=== PATIENT | female | born 1945 | race Caucasian/White ===

== ENCOUNTER 2018-04-03 14:34 | Emergency (ER) | payer OTHER ==
--- OUTSIDE RECORDS SUMMARY | 2018-04-03 14:37 | XMS REPORT | Clinical Summary ---
:1945 Author Organization [facility] Address [address] [place] [address] Phone Care Team Providers Name Role Phone Unavailable Primary Care Provider Unavailable Allergies Active Allergy Reactions Severity Noted Date Comments Albuterol 01/04/2015 Pt reports "she cant breathe" Ciprofloxacin 01/04/2015 Legs swell and turn bright red Current Medications Prescription Sig. Disp. Refills Start Date End Date Status rivaroxaban (XARELTO) 10 Take by mouth. Active mg Tab tablet levothyroxine (SYNTHROID, Take 150 mcg by Active LEVOTHROID) 150 MCG mouth daily. tablet omeprazole (PRILOSEC) 20 Take 20 mg by mouth Active MG capsule daily. fluticasone-salmeterol Inhale 1 puff by Active (ADVAIR) 250-50 mcg/dose mouth via inhaler diskus inhaler every 12 (twelve) hours. b complex vitamins tablet Take 1 tablet by Active mouth daily. oxybutynin (DITROPAN-XL) Take 10 mg by mouth Active 10 MG 24 hr tablet daily. montelukast (SINGULAIR) Take 10 mg by mouth Active 10 mg tablet nightly. beclomethasone (QVAR) 40 Inhale 2 puffs by Active mcg/actuation inhaler mouth via inhaler 2 (two) times daily. phenylephrine 1 drop by Nasal Active (OPAL-SYNEPHRINE) 1 % route every 4 nasal spray (four) hours as needed for Congestion. calcium carbonate-vitamin Take 1 tablet by Active D2 500 mg(1,250mg) -200 mouth 2 (two) times unit tablet daily. multivitamin per tablet Take 1 tablet by Active mouth daily. iron, carbonyl 45 mg Tab Take by mouth. Active tablet polycarbophil (FIBERCON) Take 625 mg by Active 625 mg tablet mouth daily. docusate sodium (COLACE) Take 200 mg by Active 100 MG capsule mouth nightly. lactobacillus rhamnosus, Take 1 capsule by Active GG, (CULTURELLE) 10 mouth daily. billion cell capsule levalbuterol (XOPENEX Inhale 1 puff by Active HFA) 45 mcg/actuation mouth via inhaler inhaler every 6 (six) hours as needed for Wheezing. cholecalciferol (VITAMIN Take 1,000 Units by Active D3) 1,000 unit tablet mouth 3 (three) times a week. green tea leaf extract Take 2 capsules by Active (GREEN TEA) 315 mg Cap mouth. Missing or Non-Formulary Take 1 capsule by Active Medication mouth Potassium otc . zinc gluconate 50 mg Take 50 mg by mouth Active tablet daily. omega-3 fatty Take by mouth. Active acids-vitamin E 1,000 mg Cap Active Problems Not on file Encounters Date Type Specialty Care Team Description 05/04/2017 Ancillary Orders Lab Tam Carmen MD 05/04/2017 Outside Orders Central Scheduling Tam Carmen Nasopharynx neoplasm MD Mata (Primary Dx) after 04/02/2017 Family History Relation Name Status Comments Father Mother Social History Tobacco Use Types Packs/Day Years Used Date Former Smoker 1 23 Quit: 08/17/1984 Alcohol Use Drinks/Week oz/Week Comments Yes 1 Glasses of wine 0.6 monthly Sex Assigned at Date Recorded Not on file Last Filed Vital Signs Not on file Plan of Treatment Not on file Results Tissue Exam (05/01/2017 3:09 PM) Component Value Ref Range Case Report Surgical Pathology Report Case: [id number] Authorizing Provider:Tam Carmen MD Collected: 05/01/2017 1509 Ordering Location: [facility] MAIN ADMITTING Received: 05/04/2017 1531 Pathologist: Marine Hawthorne MD Specimen:Nasopharynx/Oropharynx DIAGNOSIS NASOPHARYNX/OROPHARYNX, BIOPSY: - FOLLICULAR LYMPHOID HYPERPLASIA - NEGATIVE FOR MALIGNANCY CC/pl Signing Pathologist Direct Phone Line: [phone] CPT Code(s) 40677 CLINICAL HISTORY Nasopharynx neoplasm benign SPECIMEN SOURCE Nasopharynx tissue GROSS DESCRIPTION The specimen is received in a formalin-filled container labeled with the patient's information and labeled "nasopharynx tissue" and consists of a round excision of lara tissue measuring 0.5 x 0.4 x 0.2 cm, submitted entirely in A1. CG/ew MICROSCOPIC DESCRIPTION Section shows a polypoid nasopharynx/oropharyngeal biopsies with intact squamous epithelium. There is a follicular lymphoid hyperplasia containing reactive germinal centers in the stroma. No malignant lymphoma is seen. Specimen Performing Laboratory Tissue - Nasopharynx/Oropharynx [address] [address] after 04/02/2017
--- OUTSIDE RECORDS SUMMARY | 2018-04-03 14:37 | XMS REPORT ---
:1945 Author Organization eClinicalWorks Care Team Providers Name Role Phone Tam Carmen Provider Role Unavailable Allergies No Known Allergies Problems Problem Type Condition Code Onset Dates Condition Status Problem Chronic rhinitis J31.0 Active Problem Chronic tonsillitis J35.01 Active Problem Sinusitis - Chronic maxillary J32.0 Active Problem Sinusitis - Chronic J32.8 Active Medications Medication Code Code Instructions Start End Status Dosage System Date Date Mometasone [facility] [id number] 50 MCG/ACT December 16, Active 2 sprays Furoate Nasally Once a 2018 in each day nostril Results No Known Results Summary Purpose eClinicalWorks Submission
--- OUTSIDE RECORDS SUMMARY | 2018-04-03 14:37 | XMS REPORT ---
:1945 Author Organization [facility] Address [address] [place] [address] Care Team Providers Name Role Phone Unavailable Unavailable Unavailable Problems This patient has no known problems. Allergies, Adverse Reactions, Alerts This patient has no known allergies or adverse reactions. Medications This patient has no known medications. Results Test Description Test Time Test Comments Text Results Atomic Results Result Comments TISSUE EXAM 2017-05-07 11:51:00 Surgical Pathology Report Case: [id number] Authorizing Provider: Tam Carmen MD Collected: 05/01/2017 1509 Ordering Location: [facility] MAIN ADMITTING Received: 05/04/2017 1531 Pathologist: Marine Hawthorne MD Specimen: Nasopharynx/Oropharynx NASOPHARYNX/OROPHARYNX, BIOPSY: - FOLLICULAR LYMPHOID HYPERPLASIA - NEGATIVE FOR MALIGNANCY CC/pl Signing Pathologist Direct Phone Line: [phone] signed by Marine Hawthorne MD on 05/07/2017 at 11:51 [id number] neoplasm benignNasopharynx tissueThe specimen is received in a formalin-filled container labeled with the patient's information and labeled "nasopharynx tissue" and consists of a round excision of lara tissue measuring 0.5 x 0.4 x 0.2 cm, submitted entirely in A1. CG/ew Section shows a polypoid nasopharynx/oropharyngeal biopsies with intact squamous epithelium. There is a follicular lymphoid hyperplasia containing reactive germinal centers in the stroma. No malignant lymphoma is seen.
--- OUTSIDE RECORDS SUMMARY | 2018-04-03 14:37 | XMS REPORT | Clinical Summary ---
:1945 Author Organization [facility] Address [address] [place] [address] Care Team Providers Name Role Phone Joe Venegas MD Primary Care Provider Allergies Active Allergy Reactions Severity Noted Date Comments Albuterol 12/26/2016 Pt states she cannot breathe Azithromycin Itching 12/26/2016 Ciprofloxacin-Fluocinolone 12/26/2016 Leg swelling Current Medications Prescription Sig. Disp. Refills Start Date End Date Status montelukast Take 10 mg by 3 07/17/2017 Active (SINGULAIR) 10 mg mouth daily. tablet MYRBETRIQ 50 mg Take 50 mg by 11 09/07/2017 Active tablet extended mouth daily. release 24 hr levothyroxine Take 150 mcg 5 08/24/2017 Active (SYNTHROID, LEVOXYL) by mouth 150 mcg tablet daily. olopatadine 0.6 % USE 2 SPRAYS 11 08/28/2017 Active spray,non-aerosol INTO EACH NOSTRIL EVERY MORNING rivaroxaban Take by Active (XARELTO) 10 mg mouth. tablet QVAR 40 INHALE 2 3 09/07/2017 Active mcg/actuation (TWO) PUFF(S) inhaler TWO TIMES DAILY levalbuterol INHALE 2 11 08/19/2017 Active (XOPENEX HFA) 45 PUFFS EVERY mcg/actuation 4-6 HOURS inhaler NEEDED BEVESPI AEROSPHERE Inhale 2 11 09/12/2017 Active 9-4.8 mcg HFA puffs 2 (two) aerosol inhaler times a day. docusate sodium Take 200 mg Active (COLACE) 100 MG by mouth. capsule iron, carbonyl, 45 Take by Active mg tablet mouth. MELATONIN ORAL Take by Active mouth. traMADol (ULTRAM) 50 Take 50 mg by Active mg tablet mouth every 6 (six) hours as needed for moderate pain. BECLOMETHASONE into each Active DIPROPIONATE (QNASL nostril. NASL) diphenhydrAMINE Take 25 mg by Active (BENADRYL) 25 mg mouth nightly tablet as needed for sleep. gabapentin Take three 90 capsule 1 02/26/2018 Active (NEURONTIN) 300 mg capsules by capsule mouth 3 times per day. gabapentin TAKE BY MOUTH 3 09/14/2017 Discontinued (NEURONTIN) 100 mg 1 CAPSULE 3 8 capsule TIMES A DAY FOR 30 DAYS gabapentin Take 2 180 capsule 1 10/29/2017 Discontinued (NEURONTIN) 100 mg capsules by 8 capsule mouth 3 times per day. gabapentin TAKE 2 180 capsule 1 12/29/2017 Discontinued (NEURONTIN) 100 mg CAPSULES BY 8 capsule MOUTH 3 TIMES PER DAY. gabapentin Take three 270 capsule 1 02/24/2018 Discontinued (NEURONTIN) 100 mg capsules by 8 capsule mouth 3 times per day. Active Problems Patient Care Coordination Note Will follow up in my clinic in 3-4 weeks but will call her sooner with results of bronch Blue Auguste MD, [facility] No additional problems on file Encounters Date Type Specialty Care Team Description 03/18/2018 Telephone Otolaryngology Kathleen Mcdowell MA 02/19/2018 Refill Otolaryngology Naomy Fuller MD 02/16/2018 Hospital Encounter Gastroenterology Feng Cobian MD 02/16/2018 Procedure Pass Gastroenterology 02/15/2018 Procedure Pass Gastroenterology 01/18/2018 Orders Only Otolaryngology Jeremias, Laryngeal spasm; CHRISTIAN Wang Shortness of breath; Dysphagia, unspecified type; Choking, initial encounter 01/12/2018 Telephone Otolaryngology Kathleen Mcdowell MA 01/08/2018 Speech & Language Otolaryngology Sofia, Laryngeal spasm ( Primary Dx); Curtis Hopson MS Impaired vocal quality; [facility] Shortness of breath 01/08/2018 Office Visit Otolaryngology Naomy Fuller Cough (Primary Dx); MD Antonio Gastroesophageal reflux disease, esophagitis presence not specified 12/29/2017 Refill Otolaryngology Thekdi, Naomy Laryngeal spasm (Primary Dx ); MD Antonio Shortness of breath; Dysphagia, unspecified type; Choking, initial encounter 12/22/2017 Telephone Otolaryngology Mark Anthony Black MS [facility] 12/21/2017 Speech & Language Otolaryngology [facility], Laryngeal spasm ( Primary Dx); Curtis Hopson MS Impaired vocal quality; [facility] Shortness of breath 11/04/2017 Orders Only Otolaryngology Coretta, Laryngeal spasm (Primary Dx ); CHRISTIAN Gonzalez Shortness of breath 11/02/2017 Speech & Language Otolaryngology [facility], Laryngeal spasm ( Primary Dx); Curtis Hopson MS Impaired vocal quality [facility] 10/29/2017 Telephone Otolaryngology Lisa Hitchcock MA 10/02/2017 Office Visit Otolaryngology Stephaniaac, Naomy Laryngeal spasm ( Primary Dx); MD Antonio Shortness of breath 10/02/2017 Speech & Language Otolaryngology [facility], Impaired vocal quality (Primary Dx); Curtis Hopson MS Cough; [facility] Asthma, unspecified asthma severity, unspecified whether complicated, unspecified whether persistent after 04/02/2017 Family History Medical History Relation Name Comments Heart disease Father Hypertension Father Diabetes Sister Heart disease Sister Hypertension Sister Relation Name Status Comments Father Sister Social History Tobacco Use Types Packs/Day Years Used Date Former Smoker Cigarettes 1.5 30 Smokeless Tobacco: Never Used Sex Assigned at Date Recorded Not on file Last Filed Vital Signs Vital Sign Reading Time Taken Blood Pressure 146/90 10/02/2017 1:40 PM [employer] Pulse 73 10/02/2017 1:40 PM [employer] Temperature - - Respiratory Rate - - Oxygen Saturation - - Inhaled Oxygen Concentration - - Weight 104 kg (230 lb) 10/02/2017 1:40 PM [employer] Height 170.2 cm (5' 7") 10/02/2017 1:40 PM [employer] Body Mass Index 36.02 10/02/2017 1:40 PM [employer] Plan of Treatment Health Maintenance Due Date Last Done Comments BREAST CANCER SCREENING 10/26/1997 COLON CANCER SCREENING 10/26/1997 SHINGRIX VACCINE (#1) 10/26/1997 ZOSTER VACCINE 2007 PNEUMOCOCCAL-13 10/26/2012 INFLUENZA VACCINE 03/17/2018 04/21/2014, 04/21/2014, 06/25/2012, Additional history exists PNEUMOCOCCAL POLYSACCHARIDE VACCINE Completed 05/29/2017, 05/29/2017, AGE 65 AND OVER 06/11/2010 Results Not on fileafter 04/02/2017 Insurance Payer Benefit Plan / Group Subscriber ID Type Phone Address MEDICARE MEDICARE PART A AND B xxxxxxxxxx Medicare [place], [place] AETNA AETNA HMO,POS,EPO, MC/EC xxxxxxxxx HMO Home: [address] [phone] [place], [place] [id number]
--- OUTSIDE RECORDS SUMMARY | 2018-04-03 14:37 | XMS REPORT ---
:1945 Author Organization eClinicalWorks Care Team Providers Name Role Phone Tam Carmen Provider Role Unavailable Allergies No Known Allergies Problems Problem Type Condition Code Onset Dates Condition Status Problem Chronic rhinitis J31.0 Active Problem Chronic tonsillitis J35.01 Active Problem Sinusitis - Chronic maxillary J32.0 Active Problem Sinusitis - Chronic J32.8 Active Medications Medication Code System Code Instructions Start End Date Status Dosage Date Bactrim DS [facility] [id number] 800-160 MG Orally January 13, January 23, Active 1 tablet Twice a day 2017 2017 PredniSONE [facility] [id number] 10 MG Orally then January 13January 23, Active 1 tablet QD x 5 days 2017 2017 BID x 5 days Results No Known Results Summary Purpose eClinicalWorks Submission
[2018-04-03 15:34] LABS: Absolute Monocytes 0.5 K/uL (0.1-1.3); Absolute Neutrophil 4.8 K/uL (1.8-8.0); Basophils % 0.5 % (0-1.3); Eosinophils % 2.5 % (0-4.4); Hematocrit 39.8 % (36.0-45.0); MCH 30.9 pg (27.0-35.0); MCV 93.3 fL (80-100); MPV 8.3 fL (7.6-11.3); Monocytes % 6.8 % (3.3-12.3); RBC Red Blood Cell Count 4.26 M/uL (3.86-4.86)
[2018-04-03 15:43] LABS: Potassium 3.9 mmol/L (3.5-5.1)
--- NOTE | 2018-04-03 16:20 | RAD REPORT ---
EXAM DESCRIPTION: CT - Soft Tissue Neck W/Contr - 04/03/2018 4:04 pm CLINICAL HISTORY: Neck pain and neck swelling COMPARISON: None. TECHNIQUE: Computed axial tomography of the neck was obtained. 50 cc Isovue-300 administered intrave nously. Coronal and sagittal reconstruction was performed All CT scans are performed using dose optimization technique as appropriate and may include automated exposure control or mA/KV adjustment according to patient size. FINDINGS: The pharynx, larynx, tongue base and subglottic trachea appear unremarkable. The parotid, submandibular thyroid glands appear normal. No no lymphadenopathy is seen. Fluid is present within the left maxillary sinus. Spondylosis involves the cervical spine resulting in foraminal stenosis. IMPRESSION: Fluid within the left maxillary sinus likely indicating acute sinusitis
--- NOTE | 2018-04-03 16:48 | EDPHYS ---
Physician Documentation [facility] Name: Ashley Reyes Age: 72 yrs Sex: Female : 1945 Arrival Date: 04/03/2018 Time: 14:37 Bed 24 Private MD: Jonatan Venegas C ED Physician Nate Nickerson HPI: 04/03 16:37 This 72 yrs old Female presents to ER via Ambulatory with complaints of gs Facial Swelling, Neck Problem. 16:37 The patient or guardian complains of swelling. The symptoms are located on the right gs jaw. Onset: The symptoms/episode began/occurred yesterday, and became persistent. Associated signs and symptoms: Pertinent positives: sinus pressure. Severity of symptoms: At their worst the symptoms were moderate, in the emergency department the symptoms are unchanged. The patient has not experienced similar symptoms in the past. Historical: - Allergies: 14:45 Albuterol; aj 14:45 Azithromycin; aj 14:45 Cipro; aj - Home Meds: 14:45 Calcium 600 + D(3) 600 mg calcium- 200 unit Oral cap daily [Active]; green tea twice a aj day [Active]; levothyroxine 125 mcg tab 1 tab once daily [Active]; multivitamin Oral cap [Active]; Myrbetriq 50 mg Oral Tb24 1 tab once daily [Active]; olopatadine 0.6 % nasal spry 2 sprays 2 times per day [Active]; topher probiotic [Active]; Perdiem Oral nightly [Active]; Prevacid 15 mg Oral cpDR 1 cap once daily [Active]; QNasl 80 mcg 1 spray to each nostril twice a day [Active]; Slow Fe Oral daily [Active]; Xarelto 40 mg Oral tab 1 tab once daily [Active]; Xopenex Inhl [Active]; - PMHx: 14:45 Asthma; Atrial Fib; Hypothyroidism; aj - PSHx: 14:45 Tonsillectomy; Cholecystectomy; Carpal Tunnel Repair; LAMINECTOMY L1 L2; aj FUNDOPLICATION; TOTAL KNEE REPLACEMENTS; Adenoids; ETHMOIDECTOMY; - Immunization history:: Adult Immunizations up to date. - Social history:: Smoking status: Patient/guardian denies using tobacco. - Ebola Screening: : Patient negative for fever greater than or equal to 101.5 degrees Fahrenheit, and additional compatible Ebola Virus Disease symptoms Patient denies exposure to infectious person Patient denies travel to an Ebola-affected area in the 21 days before illness onset No symptoms or risks identified at this time. ROS: 16:37 All other systems are negative. gs Exam: 16:37 Head/Face: Normocephalic, atraumatic. Eyes: Pupils equal round and reactive to light, gs extra-ocular motions intact. Lids and lashes normal. Conjunctiva and sclera are non-icteric and not injected. Cornea within normal limits. Periorbital areas with no swelling, redness, or edema. Chest/axilla: Normal chest wall appearance and motion. Nontender with no deformity. No lesions are appreciated. Cardiovascular: Regular rate and rhythm with a normal S1 and S2. No gallops, murmurs, or rubs. Normal PMI, no JVD. No pulse deficits. Respiratory: Lungs have equal breath sounds bilaterally, clear to auscultation and percussion. No rales, rhonchi or wheezes noted. No increased work of breathing, no retractions or nasal flaring. Abdomen/GI: Soft, non-tender, with normal bowel sounds. No distension or tympany. No guarding or rebound. No evidence of tenderness throughout. Back: No spinal tenderness. No costovertebral tenderness. Full range of motion. Skin: Warm, dry with normal turgor. Normal color with no rashes, no lesions, and no evidence of cellulitis. MS/ Extremity: Pulses equal, no cyanosis. Neurovascular intact. Full, normal range of motion. Neuro: Awake and alert, GCS 15, oriented to person, place, time, and situation. Cranial nerves II-XII grossly intact. Motor strength 5/5 in all extremities. Sensory grossly intact. Cerebellar exam normal. Normal gait. 16:37 Constitutional: The patient appears alert, awake. 16:37 Head/face: Sinus tenderness, that is mild. 16:37 ENT: Ear canal(s): are normal, Posterior pharynx: is normal. 16:37 Neck: External neck: swelling, that is mild, of the right sternocleidomastoid, tenderness, that is mild, of the right sternocleidomastoid. Vital Signs: 14:45 BP 159 / 82; Pulse 82; Resp 16; Temp 97.9; Pulse Ox 97% on R/A; Weight 104.33 kg; aj Height 5 ft. 7 in. (170.18 cm); 15:40 BP 121 / 74; Pulse 88; Resp 18; Pulse Ox 98% on R/A; Pain 5/10; mg2 16:57 BP 122 / 78; Pulse 80; Resp 18; Pulse Ox 100% on R/A; Pain 0/10; mg2 14:45 Body Mass Index 36.02 (104.33 kg, 170.18 cm) aj MDM: 15:09 Patient medically screened. 16:37 Differential diagnosis: mass, uri, sinusitis, lymphadenopathy. Data reviewed: vital gs signs, nurses notes. Response to treatment: the patient's symptoms have mildly improved after treatment, and as a result, I will discharge patient. 04/03 15:10 Order name: CBC with Diff; Complete Time: 16:13 04/03 15:10 Order name: Basic Metabolic Panel; Complete Time: 16:13 04/03 15:10 Order name: CT Soft Tissue Neck W/contr; Complete Time: 16:30 Administered Medications: No medications were administered Disposition: 04/03/18 16:48 Discharged to Home. Impression: Acute maxillary sinusitis, Acute lymphadenitis. - Condition is Stable. - Discharge Instructions: Sinusitis, Adult, Lymphangitis, Adult. - Prescriptions for Flonase Allergy Relief 50 mcg/actuation Nasal spray,suspension - inhale 2 spray by INTRANASAL route once daily; 1 bottle. Ceftin 250 mg Oral Tablet - take 1 tablet by ORAL route every 12 hours for 10 days; 20 tablet. - Medication Reconciliation Form, Thank You Letter, Antibiotic Education, Prescription Opioid Use form. - Follow up: Sandi Caraballo MD; When: 2 - 3 days; Reason: Re-evaluation by your physician. Signatures: Dispatcher [employer] Sharee Perez RN RN aj Starr, Gregory, MD MD Steve Blanchard RN RN mg2 Corrections: (The following items were deleted from the chart) 16:58 16:48 04/03/2018 16:48 Discharged to Home. Impression: Acute maxillary sinusitis; Acute mg2 lymphadenitis. Condition is Stable. Forms are Medication Reconciliation Form, Thank You Letter, Antibiotic Education, Prescription Opioid Use. Follow up: Sandi Caraballo; When: 2 - 3 days; Reason: Re-evaluation by your physician. gs
--- NOTE | 2018-04-03 16:48 | ER ---
Nurse's Notes [facility] Name: Ashley Reyes Age: 72 yrs Sex: Female : 1945 Arrival Date: 04/03/2018 Time: 14:37 Bed 24 Private MD: Jonatan Venegas C Diagnosis: Acute maxillary sinusitis;Acute lymphadenitis Presentation: 04/03 14:43 Presenting complaint: Patient states: Right neck pain since , with swelling to aj right side of face that started today. Patient reports pain with turning head to right. Transition of care: patient was not received from another setting of care. Onset of symptoms was March 31, 2018. Risk Assessment: Do you want to hurt yourself or someone else? Patient reports no desire to harm self or others. Initial Sepsis Screen: Does the patient meet any 2 criteria? No. Patient's initial sepsis screen is negative. Does the patient have a suspected source of infection? No. Patient's initial sepsis screen is negative. Care prior to arrival: None. 14:43 Method Of Arrival: Ambulatory 14:43 Acuity: ARLINE 3 aj Triage Assessment: 14:45 General: Appears in no apparent distress. comfortable, Behavior is calm, cooperative, aj appropriate for age. Pain: Complains of pain in right sternocleidomastoid. EENT: swelling to right lower jaw. Neuro: Level of Consciousness is awake, alert, obeys commands, Oriented to person, place, time, situation, Appropriate for age. Respiratory: Airway is patent Respiratory effort is even, unlabored, Respiratory pattern is regular, symmetrical. Derm: Skin is intact, is healthy with good turgor, Skin is pink, warm \T\ dry. normal. Historical: - Allergies: 14:45 Albuterol; aj 14:45 Azithromycin; aj 14:45 Cipro; aj - Home Meds: 14:45 Calcium 600 + D(3) 600 mg calcium- 200 unit Oral cap daily [Active]; green tea twice a aj day [Active]; levothyroxine 125 mcg tab 1 tab once daily [Active]; multivitamin Oral cap [Active]; Myrbetriq 50 mg Oral Tb24 1 tab once daily [Active]; olopatadine 0.6 % nasal spry 2 sprays 2 times per day [Active]; topher probiotic [Active]; Perdiem Oral nightly [Active]; Prevacid 15 mg Oral cpDR 1 cap once daily [Active]; QNasl 80 mcg 1 spray to each nostril twice a day [Active]; Slow Fe Oral daily [Active]; Xarelto 40 mg Oral tab 1 tab once daily [Active]; Xopenex Inhl [Active]; - PMHx: 14:45 Asthma; Atrial Fib; Hypothyroidism; aj - PSHx: 14:45 Tonsillectomy; Cholecystectomy; Carpal Tunnel Repair; LAMINECTOMY L1 L2; aj FUNDOPLICATION; TOTAL KNEE REPLACEMENTS; Adenoids; ETHMOIDECTOMY; - Immunization history:: Adult Immunizations up to date. - Social history:: Smoking status: Patient/guardian denies using tobacco. - Ebola Screening: : Patient negative for fever greater than or equal to 101.5 degrees Fahrenheit, and additional compatible Ebola Virus Disease symptoms Patient denies exposure to infectious person Patient denies travel to an Ebola-affected area in the 21 days before illness onset No symptoms or risks identified at this time. Screenin:34 Abuse screen: Denies threats or abuse. Denies injuries from another. Nutritional mg2 screening: No deficits noted. Tuberculosis screening: No symptoms or risk factors identified. Fall Risk None identified. Assessment: 15:37 General: Appears comfortable, Behavior is calm, cooperative. Pain: Complains of pain in mg2 neck and right sternocleidomastoid Pain does not radiate. Pain currently is 5 out of 10 on a pain scale. Quality of pain is described as aching, Pain began 2-3 days ago. Is intermittent, Alleviated by rest. Neuro: Level of Consciousness is awake, alert, obeys commands, Oriented to person, place, time, situation. Cardiovascular: Capillary refill < 3 seconds Patient's skin is warm and dry. Respiratory: Airway is patent Respiratory effort is even, unlabored, Respiratory pattern is regular, symmetrical. GI: No signs and/or symptoms were reported involving the gastrointestinal system. : No signs and/or symptoms were reported regarding the genitourinary system. EENT: No signs and/or symptoms were reported regarding the EENT system. Derm: Skin is intact, Skin is pink, warm \T\ dry. normal. Musculoskeletal: Reports pain in neck since . Vital Signs: 14:45 BP 159 / 82; Pulse 82; Resp 16; Temp 97.9; Pulse Ox 97% on R/A; Weight 104.33 kg; aj Height 5 ft. 7 in. (170.18 cm); 15:40 BP 121 / 74; Pulse 88; Resp 18; Pulse Ox 98% on R/A; Pain 5/10; mg2 16:57 BP 122 / 78; Pulse 80; Resp 18; Pulse Ox 100% on R/A; Pain 0/10; mg2 14:45 Body Mass Index 36.02 (104.33 kg, 170.18 cm) ED Course: 14:37 Patient arrived in ED. mr 14:38 Jonatan Venegas MD is Private Physician. mr 14:44 Triage completed. aj 14:45 Arm band placed on right wrist. Patient placed in an exam room, on a stretcher. aj 14:53 Steve Blanchard RN is Primary Nurse. mg2 15:02 Nate Nickerson MD is Attending Physician. gs 15:22 Inserted saline lock: 20 gauge in right antecubital area, using aseptic technique. mg2 Blood collected. 15:39 Patient has correct armband on for positive identification. Call light in reach. Side mg2 rails up X 1. Door closed. Pillow given. 16:02 CT completed. Patient tolerated procedure well. Patient moved back from CT. bq 16:03 CT Soft Tissue Neck W/contr In Process Unspecified. EDPA 16:46 Sandi Caraballo MD is Referral Physician. 16:57 CT completed. Patient tolerated procedure well. Patient moved back from CT. bq 16:57 No provider procedures requiring assistance completed. IV discontinued, intact, mg2 bleeding controlled, No redness/swelling at site. Pressure dressing applied. Administered Medications: No medications were administered Outcome: 16:48 Discharge ordered by . 16:57 Discharged to home ambulatory. mg2 16:57 Condition: stable 16:57 Discharge instructions given to patient, Instructed on discharge instructions, follow up and referral plans. medication usage, Demonstrated understanding of instructions, follow-up care, medications, Prescriptions given X 2. 16:58 Patient left the ED. mg2 Signatures: Dispatcher [employer] EDMS Sharee York RN RN aj Rivera, Maria Maddie Londono Nate Nickerson MD MD Steve Blanchard RN RN mg2
[2018-04-03 17:06] VITALS: TEMP 97.9
[2018-04-03 17:09] VITALS: BP 122/78; O2SAT 100
== END 2018-04-03 16:58 | disposition home or self-care (01) ==
LOC: ER 14:34
DX: J01.00 Acute maxillary sinusitis, unspecified (principal); L04.9 Acute lymphadenitis, unspecified; Z88.1 Allergy status to other antibiotic agents; Z88.8 Allergy status to other drugs, medicaments and biological substances; E03.9 Hypothyroidism, unspecified; I48.91 Unspecified atrial fibrillation; Z79.01 Long term (current) use of anticoagulants
CPT/HCPCS: 36415; 70491; 80048; 85025; Q9967; 99284

== ENCOUNTER 2018-10-17 16:48 | Inpatient (IN) | payer OTHER ==
--- OUTSIDE RECORDS SUMMARY | 2018-10-17 16:50 | XMS REPORT | Clinical Summary ---
:1945 Author Organization [facility] Address [address] [place] [address] Care Team Providers Name Role Phone Joe Venegas MD Primary Care Provider Allergies Active Allergy Reactions Severity Noted Date Comments Albuterol 12/26/2016 Pt states she cannot breathe Azithromycin Itching 12/26/2016 Ciprofloxacin-Fluocinol 12/26/2016 Leg swelling one Codeine hallucination Ipratropium-Albuterol Other (See Comments) Milk Containing Other (See Medium 06/14/2018 cough Products Comments) Medications Medication Sig Dispensed Refills Start Date End Date Status montelukast [...] INTO EACH NOSTRIL EVERY MORNING rivaroxaban Take 20 mg by 0 Active (XARELTO) 10 mg mouth. tablet QVAR 40 INHALE 2 (TWO) 3 09/07/2017 Active mcg/actuation PUFF(S) TWO inhaler TIMES DAILY levalbuterol INHALE 2 PUFFS 11 08/19/2017 Active (XOPENEX HFA) 45 EVERY 4-6 mcg/actuation HOURS inhaler NEEDED BEVESPI AEROSPHERE Inhale 2 puffs 11 09/12/2017 Active 9-4.8 mcg HFA 2 (two) times aerosol inhaler a day. docusate sodium Take 200 mg by 0 Active (COLACE) 100 MG mouth. capsule iron, carbonyl, 45 Take by mouth. 0 Active mg tablet MELATONIN ORAL Take by mouth. 0 Active traMADol (ULTRAM) 50 Take 50 mg by 0 Active mg tablet mouth every 6 (six) hours as needed for moderate pain. BECLOMETHASONE into each 0 Active DIPROPIONATE (QNASL nostril. NASL) diphenhydrAMINE Take 25 mg by 0 Active (BENADRYL) 25 mg mouth nightly tablet as needed for sleep. gabapentin TAKE ONE 90 capsule 2 04/27/2018 Active (NEURONTIN) 300 mg CAPSULE BY capsule MOUTH 3 TIMES A DAY sennosides 15 mg Take 2 tablets 0 Active tablet by mouth nightly. multivitamin with Take by mouth. 0 Active iron (ONE DAILY MULTI-VIT W-MINERAL) tablet L. Take by mouth. 0 Active acidophilus/Bifido longum (PROBIOTIC PEARLS ORAL) inulin 1.5 gram Chew 2 0 Active tablet,chewable capsules. calcium Take by mouth. 0 Active carbonate-vitamin D3 600-125 mg-unit tablet clobetasol APPLY TWICE A 0 07/22/2018 Active (TEMOVATE) 0.05 % DAY TO cream AFFECTED AREAS LOWER BACK X2 WEEK NEEDED FLARE fluocinonide (LIDEX) APPLY TWICE A 0 05/27/2018 Active 0.05 % external DAY TO solution AFFECTED AREAS ON SCALP FOR 2 WEEKS MAX NEEDED FOR FLARE cranberry 400 mg Take by mouth. 0 Active capsule cyanocobalamin, Place under 0 Active vitamin B-12, 5,000 the tongue. mcg tablet, sublingual hyoscyamine (LEVSIN) PLACE 1 TABLET 3 07/16/2018 Active 0.125 mg SL tablet UNDER THE TONGUE ROUTE 4 TIMES EVERY DAY NEEDED FOR ABDOMINAL CRAMPS guaiFENesin Take 1,200 mg 0 Active (MUCINEX) 600 mg by mouth. tablet extended release 12hr loratadine 10 mg Take by mouth. 0 Active capsule mometasone (NASONEX) 2 sprays into 0 Active 50 mcg/actuation each nostril. nasal spray naftifine 2 % cream APPLY 2 TIMES 2 05/26/2018 Active A DAY TO FEET UNTIL CLEAR omeprazole Take 40 mg by 0 Active (PriLOSEC) 40 MG mouth. capsule ospemifene (OSPHENA) Take 1 tablet 0 Active 60 mg tablet by mouth. valerian root 450 mg Take 4 0 Active capsule capsules by mouth. beclomethasone Inhale 2 0 Active (QVAR) 40 puffs. mcg/actuation inhaler gabapentin TAKE BY MOUTH 3 09/14/2017 10/30/19 Discontinued (NEURONTIN) 100 mg 1 CAPSULE 3 18 capsule TIMES A DAY FOR 30 DAYS gabapentin Take 2 180 capsule 1 10/29/2017 12/30/19 Discontinued (NEURONTIN) 100 mg capsules by 18 capsule mouth 3 times per day. gabapentin TAKE 2 180 capsule 1 12/29/2017 02/20/20 Discontinued (NEURONTIN) 100 mg CAPSULES BY 18 capsule MOUTH 3 TIMES PER DAY. gabapentin Take three 270 capsule 1 02/24/2018 02/27/20 Discontinued (NEURONTIN) 100 mg capsules by 18 capsule mouth 3 times per day. gabapentin Take three 90 capsule 1 02/26/2018 04/22/20 Discontinued (NEURONTIN) 300 mg capsules by 18 capsule mouth 3 times per day. Active Problems Patient Care Coordination Note Will follow up in my clinic in 3-4 weeks but will call her sooner with results of bronch Blue Auguste MD, [facility], [facility] No additional problems on file Encounters Date Type Specialty Care Team Description 10/12/2018 Telephone Gastroenterology Laurie Forrest MA 10/05/2018 Telephone Gastroenterology Laurie Forrest MA 09/02/2018 Telephone GastroenterConrad Banda MA 09/02/2018 Telephone GastroenterLaurie Castaneda MA 08/30/2018 Office Visit Gastroenterology Feng Cobian Pain of upper abdomen (Primary Dx); MD Antonio Gastroesophageal reflux disease without esophagitis; Incisional hernia, without obstruction or gangrene; Constipation, unspecified constipation type 08/30/2018 Telephone GastroenterConrad Banda MA 08/27/2018 Telephone GastroenterConrad Banda MA 06/15/2018 [facility] Pulmonology Blue Auguste MD 04/22/2018 Refill Otolaryngology Naomy Fuller MD 03/18/2018 Telephone Otolaryngology Kathleen Mcdowell MA 02/19/2018 Refill Otolaryngology Naomy Fuller MD 02/16/2018 [facility] Gastroenterology Feng Cobian Encounter MD Antonio 01/18/2018 Orders Only Otolaryngology Kathleen Mcdowell, Laryngeal spasm; CHRISTIAN Shortness of breath; Dysphagia, unspecified type; Choking, initial encounter 01/12/2018 Telephone Otolaryngology Kathleen Mcdowell MA 01/08/2018 Speech & Language Otolaryngology Mark Anthony Black, Laryngeal spasm (Primary Dx); Curtis SEE [employer]-TUBE OPERATOR Impaired vocal quality; Shortness of breath 01/08/2018 Office Visit Otolaryngology Naomy Fuller Cough (Primary Dx); MD Antonio Gastroesophageal reflux disease, esophagitis presence not specified 12/29/2017 Refill Otolaryngology Naomy Fuller Laryngeal spasm (Primary Dx ); MD Antonio Shortness of breath; Dysphagia, unspecified type; Choking, initial encounter 12/22/2017 Telephone Otolaryngology Mark Anthony Black MS CCC-TUBE OPERATOR 12/21/2017 Speech & Language Otolaryngology Mark Anthony Black, Laryngeal spasm (Primary Dx); Curtis SEE CCC-TUBE OPERATOR Impaired vocal quality; Shortness of breath 11/04/2017 Orders Only Otolaryngology Lisa Hitchcock, Laryngeal spasm ( Primary Dx); CHRISTIAN Shortness of breath 11/02/2017 Speech & Language Otolaryngology Mark Anthony Black, Laryngeal spasm (Primary Dx); Curtis MS CCC-TUBE OPERATOR Impaired vocal quality 10/29/2017 Telephone Otolaryngology Lisa Hitchcock MA after 10/16/2017 Family History Medical History Relation Name Comments Heart disease Father Hypertension Father Diabetes Sister Heart disease Sister Hypertension Sister Relation Name Status Comments Father Sister Social History Tobacco Use Types Packs/Day Years Used Date Former Smoker Cigarettes 1.5 30 Smokeless Tobacco: Never Used Alcohol Use Drinks/Week oz/Week Comments Yes 1-2 Glasses of wine 0.6 - 1.2 occasionally Alcohol Habits Answer Date Recorded How often do you have a drink containing alcohol? Never 08/30/2018 How many drinks containing alcohol do you have on a typical Not asked day when you are drinking? How often do you have six or more drinks on one occasion? Not asked Sex Assigned at Date Recorded Not on file Job Start Date Occupation Industry Not on file Not on file Not on file Travel History Travel Start Travel End No recent travel history available. Last Filed Vital Signs Vital Sign Reading Time Taken Blood Pressure 148/83 08/30/2018 12:17 PM [employer] Pulse 80 08/30/2018 12:17 PM [employer] Temperature 36.4 C (97.5 F) 08/30/2018 12:17 PM [employer] Respiratory Rate - - Oxygen Saturation - - Inhaled Oxygen Concentration - - Weight 105 kg (232 lb 3.2 oz) 08/30/2018 12:17 PM [employer]ER Height 170.2 cm (5' 7") 08/30/2018 12:17 PM WARE DRESSER Body Mass Index 36.37 08/30/2018 12:17 PM [employer]ARE DR[employer]ER Plan of Treatment Date Type Specialty Care Team Description 10/22/2018 Hospital Encounter Gastroenterology Feng Cobian MD [address] [facility] [address] [place] [address] [phone] 10/22/2018 Surgery Gastroenterology Feng Cobian ESOPHAGEAL MANOMETRY MD Antonio WITH SCHAEFER [address] [facility] [address] [place] [address] [phone] 10/25/2018 Surgery Gastroenterology Feng Cobian ESOPHAGEAL MANOMETRY MD Antonio WITH SCHAEFER 48 HOUR [address] [facility] [address] [place] [address] [phone] Health Maintenance Due Date Last Done Comments BREAST CANCER SCREENING 10/26/1997 COLON CANCER SCREENING 10/26/1997 SHINGLES VACCINES (#1) 10/26/1997 INFLUENZA VACCINE 03/17/2018 04/21/2014, 04/21/2014, 06/25/2012, Additional history exists 65+ PNEUMOCOCCAL VACCINE Completed 05/29/2017, 06/11/2010 PNEUMOCOCCAL POLYSACCHARIDE VACCINE Completed 05/29/2017, 05/29/2017, AGE 65 AND OVER 06/11/2010 Procedures Procedure Name Priority Date/Time Associated Comments Diagnosis HELICOBACTER PYLORI Routine 09/01/2018 1:48 Pain of upper Results for this ANTIGEN, STOOL PM WARE DRESSER abdomen procedure are in the results section. LIPASE LEVEL Routine 09/01/2018 11:53 Pain of upper Results for this AM [employer] abdomen procedure are in the results section. AMYLASE LEVEL Routine 09/01/2018 11:53 Pain of upper Results for this AM [employer] abdomen procedure are in the results section. CBC HEMOGRAM Routine 09/01/2018 11:53 Pain of upper Results for this AM [employer] abdomen procedure are in the results section. after 10/16/2017 Results Helicobacter pylori antigen, stool (09/01/2018 1:48 PM WARE DRESSER) H pylori Ag, stool Negative Negative [facility] Specimen Stool Narrative Performed At Performed at: [facility] [address] [place], [place] [id number] Mixer Attendant: Buddy Villalobos MD, Phone:[phone] Performing Organization Address [facility] Phone Number [facility] CBC hemogram (09/01/2018 11:53 AM WARE DRESSER) WBC 8.7 3.4 - 10.8 x10E3/uL [facility] RBC 4.04 3.77 - 5.28 x10E6/uL [facility] HGB 12.3 11.1 - 15.9 g/dL [facility] HCT 38.2 34.0 - 46.6 % [facility] MCV 95 79 - 97 fL [facility] MCH 30.4 26.6 - 33.0 pg [facility] MCHC 32.2 31.5 - 35.7 g/dL [facility] RDW 13.6 12.3 - 15.4 % [facility] Platelet count 338 150 - 379 x10E3/uL [facility] Specimen Blood Narrative Performed At Performed at: [facility] [address] [place], [place] [id number] Mixer Attendant: Kranthi Campos MD, Phone:[phone] Performing Organization Address [facility] Phone Number [facility] Lipase level (09/01/2018 11:53 AM WARE DRESSER) Lipase 25 14 - 72 U/L [facility] Specimen Blood Narrative Performed At Performed at: [facility] [address] [place], [place] [id number] Mixer Attendant: Kranthi Campos MD, Phone:[phone] Performing Organization Address [facility] Phone Number [facility] Amylase level (09/01/2018 11:53 AM WARE DRESSER) Amylase 59 31 - 124 U/L [facility] Specimen Blood Narrative Performed At Performed at:01 - [facility] [address] [place], [id number] Mixer Attendant: Kranthi Campos MD, Phone:[phone] Performing Organization Address City/State/Zipcode Phone Number [facility] after 10/16/2017 Insurance Payer Benefit Plan / Group Subscriber ID Type Phone Address MEDICARE MEDICARE PART A AND B xxxxxxxxxxx Medicare [place], [place] AETNA AETNA HMO,POS,EPO, MC/EC xxxxxxxxx HMO Advance Directives Patient has advance care planning documents on file. For more information, please contact:Martin Tabares[address] [place] [address]
--- OUTSIDE RECORDS SUMMARY | 2018-10-17 16:51 | XMS REPORT | Clinical Summary ---
:1945 Author Organization [facility] Address [address] [place] [address] Care Team Providers Name Role Phone Joe Venegas MD Primary Care Provider Allergies Active Allergy Reactions Severity Noted Date Comments Albuterol High 01/04/2015 Pt reports "she cant breathe" Azithromycin Itching Low 12/26/2016 Ciprofloxacin Low 01/04/2015 Legs swell and turn bright red Milk Containing Products Other (See Comments) Medium 06/14/2018 cough Medications Medication Sig Dispensed Refills Start Date End Date Status levothyroxine Take 150 mcg 0 Active (SYNTHROID, by mouth LEVOTHROID) 150 MCG daily. tablet fluticasone-salmetero Inhale 1 puff 0 Active l (ADVAIR) 250-50 by mouth via mcg/dose diskus inhaler every inhaler 12 (twelve) hours. b complex vitamins Take 1 tablet 0 Active tablet by mouth daily. montelukast Take 10 mg by 0 Active (SINGULAIR) 10 mg mouth daily . tablet beclomethasone (QVAR) Inhale 2 puffs 0 Active 40 mcg/actuation by mouth via inhaler inhaler 2 (two) times daily. phenylephrine 1 drop by 0 Active (OPAL-SYNEPHRINE) 1 % Nasal route nasal spray every 4 (four) hours as needed for Congestion. multivitamin per Take 1 tablet 0 Active tablet by mouth daily. iron, carbonyl 45 mg Take 2 tablets 0 Active Tab tablet by mouth nightly . polycarbophil Take 625 mg by 0 Active (FIBERCON) 625 mg mouth daily. tablet docusate sodium Take 200 mg by 0 Active (COLACE) 100 MG mouth nightly. capsule lactobacillus Take 1 capsule 0 Active rhamnosus, GG, by mouth (CULTURELLE) 10 daily. billion cell capsule cholecalciferol Take 1,000 0 Active (VITAMIN D3) 1,000 Units by mouth unit tablet 3 (three) times a week. zinc gluconate 50 mg Take 50 mg by 0 Active tablet mouth daily. omega-3 fatty Take by mouth. 0 Active acids-vitamin E 1,000 mg Cap guaiFENesin (MUCINEX) Take 1,200 mg 0 Active 600 mg 12 hr tablet by mouth 2 (two) times daily. mirabegron Take by mouth 0 Active (MYRBETRIQ) 50 mg daily. Tb24 ER tablet gabapentin Take 300 mg by 0 Active (NEURONTIN) 300 MG mouth 3 capsule (three) times daily. ospemifene (OSPHENA) Take 1 tablet 0 Active 60 mg Tab by mouth daily. rivaroxaban (XARELTO) Take 20 mg by 0 Active 20 mg Tab tablet mouth daily. omeprazole (PRILOSEC) Take 40 mg by 0 Active 40 MG capsule mouth daily. cranberry 400 mg Cap Take by mouth 0 Active daily. calcium Take by mouth 0 Active carbonate-vitamin D3 2 (two) times (CALCIUM 600 + D,3,) daily. 600-125 mg-unit Tab L. acidophilus/Bifido Take by mouth 0 Active longum (PROBIOTIC daily. PEARLS ORAL) loratadine 10 mg Cap Take by mouth 0 Active daily. mometasone (NASONEX) 2 sprays by 0 Active 50 mcg/actuation Nasal route nasal spray daily. Missing or 9 mcg 2 (two) 0 Active Non-Formulary times daily Medication BeVespie inhaler . valerian root 450 mg Take 4 0 Active Cap capsules by mouth nightly. inulin (FIBER GUMMIES Take 2 0 Active ORAL) capsules by mouth nightly. cephalexin (KEFLEX) Take 500 mg by 0 Active 500 MG capsule mouth 2 (two) times daily. hyoscyamine Take 0.125 mg 0 Active (ANASPAZ,LEVSIN) by mouth every 0.125 mg tablet 4 (four) hours as needed for Cramping. Missing or . 0 Active Non-Formulary MedicationIndications : OlapaTADINE hcL 665 MCG, 2 SNIFFS EVERY AM rivaroxaban (XARELTO) Take by mouth. 0 Discontinued 10 mg Tab tablet 8 omeprazole (PRILOSEC) Take 20 mg by 0 Discontinued 20 MG capsule mouth daily. 8 oxybutynin Take 10 mg by 0 Discontinued (DITROPAN-XL) 10 MG mouth daily. 8 24 hr tablet calcium Take 1 tablet 0 Discontinued carbonate-vitamin D2 by mouth 2 8 500 mg(1,250mg) -200 (two) times unit tablet daily. levalbuterol (XOPENEX Inhale 1 puff 0 Discontinued HFA) 45 mcg/actuation by mouth via 8 inhaler inhaler every 6 (six) hours as needed for Wheezing. green tea leaf Take 2 0 Discontinued extract (GREEN TEA) capsules by 8 315 mg Cap mouth. Missing or Take 1 capsule 0 Discontinued Non-Formulary by mouth 8 Medication Potassium otc . Active Problems Not on file Encounters Date Type Specialty Care Team Description 06/30/2018 Hospital Encounter Radiology Tam Carmen, Localized enlarged lymph nodes; Malignant tumor of lingual tonsil (HCC) 06/28/2018 Outside Orders Central Scheduling Tam Carmen, Localized enlarged lymph nodes (Primary Dx); Malignant tumor of lingual tonsil (HCC) 06/18/2018 Anesthesia Event Bianca Pimentel MD 06/18/2018 Surgery Tam Carmen, LARYNGOSCOPY,BIOPSY 06/18/2018 Hospital Encounter Tam Carmen MD 06/14/2018 Hospital Encounter Pre-Admission Tam Carmen, Testing MD after 10/16/2017 Family History Relation Name Status Comments Father Mother Social History Tobacco Use Types Packs/Day Years Used Date Former Smoker 1.5 25 Quit: 1986 Smokeless Tobacco: Never Used Alcohol Use Drinks/Week oz/Week Comments Yes 1 Glasses of wine 0.6 monthly Sex Assigned at Date Recorded Not on file Job Start Date Occupation Industry Not on file Not on file Not on file Travel History Travel Start Travel End No recent travel history available. Last Filed Vital Signs Vital Sign Reading Time Taken Blood Pressure 148/77 06/30/2018 3:54 PM BULK FOLDER Pulse 81 06/30/2018 3:54 PM BULK FOLDER Temperature 36.6 C (97.8 F) 06/30/2018 2:00 PM BULK FOLDER Respiratory Rate 20 06/30/2018 3:54 PM BULK FOLDER Oxygen Saturation 97% 06/30/2018 3:54 PM BULK FOLDER Inhaled Oxygen Concentration - - Weight 106.1 kg (234 lb) 06/18/2018 6:33 AM CDT Height 170.2 cm (5' 7") 06/18/2018 6:33 AM CDT Body Mass Index 36.65 06/18/2018 6:33 AM CDT Plan of Treatment Not on file Procedures Procedure Name Priority Date/Time Associated Comments Diagnosis US ASPIRATION Routine 06/30/2018 4:09 Results for this PM BULK FOLDER procedure are in the results section. US ASPIRATION Routine 06/30/2018 4:09 Localized enlarged Results for this PM BULK FOLDER lymph nodes procedure are in Malignant tumor of the results lingual tonsil section. (HCC) CYTOLOGY AP Routine 06/30/2018 4:00 Results for this PM BULK FOLDER procedure are in the results section. CYTOLOGY AP Routine 06/30/2018 4:00 Results for this PM BULK FOLDER procedure are in the results section. TISSUE EXAM AP Routine 06/18/2018 8:24 Results for this AM CDT procedure are in the results section. LARYNGOSCOPY,BIOPSY 06/18/2018 7:30 Nasal obstruction AM CDT HEMOGLOBIN Routine 06/14/2018 5:31 Results for this PM CDT procedure are in the results section. ELECTROLYTE PANEL Routine 06/14/2018 5:31 Results for this PM CDT procedure are in the results section. BUN AND CREATININE Routine 06/14/2018 5:31 Results for this PM CDT procedure are in the results section. after 10/16/2017 Results US Aspiration (06/30/2018 4:09 PM BULK FOLDER)Only the most recent of2 resultswithin the time period is included. 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 Request for image guided percutaneous biopsy of left neck node. COMPARISON: None. TECHNIQUE: Ultrasound guided fine needle aspiration of left neck lymph node. FINDINGS: Procedure was explained to the patient and informed consent was signed. Time-out was performed. Preliminary ultrasound demonstrates a left level II lymph node measuring 1.3 x 0.8 x 0.9 cm. No other left cervical lymph nodes were identified. The neck was prepped and aped in the standard fashion. 1% lidocaine was used for local anesthesia. Under ultrasound guidance a fine needle aspirate was acquired of this node with a 25 gauge needle. Three additional aspirates were acquired of the same nodule. Each aspirate was rinsed in Cyto-rich and sent to pathology. Patient tolerated procedure well. IMPRESSION: Ultrasound guided fine needle aspiration of left level II lymph node. 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 Request for image guided percutaneous biopsy of left neck node. COMPARISON: None. TECHNIQUE: Ultrasound guided fine needle aspiration of left neck lymph node. FINDINGS: Procedure was explained to the patient and informed consent was signed. Time-out was performed. Preliminary ultrasound demonstrates a left level II lymph node measuring 1.3 x 0.8 x 0.9 cm. No other left cervical lymph nodes were identified. The neck was prepped and draped in the standard fashion. 1% lidocaine was used for local anesthesia. Under ultrasound guidance a fine needle aspirate was acquired of this node with a 25 gauge needle. Three additional aspirates were acquired of the same nodule. Each aspirate was rinsed in Cyto-rich and sent to pathology. Patient tolerated procedure well. IMPRESSION: Ultrasound guided fine needle aspiration of left level II lymph node. Signed: Betsy Cyr MD Report Verified Date/Time: 06/30/2018 16:08:29 Reading Location: [facility] [id number] Ultrasound Reading Room Performing Organization Address City/State/Zipcode Phone Number [facility] Cytology (06/30/2018 4:00 PM BULK FOLDER)Only the most recent of2 resultswithin the time period is included. Case Report Medical Cytology Report Case: [id number] [facility] Authorizing Provider:Tam Carmen MD Collected: 06/30/[address] [place] [address] Ordering Location: [facility] Radiology Main Received: 07/01/2018 1258 Pathologist: Catherine Joe MD Specimen:Lymph Node, Cervical DIAGNOSIS LEFT NECK LYMPH NODE, FNA BY RADIOLOGIST (GER) (DIRECT SMEARS, CYTOSPINS, CELL BLOCK OF ASPIRATE): [facility] - NO METASTATIC CARCINOMA, GRANULOMATA IDENTIFIED [facility] - LYMPHOID TISSUE PRESENT Signing Pathologist Direct Phone Line: [phone] COMMENT [facility] Please also see cytopathology report [id number]. [facility] CPT Code(s) 64329 [facility] CLINICAL DATA (1.3 x 0.8 x 0.9 cm) left [facility] neck lymph node; reported [facility] tongue cancer, enlarged neck lymph nodes SPECIMEN SOURCE LEFT NECK LYMPH NODE FNA [facility] GROSS DESCRIPTION Prepared 4 cytospins from 30 ml cytorich red fixaitve [facility] Collected: [id number] [facility] Received: [id number] MICROSCOPIC DESCRIPTION Performed. [facility] Gross assessment was [facility] performed at [place], Department of [facility] Pathology, [address] [place] [address], Technical component was [facility] performed at [place], Department of [facility] Pathology, [address] [place] [address], Professional component was [facility] performed at [place], Department of [facility] Pathology, [address] [place] [address], Specimen Fine Needle Aspirate - Lymph Node, Cervical Narrative Performed At Performing Organization Address City/State/Zipcode Phone Number [address] [address] [phone] [facility] Tissue Exam (06/18/2018 8:24 AM CDT) Case Report Surgical Pathology Report Case: [id number] [facility] Authorizing Provider:Tam Carmen MD Collected: 06/18/2018 0824 [facility] Ordering Location: [facility] PERIOPERATIVE Received: 06/18/2018 1149 SERVICES Pathologist: Sushila Mejia MD Specimen:Tongue, base tongue DIAGNOSIS BASE OF THE TONGUE, LARYNGOSCOPY WITH BIOPSY: [facility] - LINGUAL TONSILS WITH REACTIVE FOLLICULAR HYPERPLASIA [facility] - SQUAMOUS MUCOSA WITH ACUTE INFLAMMATION WITH ATYPIA - METAPLASTIC CARTILAGE AND DILATED LYMPHATICS - NEGATIVE FOR DYSPLASIA OR MALIGNANCY Signing Pathologist Direct Phone Line: [phone] COMMENT The squamous mucosa shows mild acute inflammation and focal reactive atypia. There are dilated lymphatics (hilighted by CD34 and D2-40) and metaplastic cartilage in the subepithelial tissues, Lingual to [facility] nsils show reactive follicular hyperplasia, confirmed by immunohistochemical studies performed on block A1, that demonstrate the lymphoid population to be comprised of CD20 positive B cells and CD3 pos [facility] itive T cells. Cyclin D1 is negative. Ki-67 demonstrates a proliferative index of 80% within reactive germinal centers and highlights features of polarization. There is no morphologic evidence of lympho ma. This case was reviewed by Dr. Jose J Doty for the purposes of hematopathology review. The case was also reviewed at the departmental consensus conference. The findings have been discussed with Dr. Carmen. CPT Code(s) 38945; 99387; 91422 X 6 [facility] CLINICAL HISTORY Nasal obstruction [facility] SPECIMEN SOURCE Base of tongue biopsy [facility] GROSS DESCRIPTION Received in formalin labeled [facility] "tongue", description "base of [facility] tongue" is a 3.0 x 2.0 x 0.3 cm aggregate of pink-lara to mejia-white rubbery soft tissue. Specimen is entirely submitted in A1. DB/bc MICROSCOPIC DESCRIPTION PERFORMED [facility] SPECIAL STUDIES The interpretation of this case included the use of immunohistochemistry or special stains. [facility] D2-40; CD34; CD3; CD20 CD45; Ki-67; Cyclin-D1 [facility] Immunohistochemistry technical testing was performed at [facility], Pathology Laboratory where it was developed and its performance characteristics were determined. It has not be en cleared or approved by the U.S. Food and Drug Administration. The FDA has determined that such clearance or approval is not necessary. The test is used for clinical purposes. It should not be regarde d as investigational or for research. This laboratory is certified under the Clinical Laboratory Improvement Amendments of 1988 (CLIA-88) as qualified to perform high complexity clinical laboratory testing. The immunohistochemistry test was developed and its performance characteristics determined by [facility], Pathology Laboratory. It has not been cleared or approved by the U.S. Food and Drug Administration. The FDA has determined that such clearance or approval is not necessary. The test is used for clinical purposes. It should not be regarded as investigational or for research. This laboratory is certified under the Clinical Laboratory Improvement Amendments of 1988 (CLIA-88) as qualified to perform high complexity clinical laboratory testing. Specimen Tissue - Tongue Performing Organization Address [facility] Phone Number [address] [address] [phone] [facility] BUN and Creatinine (06/14/2018 5:31 PM CDT) BUN 13 7 - 21 mg/dL [facility] Creatinine 0.74 0.57 - 1.25 mg/dL [facility] EGFR 78Comment: ESTIMATED GFR IS mL/min/1.73 sq m [facility] NOT ACCURATE CREATININE [facility] CLEARANCE IN PREDICTING GLOMERULAR FILTRATION RATE. ESTIMATED GFR IS NOT APPLICABLE FOR DIALYSIS PATIENTS. Specimen Blood Performing Organization Address [facility] Phone Number [address] [address] CENTER Hemoglobin (06/14/2018 5:31 PM CDT) Hemoglobin 12.9 11.2 - 15.7 GM/DL [facility] Specimen Blood Performing Organization Address [facility] Phone Number [address] [address] CENTER Electrolytes (06/14/2018 5:31 PM CDT) Sodium 142 136 - 145 meq/L [facility] Potassium 3.7 3.5 - 5.1 meq/L [facility] Chloride 107 98 - 107 meq/L [facility] CO2 29 22 - 29 meq/L [facility] Specimen Blood Performing Organization Address City/State/Zipcode Phone Number [facility] [address] [place] [address] [phone] CENTER after 10/16/2017 Insurance Payer Benefit Plan / Group Subscriber ID Type Phone Address MEDICARE MEDICARE A B xxxxxxxxxxx Medicare AETNA - MGD CARE AETNA INDEMNITY NON CONTR xxxxxxxxx Comm
--- OUTSIDE RECORDS SUMMARY | 2018-10-17 16:51 | XMS REPORT ---
:1945 Author Organization [employer] Care Team Providers Name Role Phone Jose Gautam Provider Role Unavailable Allergies No Known Allergies Problems Problem Type Condition Code Onset Dates Condition Status Problem Chronic laryngitis J37.0 Active Problem Sinusitis - Chronic maxillary J32.0 Active Problem Sinusitis - Chronic J32.8 Active Problem Sinusitis - Chronic J32.8 Active Problem Chronic rhinitis J31.0 Active Problem Chronic tonsillitis J35.01 Active Medications No Known Medications Results No Known Results Summary Purpose [employer]ClinicalWorks Submission
--- OUTSIDE RECORDS SUMMARY | 2018-10-17 16:51 | XMS REPORT ---
:1945 Author Organization [employer] Care Team Providers Name Role Tam Casanova Provider Role Unavailable Allergies No Known Allergies Problems Problem Type Condition Code Onset Dates Condition Status Problem Chronic rhinitis J31.0 Active Problem Chronic tonsillitis J35.01 Active Problem Sinusitis - Chronic maxillary J32.0 Active Problem Sinusitis - Chronic J32.8 Active Medications No Known Medications Results No Known Results Summary Purpose [employer]ClinicalWorks Submission
--- OUTSIDE RECORDS SUMMARY | 2018-10-17 16:51 | XMS REPORT ---
[...] Instructions Start End Date Status Dosage Date Medrol (Sonido) [facility] [id number] 4 MG Orally May 04, May 10, Active as directed 2017 2017 Results No Known Results Summary Purpose eClinicalWorks Submission
--- OUTSIDE RECORDS SUMMARY | 2018-10-17 16:51 | XMS REPORT ---
[...] Start End Status Dosage System Date Date Bactrim DS [facility] [id number] 800-160 MG Apr 16Apr Active 1 tablet Orally Twice a 2017 Medrol (Sonido) [facility] [id number] 4 MG Orally Apr 16Apr Active as directed 2017 Results No Known Results Summary Purpose [employer]ClinicalWorks Submission
--- OUTSIDE RECORDS SUMMARY | 2018-10-17 16:51 | XMS REPORT ---
:1945 [facility] Team Providers Name Role Phone Jose Gautam Provider Role Unavailable Allergies, Adverse Reactions, Alerts Substance Reaction Event Type Ciprofloxacin Info Not Available Drug Allergy Zpack Info Not Available Drug Allergy Albuterol Info Not Available Drug Allergy quinolone Info Not Available Drug Allergy Problems Problem Type Condition Code Onset Dates Condition Status Assessment Postnasal drip R09.82 Active Assessment Pain in throat R07.0 Active Assessment Sinusitis - Chronic J32.8 Active Assessment Chronic laryngitis J37.0 Active Problem Chronic laryngitis J37.0 Active Problem Sinusitis - Chronic maxillary J32.0 Active Problem Sinusitis - Chronic J32.8 Active Problem Sinusitis - Chronic J32.8 Active Assessment Acute recurrent sialoadenitis K11.22 Active Problem Chronic rhinitis J31.0 Active Problem Chronic tonsillitis J35.01 Active Medications Medication Code Code Instructions Start End Status Dosage System Date Date Calcium [facility] [address]-71 Active not defined Multivitamin [facility] [address]73-[address] Active not defined Xarelto [facility] [address]-62 Active not defined Levothyroxine [facility] [address]-86 Active not Sodium defined Montelukast [facility] [address]-56 Active not Sodium defined Bevespi ND 0 Active not defined Fiber ND 0 Active not defined Loratadine [facility] [address]-95 Active not defined Iron [facility] [address]-89 Active not defined Augmentin [facility] 42469506001 875-125 MG May 05Apr Active 1 tablet Orally every 2017 26, hrs 2018 Perdiem [facility] [address]-10 Active not Overnight Relief defined Osphena [facility] [address]-80 Active not defined Mometasone [facility] 15085480919 50 MCG/ACT December 16, Active 2 sprays Furoate Nasally Once a 2018 in each day nostril Medrol (Sonido) [facility] 79139271188 4 MG Orally May 04Apr Active as 2018 24, 2017 Stool Softener [facility] [address]-88 Active not defined Cranberry [facility] 65565-[address]158 Active not defined Qvar [facility] [address]-95 Active not defined Myrbetriq [facility] [address]-67 Active not defined Valerian Root [facility] [address]13-[address]13 Active not defined Gabapentin [facility] 33905181610 100 MG Orally Jun 24, Active 1 capsule Three times a 2016 day Mucinex [facility] [address]-41 Active not defined Pearls IC [facility] 71067-82449 Active not defined Olopatadine HCl [facility] [address]-97 Active not defined Lansoprazole [facility] 0 Active not defined Results No Known Results Summary Purpose eClinicalWorks Submission
--- OUTSIDE RECORDS SUMMARY | 2018-10-17 16:51 | XMS REPORT ---
:1945 [facility] Address [address] [place] [address] [address] Care Team Providers Name Role Phone RA VELAZCO Unavailable Unavailable Problems This patient has no known problems. Allergies, Adverse Reactions, Alerts This patient has no known allergies or adverse reactions. Medications This patient has no known medications. Results Test Description Test Time Test Comments Text Results Atomic Results Result Comments CYTOLOGY 2018-07-02 Medical Cytology Report 17:16:00 Case: [id number] Authorizing Provider: Ra Velazco MD Collected: 06/30/2018 1600 Ordering Location: [facility] Radiology Main Received: 07/01/2018 1258 Pathologist: Catherine Joe MD Specimen: Lymph Node, Cervical LEFT NECK LYMPH NODE, FNA BY RADIOLOGIST (GER) (DIRECT SMEARS, CYTOSPINS, CELL BLOCK OF ASPIRATE): - NO METASTATIC CARCINOMA, GRANULOMATA IDENTIFIED - LYMPHOID TISSUE PRESENT Signing Pathologist Direct Phone Line: [phone] signed by Catherine Joe MD on 07/02/2018 at 5:16 PMPlease also see cytopathology report [id number]. 11336(1.3 x 0.8 x 0.9 cm) left neck lymph node; reported tongue cancer, enlarged neck lymph nodesLEFT NECK LYMPH NODE FNAPrepared 4 cytospins from 30 ml cytorich red fixaitve Collected: [id number]: [id number].[facility], Department of Pathology, [address] [place] [address], [place], Department of Pathology, [address] [place] [address], [place], Department of Pathology, [address] [place] [address], CYTOLOGY 2018-07-02 Medical Cytology Report 13:16:00 Case: [id number] Authorizing Provider: Ra Velazco MD Collected: 06/30/2018 1600 Ordering Location: [facility] Radiology Main Received: 07/01/2018 7463 Pathologist: Vesna Novak MD Specimen: Lymph Node, Cervical, right neck node (1.5 x 0.5 x 1.4 cm) RIGHT NECK LYMPH NODE, FNA BY RADIOLOGIST (CYTOSPINS): - NEGATIVE FOR MALIGNANCY - LYMPHOID/LYMPH NODE TISSUE PRESENT Signing Pathologist Direct Phone Line: [phone] signed by Vesna Novak MD on 07/02/2018 at 1:16 PMPlease also see cytopathology report [id number]. 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 No metastatic tumor is noted[facility], [facility], [address] [place] [address], [place], Department of Pathology, [address] [place] [address], [place] [place], Department of Pathology, [address] [place] [address], U/S, 2018-06-30 Reason for FINAL REPORT PATIENT ID: ASPIRATION/INJECT 16:08:00 Exam:->R59.0, [id number] INDICATION: 72-year-old ION C02.4 RIGHT female with report of tongue base \\T\\ LEFT cancer. Request for image guided percutaneous biopsy [...] level II lymph node. Signed: Betsy Cyr Verified Date/Time: 06/30/2018 16:08:29 Reading Location: [address] Ultrasound Reading Room U/S, 2018-06-30 Reason for FINAL REPORT PATIENT ID: ASPIRATION/INJECT 16:08:00 Exam:->R59.0, [id number] INDICATION: 72-year-old ION C02.4 RIGHT female with report of tongue base \\T\\ LEFT cancer. Request for image guided percutaneous biopsy of right neck node. COMPARISON: None. TECHNIQUE: Ultrasound guided fine needle aspiration of right neck lymph node. FINDINGS: Procedure was explained to the patient and informed consent was signed. Time-out was performed. Preliminary ultrasound demonstrates a right level II lymph node measuring 1.5 x 0.5 x 1.4 cm. No other right cervical lymph nodes were identified. The neck was prepped and draped in the standard fashion. 1% lidocaine was used for local anesthesia. Under ultrasound guidance a fine needle aspirate was acquired of this nodule with a 25 gauge needle. Three additional aspirates were acquired of the same nodule. Each aspirate was rinsed in Cyto-rich and sent to pathology. Patient tolerated procedure well. IMPRESSION: Ultrasound guided fine needle aspiration of right level II lymph node. Signed: Betsy Cyr Verified Date/Time: 06/30/2018 16:08:56 Reading Location: [address] Ultrasound Reading Room UE EXAM 2018-06-25 Surgical Pathology Report 16:56:00 Case: [id number] Authorizing Provider: Ra Velazco MD Collected: 06/18/2018 0824 Ordering Location: [facility] Received: 06/18/2018 1149 SERVICES Pathologist: Sushila Mejia MD Specimen: Tongue, base tongue BASE OF THE TONGUE, LARYNGOSCOPY WITH BIOPSY: - LINGUAL TONSILS WITH REACTIVE FOLLICULAR HYPERPLASIA - SQUAMOUS MUCOSA WITH ACUTE INFLAMMATION WITH ATYPIA - METAPLASTIC CARTILAGE AND DILATED LYMPHATICS - NEGATIVE FOR DYSPLASIA OR MALIGNANCY Signing Pathologist Direct Phone Line: [phone] signed by Sushila Mejia MD on 06/25/2018 at 4:56 PMThe squamous mucosa shows mild acute inflammation and focal reactive atypia. There are dilated lymphatics (hilighted by CD34 and D2-40) and metaplastic cartilage in the subepithelial tissues, Lingual tonsils show reactive follicular hyperplasia, confirmed by immunohistochemical studies performed on block A1, that demonstrate the lymphoid population to be comprised of CD20 positive B cells and CD3 positive T cells. Cyclin D1 is negative. Ki-67 demonstrates a proliferative index of 80% within reactive germinal centers and highlights features of polarization. There is no morphologic evidence of lymphoma. This case was reviewed by Dr. Jose J Doty for the purposes of hematopathology review. The case was also reviewed at the departmental consensus conference.The findings have been discussed with Dr. Velazco. 28280; 20576; 40977 X 6Nasal obstructionBase of tongue biopsy Received in formalin labeled "tongue", description "base of tongue" is a 3.0 x 2.0 x 0.3 cm aggregate of pink-lara to mejia-white rubbery soft tissue. Specimen is entirely submitted in A1. DB/bc PERFORMEDThe interpretation of this case included the use of immunohistochemistry or special stains. D2-40; CD34; CD3; CD20 CD45; Ki-67; Cyclin-V7Bkdpmkjobrmiqxdrbgex technical testing was performed at [facility], Pathology Laboratory where it was developed and its performance characteristics were determined. It has not been cleared or approved [...] qualified to perform high complexity clinical laboratory testing.The immunohistochemistry test was developed and its performance characteristics determined by [facility], Pathology Laboratory. It has not been cleared [...] to perform high complexity clinical laboratory testing. ELECTROLYTES 2018-06-14 18:46:00 Test Item Value Reference Range Comments SODIUM (BEAKER) (test nstr=896) 142 meq/L 136-145 POTASSIUM (BEAKER) (test hryb=991) 3.7 meq/L 3.5-5.1 CHLORIDE (BEAKER) (test biot=944) 107 meq/L 98-107 CO2 (BEAKER) (test xnqw=877) 29 meq/L 22-29 BUN AND [id number] 18:46:00 Test Item Value Reference Range Comments BLOOD UREA NITROGEN 13 mg/dL 7-21 (BEAKER) (test smcj=835) CREATININE (BEAKER) (test 0.74 mg/dL 0.57-1.25 znif=128) EGFR (BEAKER) (test 78 mL/min/1.73 sq m ESTIMATED GFR IS NOT ypvb=4010) ACCURATE CREATININE CLEARANCE IN PREDICTING GLOMERULAR FILTRATION RATE. ESTIMATED GFR IS NOT APPLICABLE FOR DIALYSIS PATIENTS. [id number] 18:18:00 Test Item Value Reference Range Comments HEMOGLOBIN (BEAKER) (test nfbd=898) 12.9 GM/DL 11.2-15.7 TISSUE [id number] 11:51:00Surgical Pathology Report Case: [id number] Authorizing Provider: Ra Velazco MD Collected: 05/01/2017 1509 Ordering Location: [facility] MAIN ADMITTING Received: 05/04/2017 1531 Pathologist: Marine Hawthorne MD Specimen: Nasopharynx/Oropharynx NASOPHARYNX/OROPHARYNX, BIOPSY: - FOLLICULAR LYMPHOID HYPERPLASIA - NEGATIVE FOR MALIGNANCY CC/pl Signing Pathologist Direct Phone Line: [phone] signed by Marine Hawthorne MD on 05/07/2017 at 11:51 [id number] neoplasm benignNasopharynx tissueThe specimen is received in [...]
--- OUTSIDE RECORDS SUMMARY | 2018-10-17 16:51 | XMS REPORT ---
[...] End Status Dosage System Date Date Mometasone [facility] 99626782735 50 MCG/ACT December 16, Active 2 sprays Furoate Nasally Once a 2018 in each day nostril Results No Known Results Summary Purpose eClinicalWorks Submission
--- OUTSIDE RECORDS SUMMARY | 2018-10-17 16:51 | XMS REPORT ---
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) Assessment Postnasal drip R09.82 Active Assessment Sialoadenitis acute K11.21 Active Assessment Swelling, mass, lump in neck R22.1 Active Problem Chronic rhinitis J31.0 Active Problem Chronic tonsillitis J35.01 Active Problem Sinusitis - Chronic maxillary J32.0 Active Assessment Sinusitis - Chronic J32.8 Active Assessment Sinusitis - ACUTE >10 days J01.90 Active Problem Sinusitis - Chronic J32.8 Active Assessment Chronic maxillary sinusitis J32.0 Active Medications Medication Code Code Instructions Start End Status Dosage System Date Date Betamethasone NDC 0 Active not defined Myrbetriq [facility] [address]-35 Active not defined Cyclobenzaprine HCl NDC 0 Active not defined Mometasone Furoate [facility] 10799994884 50 MCG/ACT December 16, Active 2 sprays Nasally Once a 2018 in each day nostril Bevespi NDC 0 Active not defined Xarelto [facility] [address]-20 Active not defined Iron [facility] [address]-00 Active not defined Qvar [facility] [address]-35 Active not defined Sulfamethoxazole NDC 0 Active not defined Vitamin B-12 [facility] 62185-85633 Active not defined Nasacort NDC 0 Active not defined Levothyroxine [facility] [address]-85 Active not Sodium defined Pearls IC [facility] 330[address]-22014 Active not defined Xopenex HFA [facility] [address]-48 Active not defined Gabapentin [facility] 16016748951 100 MG Orally Jun 24, Active 1 capsule Three times a 2017 day Prevacid [facility] [address]-55 Active not defined Olanzapine [facility] [address]-44 Active not defined Perdiem Overnight [facility] [address]-91 Active not Relief defined Calcium [facility] [address]-67 Active not defined PredniSONE [facility] 36012418137 10 MG Orally Apr 08Mar Active 1 tablet Twice daily x 2018 27, 2 days then 2018 Once a day x 2 days Olopatadine HCl [facility] [address]-19 Active not defined Multivitamin [facility] 457[address]-39073 Active not defined Results No Known Results Summary Purpose eClinicalWorks Submission
--- OUTSIDE RECORDS SUMMARY | 2018-10-17 16:51 | XMS REPORT ---
[...] End Date Status Dosage Date Bactrim DS [facility] 90808751689 800-160 MG Orally January 13, January 23, Active 1 tablet Twice a day 2017 2017 PredniSONE [facility] 29244457502 10 MG Orally then January 13January 23, Active 1 tablet QD x 5 days 2017 2017 BID x 5 days Results No Known Results Summary Purpose eClinicalWorks Submission
--- OUTSIDE RECORDS SUMMARY | 2018-10-17 16:52 | XMS REPORT ---
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 Problem Chronic laryngitis J37.0 Active Problem Oropharynx neoplasm, 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 Problem Chronic rhinitis J31.0 Active Problem Chronic tonsillitis J35.01 Active Problem Sinusitis - Chronic J32.8 Active Problem Sinusitis - Chronic maxillary J32.0 Active Medications Medication Code Code Instructions Start End Status Dosage System Date Date Iron [facility] [address]-05 Active not defined Fiber NDC 0 Active not defined Cranberry [facility] 44[address]-75394 Active not defined Loratadine [facility] [address]-53 Active not defined Olopatadine HCl [facility] [address]-52 Active not defined Osphena [facility] [address]-26 Active not defined Bactrim DS (14 [facility] 24549261653 800-160 MG Aug 11, Aug 31, Active 1 tablet days) Orally Twice a 2017 2018 day Perdiem [facility] [address]-36 Active not Overnight Relief defined Stool Softener [facility] [address]-66 Active not defined Multivitamin [facility] 21421-67048 Active not defined Qvar NDC 0 Active not defined Myrbetriq [facility] [address]-42 Active not defined Mucinex [facility] [address]-26 Active not defined Montelukast [facility] [address]-92 Active not Sodium defined Gabapentin [facility] 31574424874 100 MG Orally Jun 24, Active 1 capsule Three times a 2016 day Mometasone [facility] 19605344610 50 MCG/ACT December 16, Active 2 sprays Furoate Nasally Once a 2018 in each day nostril Cephalexin [facility] [address]-27 Active not defined Lansoprazole NDC 0 Active not defined Valerian Root [facility] 68043-33940 Active not defined Xarelto [facility] [address]-13 Active not defined Calcium [facility] [address]-40 Active not defined Bevespi NDC 0 Active not defined Levothyroxine [facility] [address]-06 Active not Sodium defined Pearls IC [facility] [address]-29027 Active not defined Hyoscyamine ND 0 Active not defined Results No Known Results Summary Purpose eClinicalWorks Submission
--- OUTSIDE RECORDS SUMMARY | 2018-10-17 16:52 | XMS REPORT ---
[...] Condition Code Onset Dates Condition Status Assessment Sinusitis - Acute, recurrent J01.91 Active Assessment Chronic rhinitis J31.0 Active Assessment Sinusitis - Chronic J32.8 Active Problem Chronic laryngitis J37.0 Active Problem Sinusitis - Chronic maxillary J32.0 Active Problem Sinusitis - Chronic J32.8 Active Problem Sinusitis - Chronic J32.8 Active Assessment Nasal airway obstruction J34.89 Active Problem Chronic rhinitis J31.0 Active Problem Chronic tonsillitis J35.01 Active Assessment Swelling, mass, lump in neck R22.1 Active Assessment Chronic tonsillitis J35.01 Active Assessment Cough R05 Active Assessment Postnasal drip R09.82 Active Medications Medication Code Code Instructions Start End Status Dosage System Date Date Loratadine [facility] [address]-73 Active not defined Iron [facility] [address]-59 Active not defined Perdiem [facility] [address]-64 Active not Overnight Relief defined Calcium [facility] [address]-59 Active not defined Multivitamin [facility] 70662-78163 Active not defined Montelukast [facility] [address]-21 Active not Sodium defined Augmentin [facility] 75342278748 875-125 MG May 24, Jun 03, Active 1 tablet Orally every 12 2017 2018 hrs Valerian Root [facility] 53[address]-52301 Active not defined Gabapentin [facility] 91697035391 100 MG Orally Jun 24, Active 1 capsule Three times a 2017 day Cranberry [facility] 86524-51811 Active not defined Levothyroxine [facility] [address]-06 Active not Sodium defined Mucinex [facility] [address]-22 Active not defined Lansoprazole [facility] 0 Active not defined Qvar [facility] [address]-25 Active not defined Olopatadine HCl [facility] [address]-90 Active not defined Mometasone [facility] 74221217301 50 MCG/ACT December 16, Active 2 sprays Furoate Nasally Once a 2018 in each day nostril Fiber ND 0 Active not defined Bevespi [facility] 0 Active not defined Osphena [facility] [address]-45 Active not defined Xarelto [facility] [address]-59 Active not defined Stool Softener [facility] [address]-46 Active not defined Pearls IC [facility] 93[address]-06475 Active not defined Myrbetriq [facility] [address]-69 Active not defined Results No Known Results Summary Purpose eClinicalWorks Submission
--- OUTSIDE RECORDS SUMMARY | 2018-10-17 16:52 | XMS REPORT ---
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 Assessment Localized enlarged lymph nodes R59.0 Active Problem Oropharynx neoplasm, tongue base, 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 Problem Chronic laryngitis J37.0 Active Problem Oropharynx neoplasm, 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 Problem Chronic rhinitis J31.0 Active Problem Chronic tonsillitis J35.01 Active Problem Sinusitis - Chronic J32.8 Active Problem Sinusitis - Chronic maxillary J32.0 Active Medications Medication Code Code Instructions Start End Status Dosage System Date Date Mucinex [facility] [address]-58 Active not defined Osphena [facility] [address]-81 Active not defined Olopatadine HCl [facility] [address]-80 Active not defined Qvar NDC 0 Active not defined Fiber NDC 0 Active not defined Xarelto [facility] [address]-16 Active not defined Pearls IC [facility] [address]-51532 Active not defined Hyoscyamine NDC 0 Active not defined Bevespi NDC 0 Active not defined Cranberry [facility] [address]46-28241 Active not defined Mometasone [facility] 89221272877 50 MCG/ACT December 16, Active 2 sprays Furoate Nasally Once a 2017 in each day nostril Gabapentin [facility] 96379806936 100 MG Orally Jun 24, Active 1 capsule Three times a 2017 day Multivitamin [facility] 57617-38413 Active not defined Calcium [facility] [address]-04 Active not defined Cephalexin [facility] [address]-93 Active not defined Zipsor [facility] 28173791994 25 MG Orally Jun 14Jul 04, Active 1 capsule Four times a 2017 2017 with food day or milk as needed Iron [facility] [address]-22 Active not defined Myrbetriq [facility] [address]-60 Active not defined Levothyroxine [facility] [address]-80 Active not Sodium defined Lansoprazole [facility] 0 Active not defined Stool Softener [facility] [address]-08 Active not defined Valerian Root [facility] [address]-67473 Active not defined Montelukast [facility] [address]-89 Active not Sodium defined Loratadine [facility] [address]-10 Active not defined Perdiem [facility] [address]-68 Active not Overnight Relief defined Results No Known Results Summary Purpose eClinicalWorks Submission
--- OUTSIDE RECORDS SUMMARY | 2018-10-17 16:52 | XMS REPORT ---
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
--- OUTSIDE RECORDS SUMMARY | 2018-10-17 16:52 | XMS REPORT ---
[...] Medications Results No Known Results Summary Purpose [facility]
--- OUTSIDE RECORDS SUMMARY | 2018-10-17 16:52 | XMS REPORT ---
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 Assessment Glossitis K14.0 Active Problem Oropharynx neoplasm, tongue base, 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 Problem Chronic laryngitis J37.0 Active Problem Oropharynx neoplasm, 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 Problem Chronic rhinitis J31.0 Active Problem Chronic tonsillitis J35.01 Active Problem Sinusitis - Chronic J32.8 Active Problem Sinusitis - Chronic maxillary J32.0 Active Medications Medication Code Code Instructions Start End Status Dosage System Date Date Valerian Root [facility] [address] Active not defined Loratadine [facility] [address]-20 Active not defined Montelukast [facility] [address]-62 Active not Sodium defined Lansoprazole NDC 0 Active not defined Qvar NDC 0 Active not defined Olopatadine HCl [facility] [address]-90 Active not defined Oxycodone HCl [facility] 40274366539 5 MG/5ML Orally Jun 14, Jun 22, Active 10 ml as every 6 hrs 2017 2017 needed Fiber NDC 0 Active not defined Osphena [facility] [address]-75 Active not defined Perdiem [facility] [address]-49 Active not Overnight Relief defined Levothyroxine [facility] [address]-17 Active not Sodium defined Xarelto [facility] [address]-73 Active not defined Hyoscyamine NDC 0 Active not defined Cephalexin [facility] [address]-49 Active not defined Mometasone [facility] 23171513835 50 MCG/ACT December 16, Active 2 sprays Furoate Nasally Once a 2018 in each day nostril Gabapentin [facility] 15502799659 100 MG Orally Jun 24, Active 1 capsule Three times a 2016 day PredniSONE [facility] 97648442810 10 MG Orally 2 Jun 14Jun 21, Active 1 tablet times a day 2017 2017 Zipsor [facility] 74968430287 25 MG Orally Jun 14Jul 04, Active 1 capsule Four times a 2017 2018 with food day or milk as needed Stool Softener [facility] [address]-20 Active not defined Cranberry [facility] 17992-42695 Active not defined Pearls IC [facility] 77467-97375 Active not defined Multivitamin [facility] 41702-[address]148 Active not defined Mucinex [facility] [address]-46 Active not defined Myrbetriq [facility] [address]-12 Active not defined Calcium [facility] [address]-80 Active not defined Iron [facility] [address]-62 Active not defined Bevespi [facility] 0 Active not defined Results No Known Results Summary Purpose [employer]ClinicalWorks Submission
--- OUTSIDE RECORDS SUMMARY | 2018-10-17 16:52 | XMS REPORT ---
[...] Medications Results No Known Results Summary [facility]
--- OUTSIDE RECORDS SUMMARY | 2018-10-17 16:52 | XMS REPORT ---
[...] Chronic maxillary J32.0 Active Medications Medication Code System Code Instructions Start Date End Date Status Dosage PredniSONE [facility] 51582636844 10 MG Orally BID Jul 07Jul 17, Active 1 tablet for 5 days then 2017 2017 QD for 5 days Augmentin [facility] 51413899592 875-125 MG Orally Jul 07Jul 17, Active 1 tablet every 12 hrs 2017 2017 Results No Known Results Summary Purpose [employer]Works Submission
--- OUTSIDE RECORDS SUMMARY | 2018-10-17 16:52 | XMS REPORT ---
[...] Medications Results No Known Results [facility]
--- OUTSIDE RECORDS SUMMARY | 2018-10-17 16:52 | XMS REPORT ---
[...] Medications Results No Known Results Summary [facility]
--- OUTSIDE RECORDS SUMMARY | 2018-10-17 16:53 | XMS REPORT ---
:1945 Author Organization e[employer]Works Care Team Providers Name Role Phone Silvia Carmentt Provider Role Unavailable Allergies, Adverse Reactions, Alerts Substance Reaction Event Type Ciprofloxacin Info Not Available Drug Allergy Zpack Info Not Available Drug Allergy Albuterol Info Not Available Drug Allergy quinolone Info Not Available Drug Allergy Problems Problem Type Condition Code Onset Dates Condition Status Assessment Nasal airway obstruction J34.89 Active Problem Sinusitis - Chronic J32.8 Active Assessment Sinusitis - ACUTE >10 days, PCN, no J01.[address] Assessment Sinusitis - Chronic J32.8 Active Assessment Chronic rhinitis J31.0 Active Problem Oropharynx neoplasm, tongue base, 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 Problem Chronic laryngitis J37.0 Active Problem Oropharynx neoplasm, 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 Problem Chronic rhinitis J31.0 Active Problem Chronic tonsillitis J35.01 Active Problem Sinusitis - Chronic J32.8 Active Problem Sinusitis - Chronic maxillary J32.0 Active Medications Medication Code Code Instructions Start End Status Dosage System Date Date Stool Softener [facility] [address]-00 Active not defined Cranberry [facility] 32513-59203 Active not defined Mucinex [facility] [address]-13 Active not defined Bactrim DS (14 [facility] 69762611352 800-160 MG Aug 11, Aug 31, Active 1 tablet days) Orally Twice a 20172018 Multivitamin [facility] 28483-70099 Active not defined Bevespi NDC 0 Active not defined Myrbetriq [facility] [address]-85 Active not defined Lansoprazole NDC 0 Active not defined Hyoscyamine NDC 0 Active not defined Loratadine [facility] [address]-62 Active not defined Perdiem [facility] [address]-49 Active not Overnight Relief defined Iron [facility] [address]-38 Active not defined Xarelto [facility] [address]-56 Active not defined Levothyroxine [facility] [address]-06 Active not Sodium defined Montelukast [facility] [address]-39 Active not Sodium defined Osphena [facility] [address]-14 Active not defined Qvar NDC 0 Active not defined Olopatadine HCl [facility] [address]-27 Active not defined Cephalexin [facility] [address]-27 Active not defined Valerian Root [facility] 85058-[address]24 Active not defined Gabapentin [facility] 50614223473 100 MG Orally Jun 24, Active 1 capsule Three times a 2016 day Calcium [facility] [address]-08 Active not defined Fiber NDC 0 Active not defined Mometasone [facility] 77266598118 50 MCG/ACT December 16, Active 2 sprays Furoate Nasally Once a 2017 in each day nostril Pearls IC [facility] 86604-27426 Active not defined Results No Known Results Summary Purpose [employer]ClinicalWorks Submission
--- OUTSIDE RECORDS SUMMARY | 2018-10-17 16:53 | XMS REPORT ---
[...] End Date Status Dosage Date Bactrim DS [facility] 73199153783 800-160 MG Orally October 15, October 25, Active 1 tablet Twice a day 2018 2018 Results No Known Results Summary Purpose [employer]ClinicalWorks Submission
[2018-10-17] MEDS ORDERED: ACETAMINOPHEN 325 MG TABLET ONE (17:43)
--- NOTE | 2018-10-17 18:38 | RAD REPORT ---
EXAM DESCRIPTION: RAD - Chest Pa And Lat (2 Views) - 10/17/2018 6:04 pm CLINICAL HISTORY: Cough, shortness of breath COMPARISON: August 2016 TECHNIQUE: PA and lateral views of the chest were obtained. FINDINGS: The lungs are fibrotic as a baseline. No peripheral consolidation. Left midlung field inte rstitial markings are fractionally increased over comparison. Heart size is normal and central vasc ulature is within normal limits. No pleural effusion or pneumothorax seen. No acute bony finding no nilesh. No aortic abnormality. IMPRESSION: Baseline fibrosis with questionable early infiltrate left midlung field.
[2018-10-17] MEDS ORDERED: IPRATROPIUM BROM 0.5MG/2.5ML ONE (19:03)
[2018-10-17] MEDS ORDERED: LEVALBUTEROL 1.25 MG/3 ML NEB ONE ×2 (19:03→21:44)
[2018-10-17] MEDS ORDERED: NA CHLORIDE 0.9% 1,000 ML ONE (19:46)
[2018-10-17] MEDS ORDERED: HYDROCODONE/APAP 5/325 MG TAB ONE (19:46)
[2018-10-17 20:06] LABS: Absolute Lymphocytes (CBC) 1.5 K/uL (0.7-4.9); Absolute Monocytes 0.7 K/uL (0.1-1.3); Absolute Neutrophil 3.8 K/uL (1.8-8.0); Basophils % 0.4 % (0-1.3); Eosinophils % 0.9 % (0-4.4); Lymphocytes % 24.3 % (15.3-44.8); MPV 8.1 fL (7.6-11.3); Monocytes % 11.1 % (3.3-12.3); RBC Red Blood Cell Count 4.19 M/uL (3.86-4.86)
[2018-10-17 20:18] LABS: Potassium 3.9 mmol/L (3.5-5.1)
--- NOTE | 2018-10-17 20:57 | ER ---
Nurse's Notes [facility] Name: Ashley Reyes Age: 72 yrs Sex: Female : 1945 Arrival Date: 10/17/2018 Time: 16:50 Bed 14 Private MD: Jonatan Venegas C Diagnosis: Pneumonia due to other specified bacteria Presentation: 10/17 16:56 Presenting complaint: Patient states: I have been having a cough, SOB for a couple la1 weeks, seen by PCP (sanket) given amox, went to ENT on Thursday and got bactrim, and the cough is getting worse. Transition of care: patient was not received from another setting of care. Onset of symptoms was October 17, 2018. Risk Assessment: Do you want to hurt yourself or someone else? Patient reports no desire to harm self or others. Initial Sepsis Screen: Does the patient meet any 2 criteria? No. Patient's initial sepsis screen is negative. Does the patient have a suspected source of infection? No. Patient's initial sepsis screen is negative. Care prior to arrival: None. 16:56 Method Of Arrival: Ambulatory la1 16:56 Acuity: ARLINE 3 la1 Triage Assessment: 20:14 Headache History: Denies prior headaches. jd3 20:15 Pain: Pain at worst was 10 out of 10 on a pain scale. Pain began gradually, Also jd3 complains of sleeplessness. Historical: - Allergies: 16:56 Albuterol; la1 16:56 Azithromycin; la1 16:56 Cipro; la1 - Home Meds: 18:52 Calcium 600 + D(3) 600 mg calcium- 200 unit Oral cap daily [Active]; green tea twice a iw day [Active]; levothyroxine 125 mcg tab 1 tab once daily [Active]; multivitamin Oral cap [Active]; Myrbetriq 50 mg Oral Tb24 1 tab once daily [Active]; olopatadine 0.6 % nasal spry 2 sprays 2 times per day [Active]; topher probiotic [Active]; Prevacid 15 mg Oral cpDR 1 cap once daily [Active]; QNASL 80 mcg/actuation nasal HFAA 2 sprays once daily [Active]; Slow Fe Oral 160 mg daily [Active]; Xarelto oral 40 mg oral once daily [Active]; Xopenex Inhl daily [Active]; Perdiem Oral 30 mg daily [Active]; - PMHx: 16:56 Asthma; Atrial Fib; Hypothyroidism; la1 - Immunization history:: Adult Immunizations up to date. - Social history:: Smoking status: unknown. - Ebola Screening: : No symptoms or risks identified at this time. Screenin:00 Abuse screen: Denies threats or abuse. Denies injuries from another. Nutritional bp screening: No deficits noted. Tuberculosis screening: No symptoms or risk factors identified. Fall Risk None identified. Assessment: 17:00 General: Appears distressed, comfortable, obese, Behavior is calm, cooperative, bp appropriate for age. Pain: Complains of pain in head. Neuro: Level of Consciousness is awake, alert, obeys commands, Oriented to person, place, time, situation, Appropriate for age. Cardiovascular: No deficits noted. Respiratory: Reports shortness of breath cough that is Airway is patent Breath sounds are diminished. GI: No signs and/or symptoms were reported involving the gastrointestinal system. : No signs and/or symptoms were reported regarding the genitourinary system. EENT: No deficits noted. Derm: No deficits noted. Musculoskeletal: Circulation, motion, and sensation intact. Range of motion: intact in all extremities. 19:00 Reassessment: ADMIT AND LABS PENDING, VS STABLE ON MONITOR. bp 19:05 Reassessment: Patient appears in no apparent distress at this time. No changes from jd3 previously documented assessment. Patient and/or family updated on plan of care and expected duration. Pain level reassessed. Patient is alert, oriented x 3, equal unlabored respirations, skin warm/dry/pink. 20:14 Reassessment: Patient appears in no apparent distress at this time. Patient and/or jd3 family updated on plan of care and expected duration. Pain level reassessed. Patient is alert, oriented x 3, equal unlabored respirations, skin warm/dry/pink. 21:29 Reassessment: Patient appears in no apparent distress at this time. Patient and/or jd3 family updated on plan of care and expected duration. Pain level reassessed. Patient is alert, oriented x 3, equal unlabored respirations, skin warm/dry/pink. 22:24 Reassessment: Patient appears in no apparent distress at this time. Patient and/or jd3 family updated on plan of care and expected duration. Pain level reassessed. Patient is alert, oriented x 3, equal unlabored respirations, skin warm/dry/pink. Vital Signs: 17:01 BP 148 / 73; Pulse 105; Resp 18; Temp 99.6; Pulse Ox 94% on R/A; Weight 103.42 kg; la1 Height 5 ft. 7 in. (170.18 cm); 19:00 BP 133 / 69; Pulse 98; Resp 18; Pulse Ox 100% ; bp 20:14 BP 120 / 74; Pulse 90; Resp 18 S; Pulse Ox 95% on R/A; jd3 21:29 BP 124 / 78; Pulse 92; Resp 16 S; Pulse Ox 96% on R/A; jd3 17:01 Body Mass Index 35.71 (103.42 kg, 170.18 cm) la1 ED Course: 16:50 Patient arrived in ED. as 16:50 Jonatan Venegas MD is Private Physician. as 16:56 Arm band placed on left wrist. la1 16:58 Triage completed. la1 17:00 Patient has correct armband on for positive identification. Bed in low position. Call bp light in reach. Side rails up X2. Adult w/ patient. 17:06 Dusty Solis, RITA is Primary Nurse. bp 17:18 Nate Nickerson MD is Attending Physician. gs 17:29 Strep Sent. bp 17:29 Influenza Screen (a \T\ B) Sent. bp 18:02 XRAY Chest Pa And Lat (2 Views) In Process Unspecified. EDMS 19:00 Max Alicea PA is PHCP. cp 19:20 Inserted saline lock: 20 gauge in right forearm, using aseptic technique. Blood rr5 collected. 20:57 Jonatan Venegas MD is Hospitalizing Provider. cp 22:02 No provider procedures requiring assistance completed. Patient admitted, IV remains in jd3 place. Administered Medications: 17:30 Drug: Tylenol 650 mg Route: PO; bp 18:47 Follow up: Response: No adverse reaction bp 18:55 Drug: Xopenex 1.25 mg Route: Inhalation; bp 22:02 Follow up: Response: No adverse reaction jd3 18:56 Drug: AtroVENT Aerosol 0.5 mg Route: Inhalation; bp 22:01 Follow up: Response: No adverse reaction jd3 19:42 Drug: NS 0.9% 1000 ml Route: IV; Rate: 125 ml/hr; Site: right forearm; jd3 21:59 Follow up: Response: No adverse reaction; IV Status: Infusion continued upon admission jd3 19:43 Drug: [place] 5 mg-325 mg 1 tabs Route: PO; jd3 22:01 Follow up: Response: No adverse reaction jd3 21:44 Drug: Rocephin - (cefTRIAXone) 1 grams Route: IVPB; Infused Over: 30 mins; Site: right jd3 antecubital; 22:00 Follow up: Response: No adverse reaction; IV Status: Completed infusion jd3 21:44 Drug: Doxycycline 100 mg Route: PO; jd3 22:00 Follow up: Response: No adverse reaction jd3 21:44 Drug: Xopenex (3) 1.25 mg Route: Inhalation; jd3 21:59 Follow up: Response: No adverse reaction jd3 21:45 Drug: SOLU-Medrol 40 mg Route: IVP; Site: right antecubital; jd3 22:00 Follow up: Response: No adverse reaction jd3 Outcome: 20:57 Decision to Hospitalize by Provider. cp 22:03 Admitted to Med/surg accompanied by tech, via wheelchair, room 422, with chart, Report jd3 called to Stella SALINAS 22:03 Condition: stable 22:03 Instructed on the need for admit, Demonstrated understanding of instructions. 22:24 Patient left the ED. jd3 Signatures: Dispatcher [employer] EDMS Bethanie Becerra Irene, RN RN iw Amari Franklin RN RN la1 Max Alicea PA PA cp Starr, Gregory, MD MD gs Davies, Jonathon, RN RN jd3 Dusty Solis RN RN bp Roque, Raymond, RN RN rr5 Corrections: (The following items were deleted from the chart) 19:44 19:43 Reassessment: Patient appears in no apparent distress at this time. No changes jd3 from previously documented assessment. Patient and/or family updated on plan of care and expected duration. Pain level reassessed. Patient is alert, oriented x 3, equal unlabored respirations, skin warm/dry/pink. jd3 20:15 20:15 Pain: Also complains of sleeplessness, jd3 jd3
--- NOTE | 2018-10-17 20:57 | EDPHYS ---
Physician Documentation [facility] Name: Ashley Reyes Age: 72 yrs Sex: Female : 1945 Arrival Date: 10/17/2018 Time: 16:50 Bed 14 Private MD: Jonatan Venegas C ED Physician Nate Nickerson HPI: 10/18 10:39 This 72 yrs old Female presents to ER via Ambulatory with complaints of gs Cough, Headache, InQuicker. 10:39 Onset: The symptoms/episode began/occurred suddenly, this morning, 2 week(s) ago, and gs became worse and became persistent. Severity of symptoms: At their worst the symptoms were moderate, in the emergency department the symptoms are unchanged. Modifying factors: the symptoms are aggravated by cold weather. Associated signs and symptoms: Pertinent positives: fever, sore throat. The patient has experienced similar episodes in the past, a few times. The patient has been recently seen by a physician: the patient's primary care provider. Historical: - Allergies: 10/17 16:56 Albuterol; la1 16:56 Azithromycin; la1 16:56 Cipro; la1 - Home Meds: 18:52 Calcium 600 + D(3) 600 mg calcium- 200 unit Oral cap daily [Active]; green tea twice a iw day [Active]; levothyroxine 125 mcg tab 1 tab once daily [Active]; multivitamin Oral cap [Active]; Myrbetriq 50 mg Oral Tb24 1 tab once daily [Active]; olopatadine 0.6 % nasal spry 2 sprays 2 times per day [Active]; topher probiotic [Active]; Prevacid 15 mg Oral cpDR 1 cap once daily [Active]; QNASL 80 mcg/actuation nasal HFAA 2 sprays once daily [Active]; Slow Fe Oral 160 mg daily [Active]; Xarelto oral 40 mg oral once daily [Active]; Xopenex Inhl daily [Active]; Perdiem Oral 30 mg daily [Active]; - PMHx: 16:56 Asthma; Atrial Fib; Hypothyroidism; la1 - Immunization history:: Adult Immunizations up to date. - Social history:: Smoking status: unknown. - Ebola Screening: : No symptoms or risks identified at this time. ROS: 10/18 10:39 All other systems are negative. gs Exam: 10:39 Head/Face: Normocephalic, atraumatic. Eyes: Pupils equal round and reactive to light, gs extra-ocular motions intact. Lids and lashes normal. Conjunctiva and sclera are non-icteric and not injected. Cornea within normal limits. Periorbital areas with no swelling, redness, or edema. ENT: Nares patent. No nasal discharge, no septal abnormalities noted. Tympanic membranes are normal and external auditory canals are clear. Oropharynx with no redness, swelling, or masses, exudates, or evidence of obstruction, uvula midline. Mucous membranes moist. Neck: Trachea midline, no thyromegaly or masses palpated, and no cervical lymphadenopathy. Supple, full range of motion without nuchal rigidity, or vertebral point tenderness. No Meningismus. Chest/axilla: Normal chest wall appearance and motion. Nontender with no deformity. No lesions are appreciated. Cardiovascular: Regular rate and rhythm with a normal S1 and S2. No gallops, murmurs, or rubs. Normal PMI, no JVD. No pulse deficits. 10:39 Abdomen/GI: Soft, non-tender, with normal bowel sounds. No distension or tympany. No guarding or rebound. No evidence of tenderness throughout. Back: No spinal tenderness. No costovertebral tenderness. Full range of motion. Skin: Warm, dry with normal turgor. Normal color with no rashes, no lesions, and no evidence of cellulitis. MS/ Extremity: Pulses equal, no cyanosis. Neurovascular intact. Full, normal range of motion. Neuro: Awake and alert, GCS 15, oriented to person, place, time, and situation. Cranial nerves II-XII grossly intact. Motor strength 5/5 in all extremities. Sensory grossly intact. Cerebellar exam normal. Normal gait. 10:39 Constitutional: The patient appears alert, awake. 10:39 Respiratory: the patient does not display signs of respiratory distress, Respirations: normal, Breath sounds: rhonchi, that are mild, are scattered. Vital Signs: 10/17 17:01 BP 148 / 73; Pulse 105; Resp 18; Temp 99.6; Pulse Ox 94% on R/A; Weight 103.42 kg; la1 Height 5 ft. 7 in. (170.18 cm); 19:00 BP 133 / 69; Pulse 98; Resp 18; Pulse Ox 100% ; bp 20:14 BP 120 / 74; Pulse 90; Resp 18 S; Pulse Ox 95% on R/A; jd3 21:29 BP 124 / 78; Pulse 92; Resp 16 S; Pulse Ox 96% on R/A; jd3 17:01 Body Mass Index 35.71 (103.42 kg, 170.18 cm) la1 MDM: 18:17 Patient medically screened. 20:55 Physician consultation: A Theo SOLIZ was called at 20:56, was contacted at 20:56, cp regarding admission, to the telemetry unit. patient's condition. 10/18 10:39 Differential Diagnosis: Bronchitis Influenza Upper Respiratory Infection Pneumonia. Data reviewed: vital signs, nurses notes, lab test result(s), radiologic studies. Counseling: I had a detailed discussion with the patient and/or guardian regarding: the historical points, exam findings, and any diagnostic results supporting the discharge/admit diagnosis, lab results, radiology results, the need for further work-up and treatment in the hospital. Response to treatment: the patient's symptoms have markedly improved after treatment. 10/17 17:19 Order name: Influenza Screen (a \T\ B); Complete Time: 18:40 10/17 17:19 Order name: Strep; Complete Time: 18:40 10/17 17:56 Order name: Throat Culture [facility] 10/17 18:49 Order name: CBC with Diff; Complete Time: 20:28 10/17 18:49 Order name: Basic Metabolic Panel; Complete Time: 20:28 10/17 20:28 Interpretation: Normal except: GFR 67. 10/17 18:49 Order name: Blood Culture* 10/17 17:19 Order name: XRAY Chest Pa And Lat (2 Views); Complete Time: 18:40 10/17 20:29 Interpretation: Report reviewed. 10/17 18:49 Order name: Lactate; Complete Time: 20:28 10/17 20:29 Interpretation: LAC 1.1; Reviewed. 10/17 18:49 Order name: Procalcitonin; Complete Time: 20:43 10/17 21:23 Order name: Basic Metabolic Panel EDVT 10/17 21:23 Order name: Basic Metabolic Panel; Complete Time: 10:39 [facility] 10/17 21:23 Order name: CBC with Automated Diff EDVT 10/17 21:23 Order name: CBC with Automated Diff; Complete Time: 10:39 EDMS 10/17 21:23 Order name: Regular EDMS Administered Medications: 10/17 17:30 Drug: Tylenol 650 mg Route: PO; bp 18:47 Follow up: Response: No adverse reaction bp 18:55 Drug: Xopenex 1.25 mg Route: Inhalation; bp 22:02 Follow up: Response: No adverse reaction jd3 18:56 Drug: AtroVENT Aerosol 0.5 mg Route: Inhalation; bp 22:01 Follow up: Response: No adverse reaction jd3 19:42 Drug: NS 0.9% 1000 ml Route: IV; Rate: 125 ml/hr; Site: right forearm; jd3 21:59 Follow up: Response: No adverse reaction; IV Status: Infusion continued upon admission jd3 19:43 Drug: [place] 5 mg-325 mg 1 tabs Route: PO; jd3 22:01 Follow up: Response: No adverse reaction jd3 21:44 Drug: Rocephin - (cefTRIAXone) 1 grams Route: IVPB; Infused Over: 30 mins; Site: right jd3 antecubital; 22:00 Follow up: Response: No adverse reaction; IV Status: Completed infusion jd3 21:44 Drug: Doxycycline 100 mg Route: PO; jd3 22:00 Follow up: Response: No adverse reaction jd3 21:44 Drug: Xopenex (3) 1.25 mg Route: Inhalation; jd3 21:59 Follow up: Response: No adverse reaction jd3 21:45 Drug: SOLU-Medrol 40 mg Route: IVP; Site: right antecubital; jd3 22:00 Follow up: Response: No adverse reaction jd3 Disposition: 10/18 12:05 Co-signature as Attending Physician, Nate Nickerson MD. Disposition: 10/17/18 20:57 Hospitalization ordered by Jonatan Venegas for Inpatient Admission. Preliminary diagnosis is Pneumonia due to other specified bacteria. - Bed requested for Telemetry/MedSurg (Inpatient). - Status is Inpatient Admission. jd3 - Condition is Stable. - Problem is new. - Symptoms have improved. UTI on Admission? No Signatures: Dispatcher [employer] EDVT Cecilia Pate RN RN iw Attema, Lee, RN RN la1 Page, Max, PA PA Nate Hdz MD MD gs Davies, Jonathon RN RN jd3 Dusty Solis RN RN Jono Boone jp3 Corrections: (The following items were deleted from the chart) 10/17 21:33 20:57 Hospitalization Ordered by A Theo SOLIZ for Inpatient Admission. Preliminary jp3 diagnosis is Pneumonia due to other specified bacteria. Bed requested for Telemetry/MedSurg (Inpatient). Status is Inpatient Admission. Condition is Stable. Problem is new. Symptoms have improved. UTI on Admission? No. cp 22:24 21:33 10/17/2018 20:57 Hospitalization Ordered by A Theo SOLIZ for Inpatient Admission. jd3 Preliminary diagnosis is Pneumonia due to other specified bacteria. Bed requested for Telemetry/MedSurg (Inpatient). Status is Inpatient Admission. Condition is Stable. Problem is new. Symptoms have improved. UTI on Admission? No. jp3
[2018-10-17] MEDS ORDERED: ONDANSETRON 4 MG/2 ML VIAL IV PRN (21:17)
[2018-10-17] MEDS ORDERED: CEFTRIAXONE/SWI 1gm 1 GM/10 ML SYR ONE (21:45)
[2018-10-17 22:45] VITALS: BMI 35.6
[2018-10-18 00:03] LABS: Urine Appearance CLEAR; Urine Bilirubin NEGATIVE (NEG); Urine Blood NEGATIVE (NEG); Urine Color YELLOW; Urine Glucose NEGATIVE (NEG); Urine Protein NEGATIVE (NEG); Urine Specific Gravity <=1.005 (1.005-1.030); Urine Urobilinogen 0.2 mg/dL (0.2-1.0)
[2018-10-18] MEDS: METHYLPREDNISOLONE 40 MG INJ IV SCH ×4 (00:17→17:23)
[2018-10-18] MEDS: ACETAMINOPHEN 500 MG TAB PO PRN ×2 (00:28→16:27)
[2018-10-18 00:36] LABS: Urine Microscopic Reflex NO UMIC
[2018-10-18] MEDS ORDERED: LEVALBUTEROL 1.25 MG/3 ML NEB NEB SCH (02:00)
[2018-10-18] MEDS: LEVALBUTEROL 1.25 MG/3 ML NEB NEB SCH ×4 (02:00→20:15)
[2018-10-18] MEDS ORDERED: ALBUTEROL 2.5 MG/3 ML NEB SOL NEB SCH (02:00)
[2018-10-18] MEDS: HYDROCODONE/CHLORPHEN 5 ML/OSYR PO PRN ×2 (02:12→13:56)
[2018-10-18 05:54] LABS: Absolute Lymphocytes (CBC) 0.4 K/uL (0.7-4.9); Absolute Monocytes 0.1 K/uL (0.1-1.3); Absolute Neutrophil 3.7 K/uL (1.8-8.0); Basophils % 0.2 % (0-1.3); Hematocrit 37.9 % (36.0-45.0); Lymphocytes % 10.4 % (15.3-44.8); MPV 8.2 fL (7.6-11.3)
[2018-10-18 06:03] LABS: Potassium 4.1 mmol/L (3.5-5.1)
[2018-10-18 06:42] LABS: Blood Morphology Comment NOT SEEN (NOT SEEN); Platelet Estimate ADEQ
[2018-10-18] MEDS: GABAPENTIN 300 MG CAP PO SCH ×3 (08:33→20:50)
[2018-10-18] MEDS: LEVOTHYROXINE SOD 0.075 MG TAB PO SCH (08:33)
[2018-10-18] MEDS: CEFTRIAXONE/SWI 1gm 1 GM/10 ML SYR IV SCH ×2 (08:33→20:49)
[2018-10-18] MEDS: DOXYCYCLINE 100 MG CAP PO SCH ×2 (08:33→20:50)
[2018-10-18] MEDS: PANTOPRAZOLE 40MG TABLET PO SCH (08:34)
[2018-10-18] MEDS: MONTELUKAST 10 MG TAB PO SCH (08:34)
[2018-10-18] MEDS: OSPEMIFENE 60 MG PO SCH (09:00)
[2018-10-18] MEDS ORDERED: OLOPATADINE HCL NS SCH (09:00)
[2018-10-18] MEDS ORDERED: CEFTRIAXONE 1 GM/NS 50 ML 1 GM/50 ML BAG IV SCH (09:00)
[2018-10-18] MEDS: MIRABEGRON 50 MG PO SCH (09:00)
[2018-10-18] MEDS ORDERED: HOME MED 1 EA UNK (Glycopyrrolate/Formoterol Fum [Bevespi Aerosphere Inhaler] 2 PUFF) IH SCH (09:00)
[2018-10-18] MEDS ORDERED: RIVAROXABAN 10 MG TABLET PO SCH (17:00)
[2018-10-18] MEDS ORDERED: RIVAROXABAN 20 MG TABLET PO SCH (17:00)
[2018-10-18] MEDS: GLYCOPYRROLATE IH SCH (20:50)
[2018-10-18] MEDS: OLOPATADINE HCL NS SCH (20:50)
[2018-10-18] MEDS: FORMOTEROL IH SCH (20:50)
[2018-10-19] MEDS: METHYLPREDNISOLONE 40 MG INJ IV SCH ×2 (00:14→05:59)
[2018-10-19] MEDS: HYDROCODONE/CHLORPHEN 5 ML/OSYR PO PRN (02:39)
[2018-10-19] MEDS: LEVALBUTEROL 1.25 MG/3 ML NEB NEB SCH ×2 (02:40→07:47)
[2018-10-19] MEDS: LEVOTHYROXINE SOD 0.075 MG TAB PO SCH (05:59)
[2018-10-19] MEDS: PANTOPRAZOLE 40MG TABLET PO SCH (05:59)
--- NOTE | 2018-10-19 06:42 | HP ---
Date of Admission: 10/17/2018 Chief Complaint: Cough, congestion, shortness of breath. History Of Present Illness: This is a 72-year-old female patient who saw me at office on 10/14/2018 with 1-week history of cough, congestion, coughing up greenish-colored mucus. At that time, the erasto ent denied any shortness of breath. She was diagnosed as having acute bronchitis and was prescribed amoxicillin, which she started taking it, and then she was not feeling any better, so last week on or Thursday, she contacted her ENT physician who prescribed her Bactrim, and she stopped amoxici llin. Over the weekend, her condition got worse with cough, congestion, shortness of breath, wheezin g problem started, and she started having fever and still coughing up yellow to green colored mucus, so she came into the ER yesterday. After she was evaluated, she was admitted to the hospital with pn eumonia and acute exacerbation of asthma. Medications: List reviewed. Review of Systems: Respiratory: As mentioned above. Constitutional: As mentioned above. All other systems reviewed and negative. Allergies: TO ALBUTEROL, CIPRO, AND AZITHROMYCIN. Past Medical History: Significant for moderate persistent asthma, chronic gastritis, impaired fastin g glucose, chronic constipation, abdominal wall hernia, sleep apnea, overactive bladder, paroxysmal a trial fibrillation, gastroesophageal reflux disease, hypothyroidism, allergic rhinitis. Past Surgical History: Carpal tunnel release, knee replacement, fundoplication, cholecystectomy, eth moidectomy, laminectomy, tonsillectomy. Family History: Significant for heart disease, hypertension, diabetes. Social History: Negative for smoking or alcohol use. Physical Examination: Vital signs: When she first came into the emergency room, temperature 99.6, pulse 105, respiratory r ate 18, blood pressure 148/73, oxygen saturation 94%. Height 5 feet 7 inches, weight 227 pounds. General: Awake, alert, oriented, not in distress. HEENT: Head atraumatic, normocephalic. Conjunctivae nonerythematous. Sclerae white. Mouth, no thr ush or edema noted. Ears/Nose, no mass, lesion, discharge noted. Neck: Supple. No JVD, lymph nodes, bruit, thyromegaly noted. Lungs: Bilateral scattered wheezing noted in all the lung marion with minimum basal rales. Not in r espiratory distress. Heart: Normal heart sounds, no murmur or gallop. Abdomen: The patient has a large abdominal wall hernia. No signs of any obstruction. No guarding, rigidity, tenderness, distention. Bowel sounds normoactive. Extremities: No leg edema. No calf tenderness. Skin: No rash, ulcer, cellulitis. Lymphatics: No lymph node enlargement in neck, supraclavicular, infraclavicular region. Laboratory Data: White count yesterday 6.1, hemoglobin 12.8, platelets 271. This morning, white cou nt 4.3, hemoglobin 12.6, platelets 276. Yesterday, sodium 137, potassium 3.9, chloride 103, bicarb 2 9, BUN 11, creatinine 0.84, glucose 97, procalcitonin less than 0.05, lactic acid 1.1. This morning, sodium 141, potassium 4.1, chloride 107, bicarb 27, BUN 11, creatinine 0.82, glucose 180. Urinalysi s: Negative. Chest x-ray: Baseline fibrosis with infiltrate left mid lung. Impression: 1.Pneumonia. 2.Acute exacerbation of moderate persistent asthma. 3.Hypothyroidism. 4.Allergic rhinitis. 5.Gastroesophageal reflux disease. 6.Chronic gastritis. 7.Abdominal wall hernia. 8.Impaired fasting glucose. 9.Sleep apnea. 10.Overactive bladder. 11.Paroxysmal atrial fibrillation. Plan: We will admit the patient to the hospital for further evaluation and management of this proble m. The patient is appropriate for inpatient and is expected to spend 2 midnights in hospital. We wi ll continue home medications per order including her Xarelto. Ambulation was encouraged. We will gi ve oxygen nebulizer treatment, IV steroid, IV antibiotic ceftriaxone, and oral antibiotic doxycycline . Follow up on culture results. We will see her tomorrow for followup. Depending on her condition, we will decide if she is stable for discharge tomorrow or not. LIZETT/CHEPEL Voice ID: [id number]
[2018-10-19] MEDS: CEFTRIAXONE/SWI 1gm 1 GM/10 ML SYR IV SCH (08:18)
[2018-10-19] MEDS: DOXYCYCLINE 100 MG CAP PO SCH (08:18)
[2018-10-19] MEDS: MONTELUKAST 10 MG TAB PO SCH (08:18)
[2018-10-19] MEDS: GABAPENTIN 300 MG CAP PO SCH (08:19)
[2018-10-19 08:33] VITALS: BP 129/76; TEMP 98
[2018-10-19] MEDS ORDERED: predniSONE 10 MG TAB PO ONE (09:00)
[2018-10-19] MEDS: FORMOTEROL IH SCH (09:00)
[2018-10-19] MEDS: MIRABEGRON 50 MG PO SCH (09:00)
[2018-10-19] MEDS: OLOPATADINE HCL NS SCH (09:00)
[2018-10-19] MEDS: GLYCOPYRROLATE IH SCH (09:00)
[2018-10-19] MEDS: OSPEMIFENE 60 MG PO SCH (09:00)
[2018-10-19 10:02] VITALS: O2SAT 95
--- NOTE | 2018-10-20 04:29 | DS ---
Date of Discharge: 10/19/2018 Disposition: Discharged to go home. Physical Examination: HEENT: Unremarkable. Lungs: Clear to auscultation. No rhonchi. No rales. No wheezing. Heart: Sounds normal. Abdomen: Soft. Bowel sounds normal. No guarding, rigidity, tenderness, or distention. Extremities: No leg edema. Laboratory Data: Upon admission, white count 6.1, hemoglobin 12.8, platelets 271. Yesterday, white count 4.3, hemoglobin 12.6, platelets 276. Upon admission, sodium 137, potassium 3.9, chloride 103, bicarb 29, BUN 11, creatinine 0.84, glucose 97. Yesterday, sodium , bicarb 27, creatinine 0.82, glucose 180. Hospital Course: A 72-year-old female patient who was admitted to the hospital with cough, congestio n, shortness of breath, and fever. Please see dictated H and P for more information. The patient fa iled outpatient treatment and came into emergency room over the weekend with complaints after she was evaluated she was diagnosed as having pneumonia and acute exacerbation of asthma. She was admitted to the hospital. After her admission to the hospital, she was given nebulizer treatment, IV steroid, IV ceftriaxone, and oral doxycycline. Her other home medications were continued. Overall, her cond ition improved. She started ambulating well. This morning, she feels a lot better. She feels comfo rtable going home. Medically, she is stable for discharge and was discharged to go home in stable co ndition with following medications and instructions. Discharge Medications: 1.Continue all prior home medications. 2.Follow up at my office in 2 weeks. 3.Cefuroxime 250 mg p.o. 2 times a day for 1 week. 4.Doxycycline 100 mg p.o. 2 times a day for 1 week. 5.Prednisone 10 mg. The patient to take 3 tablets p.o. daily for 3 days, then 2 tablets p.o. daily for 3 days, then 1 tablet p.o. daily for 3 days, then stop. LIZETT/MODL Voice ID: [id number] Report ID: [id number]
== END 2018-10-19 10:35 | disposition home or self-care (01) | DRG 194 ==
LOC: ER 16:48 → ERHOLD 21:42 → 4TH 21:59
PROVIDERS: ADMIT Internal Medicine; ATTEND Internal Medicine
DX: J18.9 Pneumonia, unspecified organism (principal); J45.41 Moderate persistent asthma with (acute) exacerbation; I48.0 Paroxysmal atrial fibrillation; K21.9 Gastro-esophageal reflux disease without esophagitis; E03.9 Hypothyroidism, unspecified; J30.9 Allergic rhinitis, unspecified; K29.50 Unspecified chronic gastritis without bleeding; K43.9 Ventral hernia without obstruction or gangrene; R73.01 Impaired fasting glucose; G47.30 Sleep apnea, unspecified; N32.81 Overactive bladder
CPT/HCPCS: 36415; 71046; 80048; 81003; 83605; 84145; 85025; 87040; 87070; 87081; 87804; 94640; 94760; 96361; 96365; 96375; 99285; J0696; J2920; J7030; J7512

== ENCOUNTER 2018-11-12 07:42 | Emergency (ER) | payer OTHER ==
--- OUTSIDE RECORDS SUMMARY | 2018-11-12 07:45 | XMS REPORT | Clinical Summary ---
:1945 Author Organization [facility] Address [address] [place] [address] Care Team Providers Name Role Phone Joe [...] Active (QVAR) 40 puffs. mcg/actuation inhaler gabapentin Take 2 180 capsule 1 10/29/2017 [...] with results of bronch Blue Auguste MD, [facility] No additional problems on file Encounters Date Type Specialty Care Team Description 10/12/2018 Telephone Gastroenterology Laurie Forrest MA 10/05/2018 Telephone Gastroenterology Laurie Forrest MA 09/02/2018 Telephone GastroenterConrad Banda MA 09/02/2018 Telephone Gastroenterology Laurie Forrest MA 08/30/2018 Office Visit Gastroenterology Feng Cobian Pain of upper abdomen (Primary Dx); MD Antonio Gastroesophageal reflux disease without esophagitis; Incisional hernia, without obstruction or gangrene; Constipation, unspecified constipation type 08/30/2018 Telephone GastroenterConrad Banda MA 08/27/2018 Telephone Gastroenterology Conrad Trinh MA 06/15/2018 [facility] Pulmonology Blue Auguste MD 04/22/2018 Refill Otolaryngology Naomy Fuller MD 03/18/2018 Telephone Otolaryngology Kathleen Mcdowell MA 02/19/2018 Refill Otolaryngology Naomy Fuller MD 02/16/2018 Hospital Gastroenterology Feng Cobian Encounter MD Antonio 01/18/2018 Orders Only Otolaryngology Mbong, Kathleen, Laryngeal spasm; CHRISTIAN Shortness of breath; Dysphagia, unspecified type; Choking, initial encounter 01/12/2018 Telephone Otolaryngology Kathleen Mcdowell, CHRISTIAN 01/08/2018 Speech & Language Otolaryngology SofiaMark Anthony, Laryngeal spasm (Primary Dx); Curtis SEE CCC-RATE AND COST ANALYST Impaired vocal quality; Shortness of breath 01/08/2018 Office Visit Otolaryngology Jonny Naomy Cough (Primary Dx); MD Antonio Gastroesophageal reflux disease, esophagitis presence not specified 12/29/2017 Refill Otolaryngology Andreaankush Naomy Laryngeal spasm (Primary Dx ); MD Antonio Shortness of breath; Dysphagia, unspecified type; Choking, initial encounter 12/22/2017 Telephone Otolaryngology Mark Anthony Black MS CCC-RATE AND COST ANALYST 12/21/2017 [facility], Laryngeal spasm (Primary Dx); Curtis SEE CCC-RATE AND COST ANALYST Impaired vocal quality; Shortness of breath after 11/11/2017 Family History Medical History Relation Name Comments [...] Taken Blood Pressure 148/83 08/30/2018 12:17 PM LOSS PREVENTION RESEARCH ENGINEER Pulse 80 08/30/2018 12:17 PM LOSS PREVENTION RESEARCH ENGINEER Temperature 36.4 C (97.5 F) 08/30/2018 12:17 PM LOSS PREVENTION RESEARCH ENGINEER Respiratory Rate - - Oxygen Saturation - - Inhaled Oxygen Concentration - - Weight 105 kg (232 lb 3.2 oz) 08/30/2018 12:17 PM LOSS PREVENTION RESEARCH ENGINEER Height 170.2 cm (5' 7") 08/30/2018 12:17 PM LOSS PREVENTION RESEARCH ENGINEER Body Mass Index 36.37 08/30/2018 12:17 PM LOSS PREVENTION RESEARCH ENGINEER Plan of Treatment Health Maintenance Due Date [...] upper Results for this ANTIGEN, STOOL PM LOSS PREVENTION RESEARCH ENGINEER abdomen procedure are in the results section. LIPASE LEVEL Routine 09/01/2018 11:53 Pain of upper Results for this AM LOSS PREVENTION RESEARCH ENGINEER abdomen procedure are in the results section. AMYLASE LEVEL Routine 09/01/2018 11:53 Pain of upper Results for this AM LOSS PREVENTION RESEARCH ENGINEER abdomen procedure are in the results section. CBC HEMOGRAM Routine 09/01/2018 11:53 Pain of upper Results for this AM LOSS PREVENTION RESEARCH ENGINEER abdomen procedure are in the results section. after 11/11/2017 Results Helicobacter pylori antigen, stool (09/01/2018 1:48 PM LOSS PREVENTION RESEARCH ENGINEER) H pylori Ag, stool Negative Negative [facility] Specimen Stool Narrative Performed At Performed at:[facility] - [facility] [address] [place], [place] [id number] Slot Operations Manager: Buddy Villalobos MD, Phone:[phone] Performing Organization Address City/State/[facility] Phone Number [facility] CBC hemogram (09/01/2018 11:53 AM LOSS PREVENTION RESEARCH ENGINEER) WBC 8.7 3.4 - 10.8 x10E3/uL [facility] [...] Specimen Blood Narrative Performed At Performed at: - [facility] [address] [place], [id number] Slot Operations Manager: Kranthi Campos MD, Phone:[phone] Performing Organization Address City/[facility] Phone Number [facility] Lipase level (09/01/2018 11:53 AM LOSS PREVENTION RESEARCH ENGINEER) Lipase 25 14 - 72 U/L [facility] Specimen Blood Narrative Performed At Performed at: [facility] [place], [id number] Slot Operations Manager: Kranthi Campos MD, Phone:[phone] Performing Organization Address [facility] Phone Number [facility] Amylase level (09/01/2018 11:53 AM LOSS PREVENTION RESEARCH ENGINEER) Amylase 59 31 - 124 U/L [facility] Specimen Blood Narrative Performed At Performed at: [facility] [address] [place], [id number] Slot Operations Manager: Kranthi Campos MD, Phone:[phone] Performing Organization Address [facility] Phone Number [facility] after 11/11/2017 Insurance Payer Benefit Plan / Group Subscriber ID Type Phone Address MEDICARE MEDICARE PART A AND B xxxxxxxxxxx Medicare [place], [place] AETNA AETNA HMO,POS,EPO, MC/EC xxxxxxxxx HMO Advance Directives Patient has advance care planning documents on file. For more information, please contact:[place] [address]
--- OUTSIDE RECORDS SUMMARY | 2018-11-12 07:46 | XMS REPORT ---
:1945 [facility] Address [address] [place] [address] [address] Care Team Providers Name Role Phone RA VELAZCO Unavailable Unavailable Problems This patient has no known problems. Allergies, Adverse Reactions, Alerts This patient has no known allergies or adverse reactions. Medications This patient has no known medications. Results Test Description Test Time Test Comments Text Results Atomic Results Result Comments CYTOLOGY 2018-07-02 Medical Cytology Report 17:16:00 Case: [id number] Authorizing Provider: Ra Velazco MD Collected: 06/30/2018 1600 Ordering Location: [facility] Radiology Main Received: 07/01/2018 1258 Pathologist: Catherine Joe MD Specimen: Lymph Node, Cervical LEFT NECK LYMPH NODE, FNA BY RADIOLOGIST (GER) (DIRECT SMEARS, CYTOSPINS, CELL BLOCK OF ASPIRATE): - NO METASTATIC CARCINOMA, GRANULOMATA IDENTIFIED - LYMPHOID TISSUE PRESENT Signing Pathologist Direct Phone Line: [phone] signed by Catherine Joe MD on 07/02/2018 at 5:16 PMPlease also see cytopathology report [id number]. 80012(1.3 x 0.8 x 0.9 cm) left neck lymph node; reported tongue cancer, enlarged neck lymph nodesLEFT NECK LYMPH NODE FNAPrepared 4 cytospins from 30 ml cytorich red fixaitve Collected: [id number]: [id number].[facility], Department of Pathology, [address] [place] [address], [facility], [address] [place] [address], [facility], [facility] of [facility]ology, [address] [place] [address], CYTOLOGY 2018-07-02 Medical Cytology Report 13:16:00 Case: [id number] Authorizing Provider: Ra Velazco MD Collected: 06/30/2018 1600 Ordering Location: [facility] Radiology Main Received: 07/01/2018 1259 Pathologist: Vesna Novak MD Specimen: Lymph Node, Cervical, right neck node (1.5 x 0.5 x 1.4 cm) RIGHT NECK LYMPH NODE, FNA BY RADIOLOGIST (CYTOSPINS): - NEGATIVE FOR MALIGNANCY - LYMPHOID/LYMPH NODE TISSUE PRESENT Signing Pathologist Direct Phone Line: [phone] signed by Vesna Novak MD on 07/02/2018 at 1:16 PMPlease also see cytopathology report [id number]. 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 No metastatic tumor is notedR[facility], [facility] of [facility]ology, [address] [place] [address], [facility], [facility] of [facility], [address] [place] [address], [facility], [facility] of [facility]ology, [address] [place] [address], U/S, 2018-06-30 Reason for FINAL REPORT PATIENT ID: ASPIRATION/INJECT 16:08:00 Exam:->R59.0, [id number] INDICATION: 72-year-old ION C02.4 RIGHT female with [...] Cyr Verified Date/Time: 06/30/2018 16:08:29 Reading Location: [address] Ultrasound Reading Room U/S, 2018-06-30 Reason for FINAL REPORT PATIENT ID: ASPIRATION/INJECT 16:08:00 Exam:->R59.0, [id number] INDICATION: 72-year-old ION C02.4 RIGHT female with [...] Cyr Verified Date/Time: 06/30/2018 16:08:56 Reading Location: [address] Ultrasound Reading Room UE EXAM 2018-06-25 Surgical Pathology Report 16:56:00 Case: [id number] Authorizing Provider: Ra Velazco MD Collected: 06/18/2018 0824 Ordering Location: [facility] PERIOPERATIVE Received: 06/18/2018 1149 SERVICES Pathologist: Sushila Mejia MD Specimen: Tongue, base tongue BASE OF THE TONGUE, LARYNGOSCOPY WITH BIOPSY: - LINGUAL TONSILS WITH REACTIVE FOLLICULAR HYPERPLASIA - SQUAMOUS MUCOSA WITH ACUTE INFLAMMATION WITH ATYPIA - METAPLASTIC CARTILAGE AND DILATED LYMPHATICS - NEGATIVE FOR DYSPLASIA OR MALIGNANCY Signing Pathologist Direct Phone Line: [phone] signed by Sushila Mejia MD on 06/25/2018 [...] findings have been discussed with Dr. Velazco. 55567; 28460; 15770 X 6Nasal obstructionBase of tongue biopsy Received in formalin labeled "tongue", description "base of tongue" is a 3.0 x 2.0 x 0.3 cm aggregate of pink-lara to mejia-white rubbery soft tissue. Specimen is entirely submitted in A1. DB/bc PERFORMEDThe interpretation of this case included the use of immunohistochemistry or special stains. D2-40; CD34; CD3; CD20 CD45; Ki-67; Cyclin-K3Zodxrfacmrxgfxzutmkl technical testing was performed at [facility], Pathology Laboratory where it was developed [...] developed and its performance characteristics determined by [facility], Pathology Laboratory. It has not been cleared [...] Value Reference Range Comments SODIUM (BEAKER) (test jarq=086) 142 meq/L 136-145 POTASSIUM (BEAKER) (test ecjn=820) 3.7 meq/L 3.5-5.1 CHLORIDE (BEAKER) (test oobc=968) 107 meq/L 98-107 CO2 (BEAKER) (test tpaw=679) 29 meq/L 22-29 BUN AND [id number] 18:46:00 Test Item Value Reference Range Comments BLOOD UREA NITROGEN 13 mg/dL 7-21 (BEAKER) (test wprb=572) CREATININE (BEAKER) (test 0.74 mg/dL 0.57-1.25 glgf=958) EGFR (BEAKER) (test 78 mL/min/1.73 sq m ESTIMATED GFR IS NOT rrje=7676) ACCURATE CREATININE CLEARANCE IN PREDICTING GLOMERULAR FILTRATION RATE. ESTIMATED GFR IS NOT APPLICABLE FOR DIALYSIS PATIENTS. [id number] 18:18:00 Test Item Value Reference Range Comments HEMOGLOBIN (BEAKER) (test cyyz=185) 12.9 GM/DL 11.2-15.7 TISSUE [id number] 11:51:00Surgical Pathology Report Case: [id number] Authorizing Provider: Ra Velazco MD Collected: 05/01/2017 1505 Ordering Location: [facility] MAIN ADMITTING Received: 05/04/2017 1531 Pathologist: Marine Hawthorne MD Specimen: Nasopharynx/Oropharynx NASOPHARYNX/OROPHARYNX, BIOPSY: - FOLLICULAR LYMPHOID HYPERPLASIA - NEGATIVE FOR MALIGNANCY CC/pl Signing Pathologist Direct Phone Line: [phone] signed by Marine Hawthorne MD on 05/07/2017 at 11:51 [id number] neoplasm benignNasopharynx tissueThe specimen is received in [...]
--- OUTSIDE RECORDS SUMMARY | 2018-11-12 07:46 | XMS REPORT ---
[...] End Date Status Dosage Date Bactrim DS [facility] 28236195859 800-160 MG Orally January 13, January 23, Active 1 tablet Twice a day 2017 2017 PredniSONE [facility] 34550178939 10 MG Orally then January 13January 23, Active 1 tablet QD x 5 days 2017 2017 BID x 5 days Results No Known Results Summary Purpose eClinicalWorks Submission
--- OUTSIDE RECORDS SUMMARY | 2018-11-12 07:46 | XMS REPORT ---
:1945 Author Organization [employer] Care Team Providers Name Role Phone Tma Carmen Provider Role Unavailable Allergies No Known Allergies Problems Problem Type Condition Code Onset Dates Condition Status Problem Chronic rhinitis J31.0 Active Problem Chronic tonsillitis J35.01 Active Problem Sinusitis - Chronic maxillary J32.0 Active Problem Sinusitis - Chronic J32.8 Active Medications Medication Code Code Instructions Start End Status Dosage System Date Date Mometasone [facility] 06781515771 50 MCG/ACT December 16, Active 2 sprays Furoate Nasally Once a 2018 in each day nostril Results No Known Results Summary Purpose eClinicalWorks Submission
--- OUTSIDE RECORDS SUMMARY | 2018-11-12 07:46 | XMS REPORT ---
:1945 [facility] Team Providers Name Role Phone Jose [...] End Status Dosage System Date Date Calcium [facility] [address]-94 Active not defined Multivitamin [facility] [address]8431-[address] Active not defined Xarelto [facility] [address]-04 Active not defined Levothyroxine [facility] [address]-60 Active not Sodium defined Montelukast [facility] [address]-40 Active not Sodium defined Bevespi ND 0 Active not defined Fiber ND 0 Active not defined Loratadine [facility] [address]-92 Active not defined Iron [facility] [address]-26 Active not defined Augmentin [facility] 72019080541 875-125 MG May 05Apr Active 1 tablet Orally every 2017 26, hrs 2018 Perdiem [facility] [address]-37 Active not Overnight Relief defined Osphena [facility] [address]-98 Active not defined Mometasone [facility] 49265558901 50 MCG/ACT December 16, Active 2 sprays Furoate Nasally Once a 2018 in each day nostril Medrol (Sonido) [facility] 13149832964 4 MG Orally May 04Apr Active as 2018 24, 2017 Stool Softener [facility] [address]-89 Active not defined Cranberry [facility] 59[address] Active not defined Qvar [facility] [address]-91 Active not defined Myrbetriq [facility] [address]-33 Active not defined Valerian Root [facility] 60900-[address]22 Active not defined Gabapentin [facility] 87013742342 100 MG Orally Jun 24, Active 1 capsule Three times a 2016 day Mucinex [facility] [address]-20 Active not defined Pearls IC [facility] 82404-34950 Active not defined Olopatadine HCl [facility] [address]-88 Active not defined Lansoprazole [facility] 0 Active not defined Results No Known Results Summary Purpose eClinicalWorks Submission
--- OUTSIDE RECORDS SUMMARY | 2018-11-12 07:46 | XMS REPORT ---
[...] Status Dosage System Date Date Bactrim DS [facility] 17379091138 800-160 MG Apr 16Apr Active 1 tablet Orally Twice a 2017 Medrol (Sonido) [facility] 11337412696 4 MG Orally Apr 16Apr Active as directed 2017 Results No Known Results Summary Purpose eClinicalWorks Submission
--- OUTSIDE RECORDS SUMMARY | 2018-11-12 07:46 | XMS REPORT ---
[...] Betamethasone NDC 0 Active not defined Myrbetriq [facility] [address]-00 Active not defined Cyclobenzaprine HCl NDC 0 Active not defined Mometasone Furoate [facility] 83908782701 50 MCG/ACT December 16, Active 2 sprays Nasally Once a 2018 in each day nostril Bevespi NDC 0 Active not defined Xarelto [facility] [address]-37 Active not defined Iron [facility] [address]-98 Active not defined Qvar [facility] [address]-15 Active not defined Sulfamethoxazole NDC 0 Active not defined Vitamin B-12 [facility] 69079-42778 Active not defined Nasacort NDC 0 Active not defined Levothyroxine [facility] [address]-21 Active not Sodium defined Pearls IC [facility] 68842-08989 Active not defined Xopenex HFA [facility] [address]-84 Active not defined Gabapentin [facility] 58986789197 100 MG Orally Jun 24, Active 1 capsule Three times a 2017 day Prevacid [facility] [address]-39 Active not defined Olanzapine [facility] [address]-59 Active not defined Perdiem Overnight [facility] [address]-79 Active not Relief defined Calcium [facility] [address]-09 Active not defined PredniSONE [facility] 05340674591 10 MG Orally Apr 08Mar Active 1 tablet Twice daily x 2018 27, 2 days then 2018 Once a day x 2 days Olopatadine HCl [facility] [address]-23 Active not defined Multivitamin [facility] 17980-[address] Active not defined Results No Known Results Summary Purpose eClinicalWorks Submission
--- OUTSIDE RECORDS SUMMARY | 2018-11-12 07:46 | XMS REPORT | Clinical Summary ---
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 US ASPIRATION Routine 06/30/2018 4:09 Localized enlarged Results for this PM CAR SE[facility] lymph nodes procedure are in Malignant tumor of the results lingual tonsil section. (HCC) CYTOLOGY AP Routine 06/30/2018 4:00 Results for this PM [facility] SE[facility] procedure are in the results section. CYTOLOGY AP Routine 06/30/2018 4:00 Results for this PM CAR SE[facility] procedure are in the results section. TISSUE [...] in the results section. after 11/11/2017 Results US Aspiration (06/30/2018 4:09 PM CAR SEALER)Only the most recent of2 resultswithin the time period is included. Narrative Performed At FINAL REPORT [facility] INDICATION: 72-year-old female with report of tongue [...] MD Report Verified Date/Time:06/30/2018 16:08:29 Reading Location: [address] Ultrasound Reading Room Procedure Note Interface, External Ris In - 06/30/2018 4:11 PM CAR SEALER FINAL REPORT INDICATION: 72-year-old female with report [...] Verified Date/Time: 06/30/2018 16:08:29 Reading Location: [facility] [id number] Ultrasound Reading Room Performing Organization Address City/State/Zipcode Phone Number [facility] Cytology (06/30/2018 4:00 PM CAR SEALER)Only the most recent of2 resultswithin the time period is included. Case Report Medical Cytology Report Case: [id number] [facility] Authorizing Provider:Tam Carmen MD Collected: 06/30/[address] [place] [address] Ordering Location: [facility] Radiology Main Received: 07/01/2018 1258 Pathologist: Catherine Joe MD Specimen:Lymph Node, Cervical DIAGNOSIS LEFT NECK LYMPH NODE, FNA BY RADIOLOGIST (GER) (DIRECT SMEARS, CYTOSPINS, CELL BLOCK OF ASPIRATE): [facility] - NO METASTATIC CARCINOMA, GRANULOMATA IDENTIFIED [facility] - LYMPHOID TISSUE PRESENT Signing Pathologist Direct Phone Line: [phone] COMMENT [facility] Please also see cytopathology report [id number]. 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 [facility] Gross assessment was [facility] performed at [place], Department of [facility] Pathology, [address] [place] [address], Technical component was [facility] performed at [place], Department of [facility] Pathology, [address] [place] [address], Professional component was [facility] performed at [place], Department of [facility] Pathology, [address] [place] [address], Specimen Fine Needle Aspirate - Lymph Node, Cervical Narrative Performed At Performing Organization Address City/State/Zipcode Phone Number [address] [address] BOW Tissue Exam (06/18/2018 8:24 AM CDT) Case Report Surgical Pathology Report Case: [id number] [facility] Authorizing Provider:Tam Carmen MD Collected: 06/18/2018 0824 [facility] Ordering Location: [facility] PERIOPERATIVE Received: 06/18/2018 1149 SERVICES Pathologist: Sushila Mejia MD Specimen:Tongue, base tongue DIAGNOSIS BASE OF THE TONGUE, LARYNGOSCOPY WITH BIOPSY: [facility] - LINGUAL TONSILS WITH REACTIVE FOLLICULAR HYPERPLASIA [facility] - SQUAMOUS MUCOSA WITH ACUTE INFLAMMATION WITH ATYPIA - METAPLASTIC CARTILAGE AND DILATED LYMPHATICS - NEGATIVE FOR DYSPLASIA OR MALIGNANCY Signing Pathologist Direct Phone Line: [phone] COMMENT The squamous mucosa shows mild acute inflammation and focal reactive atypia. There are dilated lymphatics (hilighted by CD34 and D2-40) and metaplastic cartilage in the subepithelial tissues, Lingual to [facility] nsils show reactive follicular hyperplasia, confirmed by immunohistochemical studies performed on block A1, that demonstrate the lymphoid population to be comprised of CD20 positive B cells and CD3 pos [facility] itive T cells. Cyclin D1 [...] been discussed with Dr. Carmen. CPT Code(s) 32480; 72245; 60227 X 6 [facility] CLINICAL HISTORY Nasal obstruction [facility] SPECIMEN SOURCE Base of tongue biopsy [facility] GROSS DESCRIPTION Received in formalin labeled [facility] "tongue", description "base of [facility] tongue" is a 3.0 x 2.0 x 0.3 cm aggregate of pink-lara to mejia-white rubbery soft tissue. Specimen is entirely submitted in A1. DB/bc MICROSCOPIC DESCRIPTION PERFORMED [facility] SPECIAL STUDIES The interpretation of this case included the use of immunohistochemistry or special stains. [facility] D2-40; CD34; CD3; CD20 CD45; Ki-67; Cyclin-D1 [facility] Immunohistochemistry technical testing was performed at [facility], Pathology Laboratory where it was developed [...] developed and its performance characteristics determined by [facility], Pathology Laboratory. It has not been [...] Specimen Tissue - Tongue Performing Organization Address [facility] Phone Number [address] [address] BOW BUN and Creatinine (06/14/2018 5:31 PM CDT) BUN 13 7 - 21 mg/dL [facility] Creatinine 0.74 0.57 - 1.25 mg/dL [facility] EGFR 78Comment: ESTIMATED GFR IS mL/min/1.73 sq m [facility] NOT ACCURATE CREATININE [facility] CLEARANCE IN PREDICTING GLOMERULAR FILTRATION RATE. ESTIMATED GFR IS NOT APPLICABLE FOR DIALYSIS PATIENTS. Specimen Blood Performing Organization Address [facility] Phone Number [address] [address] CENTER Hemoglobin (06/14/2018 5:31 PM CDT) Hemoglobin 12.9 11.2 - 15.7 GM/DL [facility] Specimen Blood Performing Organization Address [facility] Phone Number [address] [address] CENTER Electrolytes (06/14/2018 5:31 PM CDT) Sodium 142 136 - 145 meq/L [facility] Potassium 3.7 3.5 - 5.1 meq/L [facility] Chloride 107 98 - 107 meq/L [facility] CO2 29 22 - 29 meq/L [facility] Specimen Blood Performing Organization Address City/State/Zipcode Phone Number [facility] [address] [place] [address] [phone] CENTER after 11/11/2017 Insurance Payer Benefit Plan / Group Subscriber ID Type Phone Address MEDICARE MEDICARE A B xxxxxxxxxxx Medicare AETNA - MGD CARE AETNA INDEMNITY NON CONTR xxxxxxxxx Comm
--- OUTSIDE RECORDS SUMMARY | 2018-11-12 07:46 | XMS REPORT ---
[...] End Date Status Dosage Date Medrol (Sonido) [facility] [id number] 4 MG Orally May 04, May 10, Active as directed 2017 2017 Results No Known Results Summary Purpose eClinicalWorks Submission
--- OUTSIDE RECORDS SUMMARY | 2018-11-12 07:47 | XMS REPORT ---
[...] End Status Dosage System Date Date Iron [facility] [address]-98 Active not defined Fiber NDC 0 Active not defined Cranberry [facility] [address] Active not defined Loratadine [facility] [address]-93 Active not defined Olopatadine HCl [facility] [address]-82 Active not defined Osphena [facility] [address]-53 Active not defined Bactrim DS (14 [facility] 91789050422 800-160 MG Aug 11, Aug 31, Active 1 tablet days) Orally Twice a 2017 2018 day Perdiem [facility] [address]-63 Active not Overnight Relief defined Stool Softener [facility] [address]-29 Active not defined Multivitamin [facility] 36029-02204 Active not defined Qvar NDC 0 Active not defined Myrbetriq [facility] [address]-96 Active not defined Mucinex [facility] [address]-42 Active not defined Montelukast [facility] [address]-01 Active not Sodium defined Gabapentin [facility] 91662171819 100 MG Orally Jun 24, Active 1 capsule Three times a 2016 day Mometasone [facility] 85666073234 50 MCG/ACT December 16, Active 2 sprays Furoate Nasally Once a 2018 in each day nostril Cephalexin [facility] [address]-29 Active not defined Lansoprazole NDC 0 Active not defined Valerian Root [facility] 69[address]19 Active not defined Xarelto [facility] [address]-30 Active not defined Calcium [facility] [address]-34 Active not defined Bevespi NDC 0 Active not defined Levothyroxine [facility] [address]-56 Active not Sodium defined Pearls IC [facility] [address]603 Active not defined Hyoscyamine ND 0 Active not defined Results No Known Results Summary Purpose eClinicalWorks Submission
--- OUTSIDE RECORDS SUMMARY | 2018-11-12 07:47 | XMS REPORT ---
[...] End Status Dosage System Date Date Mucinex [facility] [address]-04 Active not defined Osphena [facility] [address]-62 Active not defined Olopatadine HCl [facility] [address]-02 Active not defined Qvar NDC 0 Active not defined Fiber NDC 0 Active not defined Xarelto [facility] [address]-98 Active not defined Pearls IC [facility] [address] Active not defined Hyoscyamine NDC 0 Active not defined Bevespi NDC 0 Active not defined Cranberry [facility] [address]40 Active not defined Mometasone [facility] 59288382413 50 MCG/ACT December 16, Active 2 sprays Furoate Nasally Once a 2017 in each day nostril Gabapentin [facility] 19103940757 100 MG Orally Jun 24, Active 1 capsule Three times a 2017 day Multivitamin [facility] 37581-54222 Active not defined Calcium [facility] [address]-32 Active not defined Cephalexin [facility] [address]-74 Active not defined Zipsor [facility] 32531050332 25 MG Orally Jun 14Jul 04, Active 1 capsule Four times a 2017 2017 with food day or milk as needed Iron [facility] [address]-97 Active not defined Myrbetriq [facility] [address]-71 Active not defined Levothyroxine [facility] [address]-26 Active not Sodium defined Lansoprazole [facility] 0 Active not defined Stool Softener [facility] [address]-74 Active not defined Valerian Root [facility] [address] Active not defined Montelukast [facility] [address]-08 Active not Sodium defined Loratadine [facility] [address]-81 Active not defined Perdiem [facility] [address]-43 Active not Overnight Relief defined Results No Known Results Summary Purpose eClinicalWorks Submission
--- OUTSIDE RECORDS SUMMARY | 2018-11-12 07:47 | XMS REPORT ---
[...] End Status Dosage System Date Date Loratadine [facility] [address]-19 Active not defined Iron [facility] [address]-22 Active not defined Perdiem [facility] [address]-64 Active not Overnight Relief defined Calcium [facility] [address]-66 Active not defined Multivitamin [facility] [address]4498-56395 Active not defined Montelukast [facility] [address]-92 Active not Sodium defined Augmentin [facility] 47076901220 875-125 MG May 24, Jun 03, Active 1 tablet Orally every 12 2017 2018 hrs Valerian Root [facility] [address]85-[address] Active not defined Gabapentin [facility] 99824422232 100 MG Orally Jun 24, Active 1 capsule Three times a 2017 day Cranberry [facility] 87312-72821 Active not defined Levothyroxine [facility] [address]-48 Active not Sodium defined Mucinex [facility] [address]-65 Active not defined Lansoprazole [facility] 0 Active not defined Qvar [facility] [address]-79 Active not defined Olopatadine HCl [facility] [address]-75 Active not defined Mometasone [facility] 60520322615 50 MCG/ACT December 16, Active 2 sprays Furoate Nasally Once a 2018 in each day nostril Fiber ND 0 Active not defined Bevespi [facility] 0 Active not defined Osphena [facility] [address]-51 Active not defined Xarelto [facility] [address]-57 Active not defined Stool Softener [facility] [address]-15 Active not defined Pearls IC [facility] 09227-40520 Active not defined Myrbetriq [facility] [address]-80 Active not defined Results No Known Results Summary Purpose eClinicalWorks Submission
--- OUTSIDE RECORDS SUMMARY | 2018-11-12 07:47 | XMS REPORT ---
[...] Start Date End Date Status Dosage PredniSONE [facility] 57126755692 10 MG Orally BID Jul 07Jul 17, Active 1 tablet for 5 days then 2017 2017 QD for 5 days Augmentin [facility] 52154894950 875-125 MG Orally Jul 07Jul 17, Active 1 tablet every 12 hrs 2017 2017 Results No Known Results Summary Purpose eClinicalWorks Submission
--- OUTSIDE RECORDS SUMMARY | 2018-11-12 07:47 | XMS REPORT ---
[...] Medications Results No Known Results Summary Purpose [facility]
--- OUTSIDE RECORDS SUMMARY | 2018-11-12 07:47 | XMS REPORT ---
[...] Medications Results No Known Results Summary Purpose [facility]
--- OUTSIDE RECORDS SUMMARY | 2018-11-12 07:47 | XMS REPORT ---
[...] Status Dosage System Date Date Valerian Root [facility] [address]34 Active not defined Loratadine [facility] [address]-02 Active not defined Montelukast [facility] [address]-02 Active not Sodium defined Lansoprazole NDC 0 Active not defined Qvar NDC 0 Active not defined Olopatadine HCl [facility] [address]-95 Active not defined Oxycodone HCl [facility] 50638250539 5 MG/5ML Orally Jun 14, Jun 22, Active 10 ml as every 6 hrs 2017 2017 needed Fiber NDC 0 Active not defined Osphena [facility] [address]-62 Active not defined Perdiem [facility] [address]-51 Active not Overnight Relief defined Levothyroxine [facility] [address]-15 Active not Sodium defined Xarelto [facility] [address]-10 Active not defined Hyoscyamine NDC 0 Active not defined Cephalexin [facility] [address]-30 Active not defined Mometasone [facility] 49275619373 50 MCG/ACT December 16, Active 2 sprays Furoate Nasally Once a 2018 in each day nostril Gabapentin [facility] 00956970615 100 MG Orally Jun 24, Active 1 capsule Three times a [address] [facility] 07491496244 10 MG Orally 2 Jun 14Jun 21, Active 1 tablet times a day [address] [facility] 87985013151 25 MG Orally Jun 14Jul 04, Active 1 capsule Four times a 2017 2018 with food day or milk as needed Stool Softener [facility] [address]-94 Active not defined Cranberry [facility] 98[address]-92616 Active not defined Pearls IC [facility] 12848-25918 Active not defined Multivitamin [facility] 02970-[address]26 Active not defined Mucinex [facility] [address]-11 Active not [address] [facility] [address]-42 [address] not [address] [facility] [address]-29 Active not defined Iron [facility] [address]-23 Active not defined Bevespi [facility] 0 Active not defined Results No Known Results Summary Purpose eClinicalWorks Submission
--- OUTSIDE RECORDS SUMMARY | 2018-11-12 07:47 | XMS REPORT ---
[...] Medications Results No Known Results Summary Purpose [facility]mission
--- OUTSIDE RECORDS SUMMARY | 2018-11-12 07:48 | XMS REPORT ---
[...] Medications Results No Known Results Summary Purpose [facility]
--- OUTSIDE RECORDS SUMMARY | 2018-11-12 07:48 | XMS REPORT ---
[...] Status Dosage System Date Date Stool Softener [facility] [address]-88 Active not defined Cranberry [facility] [address]79[address] Active not defined Mucinex [facility] [address]-32 Active not defined Bactrim DS (14 [facility] 79667358892 800-160 MG Aug 11, Aug 31, Active 1 tablet days) Orally Twice a 20172018 Multivitamin [facility] 34944-[address]97 Active not defined Bevespi NDC 0 Active not defined Myrbetriq [facility] [address]-52 Active not defined Lansoprazole NDC 0 Active not defined Hyoscyamine NDC 0 Active not defined Loratadine [facility] [address]-40 Active not defined Perdiem [facility] [address]-94 Active not Overnight Relief defined Iron [facility] [address]-30 Active not defined Xarelto [facility] [address]-22 Active not defined Levothyroxine [facility] [address]-75 Active not Sodium defined Montelukast [facility] [address]-59 Active not Sodium defined Osphena [facility] [address]-81 Active not defined Qvar NDC 0 Active not defined Olopatadine HCl [facility] [address]-07 Active not defined Cephalexin [facility] [address]-96 Active not defined Valerian Root [facility] [address] Active not defined Gabapentin [facility] 64552161843 100 MG Orally Jun 24, Active 1 capsule Three times a 2016 day Calcium [facility] [address]-53 Active not defined Fiber NDC 0 Active not defined Mometasone [facility] 32823624386 50 MCG/ACT December 16, Active 2 sprays Furoate Nasally Once a 2017 in each day nostril Pearls IC [facility] [address] Active not defined Results No Known Results Summary Purpose eClinicalWorks Submission
--- OUTSIDE RECORDS SUMMARY | 2018-11-12 07:48 | XMS REPORT ---
[...] End Date Status Dosage Date Bactrim DS [facility] 15292799048 800-160 MG Orally October 15, October 25, Active 1 tablet Twice a day 2018 2018 Results No Known Results Summary Purpose eClinicalWorks Submission
[2018-11-12] MEDS ORDERED: MORPHINE 4 MG/ML SYR ONE ×2 (08:18→10:44)
[2018-11-12] MEDS ORDERED: NA CHLORIDE 0.9% 1,000 ML ONE (08:18)
[2018-11-12] MEDS ORDERED: ONDANSETRON 4 MG/2 ML VIAL ONE (08:18)
[2018-11-12 08:32] LABS: Absolute Lymphocytes (CBC) 0.8 K/uL (0.7-4.9); Absolute Monocytes 0.7 K/uL (0.1-1.3); Absolute Neutrophil 5.3 K/uL (1.8-8.0); Basophils % 0.2 % (0-1.3); Eosinophils % 0.9 % (0-4.4); Lymphocytes % 12.1 % (15.3-44.8); MPV 7.9 fL (7.6-11.3); Monocytes % 10.1 % (3.3-12.3); RBC Red Blood Cell Count 4.32 M/uL (3.86-4.86)
[2018-11-12 09:00] LABS: Albumin 3.7 g/dL (3.4-5.0); Bilirubin Direct 0.2 mg/dL (0-0.2); Bilirubin Total 0.5 mg/dL (0.2-1.0); Potassium 4.3 mmol/L (3.5-5.1); Protein, Total 6.9 g/dL (6.4-8.2)
[2018-11-12 09:39] LABS: Urine Blood NEGATIVE (NEG); Urine Glucose NEGATIVE (NEG); Urine Protein NEGATIVE (NEG)
--- NOTE | 2018-11-12 10:29 | RAD REPORT ---
EXAM DESCRIPTION: CT - Abdomen Pelvis W Contrast - 11/12/2018 10:12 am CLINICAL HISTORY: Abdominal pain, left upper quadrant radiating to the epigastrium COMPARISON: CT May 2016 TECHNIQUE: Biphasic, helical CT imaging of the abdomen and pelvis was performed following 100 ml non -ionic IV contrast. Oral contrast was given. All CT scans are performed using dose optimization technique as appropriate and may include automated exposure control or mA/KV adjustment according to patient size. FINDINGS: No suspicious findings in the lung bases. No pericardial thickening or effusion. The liver, spleen, and pancreas show no suspicious focal findings. Fatty infiltration pattern is seen throughout the liver. Cholecystectomy clips are present. No biliary tree dilatation. Symmetric renal function is seen with no hydronephrosis or suspicious renal mass. No pyelonephritis o r acute parenchymal process. No bladder abnormalities. No adrenal abnormalities. Uterus and ovaries s how no suspicious findings. No gastric dilatation or wall thickening. Postsurgical changes are present near the GE junction, stab le. No acute component at this site. No dilated large or small bowel. Patient has a large periumbilic al ventral hernia. This is at least 15 cm in diameter. Neck of the hernia is 5.5 cm. This contains mo st of the transverse colon and along a loop of ileum. No acute bowel findings seen. There is some mil d stranding in the fat similar to 2016. No ischemia suspected. No free air, free fluid or acute inflammatory stranding. No mass or bulky lymphadenopathy. Disc and bony degenerative changes are present. No pathologic bone process seen. No acute vascular fi nding. IMPRESSION: No acute findings identified to explain left upper quadrant or epigastric pain. Diffuse fatty infiltration of the liver. Gallbladder is absent with no biliary tree dilatation or garcia creatic abnormality. Very large 15 centimeter periumbilical ventral hernia containing most of the transverse colon and a l oop of ileum. This has enlarged from 2016 but no acute finding suspected.
--- NOTE | 2018-11-12 11:49 | ER ---
Nurse's Notes [facility] Name: Ashley Reyes Age: 73 yrs Sex: Female : 1945 Arrival Date: 11/12/2018 Time: 07:44 Bed 6 Private MD: Jonatan Venegas C Diagnosis: Unspecified abdominal pain Presentation: 11/12 08:07 Presenting complaint: Patient states: c/o LUQ pain radiating to epigastric area, tender iw to palpation, pain started last night, c/o nausea, denies vomiting or diarrhea, last BM was Thursday and was normal. Transition of care: patient was not received from another setting of care. Onset of symptoms was November 11, 2018. Risk Assessment: Do you want to hurt yourself or someone else? Patient reports no desire to harm self or others. Initial Sepsis Screen: Does the patient meet any 2 criteria? No. Patient's initial sepsis screen is negative. Does the patient have a suspected source of infection? No. Patient's initial sepsis screen is negative. Care prior to arrival: None. 08:07 Method Of Arrival: Ambulatory iw 08:07 Acuity: ARLINE 3 iw Historical: - Allergies: 08:11 Albuterol; iw 08:11 Azithromycin; iw 08:11 Cipro; iw - Home Meds: 08:19 Calcium 600 + D(3) 600 mg calcium- 200 unit Oral cap daily [Active]; green tea twice a iw day [Active]; levothyroxine 150 mcg oral tab once daily [Active]; multivitamin Oral cap daily [Active]; olopatadine 0.6 % nasal spry 2 sprays 2 times per day [Active]; Probiotic Pearls 15 mg (1 billion cell) oral cpDR daily [Active]; Perdiem Oral 15 mg daily [Active]; Xarelto 20 mg oral tab once daily [Active]; omeprazole 40 mg Oral cpDR 1 cap once daily [Active]; montelukast 10 mg oral tab 1 tab once daily [Active]; gabapentin 300 mg oral cap 1 cap 3 times per day [Active]; loratadine 10 mg oral tab 1 tab once daily [Active]; Iron CR Oral daily [Active]; Osphena 60 mg oral tab 1 tab once daily [Active]; hyoscyamine sulfate 0.125 mg SL subl daily [Active]; Qvar 40 mcg/actuation inhalation aero 1 puff 2 times per day [Active]; mometasone 50 mcg/actuation nasal spry 2 sprays once daily [Active]; glycopyrrolate inhalation inhalation 2 times per day [Active]; - PMHx: 08:11 Asthma; Atrial Fib; Hypothyroidism; iw - PSHx: 08:11 Hernia repair; Cholecystectomy; Fundoplication; iw - Immunization history:: Adult Immunizations up to date. - Social history:: Smoking status: Patient/guardian denies using tobacco, the patient reports quitting approximately 30 years ago. - Ebola Screening: : Patient negative for fever greater than or equal to 101.5 degrees Fahrenheit, and additional compatible Ebola Virus Disease symptoms Patient denies exposure to infectious person Patient denies travel to an Ebola-affected area in the 21 days before illness onset No symptoms or risks identified at this time. Screenin:20 Abuse screen: Denies threats or abuse. Denies injuries from another. Nutritional sg screening: No deficits noted. Tuberculosis screening: No symptoms or risk factors identified. Never had TB. Fall Risk None identified. Assessment: 08:20 General: Appears in no apparent distress. well groomed, well developed, well nourished, sg Behavior is calm, cooperative, appropriate for age. Pain: Complains of pain in right lower quadrant and left lower quadrant Quality of pain is described as aching, tender. Neuro: Level of Consciousness is awake, alert, obeys commands, Oriented to person, place, time, Surface Supply Breathing Apparatus are equal bilaterally Moves all extremities. Full function Speech is normal, Facial symmetry appears normal. Cardiovascular: Capillary refill is brisk in bilateral fingers Patient's skin is warm and dry. Chest pain is denied. Respiratory: Airway is patent Respiratory effort is even, unlabored, Respiratory pattern is regular, symmetrical. GI: Abdomen is round non-distended, Bowel sounds present X 4 quads. Abd is soft X 4 quads Abdomen is tender to palpation in right lower quadrant and left lower quadrant. GI: Reports lower abdominal pain, cramping, nausea. : No signs and/or symptoms were reported regarding the genitourinary system. EENT: No signs and/or symptoms were reported regarding the EENT system. Derm: Skin is pink, warm \T\ dry. Musculoskeletal: No signs and/or symptoms reported regarding the musculoskeletal system. 08:30 Reassessment: CT notified pt finished PO contrast, spoke with Lia. sg 10:35 Reassessment: Patient assisted to the restroom, tolerated well. Patient reports that aj1 her pain is starting to come back, reports RLQ and LLQ abdominal pain at this time.. Notified Gladis Alvarado NP. Order received. Vital Signs: 08:11 BP 141 / 78; Pulse 81; Resp 19 S; Temp 98.6(O); Pulse Ox 98% on R/A; Weight 101.6 kg; iw Height 5 ft. 7 in. (170.18 cm); Pain 710; 08:11 Body Mass Index 35.08 (101.60 kg, 170.18 cm) iw ED Course: 07:44 Patient arrived in ED. mr 07:44 Jonatan Venegas MD is Private Physician. mr 07:51 Sukumar Alvarado NP is PHCP. pm1 07:51 Eliceo Jaimes MD is Attending Physician. pm1 08:09 Triage completed. iw 08:11 Arm band placed on. iw 08:20 Patient has correct armband on for positive identification. iw 08:20 Initial lab(s) drawn, by me, sent to lab. Inserted saline lock: 20 gauge in right sg antecubital area, using aseptic technique. Blood collected. 08:31 Michael Matthews, RN is Primary Nurse. sg 10:11 CT Abd/Pelvis - W/Contrast: PO and IV contrast In Process Unspecified. EDMS 12:24 No provider procedures requiring assistance completed. IV discontinued, intact, iw bleeding controlled, No redness/swelling at site. Pressure dressing applied. Administered Medications: 08:30 Drug: NS 0.9% 1000 ml Route: IV; Rate: 1000 ml; Site: right antecubital; sg 09:45 Follow up: IV Status: Completed infusion iw 08:30 Drug: morphine 4 mg Route: IVP; Site: right antecubital; sg 09:00 Follow up: Response: No adverse reaction iw 08:30 Drug: Zofran 4 mg Route: IVP; Site: right antecubital; sg 10:40 Drug: morphine 4 mg Route: IVP; Site: right antecubital; aj1 12:25 Follow up: Response: No adverse reaction; Pain is decreased iw Outcome: 11:49 Discharge ordered by . pm1 12:23 Discharged to home ambulatory, with family. iw 12:23 Condition: good 12:23 Discharge instructions given to patient, family, Instructed on discharge instructions, follow up and referral plans. medication usage, Demonstrated understanding of instructions, follow-up care, medications, Prescriptions given X 2. 12:25 Patient left the ED. iw Signatures: Dispatcher [employer] EDMS Abby Huddleston RN RN aj Michael Matthews RN RN Vesna Lai Irene, RN RN iw Marinas, Patrick, RODNEY DUST MIXER pm1
--- NOTE | 2018-11-12 11:49 | EDPHYS ---
Physician Documentation [facility] Name: Ashley Reyes Age: 73 yrs Sex: Female : 1945 Arrival Date: 11/12/2018 Time: 07:44 Bed 6 Private MD: Jonatan Venegas C ED Physician Eliceo Jaimes HPI: 11/12 08:10 This 73 yrs old Female presents to ER via Ambulatory with complaints of pm1 Abdominal Pain. 08:10 The patient presents with abdominal pain in the left upper quadrant. Onset: The pm1 symptoms/episode began/occurred last night. The symptoms do not radiate. Associated signs and symptoms: Pertinent positives: nausea, Pertinent negatives: chest pain, diarrhea, shortness of breath, vomiting. The symptoms are described as achy. Modifying factors: The symptoms are alleviated by nothing, the symptoms are aggravated by nothing. Severity of pain: in the emergency department the pain is actually worse. The patient has not experienced similar symptoms in the past. The patient has not recently seen a physician, the patient's primary care provider is Dr. Venegas. Historical: - Allergies: 08:11 Albuterol; iw 08:11 Azithromycin; iw 08:11 Cipro; iw - Home Meds: 08:19 Calcium 600 + D(3) 600 mg calcium- 200 unit Oral cap daily [Active]; green tea twice a iw day [Active]; levothyroxine 150 mcg oral tab once daily [Active]; multivitamin Oral cap daily [Active]; olopatadine 0.6 % nasal spry 2 sprays 2 times per day [Active]; Probiotic Pearls 15 mg (1 billion cell) oral cpDR daily [Active]; Perdiem Oral 15 mg daily [Active]; Xarelto 20 mg oral tab once daily [Active]; omeprazole 40 mg Oral cpDR 1 cap once daily [Active]; montelukast 10 mg oral tab 1 tab once daily [Active]; gabapentin 300 mg oral cap 1 cap 3 times per day [Active]; loratadine 10 mg oral tab 1 tab once daily [Active]; Iron CR Oral daily [Active]; Osphena 60 mg oral tab 1 tab once daily [Active]; hyoscyamine sulfate 0.125 mg SL subl daily [Active]; Qvar 40 mcg/actuation inhalation aero 1 puff 2 times per day [Active]; mometasone 50 mcg/actuation nasal spry 2 sprays once daily [Active]; glycopyrrolate inhalation inhalation 2 times per day [Active]; - PMHx: 08:11 Asthma; Atrial Fib; Hypothyroidism; iw - PSHx: 08:11 Hernia repair; Cholecystectomy; Fundoplication; iw - Immunization history:: Adult Immunizations up to date. - Social history:: Smoking status: Patient/guardian denies using tobacco, the patient reports quitting approximately 30 years ago. - Ebola Screening: : Patient negative for fever greater than or equal to 101.5 degrees Fahrenheit, and additional compatible Ebola Virus Disease symptoms Patient denies exposure to infectious person Patient denies travel to an Ebola-affected area in the 21 days before illness onset No symptoms or risks identified at this time. ROS: 08:20 Constitutional: Negative for fever, chills, and weight loss, Eyes: Negative for injury, pm1 pain, redness, and discharge, ENT: Negative for injury, pain, and discharge, Neck: Negative for injury, pain, and swelling, Cardiovascular: Negative for chest pain, palpitations, and edema, Respiratory: Negative for shortness of breath, cough, wheezing, and pleuritic chest pain. 08:20 Back: Negative for injury and pain, : Negative for injury, bleeding, discharge, and swelling, MS/Extremity: Negative for injury and deformity, Skin: Negative for injury, rash, and discoloration, Neuro: Negative for headache, weakness, numbness, tingling, and seizure. 08:20 Abdomen/GI: Positive for abdominal pain, nausea, Negative for vomiting, diarrhea, constipation. Exam: 08:20 Constitutional: This is a well developed, well nourished patient who is awake, alert, pm1 and in no acute distress. Head/Face: Normocephalic, atraumatic. Eyes: Pupils equal round and reactive to light, extra-ocular motions intact. Lids and lashes normal. Conjunctiva and sclera are non-icteric and not injected. Cornea within normal limits. Periorbital areas with no swelling, redness, or edema. ENT: Nares patent. No nasal discharge, no septal abnormalities noted. Tympanic membranes are normal and external auditory canals are clear. Oropharynx with no redness, swelling, or masses, exudates, or evidence of obstruction, uvula midline. Mucous membranes moist. Neck: Trachea midline, no thyromegaly or masses palpated, and no cervical lymphadenopathy. Supple, full range of motion without nuchal rigidity, or vertebral point tenderness. No Meningismus. Chest/axilla: Normal chest wall appearance and motion. Nontender with no deformity. No lesions are appreciated. Cardiovascular: Regular rate and rhythm with a normal S1 and S2. No gallops, murmurs, or rubs. Normal PMI, no JVD. No pulse deficits. Respiratory: Lungs have equal breath sounds bilaterally, clear to auscultation and percussion. No rales, rhonchi or wheezes noted. No increased work of breathing, no retractions or nasal flaring. 08:20 Back: No spinal tenderness. No costovertebral tenderness. Full range of motion. Skin: Warm, dry with normal turgor. Normal color with no rashes, no lesions, and no evidence of cellulitis. MS/ Extremity: Pulses equal, no cyanosis. Neurovascular intact. Full, normal range of motion. 08:20 Abdomen/GI: Inspection: obese large right sided ventral hernia, Bowel sounds: normal, Palpation: soft, mild abdominal tenderness, in the left upper quadrant, rebound tenderness, is not appreciated. 08:20 Neuro: Orientation: is normal, Motor: is normal, moves all fours, Sensation: is normal, no obvious gross deficits. Vital Signs: 08:11 BP 141 / 78; Pulse 81; Resp 19 S; Temp 98.6(O); Pulse Ox 98% on R/A; Weight 101.6 kg; iw Height 5 ft. 7 in. (170.18 cm); Pain 7/10; 08:11 Body Mass Index 35.08 (101.60 kg, 170.18 cm) iw MDM: 07:51 Patient medically screened. pm1 10:52 Data reviewed: vital signs. Data interpreted: Pulse oximetry: on room air is 98 %. pm1 Interpretation: normal. 11:00 Physician consultation: A Theo SOLIZ was called at 11:00, was contacted at 11:00, pm1 regarding patient's condition, Discussed CT findings with Dr. Venegas after discussing lab findings earlier. Patient without acute findings on abdomen, pancreas wnls. Lipase is not 3-4 times above normal limits. Patient tolerating PO fluids and pain improvement with medications in the ER. Recommended pain medications, antiemetics, clear liquid diet, and return precautions if worsening of symptoms or no improvement. 11:48 Counseling: I had a detailed discussion with the patient and/or guardian regarding: the pm1 historical points, exam findings, and any diagnostic results supporting the discharge/admit diagnosis, lab results, radiology results, the need for outpatient follow up, to return to the emergency department if symptoms worsen or persist or if there are any questions or concerns that arise at home. 11:48 Special discussion: Based on the patient's Hx, exam, and Dx evaluation, there is no pm1 indication for emergent surgery or inpatient Tx. It is understood by the patient/guardian that if the Sx's persist or worsen they need to return immediately for re-evaluation. 11/12 08:02 Order name: Basic Metabolic Panel; Complete Time: 09:02 pm1 11/12 08:02 Order name: CBC with Diff; Complete Time: 08:53 pm1 11/12 08:02 Order name: Creatinine for Radiology; Complete Time: 09:02 pm1 11/12 08:02 Order name: Hepatic Function; Complete Time: 09:02 pm1 11/12 08:02 Order name: Lipase; Complete Time: 09:02 pm1 11/12 09:02 Order name: Urine Dipstick--Ancillary (enter results); Complete Time: 09:44 eb 11/12 08:02 Order name: IV Saline Lock; Complete Time: 08:05 pm1 11/12 08:02 Order name: Labs collected and sent; Complete Time: 08:05 pm1 11/12 08:02 Order name: Urine Dipstick-Ancillary (obtain specimen); Complete Time: 09:58 pm1 11/12 08:02 Order name: CT Abd/Pelvis - W/Contrast: PO and IV contrast; Complete Time: 10:35 pm1 Administered Medications: 08:30 Drug: NS 0.9% 1000 ml Route: IV; Rate: 1000 ml; Site: right antecubital; sg 09:45 Follow up: IV Status: Completed infusion iw 08:30 Drug: morphine 4 mg Route: IVP; Site: right antecubital; sg 09:00 Follow up: Response: No adverse reaction iw 08:30 Drug: Zofran 4 mg Route: IVP; Site: right antecubital; sg 10:40 Drug: morphine 4 mg Route: IVP; Site: right antecubital; aj1 12:25 Follow up: Response: No adverse reaction; Pain is decreased iw Disposition: 15:14 Co-signature as Attending Physician, Eliceo Jaimes MD. rn Disposition: 11/12/18 11:49 Discharged to Home. Impression: Unspecified abdominal pain. - Condition is Stable. - Discharge Instructions: Abdominal Pain, Adult, Clear Liquid Diet, Adult. - Prescriptions for Tylenol- Codeine #3 300-30 mg Oral Tablet - take 2 tablets by ORAL route every 6 hours As needed; 20 tablet. Zofran 4 mg Oral Tablet - take 1 tablet by ORAL route every 12 hours As needed; 20 tablet. - Medication Reconciliation Form, Thank You Letter, Antibiotic Education, Prescription Opioid Use form. - Follow up: Emergency Department; When: As needed; Reason: Worsening of condition. Follow up: Private Physician; When: 2 - 3 days; Reason: Recheck today's complaints, Continuance of care, Re-evaluation by your physician. - Problem is new. - Symptoms have improved. Signatures: Dispatcher [employer] EDAbby Flores RN RN aj1 Michael Matthews RN RN sg Williams, Irene, RN RN Eliceo Jaimes MD MD rn Marinas, Patrick, R[employer]NEY ENTERTAINMENT [employer] MEDIA CORRESPONDENT pm1 Corrections: (The following items were deleted from the chart) 12:25 11:49 11/12/2018 11:49 Discharged to Home. Impression: Unspecified abdominal pain. iw Condition is Stable. Forms are Medication Reconciliation Form, Thank You Letter, Antibiotic Education, Prescription Opioid Use. Follow up: Emergency Department; When: As needed; Reason: Worsening of condition. Follow up: Private Physician; When: 2 - 3 days; Reason: Recheck today's complaints, Continuance of care, Re-evaluation by your physician. Problem is new. Symptoms have improved. pm1
[2018-11-12 13:29] VITALS: BP 141/78; TEMP 98.6; O2SAT 98
== END 2018-11-12 12:25 | disposition home or self-care (01) ==
LOC: ER 07:42
DX: R10.12 Left upper quadrant pain (principal); E03.9 Hypothyroidism, unspecified; I48.91 Unspecified atrial fibrillation; J45.909 Unspecified asthma, uncomplicated; Z79.01 Long term (current) use of anticoagulants; Z88.3 Allergy status to other anti-infective agents; Z88.8 Allergy status to other drugs, medicaments and biological substances
CPT/HCPCS: 36415; 74177; 80048; 80076; 81003; 83690; 85025; 96361; 96374; 96375; 99284; J2405; J7030; Q9967

== ENCOUNTER 2018-11-13 15:09 | Inpatient (IN) | payer OTHER ==
--- OUTSIDE RECORDS SUMMARY | 2018-11-13 15:11 | XMS REPORT | Clinical Summary ---
:1945 Author Organization [facility] Address [address] [place] [address] Care Team Providers Name Role Phone Joe [...] Blue Auguste [facility] No additional problems on file Encounters [...] 08/27/2018 Telephone Gastroenterology Conrad Trinh MA 06/15/2018 [facility] Pulmonology Blue Auguste MD 04/22/2018 Refill [...] Anthony, Laryngeal spasm (Primary Dx); Curtis SEE [employer]-LOFTSMAN Impaired vocal quality; Shortness of breath 01/08/2018 Office Visit Otolaryngology JonnyLarryNaomy Cough (Primary Dx); MD Antonio Gastroesophageal reflux disease, esophagitis presence not specified 12/29/2017 Refill Otolaryngology Andreaankush Naomy Laryngeal spasm (Primary Dx ); MD Antonio Shortness of breath; Dysphagia, unspecified type; Choking, initial encounter 12/22/2017 Telephone Otolaryngology Mark Anthony Black MS CCC-LOFTSMAN 12/21/2017 [facility], Laryngeal spasm (Primary Dx); Curtis SEE [employer]LOFTSMAN Impaired vocal quality; Shortness of breath after 11/12/2017 Family History Medical History Relation Name Comments [...] Taken Blood Pressure 148/83 08/30/2018 12:17 PM [employer]SEM[employer] HELPER Pulse 80 08/30/2018 12:17 PM [employer] HELPER Temperature 36.4 C (97.5 F) 08/30/2018 12:17 PM [employer] HELPER Respiratory Rate - - Oxygen Saturation - - Inhaled Oxygen Concentration - - Weight 105 kg (232 lb 3.2 oz) 08/30/2018 12:17 PM [employer] HELPER Height 170.2 cm (5' 7") 08/30/2018 12:17 PM [employer] HELPER Body Mass Index 36.37 08/30/2018 12:17 PM [employer] HELPER Plan of Treatment Health Maintenance Due Date [...] upper Results for this ANTIGEN, STOOL PM [employer] HEL[employer] abdomen procedure are in the results section. LIPASE LEVEL Routine 09/01/2018 11:53 Pain of upper Results for this AM [employer] HELPER abdomen procedure are in the results section. AMYLASE LEVEL Routine 09/01/2018 11:53 Pain of upper Results for this AM [employer] HEL[employer] abdomen procedure are in the results section. CBC HEMOGRAM Routine 09/01/2018 11:53 Pain of upper Results for this AM [employer] HELPER abdomen procedure are in the results section. after 11/12/2017 Results Helicobacter pylori antigen, stool (09/01/2018 1:48 PM BARREL [employer]SEMBLER HELPER) H pylori Ag, stool Negative Negative [facility] Specimen Stool Narrative Performed At Performed at:01 - [facility] [address] [place], [place] [id number] Punch Finisher: Buddy Villalobos MD, Phone:[phone] Performing Organization Address City/State/[facility] Phone Number [facility] CBC hemogram (09/01/2018 11:53 AM BARREL ASSEMBLER HELPER) WBC 8.7 3.4 - 10.8 x10E3/uL [facility] [...] Narrative Performed At Performed at: - [facility] [address] [place], [id number] Punch Finisher: Kranthi Campos MD, Phone:[phone] Performing Organization Address City/[facility] Phone Number [facility] Lipase level (09/01/2018 11:53 AM BARREL ASSEMBLER HELPER) Lipase 25 14 - 72 U/L [facility] Specimen Blood Narrative Performed At Performed at: [facility] [place], [id number] Punch Finisher: Kranthi Campos MD, Phone:[phone] Performing Organization Address [facility] Phone Number [facility] Amylase level (09/01/2018 11:53 AM BARREL ASSEMBLER HELPER) Amylase 59 31 - 124 U/L [facility] Specimen Blood Narrative Performed At Performed at: [facility] [address] [place], [id number] Punch Finisher: Kranthi Campos MD, Phone:[phone] Performing Organization Address [facility] Phone Number [facility] after 11/12/2017 Insurance Payer Benefit Plan / Group Subscriber ID Type Phone Address MEDICARE MEDICARE PART A AND B xxxxxxxxxxx Medicare [place], [place] AETNA AETNA HMO,POS,EPO, MC/EC xxxxxxxxx HMO Advance Directives Patient has advance care planning documents on file. For more information, please contact:[place] [address]
--- OUTSIDE RECORDS SUMMARY | 2018-11-13 15:12 | XMS REPORT | Clinical Summary ---
:1945 Author Organization [facility] Address [address] [place] [address] Care Team Providers Name Role Phone Joe [...] Encounter Pre-Admission Tam Carmen, Testing MD after 11/12/2017 Family History Relation Name Status Comments Father [...] Taken Blood Pressure 148/77 06/30/2018 3:54 PM [facility] SANDER Pulse 81 06/30/2018 3:54 PM [facility] Temperature 36.6 C (97.8 F) 06/30/2018 2:00 PM [facility] Respiratory Rate 20 06/30/2018 3:54 PM [facility]ER Oxygen Saturation 97% 06/30/2018 3:54 PM [facility]ER Inhaled Oxygen Concentration - - Weight 106.1 kg (234 lb) 06/18/2018 6:33 AM CDT Height 170.2 cm (5' 7") 06/18/2018 6:33 AM CDT Body Mass Index 36.65 06/18/2018 6:33 AM CDT Plan of Treatment Not on file Procedures Procedure Name Priority Date/Time Associated Comments Diagnosis US ASPIRATION Routine 06/30/2018 4:09 Results for this PM [facility] procedure are in the results section. US ASPIRATION Routine 06/30/2018 4:09 Localized enlarged Results for this PM [facility] lymph nodes procedure are in Malignant tumor of the results lingual tonsil section. (HCC) CYTOLOGY AP Routine 06/30/2018 4:00 Results for this PM [facility] procedure are in the results section. CYTOLOGY AP Routine 06/30/2018 4:00 Results for this PM [facility] procedure are in the results section. TISSUE [...] in the results section. after 11/12/2017 Results US Aspiration (06/30/2018 4:09 PM SPE[facility] SANDER)Only the most recent of2 resultswithin the time period is included. Narrative Performed At FINAL REPORT [facility] INDICATION: 72-year-old female with report of tongue [...] Report Verified Date/Time:06/30/2018 16:08:29 Reading Location: [address] Ultrasound Reading Room Procedure Note Interface, External Ris In - 06/30/2018 4:11 PM [facility]ER FINAL REPORT INDICATION: 72-year-old female with report [...] Report Verified Date/Time: 06/30/2018 16:08:29 Reading Location: [facility] [id number] Ultrasound Reading Room Performing Organization Address City/State/Zipcode Phone Number [facility] Cytology (06/30/2018 4:00 PM SPE[facility] SANDER)Only the most recent of2 resultswithin the time period is included. Case Report Medical Cytology Report Case: [id number] [facility] Authorizing Provider:Tam Carmen MD Collected: 06/30/[address] [place] [address] Ordering Location: [facility] Radiology Main Received: 07/01/2018 1258 Pathologist: Catherine Joe MD Specimen:Lymph Node, Cervical DIAGNOSIS LEFT NECK LYMPH NODE, FNA BY RADIOLOGIST (GER) (DIRECT SMEARS, CYTOSPINS, CELL BLOCK OF ASPIRATE): [facility] - NO METASTATIC CARCINOMA, GRANULOMATA IDENTIFIED [facility] - LYMPHOID TISSUE PRESENT Signing Pathologist Direct Phone Line: [phone] COMMENT [facility] Please also see cytopathology report [id number]. [facility] CPT Code(s) 35322 [facility] CLINICAL DATA (1.3 x 0.8 x 0.9 cm) left [facility] neck lymph node; reported [facility] tongue cancer, enlarged neck lymph nodes SPECIMEN SOURCE LEFT NECK LYMPH NODE FNA [facility] GROSS DESCRIPTION Prepared 4 cytospins from 30 ml cytorich red fixaitve [facility] Collected: [id number] [facility] Received: [id number] MICROSCOPIC DESCRIPTION Performed. [facility] Gross assessment was [facility] performed at [place], Department of [facility] Pathology, [address] [place] [address], Technical component was [facility] performed at [place], Department of [facility] Pathology, [address] [place] [address], Professional component was [facility] performed at [place], Department of [facility] Pathology, [address] [place] [address], Specimen Fine Needle Aspirate - Lymph Node, Cervical Narrative Performed At Performing Organization Address City/State/Zipcode Phone Number [address] [address] [place] Tissue Exam (06/18/2018 8:24 AM CDT) Case Report Surgical Pathology Report Case: [id number] [facility] Authorizing Provider:Tam Carmen MD Collected: 06/18/2018 0824 [facility] Ordering Location: [facility] Received: 06/18/2018 1149 SERVICES Pathologist: Sushila Mejia MD Specimen:Tongue, base tongue DIAGNOSIS BASE OF THE TONGUE, LARYNGOSCOPY WITH BIOPSY: [facility] - LINGUAL TONSILS WITH REACTIVE FOLLICULAR HYPERPLASIA [facility] - SQUAMOUS MUCOSA WITH ACUTE INFLAMMATION WITH ATYPIA - METAPLASTIC CARTILAGE AND DILATED LYMPHATICS - NEGATIVE FOR DYSPLASIA OR MALIGNANCY Signing Pathologist Direct Phone Line: [phone] COMMENT The squamous mucosa shows mild acute inflammation and focal reactive atypia. There are dilated lymphatics (hilighted by CD34 and D2-40) and metaplastic cartilage in the subepithelial tissues, Lingual to [facility] nsils show reactive follicular hyperplasia, confirmed by immunohistochemical studies performed on block A1, that demonstrate the lymphoid population to be comprised of CD20 positive B cells and CD3 pos [facility] itive T cells. Cyclin D1 is negative. [...] been discussed with Dr. Carmen. CPT Code(s) 43266; 06697; 25713 X 6 [facility] CLINICAL HISTORY Nasal obstruction [facility] SPECIMEN SOURCE Base of tongue biopsy [facility] GROSS DESCRIPTION Received in formalin labeled [facility] "tongue", description "base of [facility] tongue" is a 3.0 x 2.0 x 0.3 cm aggregate of pink-lara to mejia-white rubbery soft tissue. Specimen is entirely submitted in A1. DB/bc MICROSCOPIC DESCRIPTION PERFORMED [facility] SPECIAL STUDIES The interpretation of this case included the use of immunohistochemistry or special stains. [facility] D2-40; CD34; CD3; CD20 CD45; Ki-67; Cyclin-D1 [facility] Immunohistochemistry technical testing was performed at [facility] [...] developed and its performance characteristics determined by [facility], Pathology Laboratory. It has not been [...] Specimen Tissue - Tongue Performing Organization Address [facility] Phone Number [address] [address] [phone] [place] BUN and Creatinine (06/14/2018 5:31 PM CDT) BUN 13 7 - 21 mg/dL [facility] Creatinine 0.74 0.57 - 1.25 mg/dL [facility] EGFR 78Comment: ESTIMATED GFR IS mL/min/1.73 sq m [facility] NOT ACCURATE CREATININE [facility] CLEARANCE IN PREDICTING GLOMERULAR FILTRATION RATE. ESTIMATED GFR IS NOT APPLICABLE FOR DIALYSIS PATIENTS. Specimen Blood Performing Organization Address [facility] Phone Number [address] [address] CENTER Hemoglobin (06/14/2018 5:31 PM CDT) Hemoglobin 12.9 11.2 - 15.7 GM/DL [facility] Specimen Blood Performing Organization Address [facility] Phone Number [address] [address] CENTER Electrolytes (06/14/2018 5:31 PM CDT) Sodium 142 136 - 145 meq/L [facility] Potassium 3.7 3.5 - 5.1 meq/L [facility] Chloride 107 98 - 107 meq/L [facility] CO2 29 22 - 29 meq/L [facility] Specimen Blood Performing Organization Address City/State/Zipcode Phone Number [facility] [address] [place] [address] CENTER after 11/12/2017 Insurance Payer Benefit Plan / Group Subscriber ID Type Phone Address MEDICARE MEDICARE A B xxxxxxxxxxx Medicare AETNA - MGD CARE AETNA INDEMNITY NON CONTR xxxxxxxxx Comm
--- OUTSIDE RECORDS SUMMARY | 2018-11-13 15:12 | XMS REPORT ---
:1945 [facility] Address [address] [place] [address] [address] Care Team Providers Name Role Phone RA VELAZCO Unavailable Unavailable Problems This patient has no known problems. Allergies, Adverse Reactions, Alerts This patient has no known allergies or adverse reactions. Medications This patient has no known medications. Results Test Description Test Time Test Comments Text Results Atomic Results Result Comments CYTOLOGY 2018-07-02 Medical Cytology Report 17:16:00 Case: [id number] Authorizing Provider: Ra Velazco MD Collected: 06/30/2018 1600 Ordering Location: [facility] Radiology Main Received: 07/01/2018 1258 Pathologist: Catherine Joe MD Specimen: Lymph Node, Cervical LEFT NECK LYMPH NODE, FNA BY RADIOLOGIST (GER) (DIRECT SMEARS, CYTOSPINS, CELL BLOCK OF ASPIRATE): - NO METASTATIC CARCINOMA, GRANULOMATA IDENTIFIED - LYMPHOID TISSUE PRESENT Signing Pathologist Direct Phone Line: [phone] signed by Catherine Joe MD on 07/02/2018 at 5:16 PMPlease also see cytopathology report [id number]. 61710(1.3 x 0.8 x 0.9 cm) left neck lymph node; reported tongue cancer, enlarged neck lymph nodesLEFT NECK LYMPH NODE FNAPrepared 4 cytospins from 30 ml cytorich red fixaitve Collected: [id number]: [id number].[facility], Department of Pathology, [address] [place] [address], [facility], [facility] of [facility], [address] [place] [address], [facility], Department of Pathology, [address] [place] [address], CYTOLOGY 2018-07-02 Medical Cytology Report 13:16:00 Case: [id number] Authorizing Provider: Ra Velazco MD Collected: 06/30/2018 1600 Ordering Location: [facility] Radiology Main Received: 07/01/2018 1259 Pathologist: Vesna Novak MD Specimen: Lymph Node, Cervical, right neck node (1.5 x 0.5 x 1.4 cm) RIGHT NECK LYMPH NODE, FNA BY RADIOLOGIST (CYTOSPINS): - NEGATIVE FOR MALIGNANCY - LYMPHOID/LYMPH NODE TISSUE PRESENT Signing Pathologist Direct Phone Line: [phone] signed by Vesna Novak MD on 07/02/2018 at 1:16 PMPlease also see cytopathology report [id number]. 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 No metastatic tumor is [facility], [facility] of [facility]ology, [address] [place] [address], [facility], Department of Pathology, [address] [place] [address], [facility], Department of Pathology, [address] [place] [address], U/S, 2018-06-30 Reason for FINAL REPORT PATIENT ID: ASPIRATION/INJECT 16:08:00 Exam:->R59.0, [id number] INDICATION: 72-year-old ION C02.4 RIGHT female with [...] Cyr Verified Date/Time: 06/30/2018 16:08:29 Reading Location: [address] Ultrasound Reading Room U/S, 2018-06-30 Reason for FINAL REPORT PATIENT ID: ASPIRATION/INJECT 16:08:00 Exam:->R59.0, [id number] INDICATION: 72-year-old ION C02.4 RIGHT female with [...] Cyr Verified Date/Time: 06/30/2018 16:08:56 Reading Location: [address] Ultrasound Reading Room UE EXAM 2018-06-25 Surgical Pathology Report 16:56:00 Case: [id number] Authorizing Provider: Ra Velazco MD Collected: 06/18/2018 0824 Ordering Location: [facility] PERI[facility] Received: 06/18/2018 1149 SERVICES Pathologist: Sushila Mejia MD Specimen: Tongue, base tongue BASE OF THE TONGUE, LARYNGOSCOPY WITH BIOPSY: - LINGUAL TONSILS WITH REACTIVE FOLLICULAR HYPERPLASIA - SQUAMOUS MUCOSA WITH ACUTE INFLAMMATION WITH ATYPIA - METAPLASTIC CARTILAGE AND DILATED LYMPHATICS - NEGATIVE FOR DYSPLASIA OR MALIGNANCY Signing Pathologist Direct Phone Line: [phone] signed by Sushila Mejia MD on 06/25/2018 [...] findings have been discussed with Dr. Velazco. 32314; 69101; 53522 X 6Nasal obstructionBase of tongue biopsy Received in formalin labeled "tongue", description "base of tongue" is a 3.0 x 2.0 x 0.3 cm aggregate of pink-lara to mejia-white rubbery soft tissue. Specimen is entirely submitted in A1. DB/bc PERFORMEDThe interpretation of this case included the use of immunohistochemistry or special stains. D2-40; CD34; CD3; CD20 CD45; Ki-67; Cyclin-P9Pvjqmrjunkkjmrnizsrg technical testing was performed at [facility], Pathology Laboratory where it was developed and [...] developed and its performance characteristics determined by [facility], Pathology Laboratory. It has not been cleared [...] Value Reference Range Comments SODIUM (BEAKER) (test tjsr=973) 142 meq/L 136-145 POTASSIUM (BEAKER) (test rmay=752) 3.7 meq/L 3.5-5.1 CHLORIDE (BEAKER) (test dnvs=928) 107 meq/L 98-107 CO2 (BEAKER) (test qrwx=620) 29 meq/L 22-29 BUN AND [id number] 18:46:00 Test Item Value Reference Range Comments BLOOD UREA NITROGEN 13 mg/dL 7-21 (BEAKER) (test irzi=300) CREATININE (BEAKER) (test 0.74 mg/dL 0.57-1.25 ccwk=814) EGFR (BEAKER) (test 78 mL/min/1.73 sq m ESTIMATED GFR IS NOT qyha=4300) ACCURATE CREATININE CLEARANCE IN PREDICTING GLOMERULAR FILTRATION RATE. ESTIMATED GFR IS NOT APPLICABLE FOR DIALYSIS PATIENTS. [id number] 18:18:00 Test Item Value Reference Range Comments HEMOGLOBIN (BEAKER) (test ccdp=169) 12.9 GM/DL 11.2-15.7 TISSUE [id number] 11:51:00Surgical Pathology Report Case: [id number] Authorizing Provider: Ra Velazco MD Collected: 05/01/2017 1505 Ordering Location: [facility] MAIN ADMITTING Received: 05/04/2017 1531 Pathologist: Marine Hawthorne MD Specimen: Nasopharynx/Oropharynx NASOPHARYNX/OROPHARYNX, BIOPSY: - FOLLICULAR LYMPHOID HYPERPLASIA - NEGATIVE FOR MALIGNANCY CC/pl Signing Pathologist Direct Phone Line: [phone] signed by Marine Hawthorne MD on 05/07/2017 at 11:51 [id number] neoplasm benignNasopharynx tissueThe specimen is received in [...]
--- OUTSIDE RECORDS SUMMARY | 2018-11-13 15:12 | XMS REPORT ---
[...] Betamethasone NDC 0 Active not defined Myrbetriq [facility] [address]-21 Active not defined Cyclobenzaprine HCl NDC 0 Active not defined Mometasone Furoate [facility] 23076131751 50 MCG/ACT December 16, Active 2 sprays Nasally Once a 2018 in each day nostril Bevespi NDC 0 Active not defined Xarelto [facility] [address]-00 Active not defined Iron [facility] [address]-96 Active not defined Qvar [facility] [address]-84 Active not defined Sulfamethoxazole NDC 0 Active not defined Vitamin B-12 [facility] [address]-02859 Active not defined Nasacort NDC 0 Active not defined Levothyroxine [facility] [address]-63 Active not Sodium defined Pearls IC [facility] [address]51 Active not defined Xopenex HFA [facility] [address]-72 Active not defined Gabapentin [facility] 03067335513 100 MG Orally Jun 24, Active 1 capsule Three times a 2017 day Prevacid [facility] [address]-96 Active not defined Olanzapine [facility] [address]-73 Active not defined Perdiem Overnight [facility] [address]-76 Active not Relief defined Calcium [facility] [address]-45 Active not defined PredniSONE [facility] 79108966565 10 MG Orally Apr 08Mar Active 1 tablet Twice daily x 2018 27, 2 days then 2018 Once a day x 2 days Olopatadine HCl [facility] [address]-44 Active not defined Multivitamin [facility] [address] Active not defined Results No Known Results Summary Purpose eClinicalWorks Submission
--- OUTSIDE RECORDS SUMMARY | 2018-11-13 15:12 | XMS REPORT ---
[...] Date Status Dosage Date Bactrim DS [facility] 73721519643 800-160 MG Orally January 13, January 23, Active 1 tablet Twice a day 2017 2017 PredniSONE [facility] 09943488838 10 MG Orally then January 13January 23, Active 1 tablet QD x 5 days 2017 2017 BID x 5 days Results No Known Results Summary Purpose eClinicalWorks Submission
--- OUTSIDE RECORDS SUMMARY | 2018-11-13 15:12 | XMS REPORT ---
[...] End Date Status Dosage Date Medrol (Sonido) [facility] 80038088664 4 MG Orally May 04, May 10, Active as directed 2017 2017 Results No Known Results Summary Purpose eClinicalWorks Submission
--- OUTSIDE RECORDS SUMMARY | 2018-11-13 15:12 | XMS REPORT ---
[...] End Status Dosage System Date Date Mometasone [facility] 26588216864 50 MCG/ACT December 16, Active 2 sprays Furoate Nasally Once a 2018 in each day nostril Results No Known Results Summary Purpose eClinicalWorks Submission
--- OUTSIDE RECORDS SUMMARY | 2018-11-13 15:12 | XMS REPORT ---
[...] Status Dosage System Date Date Bactrim DS [facility] 58165975764 800-160 MG Apr 16Apr Active 1 tablet Orally Twice a 2017 Medrol (Sonido) [facility] 63759766072 4 MG Orally Apr 16Apr Active as directed 2017 Results No Known Results Summary Purpose eClinicalWorks Submission
--- OUTSIDE RECORDS SUMMARY | 2018-11-13 15:13 | XMS REPORT ---
[...] Start Date End Date Status Dosage PredniSONE [facility] 77690798813 10 MG Orally BID Jul 07Jul 17, Active 1 tablet for 5 days then 2017 2017 QD for 5 days Augmentin [facility] 71466308736 875-125 MG Orally Jul 07Jul 17, Active 1 tablet every 12 hrs 2017 2017 Results No Known Results Summary Purpose eClinicalWorks Submission
--- OUTSIDE RECORDS SUMMARY | 2018-11-13 15:13 | XMS REPORT ---
[...] Status Dosage System Date Date Valerian Root [facility] [address]-83397 Active not defined Loratadine [facility] [address]-13 Active not defined Montelukast [facility] [address]-88 Active not Sodium defined Lansoprazole NDC 0 Active not defined Qvar NDC 0 Active not defined Olopatadine HCl [facility] [address]-03 Active not defined Oxycodone HCl [facility] 19084492889 5 MG/5ML Orally Jun 14, Jun 22, Active 10 ml as every 6 hrs 2017 2017 needed Fiber NDC 0 Active not defined Osphena [facility] [address]-93 Active not defined Perdiem [facility] [address]-55 Active not Overnight Relief defined Levothyroxine [facility] [address]-72 Active not Sodium defined Xarelto [facility] [address]-29 Active not defined Hyoscyamine NDC 0 Active not defined Cephalexin [facility] [address]-42 Active not defined Mometasone [facility] 06386300692 50 MCG/ACT December 16, Active 2 sprays Furoate Nasally Once a 2018 in each day nostril Gabapentin [facility] 57510747942 100 MG Orally Jun 24, Active 1 capsule Three times a 2016 day PredniSONE [facility] 33035577853 10 MG Orally 2 Jun 14Jun 21, Active 1 tablet times a day 2017 2017 Zipsor [facility] 63113184320 25 MG Orally Jun 14Jul 04, Active 1 capsule Four times a 2017 2018 with food day or milk as needed Stool Softener [facility] [address]-84 Active not defined Cranberry [facility] 2001 [address]187-20843 Active not defined Pearls IC [facility] 2001 [address]63-18318 Active not defined Multivitamin [facility] 2001 [address]2008-43067 Active not defined Mucinex [facility] [address]-04 Active not defined Myrbetriq [facility] [address]-79 Active not defined Calcium [facility] [address]-82 Active not defined Iron [facility] [address]-08 Active not defined Bevespi [facility] 0 Active not defined Results No Known Results Summary Purpose eClinicalWorks Submission
--- OUTSIDE RECORDS SUMMARY | 2018-11-13 15:13 | XMS REPORT ---
[...] Medications Results No Known Results Summary Purpose [facility]
--- OUTSIDE RECORDS SUMMARY | 2018-11-13 15:13 | XMS REPORT ---
[...] End Status Dosage System Date Date Mucinex [facility] [address]-92 Active not defined Osphena [facility] [address]-40 Active not defined Olopatadine HCl [facility] [address]-11 Active not defined Qvar NDC 0 Active not defined Fiber NDC 0 Active not defined Xarelto [facility] [address]-77 Active not defined Pearls IC [facility] [address]-69255 Active not defined Hyoscyamine NDC 0 Active not defined Bevespi NDC 0 Active not defined Cranberry [facility] [address]32 Active not defined Mometasone [facility] 65358233853 50 MCG/ACT December 16, Active 2 sprays Furoate Nasally Once a 2017 in each day nostril Gabapentin [facility] 89354145255 100 MG Orally Jun 24, Active 1 capsule Three times a 2017 day Multivitamin [facility] [address]8416-90874 Active not defined Calcium [facility] [address]-38 Active not defined Cephalexin [facility] [address]-11 Active not defined Zipsor [facility] 54563617086 25 MG Orally Jun 14Jul 04, Active 1 capsule Four times a 2017 2017 with food day or milk as needed Iron [facility] [address]-62 Active not defined Myrbetriq [facility] [address]-36 Active not defined Levothyroxine [facility] [address]-18 Active not Sodium defined Lansoprazole [facility] 0 Active not defined Stool Softener [facility] [address]-35 Active not defined Valerian Root [facility] [address]-83918 Active not defined Montelukast [facility] [address]-97 Active not Sodium defined Loratadine [facility] [address]-01 Active not defined Perdiem [facility] [address]-20 Active not Overnight Relief defined Results No Known Results Summary Purpose eClinicalWorks Submission
--- OUTSIDE RECORDS SUMMARY | 2018-11-13 15:13 | XMS REPORT ---
[...] Medications Results No Known Results Summary Purpose [facility] Submission
--- OUTSIDE RECORDS SUMMARY | 2018-11-13 15:13 | XMS REPORT ---
[...] Results No Known Results Summary Purpose [facility]
--- OUTSIDE RECORDS SUMMARY | 2018-11-13 15:13 | XMS REPORT ---
:1945 [facility] Team Providers Name Role Phone [...] End Status Dosage System Date Date Calcium [facility] [address]-46 Active not defined Multivitamin [facility] 37573-41338 Active not defined Xarelto [facility] [address]-53 Active not defined Levothyroxine [facility] [address]-60 Active not Sodium defined Montelukast [facility] [address]-18 Active not Sodium defined Bevespi ND 0 Active not defined Fiber ND 0 Active not defined Loratadine [facility] [address]-32 Active not defined Iron [facility] [address]-79 Active not defined Augmentin [facility] 42312137119 875-125 MG May 05Apr Active 1 tablet Orally every 2017 26, hrs 2018 Perdiem [facility] [address]-55 Active not Overnight Relief defined Osphena [facility] [address]-45 Active not defined Mometasone [facility] 63878734634 50 MCG/ACT December 16, Active 2 sprays Furoate Nasally Once a 2018 in each day nostril Medrol (Sonido) [facility] 15461914845 4 MG Orally May 04Apr Active as 2018 24, 2017 Stool Softener [facility] [address]-88 Active not defined Cranberry [facility] 52325-61125 Active not defined Qvar [facility] [address]-87 Active not defined Myrbetriq [facility] [address]-45 Active not defined Valerian Root [facility] 02660-84746 Active not defined Gabapentin [facility] 27798154214 100 MG Orally Jun 24, Active 1 capsule Three times a 2016 day Mucinex [facility] [address]-27 Active not defined Pearls IC [facility] 78777-00976 Active not defined Olopatadine HCl [facility] [address]-26 Active not defined Lansoprazole [facility] 0 Active not defined Results No Known Results Summary Purpose eClinicalWorks Submission
--- OUTSIDE RECORDS SUMMARY | 2018-11-13 15:13 | XMS REPORT ---
[...] End Status Dosage System Date Date Loratadine [facility] [address]-83 Active not defined Iron [facility] [address]-07 Active not defined Perdiem [facility] [address]-37 Active not Overnight Relief defined Calcium [facility] [address]-81 Active not defined Multivitamin [facility] 93446-58570 Active not defined Montelukast [facility] [address]-03 Active not Sodium defined Augmentin [facility] 55068127100 875-125 MG May 24, Jun 03, Active 1 tablet Orally every 12 2017 2018 hrs Valerian Root [facility] 03369-58125 Active not defined Gabapentin [facility] 21411937267 100 MG Orally Jun 24, Active 1 capsule Three times a 2017 day Cranberry [facility] 52469-55906 Active not defined Levothyroxine [facility] [address]-68 Active not Sodium defined Mucinex [facility] [address]-38 Active not defined Lansoprazole [facility] 0 Active not defined Qvar [facility] [address]-02 Active not defined Olopatadine HCl [facility] [address]-56 Active not defined Mometasone [facility] 65024453665 50 MCG/ACT December 16, Active 2 sprays Furoate Nasally Once a 2018 in each day nostril Fiber ND 0 Active not defined Bevespi [facility] 0 Active not defined Osphena [facility] [address]-42 Active not defined Xarelto [facility] [address]-75 Active not defined Stool Softener [facility] [address]-55 Active not defined Pearls IC [facility] 44852-80377 Active not defined Myrbetriq [facility] [address]-58 Active not defined Results No Known Results Summary Purpose eClinicalWorks Submission
--- OUTSIDE RECORDS SUMMARY | 2018-11-13 15:13 | XMS REPORT ---
[...] Results No Known Results Summary [facility]
--- OUTSIDE RECORDS SUMMARY | 2018-11-13 15:14 | XMS REPORT ---
[...] No Known Results Summary [facility]
--- OUTSIDE RECORDS SUMMARY | 2018-11-13 15:14 | XMS REPORT ---
[...] End Status Dosage System Date Date Iron [facility] [address]-23 Active not defined Fiber NDC 0 Active not defined Cranberry [facility] 48925-89092 Active not defined Loratadine [facility] [address]-81 Active not defined Olopatadine HCl [facility] [address]-88 Active not defined Osphena [facility] [address]-91 Active not defined Bactrim DS (14 [facility] 12345146194 800-160 MG Aug 11, Aug 31, Active 1 tablet days) Orally Twice a 2017 2018 day Perdiem [facility] [address]-08 Active not Overnight Relief defined Stool Softener [facility] [address]-73 Active not defined Multivitamin [facility] 06220-42763 Active not defined Qvar NDC 0 Active not defined Myrbetriq [facility] [address]-93 Active not defined Mucinex [facility] [address]-76 Active not defined Montelukast [facility] [address]-90 Active not Sodium defined Gabapentin [facility] 24853467704 100 MG Orally Jun 24, Active 1 capsule Three times a 2016 day Mometasone [facility] 70123645624 50 MCG/ACT December 16, Active 2 sprays Furoate Nasally Once a 2018 in each day nostril Cephalexin [facility] [address]-44 Active not defined Lansoprazole NDC 0 Active not defined Valerian Root [facility] 03875-21459 Active not defined Xarelto [facility] [address]-38 Active not defined Calcium [facility] [address]-52 Active not defined Bevespi NDC 0 Active not defined Levothyroxine [facility] [address]-82 Active not Sodium defined Pearls IC [facility] 45211-68354 Active not defined Hyoscyamine ND 0 Active not defined Results No Known Results Summary Purpose eClinicalWorks Submission
--- OUTSIDE RECORDS SUMMARY | 2018-11-13 15:14 | XMS REPORT ---
[...] Dosage System Date Date Stool Softener [facility] [address]-11 Active not defined Cranberry [facility] [address]9634-93802 Active not defined Mucinex [facility] [address]-67 Active not defined Bactrim DS (14 [facility] 31641204677 800-160 MG Aug 11, Aug 31, Active 1 tablet days) Orally Twice a 20172018 Multivitamin [facility] 24087-07036 Active not defined Bevespi NDC 0 Active not defined Myrbetriq [facility] [address]-06 Active not defined Lansoprazole NDC 0 Active not defined Hyoscyamine NDC 0 Active not defined Loratadine [facility] [address]-92 Active not defined Perdiem [facility] [address]-04 Active not Overnight Relief defined Iron [facility] [address]-20 Active not defined Xarelto [facility] [address]-00 Active not defined Levothyroxine [facility] [address]-44 Active not Sodium defined Montelukast [facility] [address]-65 Active not Sodium defined Osphena [facility] [address]-15 Active not defined Qvar NDC 0 Active not defined Olopatadine HCl [facility] [address]-56 Active not defined Cephalexin [facility] [address]-03 Active not defined Valerian Root [facility] 57[address]-82851 Active not defined Gabapentin [facility] 02490741830 100 MG Orally Jun 24, Active 1 capsule Three times a 2016 day Calcium [facility] [address]-29 Active not defined Fiber NDC 0 Active not defined Mometasone [facility] 03239872813 50 MCG/ACT December 16, Active 2 sprays Furoate Nasally Once a 2017 in each day nostril Pearls IC [facility] 310[address]-66956 Active not defined Results No Known Results Summary Purpose eClinicalWorks Submission
--- OUTSIDE RECORDS SUMMARY | 2018-11-13 15:14 | XMS REPORT ---
[...] Date Status Dosage Date Bactrim DS [facility] 17807613971 800-160 MG Orally October 15, October 25, Active 1 tablet Twice a day 2018 2018 Results No Known Results Summary Purpose eClinicalWorks Submission
[2018-11-13] MEDS ORDERED: METHYLPREDNISOLONE 125 MG INJ ONE (15:56)
[2018-11-13] MEDS ORDERED: LEVALBUTEROL 1.25 MG/3 ML NEB ONE (15:56)
[2018-11-13 16:20] LABS: Absolute Lymphocytes (CBC) 0.7 K/uL (0.7-4.9); Absolute Monocytes 0.6 K/uL (0.1-1.3); Absolute Neutrophil 3.3 K/uL (1.8-8.0); Basophils % 0.2 % (0-1.3); Eosinophils % 0.6 % (0-4.4); Hematocrit 39.6 % (36.0-45.0); Lymphocytes % 14.6 % (15.3-44.8); RBC Red Blood Cell Count 4.22 M/uL (3.86-4.86)
[2018-11-13 16:23] LABS: Protime INR 2.14
--- NOTE | 2018-11-13 16:23 | RAD REPORT ---
EXAM DESCRIPTION: RAD - Chest Single View - 11/13/2018 4:08 pm CLINICAL HISTORY: DYSPNEA Chest pain. COMPARISON: Chest Pa And Lat (2 Views) dated 10/17/2018; Chest Single View dated 08/24/2016; Chest Singl e View dated 06/09/2016; Chest Pa And Lat (2 Views) dated 01/29/2016 FINDINGS: Portable technique limits examination quality. The lungs are underinflated but grossly clear. The heart is normal in size. No displaced fractures. IMPRESSION: No acute intrathoracic process suspected.
[2018-11-13] MEDS ORDERED: ACETAMINOPHEN 500 MG TAB ONE (16:27)
[2018-11-13 16:31] LABS: BUN Blood Urea Nitrogen 9 mg/dL (7-18); Bicarbonate 29 mmol/L (21-32); Glucose Level 100 mg/dL (74-106); Lipase 96 U/L (73-393); Magnesium 2.1 mg/dL (1.8-2.4); NT PRO-BNP 200 pg/mL (<125); Potassium 4.1 mmol/L (3.5-5.1); Sodium Level 136 mmol/L (136-145); Troponin (Emerg Dept Use Only) < 0.02 ng/mL (0.0-0.045)
--- NOTE | 2018-11-13 17:16 | ER ---
Nurse's Notes [facility] Name: Ashley Reyes Age: 73 yrs Sex: Female : 1945 Arrival Date: 11/13/2018 Time: 15:17 Bed 19 Private MD: Jonatan Venegas C Diagnosis: Acute bronchitis;Mild intermittent asthma with (acute) exacerbation;Respiratory failure, unspecified with hypoxia Presentation: 11/13 15:20 Presenting complaint: Patient states: I was here yesterday and dx with pancreatitis but la1 my levels were not high enough to be admitted. Pt reports when she got home late last night she began having a bad headache and cough and this morning started with fever (TMAX 101.9) no meds taken at home. Transition of care: patient was not received from another setting of care. Onset of symptoms was November 13, 2018. Risk Assessment: Do you want to hurt yourself or someone else? Patient reports no desire to harm self or others. Initial Sepsis Screen: Does the patient meet any 2 criteria? No. Patient's initial sepsis screen is negative. Does the patient have a suspected source of infection? No. Patient's initial sepsis screen is negative. Care prior to arrival: None. 15:20 Method Of Arrival: Wheelchair la1 15:20 Acuity: ARLINE 3 la1 Historical: - Allergies: 15:22 Albuterol; la1 15:22 Azithromycin; la1 15:22 Cipro; la1 15:22 NSAIDS; la1 - PMHx: 15:22 Asthma; Atrial Fib; Hypothyroidism; la1 - Immunization history:: Adult Immunizations up to date. - Social history:: Smoking status: Patient/guardian denies using tobacco. - Ebola Screening: : No symptoms or risks identified at this time. Screenin:40 Abuse screen: Denies threats or abuse. Nutritional screening: No deficits noted. em Tuberculosis screening: No symptoms or risk factors identified. Fall Risk None identified. Assessment: 15:40 General: Appears in no apparent distress. uncomfortable, Behavior is calm, cooperative, em Reports chills for fever for. Pain: Complains of pain in head Pain currently is 7 out of 10 on a pain scale. Quality of pain is described as pressure. Neuro: Level of Consciousness is awake, alert, obeys commands, Oriented to person, place, time, situation, Architectural Project Captain are equal bilaterally Moves all extremities. Gait is steady, Speech is normal, Facial symmetry appears normal, Intact. Cardiovascular: Denies chest pain, Heart tones S1 S2 present Capillary refill < 3 seconds Patient's skin is warm and dry. Respiratory: Reports shortness of breath on exertion cough that is productive, pain with cough Airway is patent Respiratory effort is even, unlabored, Respiratory pattern is regular, symmetrical, Breath sounds are diminished bilaterally. GI: Abdomen is round non-distended, Bowel sounds present X 4 quads. Abd is soft and non tender X 4 quads. Patient currently denies nausea, vomiting. : No signs and/or symptoms were reported regarding the genitourinary system. EENT: Denies difficulty swallowing. Derm: Skin is intact, is healthy with good turgor, Skin is pink, warm \T\ dry. Musculoskeletal: Range of motion: intact in all extremities. 16:00 Reassessment: Patient appears in no apparent distress at this time. I agree with above iw assessment by Diogenes Swain LVN. 16:47 Reassessment: Patient appears in no apparent distress at this time. Patient and/or em family updated on plan of care and expected duration. Pain level reassessed. Patient is alert, oriented x 3, equal unlabored respirations, skin warm/dry/pink. rates pain 5/10 Patient states symptoms have improved. 17:55 Reassessment: Patient appears in no apparent distress at this time. Patient and/or em family updated on plan of care and expected duration. Pain level reassessed. Patient is alert, oriented x 3, equal unlabored respirations, skin warm/dry/pink. meal tray given. Vital Signs: 15:22 BP 126 / 66; Pulse 95; Resp 16; Temp 99.9; Pulse Ox 93% on R/A; Weight 101.6 kg; Height la1 5 ft. 7 in. (170.18 cm); 16:13 BP 128 / 70; Pulse 93; Resp 22; Pulse Ox 90% on R/A; Pain 8/10; em 16:16 Pulse Ox 96% on 2 lpm NC; em 17:15 BP 124 / 86; Pulse 98; Resp 23; Pulse Ox 95% on 2 lpm NC; Pain 5/10; em 18:15 BP 112 / 72; Pulse 95; Resp 22; Pulse Ox 94% on 2 lpm NC; em 15:22 Body Mass Index 35.08 (101.60 kg, 170.18 cm) la1 ED Course: 15:17 Patient arrived in ED. mr 15:17 Jonatan Venegas MD is Private Physician. mr 15:22 Triage completed. la1 15:23 Arm band placed on right wrist. la1 15:24 Milton Raya PA is PHCP. jr8 15:24 Eliceo Jaimes MD is Attending Physician. jr8 15:37 Diogenes Swain LVN is Primary Nurse. em 15:40 Patient has correct armband on for positive identification. Placed in gown. Bed in low em position. Call light in reach. Adult w/ patient. quality assurance monitor chassis on. Pulse ox on. NIBP on. 16:00 Inserted saline lock: 20 gauge in right antecubital area, using aseptic technique. em Blood collected. 16:00 Initial lab(s) drawn, by me, sent to lab. First set of blood cultures drawn by me. em 16:08 X-ray completed. Portable x-ray completed in exam room. Patient tolerated procedure la2 well. 16:09 XRAY Chest (1 view) In Process Unspecified. EDMS 16:24 Warm blanket given. mh5 16:24 EKG done, by ED staff, reviewed by Milton WOOD. 5 17:14 Jonatan Venegas MD is Hospitalizing Provider. jr8 18:05 No provider procedures requiring assistance completed. Patient admitted, IV remains in em place. Administered Medications: 15:50 Drug: Xopenex 1.25 mg Route: Inhalation; em 16:09 Drug: SOLU-Medrol 125 mg Route: IVP; Site: right antecubital; iw 16:24 Follow up: Response: No adverse reaction em 16:23 Drug: Tylenol 1000 mg Route: PO; em 17:18 Follow up: Response: No adverse reaction; Pain is decreased em 17:45 Drug: Unasyn 1.5 grams Route: IVPB; Infused Over: 30 mins; Site: right antecubital; em 18:32 Follow up: IV Status: Infusion continued upon admission; IV Intake: 75ml em Intake: 18:32 IV: 75ml; Total: 75ml. em Outcome: 17:15 Decision to Hospitalize by Provider. jr8 18:23 Admitted to [facility]/surg accompanied by tech, family with patient, via wheelchair, room em 207, with oxygen, with chart, Report called to RITA Luevano 18:23 Condition: good 18:23 Instructed on the need for admit, Demonstrated understanding of instructions. 18:33 Patient left the ED. em Signatures: Dispatcher [employer] Vesna Alexis mr Wiliam, Diogenes, INSPECTOR [employer] INSPECTOR [employer] em Cecilia Pate RN RN iw Roszak, Josh, PA PA jr8 Attema, Lee, RN RN la1 Martinez, Maria [facility] Reshma Bustos
--- NOTE | 2018-11-13 17:16 | EDPHYS ---
Physician Documentation [facility] Name: Ashley Reyes Age: 73 yrs Sex: Female : 1945 Arrival Date: 11/13/2018 Time: 15:17 Bed 19 Private MD: Jonatan Venegas C ED Physician Eliceo Jaimes HPI: 11/13 15:35 This 73 yrs old Female presents to ER via Wheelchair with complaints of jr8 Cough, fever. 15:35 The patient or guardian reports cough, that is intermittent, described as mild, with jr8 productive sputum, that is white, difficulty breathing. Onset: The symptoms/episode began/occurred gradually, 2 week(s) ago. Severity of symptoms: At their worst the symptoms were mild, in the emergency department the symptoms are unchanged. Modifying factors: The symptoms are alleviated by nothing, the symptoms are aggravated by nothing. Associated signs and symptoms: Pertinent positives: fever. It is unknown whether or not the patient has had similar symptoms in the past. The patient has been recently seen by a physician:. Historical: - Allergies: 15:22 Albuterol; la1 15:22 Azithromycin; la1 15:22 Cipro; la1 15:22 NSAIDS; la1 - PMHx: 15:22 Asthma; Atrial Fib; Hypothyroidism; la1 - Immunization history:: Adult Immunizations up to date. - Social history:: Smoking status: Patient/guardian denies using tobacco. - Ebola Screening: : No symptoms or risks identified at this time. ROS: 15:35 Eyes: Negative for injury, pain, redness, and discharge, ENT: Negative for injury, jr8 pain, and discharge, Neck: Negative for injury, pain, and swelling, Cardiovascular: Negative for chest pain, palpitations, and edema, Abdomen/GI: Negative for abdominal pain, nausea, vomiting, diarrhea, and constipation, Back: Negative for injury and pain, MS/Extremity: Negative for injury and deformity, Skin: Negative for injury, rash, and discoloration, Neuro: Negative for headache, weakness, numbness, tingling, and seizure. 15:35 Respiratory: Positive for cough, shortness of breath, wheezing. Exam: 15:35 Eyes: Pupils equal round and reactive to light, extra-ocular motions intact. Lids and jr8 lashes normal. Conjunctiva and sclera are non-icteric and not injected. Cornea within normal limits. Periorbital areas with no swelling, redness, or edema. ENT: Nares patent. No nasal discharge, no septal abnormalities noted. Tympanic membranes are normal and external auditory canals are clear. Oropharynx with no redness, swelling, or masses, exudates, or evidence of obstruction, uvula midline. Mucous membranes moist. Neck: Trachea midline, no thyromegaly or masses palpated, and no cervical lymphadenopathy. Supple, full range of motion without nuchal rigidity, or vertebral point tenderness. No Meningismus. Cardiovascular: Regular rate and rhythm with a normal S1 and S2. No gallops, murmurs, or rubs. Normal PMI, no JVD. No pulse deficits. Abdomen/GI: Soft, non-tender, with normal bowel sounds. No distension or tympany. No guarding or rebound. No evidence of tenderness throughout. Back: No spinal tenderness. No costovertebral tenderness. Full range of motion. Skin: Warm, dry with normal turgor. Normal color with no rashes, no lesions, and no evidence of cellulitis. MS/ Extremity: Pulses equal, no cyanosis. Neurovascular intact. Full, normal range of motion. Neuro: Awake and alert, GCS 15, oriented to person, place, time, and situation. Cranial nerves II-XII grossly intact. Motor strength 5/5 in all extremities. Sensory grossly intact. Cerebellar exam normal. Normal gait. 15:35 Respiratory: the patient does not display signs of respiratory distress, Respirations: normal, symetrical, no use of accessory muscles, no grunting, no evidence of nasal flaring, no prolonged exhalations, no pursed lip breathing, no retractions, no shallow respirations, no splinting, no tachypnea, Breath sounds: decreased breath sounds, that are mild, are scattered. Vital Signs: 15:22 BP 126 / 66; Pulse 95; Resp 16; Temp 99.9; Pulse Ox 93% on R/A; Weight 101.6 kg; Height la1 5 ft. 7 in. (170.18 cm); 16:13 BP 128 / 70; Pulse 93; Resp 22; Pulse Ox 90% on R/A; Pain 8/10; em 16:16 Pulse Ox 96% on 2 lpm NC; em 17:15 BP 124 / 86; Pulse 98; Resp 23; Pulse Ox 95% on 2 lpm NC; Pain 5/10; em 18:15 BP 112 / 72; Pulse 95; Resp 22; Pulse Ox 94% on 2 lpm NC; em 15:22 Body Mass Index 35.08 (101.60 kg, 170.18 cm) la1 MDM: 15:24 Patient medically screened. [facility] 17:13 Data reviewed: vital signs, nurses notes, lab test result(s), EKG, radiologic studies, [facility] plain films. Data interpreted: Pulse oximetry: on room air is 90 %. Interpretation: hypoxia. Counseling: I had a detailed discussion with the patient and/or guardian regarding: the historical points, exam findings, and any diagnostic results supporting the discharge/admit diagnosis, lab results, radiology results, the need for further work-up and treatment in the hospital. Physician consultation: A Theo SOLIZ was called at 17:13, was contacted at 17:13, regarding admission, to the telemetry unit. consult, patient's condition, and will see patient. 11/13 15:33 Order name: Basic Metabolic Panel; Complete Time: 16:36 [facility] 11/13 15:33 Order name: CBC with Diff; Complete Time: 16:36 [facility] 11/13 15:33 Order name: Magnesium; Complete Time: 16:36 [facility] 11/13 15:33 Order name: NT PRO-BNP; Complete Time: 16:36 [facility] 11/13 15:33 Order name: PT-INR; Complete Time: 16:36 [facility] 11/13 15:33 Order name: Troponin (emerg Dept Use Only); Complete Time: 16:36 [facility] 11/13 15:33 Order name: XRAY Chest (1 view); Complete Time: 16:36 [facility] 11/13 15:35 Order name: Blood Culture Adult (2) [facility] 11/13 15:44 Order name: Lipase; Complete Time: 16:36 EDMS 11/13 16:36 Order name: Influenza Screen (a \T\ B) [facility] 11/13 16:37 Order name: Influenza Screen (A ; Complete Time: 17:05 EDMS 11/13 15:33 Order name: EKG; Complete Time: 15:34 [facility] 11/13 15:33 Order name: Cardiac monitoring; Complete Time: 16:08 [facility] 03/30 15:33 Order name: EKG - Nurse/Tech; Complete Time: 16:05 11/13 15:33 Order name: IV Saline Lock; Complete Time: 16:05 11/13 15:33 Order name: Labs collected and sent; Complete Time: 16:06 11/13 15:33 Order name: O2 Per Protocol; Complete Time: 16:07 11/13 15:33 Order name: O2 Sat Monitoring; Complete Time: 16:11/13 17:35 Order name: Diet Heart Healthy; Complete Time: 17:35 mh5 Administered Medications: 15:50 Drug: Xopenex 1.25 mg Route: Inhalation; em 16:09 Drug: SOLU-Medrol 125 mg Route: IVP; Site: right antecubital; iw 16:24 Follow up: Response: No adverse reaction em 16:23 Drug: Tylenol 1000 mg Route: PO; em 17:18 Follow up: Response: No adverse reaction; Pain is decreased em 17:45 Drug: Unasyn 1.5 grams Route: IVPB; Infused Over: 30 mins; Site: right antecubital; em 18:32 Follow up: IV Status: Infusion continued upon admission; IV Intake: 75ml em Disposition: 18:37 Co-signature as Attending Physician, Eliceo Jaimes MD. rn Disposition: 11/13/18 17:15 Hospitalization ordered by Jonatan Venegas for Observation. Preliminary diagnosis are Acute bronchitis, Mild intermittent asthma with (acute) exacerbation, Respiratory failure, unspecified with hypoxia. - Bed requested for Telemetry/MedSurg (observation). - Status is Observation. em - Condition is Stable. - Problem is new. - Symptoms have improved. UTI on Admission? No Signatures: Dispatcher [employer] EDAR Lilibeth Crowder RN Diogenes Marley, [employer] MANAGER [employer] MANAGER em Cecilia Pate RN RN iw Nieto, Roman, MD MD rn Roszak, Josh, PA PA jr8 Amari Franklin RN RN la1 Corrections: (The following items were deleted from the chart) 15:43 15:36 LIPASE+C.LAB.BRZ ordered. EDAR EDMS 18:02 17:15 Hospitalization Ordered by Jonatan Venegas MD for Observation. Preliminary diagnosis is Acute bronchitis; Mild intermittent asthma with (acute) exacerbation; Respiratory failure, unspecified with hypoxia. Bed requested for Telemetry/MedSurg (observation). Status is Observation. Condition is Stable. Problem is new. Symptoms have improved. UTI on Admission? No. jr8 18:33 18:02 11/13/2018 17:15 Hospitalization Ordered by A Theo SOLIZ for Observation. em Preliminary diagnosis is Acute bronchitis; Mild intermittent asthma with (acute) exacerbation; Respiratory failure, unspecified with hypoxia. Bed requested for Telemetry/MedSurg (observation). Status is Observation. Condition is Stable. Problem is new. Symptoms have improved. UTI on Admission? No. mw
[2018-11-13] MEDS ORDERED: AMPICILLIN/SULBACT 1.5 GM in NA CHLORIDE 0.9% 100 ML IVPB SCH (18:00)
[2018-11-13] MEDS ORDERED: IPRATROPIUM BROM 0.5MG/2.5ML NEB PRN (18:26)
[2018-11-13] MEDS ORDERED: ONDANSETRON 4 MG/2 ML VIAL IV PRN (18:26)
[2018-11-13] MEDS: LEVALBUTEROL 1.25 MG/3 ML NEB NEB SCH (20:00)
[2018-11-13] MEDS: NA CHLORIDE 0.9% 1,000 ML IV SCH (20:34)
[2018-11-13 22:25] LABS: Urine Appearance CLEAR; Urine Bilirubin NEGATIVE (NEG); Urine Blood TRACE (NEG); Urine Color YELLOW; Urine Glucose NEGATIVE (NEG); Urine Protein NEGATIVE (NEG); Urine Specific Gravity <=1.005 (1.005-1.030); Urine Urobilinogen 0.2 mg/dL (0.2-1.0)
[2018-11-13 22:42] LABS: Urine Microscopic Reflex ORDER UMIC
[2018-11-13 23:00] LABS: Urine RBC NONE SEEN /HPF (NONE SEEN)
[2018-11-13 23:01] LABS: Urine Bacteria <20 /HPF (<20); Urine Culture Reflex Order NOT NEEDED
[2018-11-13] MEDS: ACETAMINOPHEN 500 MG TAB PO PRN (23:58)
[2018-11-14] MEDS ORDERED: AMPICILLIN/SULBACT 1.5GM VIAL IVPB SCH (01:00)
[2018-11-14] MEDS: LEVALBUTEROL 1.25 MG/3 ML NEB NEB SCH ×4 (02:00→20:00)
[2018-11-14 05:30] LABS: Absolute Lymphocytes (CBC) 0.8 K/uL (0.7-4.9); Absolute Monocytes 0.4 K/uL (0.1-1.3); Basophils % 0.2 % (0-1.3); Eosinophils % 0.4 % (0-4.4); Hematocrit 36.7 % (36.0-45.0); Lymphocytes % 25.1 % (15.3-44.8); Monocytes % 13.8 % (3.3-12.3); RBC Red Blood Cell Count 3.94 M/uL (3.86-4.86)
[2018-11-14 05:42] LABS: Potassium 3.7 mmol/L (3.5-5.1)
[2018-11-14] MEDS: AMPICILLIN/SULBACT 1.5 GM in NA CHLORIDE 0.9% 100 ML IVPB SCH ×3 (07:52)
[2018-11-14] MEDS: NA CHLORIDE 0.9% 1,000 ML IV SCH (07:54)
[2018-11-14] MEDS: ACETAMINOPHEN 500 MG TAB PO PRN ×3 (09:59→21:51)
[2018-11-14] MEDS ORDERED: [UNRECOGNIZED DRUG - OTHER] PO SCH (11:30)
[2018-11-14] MEDS: METHYLPREDNISOLONE 125 MG INJ IV SCH ×2 (12:12→17:10)
[2018-11-14] MEDS ORDERED: HYOSCYAMINE 0.125MG TABLET PO PRN (16:45)
[2018-11-14] MEDS: XARELTO 20 MG TABLET PO SCH (17:00)
[2018-11-14] MEDS: AMPICILLIN/SULBACT 3 GM in NA CHLORIDE 0.9% 100 ML IVPB SCH (17:03)
[2018-11-14] MEDS ORDERED: SENNOSIDES PO SCH (21:00)
[2018-11-14] MEDS ORDERED: DOCUSATE SODIUM PO SCH (21:00)
[2018-11-14] MEDS ORDERED: INULIN PO SCH (21:00)
[2018-11-14] MEDS ORDERED: HOME MED 1 EA UNK (L.Acidoph,Paracasei, B.Lactis [Probiotic] 1 EACH) PO SCH (21:00)
[2018-11-14] MEDS: Qvar Redihaler IH SCH (21:51)
[2018-11-14] MEDS: Bevespi Aerosphere Inhaler IH SCH (21:51)
[2018-11-14] MEDS: GUAIFENESIN 1200 MG PO SCH (21:52)
[2018-11-14] MEDS: GABAPENTIN 300 MG CAPSULE PO SCH (21:53)
[2018-11-14] MEDS: SLOW FE PO SCH (21:53)
--- NOTE | 2018-11-14 23:33 | HP ---
Date of Admission: 11/14/2018 Chief Complaint: Cough, congestion, shortness of breath, wheezing and fever. History Of Present Illness: A 73-year-old female patient, who has moderate persistent asthma and multiple other comorbidities, came into emergency room day before yesterday with abdominal pain and nausea. She was diagnosed as having mild case of pancreatitis with lipase elevated at 775, but CAT scan of the abdomen did not show any changes of pancreatitis. The patient's abdominal pain was well controlled with pain medication, so she was discharged to go home. She tolerated diet well. Her pain continued to get better after she went home from emergency room, but yesterday she contacted me and informed me that she was having fever of 101.9 degree Fahrenheit, cough, wheezing, shortness of breath and was coughing up yellowish colored mucus, and she was instructed to come to emergency room after she was evaluated, she was admitted to the hospital. I saw her this morning and she does not feel any better or worse today compared to yesterday. Review of Systems: Respiratory: As mentioned above. Constitutional: As mentioned above. GI: As mentioned above. All other systems reviewed and negative. Allergies: AZITHROMYCIN, CIPRO, AND ALBUTEROL. Medications: List reviewed. Past Surgical History: Carpal tunnel release, knee replacement, fundoplication , cholecystectomy, ethmoidectomy, laminectomy, tonsillectomy. Family History: Significant for heart disease, hypertension, diabetes. Social History: Negative for smoking and alcohol use. Past Medical History: Significant for moderate persistent asthma, chronic gastritis, impaired fasting glucose, chronic constipation, abdominal wall hernia , sleep apnea, overactive bladder, paroxysmal atrial fibrillation, gastroesophageal reflux disease, hypothyroidism, allergic rhinitis. Physical Examination: Vital Signs: When she first came into emergency room, temperature 99.9, pulse 95, respiratory rate 16, blood pressure 126/66, oxygen saturation on room air was 90% and once oxygen was started, her oxygen saturation has been around 93%- 94%. General: Awake, alert, oriented, not in distress. HEENT: Head atraumatic, normocephalic. Conjunctivae nonerythematous. Sclerae white. Mouth, no thrush or edema noted. Ears/Nose, no mass, lesion, discharge noted. Neck: Supple. No JVD, lymph nodes, bruit, thyromegaly noted. Lungs: Bilateral scattered wheezing noted and also has some rales in lower lung field. Not using any accessory muscles of respiration. Heart: Normal heart sounds, no murmur or gallop. Abdomen: Large abdominal wall hernia without any evidence of any obstruction or tenderness. Bowel sounds normoactive. No hepatosplenomegaly. No tenderness. No bruit. Extremities: No leg edema. No calf tenderness. Skin: No rash, ulcer, cellulitis. Lymphatics: No lymph node enlargement in neck, supraclavicular, infraclavicular region. Neuro: No focal neurological deficit. Chest: Unremarkable. External Genitalia: Deferred. Rectal: Deferred. Laboratory Data: Yesterday, white count 4.5, hemoglobin 13, platelets 258. Today, white count 3.2, hemoglobin 11.9, platelets 247. Yesterday, sodium 136, potassium 4.1, chloride 101, bicarb 29, BUN 9, creatinine 0.79, glucose 100. Troponin less than 0.02. ProBNP 200. Today, sodium 141, potassium 3.7, chloride 106, bicarb 30, BUN 11, creatinine 0.72, glucose 118. Urinalysis negative. Chest x-ray, no acute cardiopulmonary changes noted. Impression: 1. Moderate persistent asthma, with acute exacerbation. 2. Acute bronchitis. 3. Paroxysmal atrial fibrillation. 4. Chronic anticoagulation therapy. 5. Abdominal wall hernia. 6. Chronic gastritis. 7. Overactive bladder. 8. Impaired fasting glucose. 9. Chronic constipation. 10. Sleep apnea. 11. Gastroesophageal reflux disease. 12. Hypothyroidism. 13. Allergic rhinitis. Plan: Admit the patient to hospital for further evaluation and management of this problem. The patient is appropriate for inpatient and is expected to spend 2 midnights in the hospital. Yesterday, when provider from emergency room contacted me, was requested for him to start the patient on IV steroid and I do not see that particular order. The patient is getting IV antibiotics, Unasyn 1.5 g every 8 hours. We will increase the dose to 3 g every 8 hours. Discontinue IV fluid. Start IV steroid, Solu-Medrol 60 mg every 6 hours. Ambulation was encouraged. Home medications will be continued per order including her Xarelto and I will see her tomorrow for followup. Continue her inhaler that she takes at home and nebulizer treatment here. If her condition does not improve, then we will consider doing CAT scan of the chest. LIZETT/FRIEDA Voice ID: [id number] MTDD
[2018-11-15] MEDS: METHYLPREDNISOLONE 125 MG INJ IV SCH ×4 (00:49→17:24)
[2018-11-15] MEDS: AMPICILLIN/SULBACT 3 GM in NA CHLORIDE 0.9% 100 ML IVPB SCH ×3 (00:49→17:24)
[2018-11-15] MEDS: LEVALBUTEROL 1.25 MG/3 ML NEB NEB SCH ×4 (02:00→20:00)
[2018-11-15] MEDS: LEVOTHYROXINE 150 MCG TABLET PO SCH (05:29)
[2018-11-15] MEDS: GABAPENTIN 300 MG CAPSULE PO SCH ×3 (08:22→20:19)
[2018-11-15] MEDS: Bevespi Aerosphere Inhaler IH SCH ×2 (08:22→20:15)
[2018-11-15] MEDS: Qvar Redihaler IH SCH ×2 (08:22→20:15)
[2018-11-15] MEDS: OSPHENA 60 MG PO SCH (08:23)
[2018-11-15] MEDS: GUAIFENESIN 1200 MG PO SCH ×2 (08:26→20:16)
[2018-11-15] MEDS: LORATADINE 10 MG TABLET PO SCH (08:27)
[2018-11-15] MEDS: MYRBETRIQ ER 50 MG TABLET PO SCH (08:28)
[2018-11-15] MEDS: MONTELUKAST 10 MG TABLET PO SCH (08:28)
[2018-11-15] MEDS: APAP PO PRN (11:39)
[2018-11-15] MEDS: CODEINE PO PRN (11:39)
[2018-11-15] MEDS: XARELTO 20 MG TABLET PO SCH (17:00)
[2018-11-15 18:04] VITALS: BMI 34.9
[2018-11-15] MEDS: SLOW FE PO SCH (20:17)
[2018-11-16] MEDS: CODEINE PO PRN (00:26)
[2018-11-16] MEDS: APAP PO PRN (00:26)
[2018-11-16] MEDS: METHYLPREDNISOLONE 125 MG INJ IV SCH ×2 (00:27→05:11)
[2018-11-16] MEDS: AMPICILLIN/SULBACT 3 GM in NA CHLORIDE 0.9% 100 ML IVPB SCH ×2 (00:28→09:26)
--- NOTE | 2018-11-16 01:48 | PN ---
Date of Progress Note: 11/15/2018 Subjective: The patient was seen this morning for followup. No new complaints or problems reported by the patient lying in bed, still has some cough, congestion, wheezing, and shortness of breath, but feels better today than yesterday. Objective: Vital Signs: Reviewed. HEENT: Unremarkable. Lungs: Bilateral good equal air entry. Presence of scattered wheezing noted in both lung marion, bu t overall better today than yesterday. Not using accessory muscles of respiration. Heart: Sounds normal. Abdomen: Soft. Bowel sounds normal. No guarding, rigidity, tenderness, or distention. Extremities: No leg edema. Impression: 1.Acute exacerbation of moderate persistent asthma. 2.Acute bronchitis. 3.Abdominal wall hernia. Plan: We will continue current medications. Continue steroid, antibiotic, nebulizer treatment. Amb ulation was encouraged. I will see her tomorrow for followup. Possible discharge to go home tomorro w depending on her condition. LIZETT/MODL Voice ID: [id number] Report ID: [id number]
[2018-11-16] MEDS: LEVALBUTEROL 1.25 MG/3 ML NEB NEB SCH ×2 (02:00→08:07)
[2018-11-16] MEDS: LEVOTHYROXINE 150 MCG TABLET PO SCH (05:11)
[2018-11-16 09:08] VITALS: O2SAT 94
[2018-11-16] MEDS ORDERED: levoFLOXacin 500 MG TAB PO ONE (09:26)
[2018-11-16] MEDS: GABAPENTIN 300 MG CAPSULE PO SCH (09:27)
[2018-11-16] MEDS: LORATADINE 10 MG TABLET PO SCH (09:28)
[2018-11-16] MEDS: GUAIFENESIN 1200 MG PO SCH (09:29)
[2018-11-16] MEDS: MONTELUKAST 10 MG TABLET PO SCH (09:30)
[2018-11-16] MEDS: MYRBETRIQ ER 50 MG TABLET PO SCH (09:32)
[2018-11-16] MEDS: OSPHENA 60 MG PO SCH (09:32)
[2018-11-16] MEDS: Bevespi Aerosphere Inhaler IH SCH (09:33)
[2018-11-16] MEDS: Qvar Redihaler IH SCH (09:34)
[2018-11-16 12:47] VITALS: BP 138/63; TEMP 98.6
--- NOTE | 2018-11-17 01:55 | DS ---
Date of Discharge: 11/16/2018 Disposition: Discharged to go home. Physical Examination: HEENT: Unremarkable. Lungs: Clear to auscultation. Heart: Sounds normal. Abdomen: Soft. Bowel sounds normal. No guarding, rigidity, tenderness, distention. Extremities: No leg edema. Hospital Course: A 73-year-old female patient admitted to the hospital with cough, congestion, shortness of breath, and fever. I was concerned about possibility of pneumonia. She was evaluated in the ER, admitted to the hospital. Chest x-ray did not show any definite evidence of pneumonia. The patient was admitted to the hospital with acute exacerbation of her asthma and acute bronchitis. IV antibiotics were started. Oxygen nebulizer treatment, etc. was given to her. IV steroid was started. Her home medications were continued. Sputum culture was done. Final report on the sputum culture came back today growing Pseudomonas. The patient is listed as allergic to Cipro and upon further questioning, she informed me that this allergic reaction was in form of rash, hives, itching with oral Cipro and that was many years ago when it was prescribed by Dr. Cohen. Since that time, she has taken Levaquin on more than 1 occasion and she has not had any reaction to Levaquin. So, I have advised her to take Levaquin for the Pseudomonas infection and first dose was ordered to be given in the hospital this morning. Overall, her condition has improved. Her shortness of breath, fever, wheezing has improved. She is ambulating well and today she was discharged to go home in stable condition with following discharge medication and instruction. Final Diagnoses: 1. Moderate persistent asthma, with acute exacerbation. 2. Acute bronchitis. 3. Paroxysmal atrial fibrillation. 4. Chronic anticoagulation therapy. 5. Abdominal wall hernia. 6. Chronic gastritis. 7. Impaired fasting glucose. 8. Overactive bladder. 9. Sleep apnea. 10. Gastroesophageal reflux disease. 11. Hypothyroidism. 12. Allergic rhinitis. Laboratory Data: Labs done during this hospitalization; initial white count 4.5 , hemoglobin 13, platelets 258. Initial sodium 136, potassium 4.1, chloride 101 , bicarb 29, BUN 9, creatinine 0.79, glucose 100, lipase . Discharge Medications And Instructions: 1. Continue all prior home medication. 2. Levaquin mg p.o. daily for 10 days. 3. Prednisone 10 mg, the patient takes 3 tablets daily for 3 days, then 2 tablets daily for 3 days, and 1 tablet daily for 3 days, then stop. 4. Follow up at my office per scheduled appointment. BRIAN Voice ID: [id number] Report ID: [id number] MTDQuirino
== END 2018-11-16 12:39 | disposition home or self-care (01) | DRG 202 ==
LOC: ER 15:09 → ERHOLD 17:36 → 2ND 18:24 → OBSVTOIN 11-14 14:32
PROVIDERS: ADMIT Internal Medicine; ATTEND Internal Medicine
DX: J20.9 Acute bronchitis, unspecified (principal); J45.41 Moderate persistent asthma with (acute) exacerbation; I48.0 Paroxysmal atrial fibrillation; K43.9 Ventral hernia without obstruction or gangrene; K29.50 Unspecified chronic gastritis without bleeding; N32.81 Overactive bladder; R73.01 Impaired fasting glucose; K59.09 Other constipation; K21.9 Gastro-esophageal reflux disease without esophagitis; G47.30 Sleep apnea, unspecified; E03.9 Hypothyroidism, unspecified; J30.9 Allergic rhinitis, unspecified; Z79.01 Long term (current) use of anticoagulants
CPT/HCPCS: 36415; 71045; 74177; 80048; 80076; 81003; 81015; 83690; 83735; 83880; 84484; 85025; 85610; 87040; 87070; 87077; 87186; 87205; 87804; 94760; 96361; 96365; 96374; 96375; 99284; 99285; G0378; J0295; J2405; J2930; J7030; Q9967

== ENCOUNTER 2019-05-27 11:48 | Emergency (ER) | payer OTHER ==
--- NOTE | 2019-05-27 13:57 | RAD REPORT ---
EXAM DESCRIPTION: Sebastian Shah (2 Views)05/27/2019 1:52 pm CLINICAL HISTORY: Fever COMPARISON: March 2019 FINDINGS: The lungs appear clear of acute infiltrate. The heart is normal size IMPRESSION: No acute abnormalities displayed
--- NOTE | 2019-05-27 14:23 | ER ---
Nurse's Notes [facility] Name: Ashley Reyes Age: 73 yrs Sex: Female : 1945 Arrival Date: 05/27/2019 Time: 11:51 Bed 5 Private MD: Jonatan Venegas C Diagnosis: Acute pharyngitis;Acute upper respiratory infection, unspecified Presentation: 05/27 12:00 Presenting complaint: Subjective fever, chills, nausea, headache, and malaise that hb started after getting flu shot 2 days ago. Transition of care: patient was not received from another setting of care. Onset of symptoms was May 25, 2019. Risk Assessment: Do you want to hurt yourself or someone else? Patient reports no desire to harm self or others. Care prior to arrival: None. 12:00 Method Of Arrival: Ambulatory hb 12:00 Acuity: ARLINE 3 hb 14:45 Initial Sepsis Screen: Does the patient meet any 2 criteria? No. Patient's initial mg2 sepsis screen is negative. Does the patient have a suspected source of infection? No. Patient's initial sepsis screen is negative. Historical: - Allergies: 12:03 Albuterol; hb 12:03 Azithromycin; hb 12:03 Cipro; hb 12:03 NSAIDS; hb - PMHx: 12:03 Asthma; Atrial Fib; Hypothyroidism; hb - Immunization history:: Adult Immunizations up to date. - Social history:: Smoking status: Patient/guardian denies using tobacco. - Ebola Screening: : No symptoms or risks identified at this time. Screenin:43 Abuse screen: Denies threats or abuse. Denies injuries from another. Nutritional mg2 screening: No deficits noted. Tuberculosis screening: No symptoms or risk factors identified. Fall Risk None identified. Assessment: 13:43 General: Appears in no apparent distress. comfortable, Behavior is calm, cooperative. mg2 Pain: Complains of pain in throat Pain does not radiate. Pain currently is 5 out of 10 on a pain scale. Quality of pain is described as aching, Pain began gradually, Is intermittent. Neuro: Level of Consciousness is awake, alert, obeys commands, Oriented to person, place, time, situation. Cardiovascular: Capillary refill < 3 seconds Patient's skin is warm and dry. Respiratory: Airway is patent Respiratory effort is even, unlabored, Respiratory pattern is regular, symmetrical. Respiratory: Reports cough that is congestion. GI: No signs and/or symptoms were reported involving the gastrointestinal system. : No signs and/or symptoms were reported regarding the genitourinary system. EENT: Reports sore throat. Derm: Skin is intact, is healthy with good turgor, Skin is pink, warm \T\ dry. normal. Musculoskeletal: Circulation, motion, and sensation intact. Capillary refill < 3 seconds. 13:44 Reassessment: patient sent to xray. mg2 Vital Signs: 12:02 BP 125 / 69; Pulse 95; Resp 16; Temp 99(TE); Pulse Ox 96% on R/A; Weight 102.06 kg; hb Height 5 ft. 8 in. (172.72 cm); Pain 8/10; 14:49 BP 122 / 78; Pulse 90; Resp 18; Temp 99.1; Pulse Ox 100% on R/A; mg2 12:02 Body Mass Index 34.21 (102.06 kg, 172.72 cm) hb ED Course: 11:51 Patient arrived in ED. mr 11:51 Jonatan Venegas MD is Private Physician. mr 12:01 Triage completed. hb 12:03 Arm band placed on. hb 13:02 Steve Blanchard, RITA is Primary Nurse. mg2 13:17 Sukumar Alvarado NP is PHCP. pm1 13:17 Nate Nickerson MD is Attending Physician. pm1 13:43 No provider procedures requiring assistance completed. Flu and/or RSV swab sent to lab. mg2 Strep swab sent to lab. Patient did not have IV access during this emergency room visit. 13:44 Allergy band placed. Pulse ox on. NIBP on. Door closed. mg2 13:50 Chest Pa And Lat (2 Views) XRAY In Process Unspecified. EDMS Administered Medications: 14:48 Drug: traMADol 50 mg Route: PO; mg2 14:48 Follow up: Response: No adverse reaction; Medication administered at discharge. mg2 Outcome: 14:22 Discharge ordered by . pm1 14:49 Discharged to home via wheelchair, with family. mg2 14:49 Condition: stable 14:49 Discharge instructions given to patient, family, Instructed on discharge instructions, follow up and referral plans. medication usage, Demonstrated understanding of instructions, follow-up care, medications, Prescriptions given X 1. 14:50 Patient left the ED. mg2 Signatures: Dispatcher [employer] EDVesna Michele mr JennySukumar, EMERGENCY MANAGEMENT SYSTEM DIRECTOR EMERGENCY MANAGEMENT SYSTEM DIRECTOR pm1 Shelley Dias RN RN Steve Blanchard RN RN mg2 Corrections: (The following items were deleted from the chart) 12:02 12:00 Presenting complaint: Subjective fever, chills, headache, and malaise that hb started after getting flu shot 2 days ago. hb
--- NOTE | 2019-05-27 14:23 | EDPHYS ---
Physician Documentation [facility] Name: Ashley Reyes Age: 73 yrs Sex: Female : 1945 Arrival Date: 05/27/2019 Time: 11:51 Bed 5 Private MD: Jonatan Venegas C ED Physician Nate Nickerson HPI: 05/27 14:15 This 73 yrs old Female presents to ER via Ambulatory with complaints of pm1 Fever, Chills. 14:15 The patient reports fever, not measured (subjective). Onset: The symptoms/episode pm1 began/occurred 2 day(s) ago. Modifying factors: recent flu shot. Associated signs and symptoms: Pertinent positives: chills, cough, headache, sore throat, Pertinent negatives: abdominal pain, chest pain, diarrhea, nausea, skin rash, shortness of breath, vomiting. Severity of symptoms: in the emergency department the symptoms are unchanged. The patient has not experienced similar symptoms in the past. The patient has been recently seen by a physician: primary clinician for asthma and given tetanus shot. Then started having fever shortly afterwards. Historical: - Allergies: 12:03 Albuterol; hb 12:03 Azithromycin; hb 12:03 Cipro; hb 12:03 NSAIDS; hb - PMHx: 12:03 Asthma; Atrial Fib; Hypothyroidism; hb - Immunization history:: Adult Immunizations up to date. - Social history:: Smoking status: Patient/guardian denies using tobacco. - Ebola Screening: : No symptoms or risks identified at this time. ROS: 14:15 Eyes: Negative for injury, pain, redness, and discharge. pm1 14:15 Neck: Negative for injury, pain, and swelling, Cardiovascular: Negative for chest pain, palpitations, and edema. 14:15 Abdomen/GI: Negative for abdominal pain, nausea, vomiting, diarrhea, and constipation, Back: Negative for injury and pain, : Negative for injury, bleeding, discharge, and swelling, MS/Extremity: Negative for injury and deformity, Skin: Negative for injury, rash, and discoloration, Neuro: Negative for headache, weakness, numbness, tingling, and seizure. 14:15 Constitutional: Positive for body aches, chills, fever, Negative for poor PO intake. 14:15 ENT: Positive for sore throat, Negative for ear pain. 14:15 Respiratory: Positive for cough, Negative for shortness of breath, sputum production, wheezing. Exam: 14:15 Constitutional: This is a well developed, well nourished patient who is awake, alert, pm1 and in no acute distress. Head/Face: Normocephalic, atraumatic. Eyes: Pupils equal round and reactive to light, extra-ocular motions intact. Lids and lashes normal. Conjunctiva and sclera are non-icteric and not injected. Cornea within normal limits. Periorbital areas with no swelling, redness, or edema. 14:15 Chest/axilla: Normal chest wall appearance and motion. Nontender with no deformity. No lesions are appreciated. Cardiovascular: Regular rate and rhythm with a normal S1 and S2. No gallops, murmurs, or rubs. Normal PMI, no JVD. No pulse deficits. Respiratory: Lungs have equal breath sounds bilaterally, clear to auscultation and percussion. No rales, rhonchi or wheezes noted. No increased work of breathing, no retractions or nasal flaring. Abdomen/GI: Soft, non-tender, with normal bowel sounds. No distension or tympany. No guarding or rebound. No evidence of tenderness throughout. Back: No spinal tenderness. No costovertebral tenderness. Full range of motion. Skin: Warm, dry with normal turgor. Normal color with no rashes, no lesions, and no evidence of cellulitis. MS/ Extremity: Pulses equal, no cyanosis. Neurovascular intact. Full, normal range of motion. 14:15 ENT: External ear(s): are unremarkable, Ear canal(s): are normal, TM's: are normal, Nose: is normal, Mouth: is normal, (-) tongue elevation (-) trismus Posterior pharynx: Tonsils: bilaterally enlarged, with erythema, no exudate, no ulcerations, Uvula: normal, midline, erythema, that is mild, exudate, is not appreciated, peritonsillar mass, is not appreciated, pooling of secretions, is not appreciated. 14:15 Neck: Lymph nodes: lymphadenopathy is appreciated, left anterior cervical chain. 14:15 Neuro: Orientation: is normal, Motor: is normal, moves all fours. Vital Signs: 12:02 BP 125 / 69; Pulse 95; Resp 16; Temp 99(TE); Pulse Ox 96% on R/A; Weight 102.06 kg; hb Height 5 ft. 8 in. (172.72 cm); Pain 8/10; 14:49 BP 122 / 78; Pulse 90; Resp 18; Temp 99.1; Pulse Ox 100% on R/A; mg2 12:02 Body Mass Index 34.21 (102.06 kg, 172.72 cm) hb MDM: 13:28 Patient medically screened. pm1 14:14 Data reviewed: vital signs. Data interpreted: Pulse oximetry: on room air is 96 %. pm1 Interpretation: normal. 14:22 Counseling: I had a detailed discussion with the patient and/or guardian regarding: the pm1 historical points, exam findings, and any diagnostic results supporting the discharge/admit diagnosis, lab results, radiology results, the need for outpatient follow up, to return to the emergency department if symptoms worsen or persist or if there are any questions or concerns that arise at home. 14:28 ED course: Patient requested pain medications for her sore throat and headache. Feels pm1 that she would need something stronger than ibuprofen or tylenol. Patient would like tramadol here and a prescription. 05/27 13:34 Order name: Flu; Complete Time: 14:13 pm1 05/27 13:34 Order name: Strep; Complete Time: 14:13 pm1 05/27 13:34 Order name: Chest Pa And Lat (2 Views) XRAY; Complete Time: 14:13 pm1 05/27 14:03 Order name: Throat Culture EDMS Administered Medications: 14:48 Drug: traMADol 50 mg Route: PO; mg2 14:48 Follow up: Response: No adverse reaction; Medication administered at discharge. mg2 Disposition: 05/27/19 14:22 Discharged to Home. Impression: Acute pharyngitis, Acute upper respiratory infection, unspecified. - Condition is Stable. - Discharge Instructions: Pharyngitis, Upper Respiratory Infection, Adult. - Prescriptions for Tramadol 50 mg Oral Tablet - take 1 tablet by ORAL route every 8 hours as needed; 12 tablet. - Medication Reconciliation Form, Thank You Letter, Antibiotic Education, Prescription Opioid Use form. - Follow up: Emergency Department; When: As needed; Reason: Worsening of condition. Follow up: Private Physician; When: 2 - 3 days; Reason: Recheck today's complaints, Continuance of care, Re-evaluation by your physician. - Problem is new. - Symptoms have improved. Addendum: 05/29/2019 06:56 Co-signature as Attending Physician, Nate Nickerson MD. g s Signatures: Dispatcher [employer] EDMS Sukumar Alvarado, RESEARCH PROGRAM COORDINATOR RESEARCH PROGRAM COORDINATOR pm1 Shelley Dias, RN RN Nate Nickerson MD MD Steve Blanchard RN RN mg2 Corrections: (The following items were deleted from the chart) 05/27 14:23 14:22 05/27/2019 14:22 Discharged to Home. Impression: Acute pharyngitis. Condition is pm1 Stable. Forms are Medication Reconciliation Form, Thank You Letter, Antibiotic Education, Prescription Opioid Use. Follow up: Emergency Department; When: As needed; Reason: Worsening of condition. Follow up: Private Physician; When: 2 - 3 days; Reason: Recheck today's complaints, Continuance of care, Re-evaluation by your physician. Problem is new. Symptoms have improved. pm1 14:50 14:23 05/27/2019 14:22 Discharged to Home. Impression: Acute pharyngitis; Acute upper mg2 respiratory infection, unspecified. Condition is Stable. Discharge Instructions: Pharyngitis, Upper Respiratory Infection, Adult. Forms are Medication Reconciliation Form, Thank You Letter, Antibiotic Education, Prescription Opioid Use. Follow up: Emergency Department; When: As needed; Reason: Worsening of condition. Follow up: Private Physician; When: 2 - 3 days; Reason: Recheck today's complaints, Continuance of care, Re-evaluation by your physician. Problem is new. Symptoms have improved. pm1
[2019-05-27] MEDS ORDERED: TRAMADOL HCL 50 MG TAB ONE (14:39)
[2019-05-27 14:56] VITALS: BP 122/78; TEMP 99.1; O2SAT 100
== END 2019-05-27 14:50 | disposition home or self-care (01) ==
LOC: ER 11:48
DX: J02.9 Acute pharyngitis, unspecified (principal); I48.91 Unspecified atrial fibrillation; Z88.1 Allergy status to other antibiotic agents; Z88.3 Allergy status to other anti-infective agents; Z88.6 Allergy status to analgesic agent
CPT/HCPCS: 71046; 87070; 87081; 87804; 99284

== ENCOUNTER 2019-10-11 16:17 | Observation (INO) | payer OTHER ==
--- OUTSIDE RECORDS SUMMARY | 2019-10-11 16:20 | XMS REPORT ---
[...] Date Status Dosage Date Medrol (Sonido) [facility] 27561318804 4 MG Orally May 04, May 10, Active as directed 2017 2017 Results No Known Results Summary Purpose eClinicalWorks Submission
--- OUTSIDE RECORDS SUMMARY | 2019-10-11 16:20 | XMS REPORT ---
:1945 [facility] Address [address] [place] [address] [address] Care Team Providers Name Role Phone RA VELAZCO Unavailable Unavailable Problems This patient has no known problems. Allergies, Adverse Reactions, Alerts This patient has no known allergies or adverse reactions. Medications This patient has no known medications. Results Test Description Test Time Test Comments Text Results Atomic Results Result Comments CYTOLOGY 2018-07-02 Medical Cytology Report 17:16:00 Case: [id number] Authorizing Provider: Ra Velazco MD Collected: 06/30/2018 1600 Ordering Location: [facility] Radiology Main Received: 07/01/2018 1258 Pathologist: Catherine Joe MD Specimen: Lymph Node, Cervical LEFT NECK LYMPH NODE, FNA BY RADIOLOGIST (GER) (DIRECT SMEARS, CYTOSPINS, CELL BLOCK OF ASPIRATE): - NO METASTATIC CARCINOMA, GRANULOMATA IDENTIFIED - LYMPHOID TISSUE PRESENT Signing Pathologist Direct Phone Line: [phone] signed by Catherine Joe MD on 07/02/2018 at 5:16 PMPlease also see cytopathology report [id number]. [id number](1.3 x 0.8 x 0.9 cm) left neck lymph node; reported tongue cancer, enlarged neck lymph nodesLEFT NECK LYMPH NODE FNAPrepared 4 cytospins from 30 ml cytorich red fixaitve Collected: [id number]: [id number].[facility], Department of Pathology, [address] [place] [address], [facility] of [facility], [address] [place] [address], [facility], [facility] of [facility]ology, [address] [place] [address], CYTOLOGY 2018-07-02 Medical Cytology Report 13:16:00 Case: [id number] Authorizing Provider: Ra Velazco MD Collected: 06/30/2018 1600 Ordering Location: [facility] Radiology Main Received: 07/01/2018 1259 Pathologist: Vesna Novak MD Specimen: Lymph Node, Cervical, right neck node (1.5 x 0.5 x 1.4 cm) RIGHT NECK LYMPH NODE, FNA BY RADIOLOGIST (CYTOSPINS): - NEGATIVE FOR MALIGNANCY - LYMPHOID/LYMPH NODE TISSUE PRESENT Signing Pathologist Direct Phone Line: [phone] signed by Vesna Novak MD on 07/02/2018 at 1:16 PMPlease also see cytopathology report [id number]. 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 No metastatic tumor is [facility], [facility] of [facility], [address] [place] [address], [facility], [facility], [address] [place] [address], [facility], [facility] of Pathology, [address] [place] [address], U/S, 2018-06-30 Reason for FINAL REPORT PATIENT ID: ASPIRATION/INJECT 16:08:00 Exam:->R59.0, [id number] INDICATION: 72-year-old ION C02.4 RIGHT female with [...] Cyr Verified Date/Time: 06/30/2018 16:08:29 Reading Location: [address] Ultrasound Reading Room U/S, 2018-06-30 Reason for FINAL REPORT PATIENT ID: ASPIRATION/INJECT 16:08:00 Exam:->R59.0, [id number] INDICATION: 72-year-old ION C02.4 RIGHT female with [...] Cyr Verified Date/Time: 06/30/2018 16:08:56 Reading Location: [address] Ultrasound Reading Room UE EXAM 2018-06-25 Surgical Pathology Report 16:56:00 Case: [id number] Authorizing Provider: Ra Velazco MD Collected: 06/18/2018 0824 Ordering Location: [facility] PERIOPERATIVE Received: 06/18/2018 1149 SERVICES Pathologist: Sushila Mejia MD Specimen: Tongue, base tongue BASE OF THE TONGUE, LARYNGOSCOPY WITH BIOPSY: - LINGUAL TONSILS WITH REACTIVE FOLLICULAR HYPERPLASIA - SQUAMOUS MUCOSA WITH ACUTE INFLAMMATION WITH ATYPIA - METAPLASTIC CARTILAGE AND DILATED LYMPHATICS - NEGATIVE FOR DYSPLASIA OR MALIGNANCY Signing Pathologist Direct Phone Line: [phone] signed by Sushila Mejia MD on 06/25/2018 [...] findings have been discussed with Dr. Velazco. 74018; 28372; 48140 X 6Nasal obstructionBase of tongue biopsy Received in formalin labeled "tongue", description "base of tongue" is a 3.0 x 2.0 x 0.3 cm aggregate of pink-lara to mejia-white rubbery soft tissue. Specimen is entirely submitted in A1. DB/bc PERFORMEDThe interpretation of this case included the use of immunohistochemistry or special stains. D2-40; CD34; CD3; CD20 CD45; Ki-67; Cyclin-Z5Fsgwajvkxcjcvjxamnea technical testing was performed at [facility], Pathology Laboratory where it was [...] developed and its performance characteristics determined by [facility], Pathology Laboratory. It has not been cleared [...] Value Reference Range Comments SODIUM (BEAKER) (test qvll=308) 142 meq/L 136-145 POTASSIUM (BEAKER) (test laay=724) 3.7 meq/L 3.5-5.1 CHLORIDE (BEAKER) (test vaar=858) 107 meq/L 98-107 CO2 (BEAKER) (test fhtw=946) 29 meq/L 22-29 BUN AND [id number] 18:46:00 Test Item Value Reference Range Comments BLOOD UREA NITROGEN 13 mg/dL 7-21 (BEAKER) (test kmzd=077) CREATININE (BEAKER) (test 0.74 mg/dL 0.57-1.25 mgyp=156) EGFR (BEAKER) (test 78 mL/min/1.73 sq m ESTIMATED GFR IS NOT pnsv=1251) ACCURATE CREATININE CLEARANCE IN PREDICTING GLOMERULAR FILTRATION RATE. ESTIMATED GFR IS NOT APPLICABLE FOR DIALYSIS PATIENTS. [id number] 18:18:00 Test Item Value Reference Range Comments HEMOGLOBIN (BEAKER) (test ktxs=425) 12.9 GM/DL 11.2-15.7 TISSUE [id number] 11:51:00Surgical Pathology Report Case: [id number] Authorizing Provider: Ra Velazco MD Collected: 05/01/2017 1503 Ordering Location: [facility] MAIN ADMITTING Received: 05/04/2017 1531 Pathologist: Marine Hawthorne MD Specimen: Nasopharynx/Oropharynx NASOPHARYNX/OROPHARYNX, BIOPSY: - FOLLICULAR LYMPHOID HYPERPLASIA - NEGATIVE FOR MALIGNANCY CC/pl Signing Pathologist Direct Phone Line: [phone] signed by Marine Hawthorne MD on 05/07/2017 at 11:51 [id number] neoplasm benignNasopharynx tissueThe specimen is received in [...]
--- OUTSIDE RECORDS SUMMARY | 2019-10-11 16:20 | XMS REPORT ---
[...] End Date Status Dosage Date Bactrim DS [facility] 59872609691 800-160 MG Orally January 13, January 23, Active 1 tablet Twice a day 2017 2017 PredniSONE [facility] 35924846162 10 MG Orally then January 13January 23, Active 1 tablet QD x 5 days 2017 2017 BID x 5 days Results No Known Results Summary Purpose eClinicalWorks Submission
--- OUTSIDE RECORDS SUMMARY | 2019-10-11 16:20 | XMS REPORT ---
[...] Status Dosage System Date Date Bactrim DS [facility] 66249331053 800-160 MG Apr 16Apr Active 1 tablet Orally Twice a 2017 Medrol (Sonido) [facility] 09701718332 4 MG Orally Apr 16Apr Active as directed 2017 Results No Known Results Summary Purpose eClinicalWorks Submission
--- OUTSIDE RECORDS SUMMARY | 2019-10-11 16:20 | XMS REPORT ---
[...] End Status Dosage System Date Date Mometasone [facility] 38976566024 50 MCG/ACT December 16, Active 2 sprays Furoate Nasally Once a 2018 in each day nostril Results No Known Results Summary Purpose eClinicalWorks Submission
--- OUTSIDE RECORDS SUMMARY | 2019-10-11 16:20 | XMS REPORT ---
[...] Betamethasone NDC 0 Active not defined Myrbetriq [facility] [address]-62 Active not defined Cyclobenzaprine HCl NDC 0 Active not defined Mometasone Furoate [facility] 22472853635 50 MCG/ACT December 16, Active 2 sprays Nasally Once a 2018 in each day nostril Bevespi NDC 0 Active not defined Xarelto [facility] [address]-14 Active not defined Iron [facility] [address]-86 Active not defined Qvar [facility] [address]-68 Active not defined Sulfamethoxazole NDC 0 Active not defined Vitamin B-[address] [facility] 6[address]71-41250 Active not defined Nasacort NDC 0 Active not defined Levothyroxine [facility] [address]-01 Active not Sodium defined Pearls IC [facility] [address]259-05771 Active not defined Xopenex HFA [facility] [address]-60 Active not defined Gabapentin [facility] 88567699054 100 MG Orally Jun 24, Active 1 capsule Three times a 2017 [address]vac[address] [facility] [address]-39 Active not defined Olanzapine [facility] [address]-64 Active not defined Perdiem Overnight [facility] [address]-06 Active not Relief defined Calcium [facility] [address]-98 Active not defined PredniSONE [facility] 23050319334 10 MG Orally Apr 08Mar Active 1 tablet Twice daily x 2018 27, 2 days then 2018 Once a day x 2 days Olopatadine HCl [facility] [address]-96 Active not defined Multivitamin [facility] 55207-72943 Active not defined Results No Known Results Summary Purpose eClinicalWorks Submission
--- OUTSIDE RECORDS SUMMARY | 2019-10-11 16:21 | XMS REPORT ---
[...] Loratadine [facility] [address]-64 Active not defined Iron [facility] [address]-96 Active not defined Perdiem [facility] [address]-66 Active not Overnight Relief defined Calcium [facility] [address]-96 Active not defined Multivitamin [facility] 47565-57986 Active not defined Montelukast [facility] [address]-67 Active not Sodium defined Augmentin [facility] 24529907705 875-125 MG May 24, Jun 03, Active 1 tablet Orally every 12 2017 2018 hrs Valerian Root [facility] 87012-01578 Active not defined Gabapentin [facility] 65466686132 100 MG Orally Jun 24, Active 1 capsule Three times a 2017 day Cranberry [facility] 69662-52718 Active not defined Levothyroxine [facility] [address]-21 Active not Sodium defined Mucinex [facility] [address]-18 Active not defined Lansoprazole [facility] 0 Active not defined Qvar [facility] [address]-80 Active not defined Olopatadine HCl [facility] [address]-84 Active not defined Mometasone [facility] 65022701437 50 MCG/ACT December 16, Active 2 sprays Furoate Nasally Once a 2018 in each day nostril Fiber ND 0 Active not defined Bevespi [facility] 0 Active not defined Osphena [facility] [address]-31 Active not defined Xarelto [facility] [address]-38 Active not defined Stool Softener [facility] [address]-71 Active not defined Pearls IC [facility] 50[address]-12806 Active not defined Myrbetriq [facility] [address]-94 Active not defined Results No Known Results Summary Purpose eClinicalWorks Submission
--- OUTSIDE RECORDS SUMMARY | 2019-10-11 16:21 | XMS REPORT ---
[...] Medications Results No Known Results Summary Purpose [facility]
--- OUTSIDE RECORDS SUMMARY | 2019-10-11 16:21 | XMS REPORT ---
:1945 Author Organization eClinicalWorks Care Team Providers Name Role Phone oJse Gautam Provider Role Unavailable Allergies No Known [...]
--- OUTSIDE RECORDS SUMMARY | 2019-10-11 16:21 | XMS REPORT ---
:1945 [facility] Team Providers Name Role Phone [...] End Status Dosage System Date Date Calcium [facility] [address]-65 Active not defined Multivitamin [facility] 17284-49065 Active not defined Xarelto [facility] [address]-43 Active not defined Levothyroxine [facility] [address]-38 Active not Sodium defined Montelukast [facility] [address]-78 Active not Sodium defined Bevespi ND 0 Active not defined Fiber ND 0 Active not defined Loratadine [facility] [address]-55 Active not defined Iron [facility] [address]-84 Active not defined Augmentin [facility] 98034071044 875-125 MG May 05Apr Active 1 tablet Orally every 2017 26, hrs 2018 Perdiem [facility] [address]-91 Active not Overnight Relief defined Osphena [facility] [address]-14 Active not defined Mometasone [facility] 22725254234 50 MCG/ACT December 16, Active 2 sprays Furoate Nasally Once a 2018 in each day nostril Medrol (Sonido) [facility] 11879872387 4 MG Orally May 04Apr Active as 2018 24, 2017 Stool Softener [facility] [address]-63 Active not defined Cranberry [facility] 81474-30932 Active not defined Qvar [facility] [address]-64 Active not defined Myrbetriq [facility] [address]-52 Active not defined Valerian Root [facility] 23448-77737 Active not defined Gabapentin [facility] 64119105981 100 MG Orally Jun 24, Active 1 capsule Three times a 2016 day Mucinex [facility] [address]-26 Active not defined Pearls IC [facility] 11359-59916 Active not defined Olopatadine HCl [facility] [address]-91 Active not defined Lansoprazole [facility] 0 Active not defined Results No Known Results Summary Purpose eClinicalWorks Submission
--- OUTSIDE RECORDS SUMMARY | 2019-10-11 16:22 | XMS REPORT ---
[...] End Status Dosage System Date Date Mucinex [facility] [address]-80 Active not defined Osphena [facility] [address]-51 Active not defined Olopatadine HCl [facility] [address]-98 Active not defined Qvar NDC 0 Active not defined Fiber NDC 0 Active not defined Xarelto [facility] [address]-89 Active not defined Pearls IC [facility] 36[address]-48005 Active not defined Hyoscyamine NDC 0 Active not defined Bevespi NDC 0 Active not defined Cranberry [facility] 51470-11358 Active not defined Mometasone [facility] 60559059022 50 MCG/ACT December 16, Active 2 sprays Furoate Nasally Once a 2017 in each day nostril Gabapentin [facility] 93181238179 100 MG Orally Jun 24, Active 1 capsule Three times a 2017 day Multivitamin [facility] 17513-97487 Active not defined Calcium [facility] [address]-35 Active not defined Cephalexin [facility] [address]-29 Active not defined Zipsor [facility] 17902350323 25 MG Orally Jun 14Jul 04, Active 1 capsule Four times a 2017 2017 with food day or milk as needed Iron [facility] [address]-00 Active not defined Myrbetriq [facility] [address]-37 Active not defined Levothyroxine [facility] [address]-40 Active not Sodium defined Lansoprazole [facility] 0 Active not defined Stool Softener [facility] [address]-04 Active not defined Valerian Root [facility] [address]67-74893 Active not defined Montelukast [facility] [address]-45 Active not Sodium defined Loratadine [facility] [address]-49 Active not defined Perdiem [facility] [address]-34 Active not Overnight Relief defined Results No Known Results Summary Purpose eClinicalWorks Submission
--- OUTSIDE RECORDS SUMMARY | 2019-10-11 16:22 | XMS REPORT ---
[...] Medications Results No Known Results Summary [facility]
--- OUTSIDE RECORDS SUMMARY | 2019-10-11 16:22 | XMS REPORT ---
[...] Status Dosage System Date Date Valerian Root [facility] [address]61 Active not defined Loratadine [facility] [address]-65 Active not defined Montelukast [facility] [address]-57 Active not Sodium defined Lansoprazole NDC 0 Active not defined Qvar NDC 0 Active not defined Olopatadine HCl [facility] [address]-88 Active not defined Oxycodone HCl [facility] [id number] 5 MG/5ML Orally Jun 14, Jun 22, Active 10 ml as every 6 hrs 2017 2017 needed Fiber NDC 0 Active not defined Osphena [facility] [address]-84 Active not defined Perdiem [facility] [address]-56 Active not Overnight Relief defined Levothyroxine [facility] [address]-80 Active not Sodium defined Xarelto [facility] [address]-78 Active not defined Hyoscyamine NDC 0 Active not defined Cephalexin [facility] [address]-76 Active not defined Mometasone [facility] 63466055070 50 MCG/ACT December 16, Active 2 sprays Furoate Nasally Once a 2018 in each day nostril Gabapentin [facility] 36303023458 100 MG Orally Jun 24, Active 1 capsule Three times a 2016 day PredniSONE [facility] 96831314898 10 MG Orally 2 Jun 14Jun 21, Active 1 tablet times a day 2017 2017 Zipsor [facility] 27276806492 25 MG Orally Jun 14Jul 04, Active 1 capsule Four times a 2017 2018 with food day or milk as needed Stool Softener [facility] [address]-00 Active not defined Cranberry [facility] [address]65-[address]11 Active not defined Pearls IC [facility] 28775-97562 Active not defined Multivitamin [facility] 67820-[address]84 Active not defined Mucinex [facility] [address]-36 Active not defined Myrbetriq [facility] [address]-00 Active not defined Calcium [facility] [address]-57 Active not defined Iron [facility] [address]-82 Active not defined Bevespi [facility] 0 Active not defined Results No Known Results Summary Purpose [employer] Submission
--- OUTSIDE RECORDS SUMMARY | 2019-10-11 16:22 | XMS REPORT ---
[...] No Known Results Summary [facility]
--- OUTSIDE RECORDS SUMMARY | 2019-10-11 16:22 | XMS REPORT ---
[...] Start Date End Date Status Dosage PredniSONE [facility] 12155446820 10 MG Orally BID Jul 07Jul 17, Active 1 tablet for 5 days then 2017 2017 QD for 5 days Augmentin [facility] 40229679743 875-125 MG Orally Jul 07Jul 17, Active 1 tablet every 12 hrs 2017 2017 Results No Known Results Summary Purpose [employer] Submission
--- OUTSIDE RECORDS SUMMARY | 2019-10-11 16:23 | XMS REPORT ---
[...] Status Dosage System Date Date Stool Softener [facility] [address]-03 Active not defined Cranberry [facility] 92297-[address]36 Active not defined Mucinex [facility] [address]-24 Active not defined Bactrim DS (14 [facility] 83655462869 800-160 MG Aug 11, Aug 31, Active 1 tablet days) Orally Twice a 20172018 Multivitamin [facility] 89036-04010 Active not defined Bevespi NDC 0 Active not defined Myrbetriq [facility] [address]-24 Active not defined Lansoprazole NDC 0 Active not defined Hyoscyamine NDC 0 Active not defined Loratadine [facility] [address]-71 Active not defined Perdiem [facility] [address]-21 Active not Overnight Relief defined Iron [facility] [address]-17 Active not defined Xarelto [facility] [address]-11 Active not defined Levothyroxine [facility] [address]-36 Active not Sodium defined Montelukast [facility] [address]-78 Active not Sodium defined Osphena [facility] [address]-85 Active not defined Qvar NDC 0 Active not defined Olopatadine HCl [facility] [address]-57 Active not defined Cephalexin [facility] [address]-59 Active not defined Valerian Root [facility] 73195-12822 Active not defined Gabapentin [facility] 63686107596 100 MG Orally Jun 24, Active 1 capsule Three times a 2016 day Calcium [facility] [address]-91 Active not defined Fiber NDC 0 Active not defined Mometasone [facility] 85873018323 50 MCG/ACT December 16, Active 2 sprays Furoate Nasally Once a 2017 in each day nostril Pearls IC [facility] 62399-07925 Active not defined Results No Known Results Summary Purpose [employer] Submission
--- OUTSIDE RECORDS SUMMARY | 2019-10-11 16:23 | XMS REPORT ---
[...] No Known Results Summary [facility]
--- OUTSIDE RECORDS SUMMARY | 2019-10-11 16:23 | XMS REPORT ---
[...] Date Status Dosage Date Bactrim DS [facility] [id number] 800-160 MG Orally October 15, October 25, Active 1 tablet Twice a day 2018 2018 Results No Known Results Summary Purpose eClinicalWorks Submission
--- OUTSIDE RECORDS SUMMARY | 2019-10-11 16:23 | XMS REPORT ---
[...] End Status Dosage System Date Date Iron [facility] [address]-88 Active not defined Fiber NDC 0 Active not defined Cranberry [facility] 72027-09589 Active not defined Loratadine [facility] [address]-18 Active not defined Olopatadine HCl [facility] [address]-29 Active not defined Osphena [facility] [address]-19 Active not defined Bactrim DS (14 [facility] 49547514276 800-160 MG Aug 11, Aug 31, Active 1 tablet days) Orally Twice a 2017 2018 day Perdiem [facility] [address]-77 Active not Overnight Relief defined Stool Softener [facility] [address]-59 Active not defined Multivitamin [facility] 31363-[address]330 Active not defined Qvar NDC 0 Active not defined Myrbetriq [facility] [address]-00 Active not defined Mucinex [facility] [address]-20 Active not defined Montelukast [facility] [address]-11 Active not Sodium defined Gabapentin [facility] 25960714318 100 MG Orally Jun 24, Active 1 capsule Three times a 2016 day Mometasone [facility] 27878202018 50 MCG/ACT December 16, Active 2 sprays Furoate Nasally Once a 2018 in each day nostril Cephalexin [facility] [address]-26 Active not defined Lansoprazole NDC 0 Active not defined Valerian Root [facility] 30217-90919 Active not defined Xarelto [facility] [address]-54 Active not defined Calcium [facility] [address]-60 Active not defined Bevespi NDC 0 Active not defined Levothyroxine [facility] [address]-85 Active not Sodium defined Pearls IC [facility] 476[address]39 Active not defined Hyoscyamine ND 0 Active not defined Results No Known Results Summary Purpose eClinicalWorks Submission
--- OUTSIDE RECORDS SUMMARY | 2019-10-11 16:24 | XMS REPORT | Summary of Care ---
:1945 Author Organization [facility] - Health Address [address] [place] [id number] Care Team Providers Name Role Phone Venegas Joe Grossman Primary Care Provider Reason for Visit Auth/Cert Status Reason Specialty Diagnoses / Procedures Referred By Contact Referred To Contact Surgery Diagnoses Combined forms of age-related cataract, left eye Cataract of the L eye H25.812 (ICD-10-CM) - Combined forms of age-related cataract, left eye Adc Pre/Pacu/Post Procedures [facility] XCAPSL CTRC RMVL INSJ IO LENS PROSTH W/O ECP PHACOEMULSIFICATION OF CATARACT WITH INTRAOCULAR LENS IMPLANT 00607 - [place] XCAPSL CTRC RMVL INSJ IO LENS PROSTH W/O ECP [address] [place] [address] [place] [address] Encounter Details Date Type Department Care Team Description 10/05/2019 Hospital Encounter [facility] Octavio Diaz [place] [address] [place] [address] [place] [address] [place] [address] [place], [place] [phone] Allergies Active Allergy Reactions Severity Noted Date Comments Albuterol Shortness of Breath 08/30/2019 Cant breathe Azithromycin Itching 08/30/2019 Ciprofloxacin Other - See comments 08/30/2019 Leg swelling Codeine Hallucinations 08/30/2019 Milk Cough 08/30/2019 documented as of this encounter (statuses as of 10/05/2019) Medications Medication Sig Dispensed Refills Start Date End Date Status rivaroxaban tablet Take 20 mg by 0 Active mouth. levothyroxine 150 mcg Take 150 mcg by 0 08/24/2017 Active tablet mouth. montelukast 10 mg tablet Take 10 mg by 0 07/17/2017 Active mouth. beclomethasone Inhale 2 Puffs. 0 09/07/2017 Active dipropionate 40 mcg/actuation inhaler Iron, Carbonyl 45 mg Tab Take by mouth. 0 Active Calcium-Cholecalciferol, Take by mouth. 0 Active D3, 600-125 mg-unit Tab sennosides (PERDIEM Take by mouth. 0 Active ORAL)Indications: 2 per Indications: 2 night per night docusate sodium (STOOL Take by mouth. 0 Active SOFTENER Indications: 2 ORAL)Indications: 2 per per night night FIBER CHOICE Take by mouth. 0 Active ORALIndications: equate Indications: fiber pill daily equate fiber pill daily levalbuterol 45 Inhale 1-2 Puffs 0 Active mcg/actuation inhaler every 4 (four) hours as needed for Wheezing. cyanocobalamin, vitamin Take by mouth. 0 Active B-12, (B-12 DOTS Indications: b12 ORAL)Indications: b12 daily daily HYOSCYAMINE ORAL Take by mouth. 0 Active ospemifene (OSPHENA) 60 Take by mouth. 0 Active mg tablet Cranberry 400 mg Cap Take by mouth. 0 Active mometasone 100 Inhale 50 mcg. 0 Active mcg/actuation Indications: 2 HFAAIndications: 2 sniffs each sniffs each nostril nostril IPRATROPIUM BROMIDE Use in each 0 Active NASALIndications: one nostril. ampule as needed ( for Indications: one nebulizer) ampule as needed ( for nebulizer) cetirizine HCl Take 10 mg by 0 Active (CETIRIZINE ORAL) mouth. amLODIPine (NORVASC) 5 Take 5 mg by 0 Active mg tablet mouth daily. documented as of this encounter (statuses as of 10/05/2019) Active Problems No known active problemsdocumented as of this encounter (statuses as of 2019) Social History Tobacco Use Types Packs/Day Years Used Date Former Smoker Smokeless Tobacco: Never Used Comments: 30 years ago Alcohol Use Drinks/Week oz/Week Comments Yes 4 Glasses of wine 4.0 Alcohol Habits Answer Date Recorded How often do you have a drink containing alcohol? Not asked How many drinks containing alcohol do you have on a typical 1 or 2 09/20/2019 day when you are drinking? How often do you have six or more drinks on one occasion? Not asked Sex Assigned at Date Recorded Not on file Job Start Date Occupation Industry Not on file Not on file Not on file Travel History Travel Start Travel End No recent travel history available. documented as of this encounter Last Filed Vital Signs Vital Sign Reading Time Taken Comments Blood Pressure 124/61 10/05/2019 1:56 PM [facility] Pulse 80 10/05/2019 1:56 PM [facility] Temperature 36.3 C (97.4 F) 10/05/2019 1:42 PM [facility] Respiratory Rate 18 10/05/2019 1:56 PM [facility] Oxygen Saturation 97% 10/05/2019 1:56 PM [facility] [employer] Inhaled Oxygen Concentration - - Weight 99.3 kg (219 lb) 10/04/2019 7:00 AM [facility] Height 172.7 cm (5' 8") 10/04/2019 7:00 AM [facility] Body Mass Index 33.3 10/04/2019 7:00 AM [facility] documented in this encounter Discharge Instructions Lily Medina RN - 10/05/2019CATARACT DISCHARGE INSTRUCTIONS 1. DO NOT Remove the eye patch. Leave on until you post-operative visit tomorrow. Keep it dry. 2. Activities as tolerated 3. Please no heavy lifting, and do not drive or operate machinery until you are seen by a doctor on your first post op day. 4. Your depth perception may be off, so walk a little slower. Be careful on steps or stairs and uneven ground and go slower around corners. 5. Most likely your eye will stay numb until tomorrow and you should not experience any extreme pain. However, if you should have bad pain or nausea, please call the doctor's office or hospital shaving machine operator to get in touch with doctor. 6. For mild discomfort or a headache, you may take Tylenol, Aspirin, or Ibuprofen (in not allergic). 7. You may resume your pre-operative diet. 8. If you have any further questions or concerns, please call the office or hospital shaving machine operator to getin touch with the doctor. documented in this encounter Plan of Treatment Health Maintenance Due Date Last Done Comments HEPATITIS C (HCV) SCREEN 1945 DTaP,Tdap,and Td Vaccines (1 - Tdap) 10/26/1958 Breast Cancer Screening (MAMMOGRAM) 1987 COLONOSCOPY 10/26/1997 Zoster Recombinant Vaccine (SHINGRIX) (1 of 2) 10/26/1997 LUNG CANCER SCREEN: Recommended for age 55-80 with 30 + 10/26/2002 pack year history Medicare Wellness Visit 10/26/2012 Osteoporosis Screening 10/26/2012 PNEUMOCOCCAL VACCINES 65+ (1 of 2 - PCV13) 10/26/2012 INFLUENZA VACCINE (#1) 2019 documented as of this encounter Implants Implanted Type Area Etcher Photoengraving Device Shelf Model / Serial Identifier Expiration / Lot Date Lens, Newton #[id number] - [id number] LENS Right: [employer] 04/16/2024 [id number] / Implanted: Qty: 1 on 09/21/2019 by Octavio Huddleston MD at [facility] Eye [id number] / 0 Lens, [employer] #[id number] - [id number] LENS Left: Eye [employer] 02/14/2024 [id number] / Implanted: Qty: 1 on 10/05/2019 by Octavio Huddleston MD at [facility] [id number] / N/A documented as of this encounter Procedures Procedure Name Priority Date/Time Associated Diagnosis Comments CONSENT/REFUSAL FOR Routine 10/04/2019 9:56 AM DIAGNOSIS AND TREATMENT [facility] [employer] ASSIGNMENT OF BENEFITS Routine 10/04/2019 9:56 AM [facility] [employer] [employer] documented in this encounter Results Not on filedocumented in this encounter Visit Diagnoses Diagnosis Cataract, nuclear sclerotic senile, left - Primary documented in this encounter Administered Medications Medication Order MAR Action Action Date Dose Rate Site balanced salt irrig soln comb1 Given 10/05/2019 1:23 PM [facility] 500 mL (BSS PLUS) ophthalmic solution 500 mL bag PRN, Starting 10/05/19 at 1220, Until Discontinued, Routine, Intra-op bupivacaine (preserv free) (SENSORCAINE MPF) Given 10/05/2019 1:12 PM [facility] 5 mL 0.75 % (7.5 mg/mL) injection PRN, Starting 10/05/19 at 1220, Until Discontinued, Routine, Intra-op carbachoL (MIOSTAT) 0.01 % intraocular Given 10/05/2019 1:30 PM [facility] [employer] [employer] 1.5 mL injection PRN, Starting 10/05/19 at 1221, Until Discontinued, Routine, Intra-op ceFAZolin (ANCEF) injection Given 10/05/2019 1:33 PM [facility] [employer] [employer] 0.02 mg Left Eye PRN, Starting Thu10/05/19 at 1221, Until Discontinued, RADHA, Intra-op dexamethasone (DECADRON PHOSPHATE) Given 10/05/2019 1:34 PM [employer] 0.3 mL Left Eye injection PRN, Starting Thu10/05/19 at 1221, Until Discontinued, Routine, Intra-op DUOVISC (DUOVISC VISCO ELASTIC) 3 %-4 %(0.5 Given 10/05/2019 1:30 PM [facility] 1 Kit mL) 1 % (0.55 mL) intraocular injection PRN, Starting Thu10/05/19 at 1221, Until Discontinued, Routine, Intra-op EPINEPHrine 1:1,000 (1 mg/mL) Given 10/05/2019 1:23 PM [facility] [employer] [employer] 0.5 mg Left Eye (ADRENALIN) injection PRN, Starting Thu10/05/19 at 1221, Until Discontinued, Routine, Intra-op gentamicin injection Given 10/05/2019 1:33 PM [employer] 0.2 mL Left Eye PRN, Starting Thu10/05/19 at 1222, Until Discontinued, RADHA, Intra-op Hyaluronidase, Human Recomb. Given 10/05/2019 1:12 PM [facility] [employer] [employer] 150 Units Left Eye (HYLENEX) injection PRN, Starting Thu10/05/19 at 1222, Until Discontinued, Routine, Intra-op lidocaine-epinephrine (XYLOCAINE Given 10/05/2019 1:12 PM [employer] [employer] 5 mL Left Eye W/EPINEPHRINE) 2 %-1:200,000 injection PRN, Starting Thu10/05/19 at 1223, Until Discontinued, Routine, Intra-op qwnknywd-uxvmprntd-fqaqexrnmazpb (MAXITROL) Given 10/05/2019 1:33 PM 0.5 Inches 3.5 mg/g-10,000 unit/g-0.1 % ophthalmic [facility] [employer] [employer] ointment PRN, Starting Thu10/05/19 at 1223, Until Discontinued, Routine, Intra-op sodium chloride (NS) injection Given 10/05/2019 1:34 PM [employer] 10 mL Left Eye PRN, Starting Thu10/05/19 at 1334, Until Discontinued, Routine, Intra-op water for irrigation irrigation Given 10/05/2019 1:17 PM [employer] [employer] 30 mL Left Eye solution PRN, Starting Thu10/05/19 at 1317, Until Discontinued, Routine, Intra-op Medication Order MAR Action Action Date Dose Rate Site lactated ringers IV infusion New Bag 10/05/2019 12:23 PM [facility] 500 mL 20 mL/ hr 500 mL at 20 mL/hr, 500 mL, IV Infusion, ONCE, 1 dose, Thu10/05/19 at 1215, Routine, DSU Pre-op mydriatic #5 ophthalmic solution 0.5 mL Given 10/05/2019 12:28 PM [facility] 0.5 mL syringe 0.5 mL, Left Eye, ONCE, 1 dose, Thu10/05/19 at 1215, Routine, DSU Pre-op documented in this encounter Insurance Payer Benefit Plan Subscriber ID Effective Phone Address Type / Group Dates [employer] - [employer] [id number] 2019-[address] Medicare Adv MANAGED MEDICARE ADV nt [id number] [place] [address] documented as of this encounter
--- OUTSIDE RECORDS SUMMARY | 2019-10-11 16:24 | XMS REPORT | Summary of Care ---
:1945 Author Organization [facility] - Health Address [address] [place] [id number] Care Team Providers Name Role Phone VenegasLeidyJoe C Primary Care Provider Reason for Visit Auth/Cert Status Reason Specialty Diagnoses / Procedures Referred By Contact Referred To Contact Surgery Diagnoses Combined forms of age-related cataract, right eye H25.811 (ICD-10-CM) - Combined forms of age-related cataract, right eye Adc Pre/Pacu/Post Procedures TN XCAPSL CTRC RMVL INSJ IO LENS PROSTH W/O ECP 24908 - TN XCAPSL CTRC RMVL INSJ IO LENS PROSTH W/O ECP [address] [place] [address] Encounter Details Date Type Department Care Team Description 09/21/2019 Hospital Encounter [facility] [address] [place] [address] [place] [address] [place], [place] [phone] Allergies Active Allergy Reactions Severity Noted Date Comments Albuterol Shortness of Breath 08/30/2019 Cant breathe Azithromycin Itching 08/30/2019 Ciprofloxacin Other - See comments 08/30/2019 Leg swelling Codeine Hallucinations 08/30/2019 Milk Cough 08/30/2019 documented as of this encounter (statuses as of 09/21/2019) Medications Medication Sig Dispensed Refills Start Date [...] mg by 0 Active (CETIRIZINE ORAL) mouth. documented as of this encounter (statuses as of 09/21/2019) Active Problems Not on filedocumented as of this encounter (statuses as of 09/21/2019) Social History Tobacco Use Types Packs/Day Years [...] Sign Reading Time Taken Comments Blood Pressure 134/78 09/21/2019 2:30 PM PERSONNEL PSYCHOLOGIST Pulse 83 09/21/2019 2:30 PM PERSONNEL PSYCHOLOGIST Temperature 36.6 C (97.8 F) 09/21/2019 12:14 PM PERSONNEL PSYCHOLOGIST Respiratory Rate 18 09/21/2019 2:30 PM PERSONNEL PSYCHOLOGIST Oxygen Saturation 96% 09/21/2019 2:30 PM PERSONNEL PSYCHOLOGIST Inhaled Oxygen Concentration - - Weight 98.9 kg (218 lb) 09/20/2019 9:00 AM PERSONNEL PSYCHOLOGIST Height 170.2 cm (5' 7") 09/20/2019 9:00 AM PERSONNEL PSYCHOLOGIST Body Mass Index 34.14 09/20/2019 9:00 AM PERSONNEL PSYCHOLOGIST documented in this encounter Discharge Instructions Dalia Gaitan RN - 09/21/2019CATARACT DISCHARGE INSTRUCTIONS 1. DO NOT Remove the [...] please call the doctor's office or hospital capsule machine operator to get in touch with doctor. 6. For mild discomfort or a headache, you may take Tylenol, Aspirin, or Ibuprofen (in not allergic). 7. You may resume your pre-operative diet. 8. If you have any further questions or concerns, please call the office or hospital capsule machine operator to getin touch with the [...] of this encounter Implants Implanted Type Area Adult Parole Officer Device Shelf Model / Serial Identifier Expiration / Lot Date Lens, Newton #[id number] - S0 LENS Right: Newton 04/16/2024 SN60WF / Implanted: Qty: 1 on 09/21/2019 by Octavio Huddleston MD at [facility] 0 / [id number] documented as of this encounter Procedures Procedure Name Priority Date/Time Associated Diagnosis Comments NOTICE OF PRIVACY Routine 08/29/2019 12:04 PM PRACTICES PERSONNEL PSYCHOLOGIST CONSENT/REFUSAL FOR Routine 08/29/2019 12:04 PM DIAGNOSIS AND TREATMENT PERSONNEL PSYCHOLOGIST ASSIGNMENT OF BENEFITS Routine 08/29/2019 12:03 PM PERSONNEL PSYCHOLOGIST PHYSICIAN ORDERS Routine 08/29/2019 12:01 AM PERSONNEL PSYCHOLOGIST documented in this encounter Results Not on filedocumented in this encounter Visit Diagnoses Diagnosis Cataract, nuclear sclerotic senile, right - Primary documented in this encounter Administered Medications Medication Order MAR Action Action Date Dose Rate Site balanced salt irrig soln Given 09/21/2019 2:03 PM PERSONNEL PSYCHOLOGIST 500 mL Right Eye comb1 (BSS PLUS) ophthalmic solution 500 mL bag PRN, Starting 09/21/19 at 1403, Until Discontinued, Routine, Intra-op bupivacaine (preserv free) Given 09/21/2019 2:04 PM PERSONNEL PSYCHOLOGIST 4.5 mL Right Eye (SENSORCAINE MPF) 0.75 % (7.5 mg/mL) injection PRN, Starting 09/21/19 at 1404, Until Discontinued, Routine, Intra-op carbachoL (MIOSTAT) 0.01 % Given 09/21/2019 2:04 PM PERSONNEL PSYCHOLOGIST 0.5 mL Right Eye intraocular injection PRN, Starting 09/21/19 at 1404, Until Discontinued, Routine, Intra-op ceFAZolin (ANCEF) injection Given 09/21/2019 2:04 PM PERSONNEL PSYCHOLOGIST 0.2 mL Right Eye PRN, Starting 09/21/19 at 1404, Until Discontinued, RADHA, Intra-op dexamethasone (DECADRON PHOSPHATE) Given 09/21/2019 2:05 PM PERSONNEL PSYCHOLOGIST 0.3 mL Right Eye injection PRN, Starting 09/21/19 at 1405, Until Discontinued, Routine, Intra-op DUOVISC (DUOVISC VISCO ELASTIC) 3 %-4 Given 09/21/2019 2:05 PM PERSONNEL PSYCHOLOGIST 1 Kit Right Eye %(0.5 mL) 1 % (0.55 mL) intraocular injection PRN, Starting 09/21/19 at 1405, Until Discontinued, Routine, Intra-op EPINEPHrine 1:1,000 (1 mg/mL) Given 09/21/2019 2:05 PM PERSONNEL PSYCHOLOGIST 1 mg Right Eye (ADRENALIN) injection PRN, Starting 09/21/19 at 1405, Until Discontinued, Routine, Intra-op gentamicin injection Given 09/21/2019 2:05 PM PERSONNEL PSYCHOLOGIST 0.2 mL Right Eye PRN, Starting Thu09/21/19 at 1405, Until Discontinued, RADHA, Intra-op Hyaluronidase, Human Recomb. Given 09/21/2019 2:05 PM PERSONNEL PSYCHOLOGIST 150 Units Right Eye (HYLENEX) injection PRN, Starting 09/21/19 at 1405, Until Discontinued, Routine, Intra-op lidocaine-epinephrine (XYLOCAINE Given 09/21/2019 2:06 PM PERSONNEL PSYCHOLOGIST 4.5 mL Right Eye W/EPINEPHRINE) 2 %-1:200,000 injection PRN, Starting 09/21/19 at 1406, Until Discontinued, Routine, Intra-op jxjkzzfq-anftjjmgi-ydxkukuovhpjq Given 09/21/2019 2:06 0.5 Inches Right Eye (MAXITROL) 3.5 mg/g-10,000 unit/g-0.1 % PM PERSONNEL PSYCHOLOGIST ophthalmic ointment PRN, Starting Thu09/21/19 at 1406, Until Discontinued, Routine, Intra-op sodium chloride (NS) injection Given 09/21/2019 2:06 PM PERSONNEL PSYCHOLOGIST 10 mL Right Eye PRN, Starting 09/21/19 at 1406, Until Discontinued, Routine, Intra-op water for irrigation irrigation Given 09/21/2019 2:07 PM PERSONNEL PSYCHOLOGIST 10 mL Right Eye solution PRN, Starting Thu09/21/19 at 1407, Until Discontinued, Routine, Intra-op Medication Order MAR Action Action Date Dose Rate Site lactated ringers IV infusion New Bag 09/21/2019 12:15 PM PERSONNEL PSYCHOLOGIST 500 mL 20 mL/ hr 500 mL at 20 mL/hr, 500 mL, IV Infusion, ONCE, 1 dose, 09/21/19 at 1230, Routine, DSU Pre-op mydriatic #5 ophthalmic solution 0.5 mL Given 09/21/2019 1:07 PM PERSONNEL PSYCHOLOGIST 0.5 mL syringe 0.5 mL, Right Eye, ONCE, 1 dose, 09/21/19 at 1230, Routine, DSU Pre-op documented in this encounter Insurance Payer Benefit Plan / Subscriber ID Effective Dates Phone Address Type Group MEDICARE MEDICARE PART xxxxxxxxxxx 2012-Erm[place] [phone] [address] [address] Medicare A & B t 2 [id number] [place] [address] documented as of this encounter
--- OUTSIDE RECORDS SUMMARY | 2019-10-11 16:24 | XMS REPORT | Summary of Care ---
:1945 Author Organization [facility] - Health Address [address] [place] [address] Care Team Providers Name Role Phone Joe Venegas Primary Care Provider Encounter Details Date Type Department Care Team Description 09/21/2019 Orders Only [facility] Doctor Unassigned, No [address] [facility] [place] [address] [address] [place] [address] Allergies Active Allergy Reactions Severity Noted Date [...] of this encounter Last Filed Vital Signs Not on filedocumented in this encounter Plan of Treatment Health [...] of this encounter Implants Implanted Type Area Budget Coordinator Device Shelf Model / Serial Identifier Expiration / Lot Date Lens, Newton #[id number] - S0 LENS Right: Newton 04/16/2024 SN60WF / Implanted: Qty: 1 on 09/21/2019 by Octavio Huddleston MD at [facility] 0 / [id number] documented as of this encounter Procedures Procedure Name Priority Date/Time Associated Diagnosis Comments DAY SURGERY - ADC Routine 09/21/2019 12:01 AM SALESPERSON [employer]ILDREN[employer] documented in this encounter Results Not on filedocumented in this encounter Insurance Payer Benefit Plan / Subscriber ID Effective Dates Phone Address Type Group MEDICARE MEDICARE PART xxxxxxxxxxx 2012-[place] [phone] [address] Medicare A & B t 2 [id number] [place] [address] documented as of this encounter
--- OUTSIDE RECORDS SUMMARY | 2019-10-11 16:25 | XMS REPORT | Summary of Care ---
:1945 Author Organization [facility] - Health Address [address] [place] [address] Care Team Providers Name Role Phone Joe Venegas Primary Care Provider Encounter Details Date Type Department Care Team Description 10/05/2019 Orders Only [facility] Doctor Unassigned, No [address] [facility] [place] [address] [address] [place] [address] Allergies Active Allergy Reactions Severity Noted Date Comments Albuterol Shortness of Breath 08/30/2019 Cant breathe Azithromycin Itching 08/30/2019 Ciprofloxacin Other - See comments 08/30/2019 Leg swelling Codeine Hallucinations 08/30/2019 Milk Cough 08/30/2019 documented as of this encounter (statuses as of 10/06/2019) Medications Medication Sig Dispensed Refills Start Date [...] as of this encounter (statuses as of 10/06/2019) Active Problems No known active problemsdocumented as [...] of this encounter Implants Implanted Type Area Peoplesoft Developer Device Shelf Model / Serial Identifier Expiration / Lot Date Lens, Newton #[id number] - [id number] LENS Right: Newton 04/16/2024 SN60WF / Implanted: Qty: 1 on 09/21/2019 by Octavio Huddleston MD at [facility] [id number] / 0 Lens, Newton #Sn60wf - [id number] LENS Left: Eye [place] 02/14/2024 SN60WF / Implanted: Qty: 1 on 10/05/2019 by Octavio Huddleston MD at [facility] [id number] / N/A documented as of this encounter Procedures Procedure Name Priority Date/Time Associated Diagnosis Comments DAY SURGERY - ADC Routine 10/05/2019 12:01 AM QUILT STUFFER documented in this encounter Results Not on filedocumented in this encounter Insurance Payer Benefit Plan Subscriber ID Effective Phone Address Type / Group Dates AETNA - AETNA [id number] 2019-[address]se [address] Medicare Adv [place]NA[place]ED [place] [id number] [place] [address] documented as of this encounter
[2019-10-11 17:05] LABS: Absolute Lymphocytes (CBC) 2.5 K/uL (0.7-4.9); Basophils % 0.4 % (0-1.3); Hematocrit 38.6 % (36.0-45.0); Lymphocytes % 37.5 % (15.3-44.8); MPV 7.9 fL (7.6-11.3); RBC Red Blood Cell Count 4.18 M/uL (3.86-4.86)
[2019-10-11 17:06] LABS: Protime INR 1.4
--- NOTE | 2019-10-11 17:09 | RAD REPORT ---
EXAM DESCRIPTION: RAD - Chest Single View - 10/11/2019 4:48 pm CLINICAL HISTORY: CHEST PAIN COMPARISON: Chest Pa And Lat (2 Views) dated 05/27/2019 TECHNIQUE: AP portable chest image was obtained 10/11/2019 4:48 pm . FINDINGS: Lungs are clear of a focal mass or consolidation. Interstitial pattern is not substantiall y different when adjusting for more shallow inspiration on today's study. Early edema or infiltrate c an be masked. Heart and vasculature are normal. No measurable pleural effusion and no pneumothorax. No significant failure or volume overload findings. Degenerative changes are present with no acute bone finding. No acute aortic finding. Trachea is midl ine. No free air under the diaphragm. IMPRESSION: No focal mass or consolidation. No failure or volume overload. Interstitial pattern is accentuated by shallow inspiration. This could mask early interstitial edema or viral infiltrate.
[2019-10-11 17:27] LABS: ALT/SGPT 21 U/L (12-78); AST/SGOT 13 U/L (15-37); Albumin 3.3 g/dL (3.4-5.0); Alkaline Phosphatase 84 U/L (45-117); BUN Blood Urea Nitrogen 10 mg/dL (7-18); Bicarbonate 27 mmol/L (21-32); Bilirubin Direct < 0.1 mg/dL (0-0.2); Bilirubin Total 0.3 mg/dL (0.2-1.0); Glucose Level 160 mg/dL (74-106); Magnesium 2.2 mg/dL (1.8-2.4); NT PRO-BNP 69 pg/mL (<125); Potassium 3.5 mmol/L (3.5-5.1); Protein, Total 6.9 g/dL (6.4-8.2); Sodium Level 142 mmol/L (136-145); Troponin (Emerg Dept Use Only) < 0.02 ng/mL (0.0-0.045)
[2019-10-11] MEDS ORDERED: LEVALBUTEROL 1.25 MG/3 ML NEB ONE (19:45)
[2019-10-11 23:21] VITALS: BMI 32.5
--- NOTE | 2019-10-11 23:28 | ER ---
Nurse's Notes [facility] Name: Ashley Reyes Age: 73 yrs Sex: Female : 1945 Arrival Date: 10/11/2019 Time: 16:19 Bed 13 Private MD: Diagnosis: Chest pain, unspecified Presentation: 10/11 16:20 Presenting complaint: Patient states: productive cough x 1 week but has been ongoing sv since Aug 2019 and has been on abx as well since then. Reports yesterday she started having chest tightness. Transition of care: patient was not received from another setting of care. Onset of symptoms was September 2019. Care prior to arrival: None. 16:20 Method Of Arrival: Ambulatory sv 16:20 Acuity: ARLINE 3 sv 16:55 Risk Assessment: Do you want to hurt yourself or someone else? Patient reports no em desire to harm self or others. Initial Sepsis Screen: Does the patient meet any 2 criteria? HR > 90 bpm. No. Patient's initial sepsis screen is negative. Does the patient have a suspected source of infection? Yes: Productive cough/pneumonia. Triage Assessment: 16:22 General: Appears in no apparent distress. comfortable, Behavior is calm, cooperative, sv appropriate for age. Pain: Complains of pain in chest. Neuro: Level of Consciousness is awake, alert, obeys commands, Gait is steady, Speech is normal. Respiratory: Respiratory effort is even, unlabored, Respiratory pattern is regular, symmetrical. Historical: - Allergies: 16:20 Albuterol; sv 16:20 Azithromycin; sv 16:20 Cipro; sv 16:20 NSAIDS; sv - PMHx: 16:20 Asthma; Atrial Fib; Hypothyroidism; sv - Immunization history:: Adult Immunizations up to date. - Coronavirus screen:: The patient has NOT traveled to [place] in the past 14 days. The patient has NOT had contact with known/suspected case of Coronavirus?. - Social history:: Smoking status: Patient denies any tobacco usage or history of. - Ebola Screening: : Patient negative for fever greater than or equal to 101.5 degrees Fahrenheit, and additional compatible Ebola Virus Disease symptoms Patient denies exposure to infectious person Patient denies travel to an Ebola-affected area in the 21 days before illness onset No symptoms or risks identified at this time. Screenin:35 Abuse screen: Denies threats or abuse. Nutritional screening: No deficits noted. em Tuberculosis screening: No symptoms or risk factors identified. Fall Risk None identified. Assessment: 16:55 General: Appears in no apparent distress. comfortable, Behavior is calm, cooperative, em appropriate for age, Denies fever. Pain: Denies pain. Complains of pain in chest Pain currently is 0 out of 10 on a pain scale. Pain began 2-3 days ago. Neuro: Level of Consciousness is awake, alert, obeys commands, Oriented to person, place, time, situation, Appropriate for age. Cardiovascular: Reports palpitations, since "tightness" Denies diaphoresis, nausea, shortness of breath, Capillary refill < 3 seconds Patient's skin is warm and dry. Rhythm is sinus rhythm. Respiratory: Reports cough that is dry, Airway is patent Respiratory effort is even, unlabored, Respiratory pattern is regular, symmetrical, Breath sounds are clear bilaterally. GI: Patient currently denies nausea, vomiting. Derm: Skin is intact, is healthy with good turgor, Skin is pink, warm \\T\\ dry. Musculoskeletal: Capillary refill < 3 seconds, Range of motion: intact in all extremities. 17:35 Reassessment: Patient appears in no apparent distress at this time. Patient and/or em family updated on plan of care and expected duration. Pain level reassessed. Patient is alert, oriented x 3, equal unlabored respirations, skin warm/dry/pink. 18:32 Reassessment: Patient appears in no apparent distress at this time. Patient and/or em family updated on plan of care and expected duration. Pain level reassessed. Patient is alert, oriented x 3, equal unlabored respirations, skin warm/dry/pink. Patient denies pain at this time. 19:20 General: Appears in no apparent distress. comfortable, Behavior is calm, cooperative, rr5 appropriate for age. Pain: Denies pain. Neuro: Level of Consciousness is awake, alert, obeys commands, Oriented to person, place, time, situation. Cardiovascular: Reports chest pain, palpitations, Capillary refill < 3 seconds Patient's skin is warm and dry. 19:20 Respiratory: Reports cough that is dry, Airway is patent Respiratory effort is even, rr5 unlabored, Respiratory pattern is regular, symmetrical. GI: No signs and/or symptoms were reported involving the gastrointestinal system. : No signs and/or symptoms were reported regarding the genitourinary system. EENT: No signs and/or symptoms were reported regarding the EENT system. Derm: Skin is intact, is healthy with good turgor, Skin is pink, warm \\T\\ dry. Musculoskeletal: Circulation, motion, and sensation intact. Capillary refill < 3 seconds. 19:20 Reassessment: for admission awaiting for room assignment. rr5 20:30 Reassessment: Patient appears in no apparent distress at this time. Patient is alert, rr5 oriented x 3, equal unlabored respirations, skin warm/dry/pink. for transfer to room 405 Patient denies pain at this time. Patient states symptoms have improved. Vital Signs: 16:21 BP 134 / 70; Pulse 100; Resp 18; Temp 98.2; Pulse Ox 96% ; Weight 98.88 kg; Height 5 sv ft. 8 in. (172.72 cm); Pain 2/10; 17:34 BP 117 / 77; Pulse 80; Resp 20; Pulse Ox 95% on R/A; Pain 0/10; em 18:30 BP 119 / 73; Pulse 78; Resp 18; Pulse Ox 99% on R/A; Pain 0/10; em 19:30 BP 136 / 77; Pulse 75; Resp 19; Temp 98; Pulse Ox 99% ; Pain 0/10; rr5 20:33 BP 139 / 80; Pulse 93; Resp 18; Temp 98; Pulse Ox 98% ; Pain 0/10; rr5 16:21 Body Mass Index 33.15 (98.88 kg, 172.72 cm) sv ED Course: 16:19 Patient arrived in ED. as 16:19 Arm band placed on. sv 16:21 Triage completed. sv 16:26 Mykel Holder MD is Attending Physician. tw4 16:47 Diogenes Swain, RITA is Primary Nurse. em 16:48 XRAY Chest (1 view) In Process Unspecified. EDMS 16:54 Patient has correct armband on for positive identification. Placed in gown. Bed in low mh5 position. Call light in reach. Side rails up X 1. Adult w/ patient. Warm blanket given. gyroscopic engineering technician on. Pulse ox on. NIBP on. 16:54 Initial lab(s) drawn, by me, sent to lab. EKG done, by ED staff, reviewed by Mykel Holder MD. Inserted saline lock: 20 gauge in right antecubital area, using aseptic technique. Blood collected. 16:55 Troponin (emerg Dept Use Only) Sent. [facility] 16:57 Basic Metabolic Panel Sent. [facility] 16:57 CBC with Diff Sent. [facility] 16:[address] [facility] 16:[address] [facility] 16:57 NT PRO-BNP Sent. [facility] 19:24 Joe Venegas MD is Hospitalizing Provider. 4 20:34 No provider procedures requiring assistance completed. Patient admitted, IV remains in rr5 place. intact, No redness/swelling at site. Administered Medications: 20:05 Drug: Xopenex 1.25 mg Route: Inhalation; rr5 20:59 Follow up: Response: No adverse reaction; Marked relief of symptoms rr5 Outcome: 19:25 Decision to Hospitalize by Provider. tw4 20:34 Admitted to Tele accompanied by tech, via wheelchair, room 405, with chart, Report rr5 called to [facility] 20:34 Condition: stable 20:34 Instructed on the need for admit. 20:58 Patient left the ED. rr5 Signatures: Dispatcher [employer] Sandi Sanderson RN RN sv Munoz, Edgar, RN RN em Martinez, Amelia as Martinez, Maria mh5 Wadley, Terrence, MD MD [facility] Curly Valenzuela, RN RN rr5 Corrections: (The following items were deleted from the chart) 16:23 16:21 Pulse 100bpm; Resp 18bpm; Pulse Ox 96%; Temp 98.2F; 98.88 kg; Height 5 ft. 8 in.; sv BMI: 33.1; Pain 2/10; sv
--- NOTE | 2019-10-11 23:28 | EDPHYS ---
Physician Documentation [facility] Name: Ashley Reyes Age: 73 yrs Sex: Female : 1945 Arrival Date: 10/11/2019 Time: 16:19 Bed 13 Private MD: ED Physician Mykel Holder HPI: 10/11 17:30 This 73 yrs old Female presents to ER via Ambulatory with complaints of Chest tw4 Tightness. 17:30 The patient or guardian reports chest pain that is located primarily in the anterior tw4 chest wall, left. Onset: today. The pain does not radiate. Associated signs and symptoms: Pertinent positives: shortness of breath, Pertinent negatives: abdominal pain, cough, diaphoresis, dizziness, headache, lower extremity pain, lower extremity swelling, lightheadedness, nausea, near syncope, palpitations, recent travel. The chest pain is described as dull. Severity of pain: At its worst the pain was severe in the emergency department the pain is unchanged. The patient has not experienced similar symptoms in the past. Historical: - Allergies: 16:20 Albuterol; sv 16:20 Azithromycin; sv 16:20 Cipro; sv 16:20 NSAIDS; sv - PMHx: 16:20 Asthma; Atrial Fib; Hypothyroidism; sv - Immunization history:: Adult Immunizations up to date. - Coronavirus screen:: The patient has NOT traveled to [place] in the past 14 days. The patient has NOT had contact with known/suspected case of Coronavirus?. - Social history:: Smoking status: Patient denies any tobacco usage or history of. - Ebola Screening: : Patient negative for fever greater than or equal to 101.5 degrees Fahrenheit, and additional compatible Ebola Virus Disease symptoms Patient denies exposure to infectious person Patient denies travel to an Ebola-affected area in the 21 days before illness onset No symptoms or risks identified at this time. ROS: 17:30 Constitutional: Negative for fever, chills, and weight loss, Eyes: Negative for injury, tw4 pain, redness, and discharge, Respiratory: Negative for shortness of breath, cough, wheezing, and pleuritic chest pain, Abdomen/GI: Negative for abdominal pain, nausea, vomiting, diarrhea, and constipation, Back: Negative for injury and pain, MS/Extremity: Negative for injury and deformity, Skin: Negative for injury, rash, and discoloration, Neuro: Negative for headache, weakness, numbness, tingling, and seizure. 17:30 Cardiovascular: Positive for chest pain, Negative for edema, orthopnea, palpitations, paroxysmal nocturnal dyspnea. Exam: 17:30 Constitutional: This is a well developed, well nourished patient who is awake, alert, tw4 and in no acute distress. Head/Face: Normocephalic, atraumatic. Chest/axilla: Normal chest wall appearance and motion. Nontender with no deformity. No lesions are appreciated. Cardiovascular: Regular rate and rhythm with a normal S1 and S2. No gallops, murmurs, or rubs. Normal PMI, no JVD. No pulse deficits. Respiratory: Lungs have equal breath sounds bilaterally, clear to auscultation and percussion. No rales, rhonchi or wheezes noted. No increased work of breathing, no retractions or nasal flaring. Abdomen/GI: Soft, non-tender, with normal bowel sounds. No distension or tympany. No guarding or rebound. No evidence of tenderness throughout. Back: No spinal tenderness. No costovertebral tenderness. Full range of motion. MS/ Extremity: Pulses equal, no cyanosis. Neurovascular intact. Full, normal range of motion. Neuro: Awake and alert, GCS 15, oriented to person, place, time, and situation. Cranial nerves II-XII grossly intact. Motor strength 5/5 in all extremities. Sensory grossly intact. Cerebellar exam normal. Normal gait. Vital Signs: 16:21 BP 134 / 70; Pulse 100; Resp 18; Temp 98.2; Pulse Ox 96% ; Weight 98.88 kg; Height 5 sv ft. 8 in. (172.72 cm); Pain 2/10; 17:34 BP 117 / 77; Pulse 80; Resp 20; Pulse Ox 95% on R/A; Pain 0/10; em 18:30 BP 119 / 73; Pulse 78; Resp 18; Pulse Ox 99% on R/A; Pain 0/10; em 19:30 BP 136 / 77; Pulse 75; Resp 19; Temp 98; Pulse Ox 99% ; Pain 0/10; rr5 20:33 BP 139 / 80; Pulse 93; Resp 18; Temp 98; Pulse Ox 98% ; Pain 0/10; rr5 16:21 Body Mass Index 33.15 (98.88 kg, 172.72 cm) sv MDM: 16:26 Patient medically screened. tw4 21:09 Differential diagnosis: acute myocardial infarction, acute pericarditis, stable angina. tw4 HEART Score: History: Moderately Suspicious (1), ECG: Non specific repolarization disturbance / LBTB / PM (1), Age: > or = 65 years (2), Risk Factors: 1 or 2 risk factors (1), Troponin: < or = 1 x Normal Limit (0), Total Score = 5. The patient was given aspirin in the Emergency Department. Data reviewed: vital signs, nurses notes. Data interpreted: Pulse oximetry: Interpretation: normal. Test interpretation: by ED physician or midlevel provider: ECG, plain radiologic studies. Counseling: I had a detailed discussion with the patient and/or guardian regarding: the historical points, exam findings, and any diagnostic results supporting the discharge/admit diagnosis, lab results, radiology results. Physician consultation: Joe Venegas MD was contacted at 18:45, regarding admission, to the telemetry unit. need to come to ED to see patient, and will see patient in ED. Admission orders: after a detailed discussion of the patient's condition and case, the admit orders are written by me. 10/11 16:27 Order name: Basic Metabolic Panel 10/11 16:27 Order name: CBC with Diff 10/11 16:27 Order name: LFT's 10/11 16:27 Order name: Magnesium 10/11 16:27 Order name: NT PRO-BNP 10/11 16:27 Order name: PT-INR 10/11 16:26 Order name: EKG; Complete Time: 16:26 sv 10/11 16:26 Order name: EKG - Nurse/Tech; Complete Time: 16:57 sv 10/11 16:27 Order name: Troponin (emerg Dept Use Only) 10/11 16:27 Order name: XRAY Chest (1 view) 10/11 16:27 Order name: Cardiac monitoring; Complete Time: 16:55 10/11 16:27 Order name: IV Saline Lock; Complete Time: 16:57 10/11 16:27 Order name: Labs collected and sent; Complete Time: 16:57 10/11 16:27 Order name: O2 Per Protocol; Complete Time: 17:00 tw4 10/11 16:27 Order name: O2 Sat Monitoring; Complete Time: 17: tw4 EC:30 Rate is 84 beats/min. Rhythm is regular with Right bundle branch block. QRS [place] is tw4 Normal. MA interval is normal. QRS interval is normal. QT interval is normal. No Q waves. T waves are Inverted in leads V1, V2, V3. No ST changes noted. Clinical impression: NSR w/ Non-specific ST/T Changes. Interpreted by me. Reviewed by me. Administered Medications: 20:05 Drug: Xopenex 1.25 mg Route: Inhalation; rr5 20:59 Follow up: Response: No adverse reaction; Marked relief of symptoms rr5 Disposition: 10/11/19 19:25 Hospitalization ordered by Joe Venegas for Observation. Preliminary diagnosis is Chest pain, unspecified. - Bed requested for Telemetry/MedSurg (observation). - Status is Observation. rr5 - Condition is Stable. - Problem is new. - Symptoms have improved. Signatures: Dispatcher [employer] Sandi Sanderson RN Katrin Muir RN RN dw Munoz, Edgar, RN RN em Wadley, Terrence, MD MD tw4 Curly Valenzuela RN RN rr5 Corrections: (The following items were deleted from the chart) 20: 19:25 Hospitalization Ordered by Joe Venegas MD for Observation. Preliminary diagnosis dw is Chest pain, unspecified. Bed requested for Telemetry/MedSurg (observation). Status is Observation. Condition is Stable. Problem is new. Symptoms have improved. tw4 20:58 20:02 10/11/2019 19:25 Hospitalization Ordered by Joe Venegas MD for Observation. rr5 Preliminary diagnosis is Chest pain, unspecified. Bed requested for Telemetry/MedSurg (observation). Status is Observation. Condition is Stable. Problem is new. Symptoms have improved. dw
[2019-10-12 05:56] LABS: Absolute Lymphocytes (CBC) 2.3 K/uL (0.7-4.9); Basophils % 0.4 % (0-1.3); Hematocrit 37.4 % (36.0-45.0); Lymphocytes % 35.3 % (15.3-44.8); MPV 7.8 fL (7.6-11.3); RBC Red Blood Cell Count 4.06 M/uL (3.86-4.86)
[2019-10-12] MEDS ORDERED: REGADENOSON 0.4 MG/5 ML SYR IV ONE (07:48)
[2019-10-12 08:12] VITALS: O2SAT 95
--- NOTE | 2019-10-12 08:19 | EKG ---
Test Date: 2019-10-11 Test Time: 16:33:31 Dairy Processing Supervisor: KAY MEASUREMENT RESULTS: Intervals: Rate: 84 MA: 148 QRSD: 124 QT: 398 QTc: 470 [place]: P: 76 MA: 148 QRS: -1 T: 69 INTERPRETIVE STATEMENTS: Normal sinus rhythm Right bundle branch block Inferior infarct, age undetermined Abnormal ECG Compared to ECG 11/13/2018 16:15:16 No significant changes Electronically Signed On 10-12-19 08:17:57 [address] COMMISSIONER by Lakhwinder Rai
[2019-10-12 08:42] VITALS: TEMP 97.9
[2019-10-12] MEDS ORDERED: ASPIRIN EC 81 MG TAB PO SCH (09:00)
[2019-10-12 12:15] VITALS: BP 114/70
--- NOTE | 2019-10-12 12:27 | RAD REPORT ---
EXAM DESCRIPTION: NM - Rest Stress Cardiac Imaging - 10/12/2019 12:16 pm CLINICAL HISTORY: Chest pain COMPARISON: None. TECHNIQUE: The patient was administered 10.5 mCi of Tc 99m Sestamibi prior to resting SPECT imaging of the heart. The patient was then administered 31.6 mCi of Tc 99m Sestamibi following exercise or ph armacologic stress. Multiplanar SPECT images were reviewed. FINDINGS: The end diastolic volume is 67 ml, the end systolic volume is 15 ml, and the ejection frac tion is 78 %. Physiologic distribution of the radiopharmaceutical through the myocardium is noted. No stress induce d ischemic defect is seen to suggest stress induced ischemia. No fixed defect is seen to suggest hibe rnating myocardium or scarred myocardium. IMPRESSION: No stress induced ischemia or other suspicious findings.
--- NOTE | 2019-10-12 13:39 | TREADPHA ---
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 PHYSICIAL EXAMINATION: RESTING B.P.: 129/84 RESTING H.R.: 79 RESTING EKG: SINUS, RIGHT BUNDLE BRANCH BLOCK PROTOCOL: PHARMACOLOGIC EXERCISE TIME: 23:30 B.P. AT [place]AK STRESS: 133/80 IMPRESSION: LEXISCAN INJECTED, FOLLOWED BY CARDIOLITE PER PROTOCOL. SEE NUCLEAR MEDICINE REPORT. NO SUPRAVENTRICULAR TACHYCARDIA, VENTRICULAR TACHYCARDIA, PREMATURE ATRIAL COMPLEXES OR PREMATURE VENTRICULAR COMPLEXES. NO CHEST PAIN REPORTED. NON-DIAGNOSTIC ELECTROCARDIOGRAM WITH LEXISCAN STRESS.
--- NOTE | 2019-10-12 15:45 | ECHO ---
HEIGHT: 5 ft 8 in WEIGHT: 214 lb 6.4 oz DATE OF STUDY: 10/12/[address]: Joe Venegas MD 2-DIMENSIONAL: YES M.MODE: YES DOPPLER: YES COLOR FLOW: YES TDS: PORTABLE: DEFINITY: BUBBLE STUDY: DIAGNOSIS: CHEST PAIN CARDIAC HISTORY: CATHERIZATION: NO SURGERY: NO PROSTHETIC VALVE: NO PACEMAKER: NO MEASUREMENTS (cm) DIASTOLIC (NORMALS) SYSTOLIC (NORMALS) IVSd 1.1 (0.6-1.2) LA Diam 2.8 (1.9-4.0) LVEF 63% LVIDd 2.5 (3.5-5.7) LVIDs 1.7 (2.0-3.5) %FS 32% LVPWd 1.2 (0.6-1.2) Ao Diam 3.1 (2.0-3.7) 2 DIMENSIONAL ASSESSMENT: RIGHT ATRIUM: NORMAL LEFT ATRIUM: NORMAL RIGHT VENTRICLE: NORMAL LEFT VENTRICLE: NORMAL TRICUSPID VALVE: NORMAL MITRAL VALVE: NORMAL PULMONIC VALVE: NORMAL AORTIC VALVE: NORMAL PERICARDIAL EFFUSION: NONE AORTIC ROOT: NORMAL LEFT VENTRICULAR WALL MOTION: NORMAL DOPPLER/COLOR FLOW: NORMAL COMMENTS: NORMAL 2-DIMENSIONAL ECHOCARDIOGRAM WITH DOPPLER. TECHNOLOGIST: SHERLYN RICHMOND
--- NOTE | 2019-10-13 01:39 | DS ---
Date of Discharge: 10/12/2019 Physical Examination: HEENT: Unremarkable. Lungs: Clear to auscultation. Heart: Heart sounds normal. Abdomen: Soft, bowel sounds normal. No guarding, rigidity, tenderness, or distention. Extremities: No leg edema. Laboratory Data: Sodium 143, potassium 4, chloride 109, bicarb 29, BUN 13, creatinine 0.72, glucose 105. White count 6.6, hemoglobin 12.2, platelets 306. Stress test negative for stress-induced ische colby. Echocardiogram was unremarkable. Hospital Course: A 73-year-old female patient admitted to the hospital with chest pain. Please see dictated H and P for more information. After the patient was admitted to the hospital, her ID was ru led out by getting serial cardiac enzymes. This morning, when I saw her, she was asymptomatic and th e patient had a negative cardiac workup done and she was discharged to go home in stable condition. Discharge Medications And Instructions: 1.Continue all prior home medications. 2.Follow up at my office next week. Discharge Diagnoses: 1.Chest pain. 2.Moderate persistent asthma. 3.Paroxysmal atrial fibrillation. 4.Hypothyroidism. 5.Gastroesophageal reflux disease. 6.Abdominal wall hernia. 7.Obstructive sleep apnea. 8.Overactive bladder. LIZETT/MODL Voice ID: [id number] Report ID: [id number]
--- NOTE | 2019-10-13 02:30 | HP ---
Date of Admission: 10/11/2019 Chief Complaint: Chest tightness. History Of Present Illness: This is a 73-year-old pleasant female patient, came into emergency room with complaints of chest tightness that started yesterday. Patient was having intermittent chest tig htness. No relation with food or activity. Her chest tightness feeling is in the center of her ches t and across the chest. No associated shortness of breath. She has chronic asthma problem and has c hronic cough, which has remained unchanged lately. After she was evaluated, she was admitted to the hospital. I saw her in the emergency room. Her and son were present with her at bedside. Allergies: TO ALBUTEROL, AZITHROMYCIN, AND CIPRO. Medications: List reviewed. Review of Systems: Cardiovascular: As mentioned above. All other systems reviewed and negative. Family History: Significant for heart disease, hypertension, diabetes. Social History: Negative for smoking or alcohol use. Past Surgical History: Carpal tunnel release, knee replacement, fundoplication, cholecystectomy, eth moidectomy, laminectomy, tonsillectomy. Past Medical History: Significant for moderate persistent asthma, chronic gastritis, impaired fastin g glucose, chronic constipation, abdominal wall hernia, sleep apnea, overactive bladder, paroxysmal a trial fibrillation, gastroesophageal reflux disease, hypothyroidism, allergic rhinitis. Physical Examination: Vital Signs: When she came into emergency room, temperature 98.2, pulse 100, respiratory rate 18, bl ood pressure 134/70, oxygen saturation 96%. Height 5 feet 8 inches, weight 214 pounds. General: Awake, alert, oriented, not in distress. HEENT: Head atraumatic, normocephalic. Conjunctivae nonerythematous. Sclerae white. Mouth, no thr ush or edema noted. Ears/Nose, no mass, lesion, discharge noted. Neck: Supple. No JVD, lymph nodes, bruit, thyromegaly noted. Lungs: Bilateral good equal air entry. Clear to auscultation. No rhonchi. No rales. Heart: Normal heart sounds, no murmur or gallop. Abdomen: Soft, bowel sounds normal. No guarding, rigidity, tenderness, mass, hepatosplenomegaly, dis tention, or bruit noted. Extremities: No leg edema. No calf tenderness. Skin: No rash, ulcer, cellulitis. Lymphatics: No lymph node enlargement in neck, supraclavicular, infraclavicular region. Neuro: No focal neurological deficit. Chest: Unremarkable. External Genitalia: Deferred. Rectal: Deferred. Laboratory Data: White count 6.7, hemoglobin 12.8, platelets 320. INR 1.40. Sodium 142, potassium 3.5, chloride 107, bicarb 27, BUN 10, creatinine 0.72, glucose 160. Liver function tests unremarkabl e. Troponin less than 0.02. Chest x-ray, no acute cardiopulmonary changes. Impression: 1.Chest pain. 2.Moderate persistent asthma. 3.Paroxysmal atrial fibrillation. 4.Chronic anticoagulation therapy. 5.Hypothyroidism. 6.Gastroesophageal reflux disease. 7.Impaired fasting glucose. 8.Abdominal wall hernia. 9.Obstructive sleep apnea. 10.Overactive bladder. Plan: We will admit the patient to hospital for further evaluation of this problem. Patient is appr opriate for observation. We will go ahead and get serial cardiac enzymes tomorrow. We will get echo cardiogram and a stress test done. Home medications will be continued per order. I will see her tanya orrow for followup. Details of plan of treatment discussed with the patient. We will get serial cardiac enzymes on her. LIZETT/MODL Voice ID: [id number]
== END 2019-10-12 14:22 | disposition home or self-care (01) ==
LOC: ER 16:17 → ERHOLD 19:59 → 4TH 20:36
PROVIDERS: ADMIT Internal Medicine; ATTEND Internal Medicine
DX: R07.9 Chest pain, unspecified (principal); J45.40 Moderate persistent asthma, uncomplicated; I48.0 Paroxysmal atrial fibrillation; I45.10 Unspecified right bundle-branch block; E03.9 Hypothyroidism, unspecified; K21.9 Gastro-esophageal reflux disease without esophagitis; R73.01 Impaired fasting glucose; K43.9 Ventral hernia without obstruction or gangrene; G47.33 Obstructive sleep apnea (adult) (pediatric); N32.81 Overactive bladder; Z79.01 Long term (current) use of anticoagulants; Z82.49 Family history of ischemic heart disease and other diseases of the circulatory system; Z90.49 Acquired absence of other specified parts of digestive tract
CPT/HCPCS: 36415; 71045; 78452; 80048; 80076; 83735; 83880; 84484; 85025; 85610; 93005; 93017; 93306; 99285; A9500; G0378; J2785

== ENCOUNTER 2019-12-08 21:03 | Inpatient (IN) | payer OTHER ==
--- OUTSIDE RECORDS SUMMARY | 2019-12-08 21:06 | XMS REPORT ---
:1945 Author Organization [employer] Care Team Providers Name Role Phone Jose Gautam Provider Role Unavailable Allergies No Known Allergies Problems Problem Type Condition Code Onset Dates Condition Statu s Problem Chronic laryngitis J37.0 Active Problem Sinusitis - Chronic maxillary J32.0 Active Problem Sinusitis - Chronic J32.8 Active Problem Sinusitis - Chronic J32.8 Active Problem Chronic rhinitis J31.0 Active Problem Chronic tonsillitis J35.01 Active Medications No Known Medications Results No Known Results Summary Purpose [employer]ClinicalWorks Submission
--- OUTSIDE RECORDS SUMMARY | 2019-12-08 21:06 | XMS REPORT ---
:1945 [facility] [place] [facility] Team Providers Name Role Phone Jose Gautam Provider Role Unavailable Allergies, Adverse Reactions, Alerts Substance Reaction Event Type Ciprofloxacin Info Not Available Drug Allergy Zpack Info Not Available Drug Allergy Albuterol Info Not Available Drug Allergy quinolone Info Not Available Drug Allergy Problems Problem Type Condition Code Onset Dates Condition Statu s Assessment Postnasal drip R09.82 Active Assessment Pain [...] Status Dosage System Date Date Calcium [facility] [address]-95 Active not defined Multivitamin [facility] [address] Active not defined Xarelto [facility] [address]-45 Active not defined Levothyroxine [facility] [address]-81 Active not Sodium defined Montelukast [facility] [address]-51 Active not Sodium defined Bevespi ND 0 Active not defined Fiber ND 0 Active not defined Loratadine [facility] [address]-53 Active not defined Iron [facility] [address]-47 Active not defined Augmentin [facility] 80681036894 875-125 MG May 05Apr Active 1 tabl et Orally every 2017 26, hrs [address] [facility] [address]-72 Active not Overnight Relief defined Osphena [facility] [address]-51 Active not defined Mometasone [facility] 11309426129 50 MCG/ACT December 16, Active 2 spra ys Furoate Nasally Once a 2018 in each day nostril Medrol (Sonido) [facility] 16742843049 4 MG Orally May 04Apr Active as [address] [facility] [address]-51 Active not defined Cranberry [facility] [address] Active not defined Qvar [facility] [address]-92 Active not defined Myrbetriq [facility] [address]-91 Active not defined Valerian Root [facility] [address]31 Active not defined Gabapentin [facility] 48740557274 100 MG Orally Jun 24, Active 1 c apsule Three times a [address] [facility] [address]-96 Active not defined Pearls IC [facility] 176[address]20 Active not defined Olopatadine HCl [facility] [address]-45 Active no t defined Lansoprazole [facility] 0 Active not defined Results No Known Results Summary Purpose [employer]ClinicalWorks Submission
--- OUTSIDE RECORDS SUMMARY | 2019-12-08 21:06 | XMS REPORT ---
:1945 Author Organization [employer] Care Team Providers Name Role Tam Casanova Provider Role Unavailable Allergies No Known Allergies Problems Problem Type Condition Code Onset Dates Condition Statu s Problem Chronic rhinitis J31.0 Active Problem Chronic tonsillitis J35.01 Active Problem Sinusitis - Chronic maxillary J32.0 Active Problem Sinusitis - Chronic J32.8 Active Medications Medication Code Code Instructions Start End Status Dosage System Date Date Mometasone [facility] 79155662920 50 MCG/ACT December 16, Active 2 spra ys Furoate Nasally Once a 2018 in each day nostril Results No Known Results Summary Purpose [employer]ClinicalWorks Submission
--- OUTSIDE RECORDS SUMMARY | 2019-12-08 21:06 | XMS REPORT ---
[...] System Code Instructions Start End Date Status Dos age Date Bactrim DS [facility] 69697918653 800-160 MG Orally January 13January 23, Active 1 tablet Twice a day 2017 2017 PredniSONE ND 83449699125 10 MG Orally then January 13January 23, Active 1 tablet QD x 5 days 2017 2017 BID x 5 days Results No Known Results Summary Purpose eClinicalWorks Submission
--- OUTSIDE RECORDS SUMMARY | 2019-12-08 21:06 | XMS REPORT ---
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) Assessment Postnasal drip R09.82 Active Assessment Sialoadenitis acute K11.21 Active Assessment Swelling, mass, lump in neck R22.1 Active Problem Chronic rhinitis J31.0 Active Problem Chronic tonsillitis J35.01 Active Problem Sinusitis - Chronic maxillary J32.0 Active Assessment Sinusitis - Chronic J32.8 Active Assessment Sinusitis - ACUTE >10 days J01.90 A ctive Problem Sinusitis - Chronic J32.8 Active Assessment Chronic maxillary sinusitis J32.0 Active Medications Medication Code Code Instructions Start End Status Dosage System Date Date Betamethasone NDC 0 Active not defined Myrbetriq [facility] [address]-38 Active not defined Cyclobenzaprine HCl NDC 0 Active not defined Mometasone Furoate [facility] 11053096987 50 MCG/ACT December 16, Active 2 sprays Nasally Once a 2018 in each day nostril Bevespi NDC 0 Active not defined Xarelto [facility] [address]-11 Active not defined Iron [facility] [address]-44 Active not defined Qvar [facility] [address]-70 Active not defined Sulfamethoxazole NDC 0 Active not defined Vitamin B-12 [facility] [address]793 Active not defined Nasacort NDC 0 Active not defined Levothyroxine [facility] [address]-38 Active not Sodium defined Pearls IC [facility] [address]4212 Active not defined Xopenex HFA [facility] [address]-40 Active not defined Gabapentin [facility] 09194613764 100 MG Orally Jun 24, Active 1 c apsule Three times a 2017 day Prevacid [facility] [address]-60 Active not defined Olanzapine [facility] [address]-47 Active not defined Perdiem Overnight [facility] [address]-62 Active not Relief defined Calcium [facility] [address]-82 Active not defined PredniSONE [facility] 50093487226 10 MG Orally Apr 08Mar Active 1 ta blet Twice daily x 2017 27, 2 days then 2018 Once a day x 2 days Olopatadine HCl [facility] [address]-03 Active no t defined Multivitamin [facility] [address] Active not defined Results No Known Results Summary Purpose eClinicalWorks Submission
--- OUTSIDE RECORDS SUMMARY | 2019-12-08 21:06 | XMS REPORT ---
:1945 Author Organization [facility] t Address [address] [place] [address] Dr. Arreola [address] [place] [address] Care Team Providers Name Role Phone Mata VELAZCO Unavailable Unavailable Problems Condition Condition Condition Status Onset Resolution Last Treatin g Comments Name Details Category Date Date Treatment Clinician Date Chronic Chronic Problem Active rhinitis rhinitis Chronic Chronic Problem Active tonsillitis tonsillitis Sinusitis - Sinusitis - Problem Active Chronic Chronic maxillary maxillary Sinusitis - Sinusitis - Problem Active Chronic Chronic Chronic Chronic Problem Active laryngitis laryngitis Oropharynx Oropharynx Problem Active neoplasm, neoplasm, tongue tongue base, base, 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 Clinician (SIG) Name Name Bactrim DS Bactrim DS 2018-0 2019- No Tam 1 tablet 10-15 Nella 00:00: 00:00 00 :00 Encounters Start End Encounter Admission Attending Care Care Encounter Date/Time Date/Time Type Type Clinicians Facility Department ID 2018-10-15 2018-10-15 Outpatient [facility] [id number] 09:41:00 09:41:00 [facility] 2018-08-30 2018-08-30 Outpatient [facility] [id number] 15:20:00 15:20:00 [facility] 2018-08-25 2018-08-25 Outpatient [facility] [id number] 10:49:00 10:49:[address] [facility] 2018-08-11 2018-08-11 Outpatient [facility] [id number] 14:20:00 14:20:00 [facility] 2018-07-07 2018-07-07 [facility] [id number] 15:50:00 15:50:00 [facility] 2018-06-25 2018-06-25 [facility] [id number] 14:19:00 14:19:00 [facility] 2018-06-25 2018-06-25 [facility] [id number] 11:30:00 11:30:00 [facility] 2018-06-17 2018-06-17 [facility] [id number] 13:06:00 13:06:00 [facility] 2018-06-14 2018-06-14 [facility] [id number] 15:00:00 15:00:00 [facility] 2018-06-09 2018-06-09 [facility] [id number] 09:10:00 09:10:00 [facility] 2018-05-24 2018-05-24 [facility] [id number] 14:00:00 14:00:00 [facility] 2018-05-19 2018-05-19 [facility] [id number] 15:02:00 15:02:00 [facility] 2018-05-05 2018-05-05 [facility] [id number] 14:20:00 14:20:00 [facility] 2018-05-04 2018-05-04 [facility] [id number] 11:00:00 11:00:00 [facility] 2018-04-16 2018-04-16 [facility] [id number] 16:25:00 16:25:00 [facility] 2018-04-08 2018-04-08 [facility] [id number] 11:00:00 11:00:00 [facility] 2018-04-07 2018-04-07 [facility] [id number] 16:47:00 16:47:00 [facility] 2018-04-07 2018-04-07 [facility] [id number] 10:40:00 10:40:[address] [facility] 2018-01-13 2018-01-13 Outpatient [facility] [id number] 14:39:00 14:39:[address] [facility] 2017-12-16 2017-12-16 Outpatient [facility] [id number] 09:32:00 09:32:[address] [facility] Results Test Description Test Time Test Comments Text Results Atomic Results Result Comments CYTOLOGY 2018-07-02 Medical Cytology Report 17:16:00 Case: [id number] Authorizing Provider: Tam Sosa MD Collected : 06/30/2018 1600 Ordering Location: [facility] Radiology Main Receive d: 07/01/2018 9100 Pathologist: Catherine Joe MD Specimen: Lymph Node, Cer vical LEFT NECK LYMPH NODE, FNA BY RADIOLOGIST (GER) (DIREC T SMEARS, CYTOSPINS, CELL BLOC K OF ASPIRATE): - NO METASTATIC CARCINOMA, GRANULOMATA IDENT IFIED - LYMPHOID TISSUE PRESENT Signing Pathologist Direct P anabelle Line: [phone] ally signed by Catherine Joe MD on 07/02/2018 at 5:16 PMPlease also see cytopathology report [id number]. [id number](1.3 x 0.8 x 0.9 cm) le ft neck lymph node; reported to ngue cancer, enlarged neck lymph nodesLEFT NECK LYMPH NODE FNAPrepared 4 cytospins from 30 ml cytorich red fixaitve [facility] nilesh: [id number]: [id number].[facility], Department o f Pathology, [address] [place] [address], [facility], [facility] o f Pathology, [address] [place] [address], ApjkqrSaint [facility], Department o f Pathology, [address] [facility], [place] [address], CYTOLOGY 2018-07-02 Medical Cytology Report 13:16:00 Case: [id number] Authorizing Provider: Tam Sosa MD Collected : 06/30/2018 1600 Ordering Location: [facility] Radiology Main Receive d: 07/01/2018 1259 Pathologist: Vesna Moulton MD Specimen: Lymph Node, Cer vical, right neck node (1.5 x 0.5 x 1.4 cm) RIGHT NECK LYMPH NODE, FNA B Y RADIOLOGIST (CYTOSPINS): - NEGATIVE FOR MALIGNANCY - LYMPHOID/LYMPH NODE TISSUE PRESENT Signing Patholo gist Direct Phone Line: [phone] s igned by Vesna Novak MD o n 07/02/2018 at 1:16 PMPlease also see cytopathology report [id number]. 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 No metastatic tumo r is notedB[facility], Department of [facility] o[facility], [address] [place] [address], Nmykh r [facility], Depar tment of Pathology, [address] [place] [address], TcgurhSaint [facility], Department o f Pathology, [address] [place] [address], U/S, 2018-06-30 Reason for FINAL REPORT PATIENT ID: ASPIRATION/INJECT 16:08:00 Exam:->R59.0, [id number] INDICATION: [age]-year-old ION C02.4 RIGHT female with report of tongue base \\T\\ LEFT cancer. Request for image gu ided percutaneous biopsy of left neck node. COMPARISON: None. TECH NIQUE: Ultrasound guided fine needl e aspiration of left neck lymp h node. FINDINGS: Procedure wa s explained to the patient and informed consent was signed. Time-out was performed. Preliminary ultrasound demonstrates a left level II lymph node measuring 1.3 x 0.8 x 0 .9 cm. No other left cervical lymph nodes were identified. The neck wa s prepped and draped in the st andard fashion. 1% lidocaine was us ed for local anesthesia. Under ultr asound guidance a fine needle aspir ate was acquired of this node wi th a 25 gauge needle. Three addit ional aspirates were acquired of t he same nodule. Each aspirate w as rinsed in Cyto-rich and sent to pathology. Patient tolerated procedure well. IMPRESSION: Ultrasound guided fine needl e aspiration of left level II lymph node. Signed: Delfina Cyr MDReport Verified Date/Time: 06/30/2018 16:08:29 Reading Location: [facility] [id number] Ultra sound Reading Room U/S, 2018-06-30 Reason for FINAL REPORT PATIENT ID: ASPIRATION/INJECT 16:08:00 Exam:->R59.0, [id number] INDICATION: [age]-year-old ION C02.4 RIGHT female with report of tongue base \\T\\ LEFT cancer. Request for image gu ided percutaneous biopsy of right neck node. COMPARISON: None. TECH NIQUE: Ultrasound guided fine needl e aspiration of right neck lym ph node. FINDINGS: Procedure wa s explained to the patient and informed consent was signed. Time-out was performed. Preliminary ultrasound demonstrates a right level I I lymph node measuring 1.5 x 0 .5 x 1.4 cm. No other right cervi galdino lymph nodes were identified. The neck was prepped and draped in the standard fashion. 1% lidocai ne was used for local anesthesia. U nder ultrasound guidance a fine n eedle aspirate was acquired of thi s nodule with a 25 gauge needl e. Three additional aspirates w ere acquired of the same nodule. Each aspirate was rinsed in Cyto- rich and sent to pathology. Patie nt tolerated procedure well. IMPRESSION: Ultrasound guide d fine needle aspiration of right l evel II lymph node. Signed: Sherif Avendaño MDReport Verified Date/Time: 06/30/2018 16:08 :56 Reading Location: [facility] B1 P00 6J Ultrasound Reading Room UE EXAM 2018-06-25 Surgical Pathology Report 16:56:00 Case: [id number] Authorizing Provider: Tam Sosa MD Collected : 06/18/2018 0824 Ordering Location: [facility] Received: 06/18/2018 1149 SERVICES Pathol ogist: Sushila Mejia MD Specimen: Tongue, base tongue BASE OF THE T ONGUE, LARYNGOSCOPY WITH BIOPSY: - LINGUAL TONSILS WITH REACTIV E FOLLICULAR HYPERPLASIA - SQ UAMOUS MUCOSA WITH ACUTE INFLAMMATI ON WITH ATYPIA - METAPLASTIC CARTILAGE AND DILATED LYMPHA TICS - NEGATIVE FOR DYSPLASIA OR MALIGNANCY Signing Pathologist Direct Phone Leesa e: [phone] s igned by Sushila Mejia MD on 06/25/2018 at 4:56 PMThe squ amous mucosa shows mild acute inflammation and focal react etienne atypia. There are dilated lymphatics (hilighted by CD3 4 and D2-40) and metaplastic carti madi in the subepithelial tissues , Lingual tonsils show reactiv e follicular hyperplasia, conf irmed by immunohistochemical studi es performed on block A1, that demonstrate the lymphoid population to be comprised o f CD20 positive B cells and CD3 pos itive T cells. Cyclin D1 is negati ve. Ki-67 demonstrates a prolife rative index of 80% within reactive germinal centers and highlig hts features of polarization. Th ere is no morphologic evidence of lymphoma. This case was revi ewed by Dr. Jose J gonzalez or the purposes of hematopathology review. The case was also re viewed at the departmental consensu s conference.The findings have been discussed with Dr. Velazco. 8 8305; 79242; 18320 X 6Nasal obstructionBase of tongue bi opsy Received in formalin labeled "tongue", description "base of tongue" is a 3.0 x 2.0 x 0.3 cm aggregate of pink-lara to mejia-white rubbery soft tiss ue. Specimen is entirely submitt ed in A1. DB/bc PERFORMEDThe interpretation of this case included the use of immunohistochemistry or spec ial stains. D2-40; CD34; CD3; CD 20 CD45; Ki-67; Cyclin-F9Gsbvekmywmrzctnebfi y technical testing was perfor med at [facility], Pathology Laboratory where i t was developed and its performanc e characteristics were determi johnny. It has not been cleared or approved by the U.S. Food an d Drug Administration. The FDA has determined that such clearan ce or approval is not necessary. T he test is used for clinical purposes. It should not be regarded as investigational or for research. This laboratory is certified under the Clinical Laboratory Improvement Amend ments of 1987 (CLIA-88) as qualifi ed to perform high complexity clin ical laboratory testing.The immunohistochemistry test wa s developed and its performanc e characteristics determined jimenez lopes [facility], Pathology Laboratory. It has not been cleared or approved by the U.S. Food and Drug Administr ation. The FDA has determined that such clearance or approval is not necessary. The test is used for clinical purposes. It should not be regarded as investigation al or for research. This laborator y is certified under the Clinical Laboratory Improvement Amend ments of 1987 (CLIA-88) as qualifi ed to perform high complexity clin ical laboratory testing. ELECTROLYTES 2018-06-14 18:46:00 Test Item Value Reference Range Comments SODIUM (BEAKER) (test code = 381) 142 meq/L 136-145 POTASSIUM (BEAKER) (test code = 379) 3.7 meq/L 3.5-5.1 CHLORIDE (BEAKER) (test code = 382) 107 meq/L 98-107 CO2 (BEAKER) (test code = 355) 29 meq/L 22-29 BUN AND [id number] 18:46:00 Test Item Value Reference Range Comments BLOOD UREA NITROGEN 13 mg/dL 7-21 (BEAKER) (test code = 354) CREATININE (BEAKER) (test 0.74 mg/dL 0.57-1.25 code = 358) EGFR (BEAKER) (test code 78 mL/min/1.73 sq m EST IMATED GFR IS NOT = 1092) ACCURATE CREA TININE CLEARANCE IN PRE DICTING GLOMERULAR FILTR ATION RATE. ESTIMATED GFR IS NOT APPLICABLE F OR DIALYSIS PATIENT S. [id number] 18:18:00 Test Item Value Reference Range Comments HEMOGLOBIN (BEAKER) (test code = 410) 12.9 GM/DL 11.2-15.7 TISSUE [id number] 11:51:00Surgical Pathology Report Case: [id number] Authorizing Provider: Tam Velazco MD Collected: 05/01/2017 1500 Ordering Location: [facility] MAIN ADMITTING Received: 05/04/2017 1530 Pathologist: Marine Hawthorne MD Specimen: Nasopharynx/Oropharynx NASOPHARYNX/OROPHARYNX, BIOPSY: - FOLLICULAR LYMPHOID HYPERPLASIA - NEGATIVE FOR MALIGNANCY CC/pl Signing Pathologist Direct Phone Line: [phone] signed by Marine Hawthorne MD on 05/07/2017 at 11:51 [id number] neoplasm benignNasopharynx tissueThe specimen is received in [...]
--- OUTSIDE RECORDS SUMMARY | 2019-12-08 21:06 | XMS REPORT ---
[...] Status Dosage System Date Date Bactrim DS [facility] 65120604135 800-160 MG Apr 16Apr Active 1 tabl et Orally Twice a 2017 Medrol (Sonido) [facility] 12242616961 4 MG Orally Apr 16Apr Active as directed 2017 Results No Known Results Summary Purpose eClinicalWorks Submission
--- OUTSIDE RECORDS SUMMARY | 2019-12-08 21:06 | XMS REPORT ---
[...] Start End Date Status Dos age Date Medrol ([facility]) [facility] 78136817431 4 MG Orally May 04, May 10, Active a s directed 2017 2017 Results No Known Results Summary Purpose eClinicalWorks Submission
--- OUTSIDE RECORDS SUMMARY | 2019-12-08 21:07 | XMS REPORT ---
:1945 Author Organization eClinicalWorks Care Team Providers Name Role Tam Casanova Provider Role Unavailable Allergies No Known Allergies Problems Problem Type Condition Code Onset Dates Condition Statu s Problem Sinusitis - Chronic J32.8 Active Problem [...]
--- OUTSIDE RECORDS SUMMARY | 2019-12-08 21:07 | XMS REPORT ---
[...] Code Onset Dates Condition Statu s Assessment Edema of larynx J38.4 Active Problem [...] Status Dosage System Date Date Valerian Root [facility] 18984-92093 Active not defined Loratadine [facility] [address]-04 Active not defined Montelukast [facility] [address]-77 Active not Sodium defined Lansoprazole NDC 0 Active not defined Qvar NDC 0 Active not defined Olopatadine HCl [facility] [address]-51 Active no t defined Oxycodone HCl [facility] 70717230999 5 MG/5ML Orally Jun 14, Jun 22, Active 10 ml as every 6 hrs 2017 2017 needed Fiber NDC 0 Active not defined Osphena [facility] [address]-87 Active not defined Perdiem [facility] [address]-56 Active not Overnight Relief defined Levothyroxine [facility] [address]-63 Active not Sodium defined Xarelto [facility] [address]-44 Active not defined Hyoscyamine NDC 0 Active not defined Cephalexin [facility] [address]-79 Active not defined Mometasone [facility] 41713751110 50 MCG/ACT December 16, Active 2 spra ys Furoate Nasally Once a 2018 in each day nostril Gabapentin [facility] 71906191575 100 MG Orally Jun 24, Active 1 c apsule Three times a 2016 day PredniSONE [facility] 90324199274 10 MG Orally 2 Jun 14, Jun 21, Active 1 tablet times a day 2017 2017 Zipsor [facility] 21754048501 25 MG Orally Jun 14, Jul 04, Active 1 capsu le Four times a 2017 2017 with food day or milk as needed Stool Softener [facility] [address]-73 Active not defined Cranberry [facility] 56617-35067 Active not defined Pearls IC [facility] 86203-36920 Active not defined Multivitamin [facility] 83379-33362 Active not defined Mucinex [facility] [address]-82 Active not defined Myrbetriq [facility] [address]-20 Active not defined Calcium [facility] [address]-69 Active not defined Iron [facility] [address]-00 Active not defined Bevespi [facility] 0 Active not defined Results No Known Results Summary Purpose eClinicalWorks Submission
--- OUTSIDE RECORDS SUMMARY | 2019-12-08 21:07 | XMS REPORT ---
[...] Code Onset Dates Condition Statu s Assessment Sinusitis - Acute, recurrent J01.91 Active Assessment Chronic rhinitis J31.0 Active Assessment Sinusitis - Chronic J32.8 Active Problem Chronic laryngitis J37.0 Active Problem Sinusitis - Chronic maxillary J32.0 Active Problem Sinusitis - Chronic J32.8 Active Problem Sinusitis - Chronic J32.8 Active Assessment Nasal airway obstruction J34.89 Act etienne Problem Chronic rhinitis J31.0 Active Problem Chronic tonsillitis J35.01 Active Assessment Swelling, mass, lump in neck R22.1 Active Assessment Chronic tonsillitis J35.01 Active Assessment Cough R05 Active Assessment Postnasal drip R09.82 Active Medications Medication Code Code Instructions Start End Status Dosage System Date Date Loratadine [facility] [address]-90 Active not defined Iron [facility] [address]-46 Active not defined Perdiem [facility] [address]-19 Active not Overnight Relief defined Calcium [facility] [address]-89 Active not defined Multivitamin [facility] 60189-27412 Active not defined Montelukast [facility] [address]-75 Active not Sodium defined Augmentin [facility] 27822753184 875-125 MG May 24, Jun 03, Active 1 table t Orally every 12 2017 2018 hrs Valerian Root [facility] 60950-90113 Active not defined Gabapentin [facility] 86232169359 100 MG Orally Jun 24, Active 1 c apsule Three times a 2017 day Cranberry [facility] 06438-89376 Active not defined Levothyroxine [facility] [address]-17 Active not Sodium defined Mucinex [facility] [address]-73 Active not defined Lansoprazole NDC 0 Active not defined Qvar [facility] [address]-84 Active not defined Olopatadine HCl [facility] [address]-70 Active no t defined Mometasone [facility] 18490665474 50 MCG/ACT December 16, Active 2 spra ys Furoate Nasally Once a 2018 in each day nostril Fiber NDC 0 Active not defined Bevespi ND 0 Active not defined Osphena [facility] [address]-43 Active not defined Xarelto [facility] [address]-91 Active not defined Stool Softener [facility] [address]-66 Active not defined Pearls IC [facility] 48007-48347 Active not defined Myrbetriq [facility] [address]-70 Active not defined Results No Known Results Summary Purpose eClinicalWorks Submission
--- OUTSIDE RECORDS SUMMARY | 2019-12-08 21:07 | XMS REPORT ---
[...] Start Date End Date Status Dosage PredniSONE [facility] 60182779823 10 MG Orally BID Jul 07Jul 17, Active 1 tablet for 5 days then 2017 2017 QD for 5 days Augmentin [facility] 91480160047 875-125 MG Orally Jul 07Jul 17, Active 1 tablet every 12 hrs 2017 2017 Results No Known Results Summary Purpose eClinicalWorks Submission
--- OUTSIDE RECORDS SUMMARY | 2019-12-08 21:07 | XMS REPORT ---
[...] Code Onset Dates Condition Statu s Assessment Swelling, mass, lump in neck R22.1 [...] Status Dosage System Date Date Mucinex [facility] [address]-59 Active not defined Osphena [facility] [address]-51 Active not defined Olopatadine HCl [facility] [address]-21 Active no t defined Qvar NDC 0 Active not defined Fiber NDC 0 Active not defined Xarelto [facility] [address]-41 Active not defined Pearls IC [facility] 40557-67024 Active not defined Hyoscyamine NDC 0 Active not defined Bevespi NDC 0 Active not defined Cranberry [facility] 10160-06606 Active not defined Mometasone [facility] 97562855436 50 MCG/ACT December 16, Active 2 spra ys Furoate Nasally Once a 2017 in each day nostril Gabapentin [facility] 29811983560 100 MG Orally Jun 24, Active 1 c apsule Three times a 2017 day Multivitamin [facility] 15746-02848 Active not defined Calcium [facility] [address]-56 Active not defined Cephalexin [facility] [address]-86 Active not defined Zipsor [facility] 47940236697 25 MG Orally Jun 14, Jul 04, Active 1 capsu le Four times a 2017 2017 with food day or milk as needed Iron [facility] [address]-34 Active not defined Myrbetriq [facility] [address]-71 Active not defined Levothyroxine [facility] [address]-55 Active not Sodium defined Lansoprazole [facility] 0 Active not defined Stool Softener [facility] [address]-28 Active not defined Valerian Root [facility] 38447-67175 Active not defined Montelukast [facility] [address]-11 Active not Sodium defined Loratadine [facility] [address]-40 Active not defined Perdiem [facility] [address]-30 Active not Overnight Relief defined Results No Known Results Summary Purpose eClinicalWorks Submission
--- OUTSIDE RECORDS SUMMARY | 2019-12-08 21:08 | XMS REPORT ---
[...] Code Onset Dates Condition Statu s Assessment Chronic maxillary sinusitis J32.0 Active Problem [...] End Status Dosage System Date Date Iron [facility] [address]-76 Active not defined Fiber NDC 0 Active not defined Cranberry [facility] [address] Active not defined Loratadine [facility] [address]-62 Active not defined Olopatadine HCl [facility] [address]-04 Active no t defined Osphena [facility] [address]-71 Active not defined Bactrim DS (14 [facility] [id number] 800-160 MG Aug 11, Aug 31, Active 1 tablet days) Orally Twice a 2017 2018 day Perdiem [facility] [address]-80 Active not Overnight Relief defined Stool Softener [facility] [address]-77 Active not defined Multivitamin [facility] 9[address]74 Active not defined Qvar NDC 0 Active not defined Myrbetriq [facility] [address]-75 Active not defined Mucinex [facility] [address]-90 Active not defined Montelukast [facility] [address]-74 Active not Sodium defined Gabapentin [facility] 73731094092 100 MG Orally Jun 24, Active 1 c apsule Three times a 2016 day Mometasone [facility] 31168293090 50 MCG/ACT December 16, Active 2 spra ys Furoate Nasally Once a 2018 in each day nostril Cephalexin [facility] [address]-48 Active not defined Lansoprazole NDC 0 Active not defined Valerian Root [facility] 68[address]306 Active not defined Xarelto [facility] [address]-03 Active not defined Calcium [facility] [address]-44 Active not defined Bevespi NDC 0 Active not defined Levothyroxine [facility] [address]-51 Active not Sodium defined Pearls IC [facility] 65[address]886 Active not defined Hyoscyamine ND 0 Active not defined Results No Known Results Summary Purpose eClinicalWorks Submission
--- OUTSIDE RECORDS SUMMARY | 2019-12-08 21:08 | XMS REPORT ---
[...] Code Onset Dates Condition Statu s Assessment Nasal airway obstruction J34.89 Act etienne Problem Sinusitis - Chronic J32.8 Active Assessment [...] Status Dosage System Date Date Stool Softener [facility] [address]-29 Active not defined Cranberry [facility] 26366-[address] Active not defined Mucinex [facility] [address]-68 Active not defined Bactrim DS (14 [facility] [id number] 800-160 MG Aug 11, Aug 31, Active 1 tablet days) Orally Twice a 2017 2018 day Multivitamin [facility] [address]0745-67806 Active not defined Bevespi NDC 0 Active not defined Myrbetriq [facility] [address]-81 Active not defined Lansoprazole NDC 0 Active not defined Hyoscyamine NDC 0 Active not defined Loratadine [facility] [address]-58 Active not defined Perdiem [facility] [address]-13 Active not Overnight Relief defined Iron [facility] [address]-67 Active not defined Xarelto [facility] [address]-51 Active not defined Levothyroxine [facility] [address]-12 Active not Sodium defined Montelukast [facility] [address]-07 Active not Sodium defined Osphena [facility] [address]-35 Active not defined Qvar NDC 0 Active not defined Olopatadine HCl [facility] [address]-91 Active no t defined Cephalexin [facility] [address]-12 Active not defined Valerian Root [facility] [address] Active not defined Gabapentin [facility] 31496674547 100 MG Orally Jun 24, Active 1 c apsule Three times a 2016 day Calcium [facility] [address]-86 Active not defined Fiber NDC 0 Active not defined Mometasone [facility] 66163274746 50 MCG/ACT December 16, Active 2 spra ys Furoate Nasally Once a 2017 in each day nostril Pearls IC [facility] 8[address]79 Active not defined Results No Known Results Summary Purpose eClinicalWorks Submission
--- OUTSIDE RECORDS SUMMARY | 2019-12-08 21:08 | XMS REPORT ---
[...] Date Status Dos age Date Bactrim DS [facility] [place] [id number] 800-160 MG Orally October 15, October 25, Act etienne 1 tablet Twice a day 2018 2018 Results No Known Results Summary Purpose eClinicalWorks Submission
[2019-12-08] MEDS ORDERED: HYDROCODONE/APAP 7.5/325 MG TAB ONE (21:20)
--- NOTE | 2019-12-08 21:48 | RAD REPORT ---
EXAM DESCRIPTION: CT - Thorax Con - 12/08/2019 9:36 pm CLINICAL HISTORY: PAIN COMPARISON: Thorax Wo Con dated 11/20/2016; Chest Single View dated 10/11/2019 TECHNIQUE: Axial 5 mm thick images of the chest were obtained without IV contrast. All CT scans are performed using dose optimization technique as appropriate and may include automated exposure control or mA/KV adjustment according to patient size. FINDINGS: A 50% predominately anterior right pneumothorax is present. There is partial atelectasis o f the upper, middle and lower lobes on the right. No pleural effusion or hemo pneumothorax. No acute left lung field finding. No left pneumothorax or left-sided pleural effusion. No midline shift. Heart size is normal. No pericardial effusion. Patient has prominent amount of subcutaneous emphysema robert g the right lateral and posterior chest. No abnormal mediastinal or hilar masses or lymphadenopathy seen. No gross aortic or pulmonary artery finding suspected. Assessment is limited in the absence of IV contrast. No displaced rib fractures seen. Patient has a nondisplaced posterior right eighth rib fracture. Racquel ent may have small nondisplaced rib fractures in the lateral lower right chest. Chest wall defect as the source for the subcutaneous emphysema is not identified. Upper abdomen imaging is limited but no gross abnormality seen. IMPRESSION: Approximately 50% right-sided pneumothorax primarily anterior in position. There is part ial atelectasis of each right-side low. No hemopneumothorax. There is no pleural effusion. Prominent amount of subcutaneous emphysema along the lateral and posterior chest. Nondisplaced posterior eighth rib fracture. No other rib fractures confirmed though lateral lower right chest rib fractures are suspected.
[2019-12-08] MEDS ORDERED: LIDOCAINE 1% W/EPI 1:100,000 MDV 20 ML VIAL ONE (22:02)
[2019-12-08] MEDS ORDERED: propofoL 200 MG/20 ML VIAL IV ONE (22:03)
[2019-12-08] MEDS ORDERED: NA CHLORIDE 0.9% 500 ML ONE (22:16)
[2019-12-08 22:18] LABS: Absolute Lymphocytes (CBC) 1.3 K/uL (0.7-4.9); Basophils % 0.2 % (0-1.3); Hematocrit 40.8 % (36.0-45.0); Lymphocytes % 9.7 % (15.3-44.8); MPV 8.1 fL (7.6-11.3); RBC Red Blood Cell Count 4.33 M/uL (3.86-4.86)
--- NOTE | 2019-12-08 22:22 | ER ---
Nurse's Notes [facility] Name: Ashley Reyes Age: 74 yrs Sex: Female : 1945 Arrival Date: 12/08/2019 Time: 21:05 Bed 3 Private MD: Diagnosis: Pneumothorax, unspecified;Fall on same level from slipping, tripping and stumbling;Fracture of one rib, right side Presentation: 12/07 21:10 Chief complaint: Patient states: my back is hurting. I tripped and hit my right upper rr5 back on a tree really hard. denies LOC. 21:10 Coronavirus screen: Proceed with normal triage. Patient denies a cough. Patient denies rr5 shortness of breath or difficulty breathing. Patient denies measured and/or subjective temperature greater than 100.4F prior to today's visit. Patient denies travel on a cruise ship or to a country the [facility] currently lists as an affected area. Patient denies contact with known and/or suspected case of COVID-19. Ebola Screen: Patient negative for fever greater than or equal to 101.5 degrees Fahrenheit, and additional compatible Ebola Virus Disease symptoms Patient denies exposure to infectious person. Patient denies travel to an Ebola-affected area in the 21 days before illness onset. Initial Sepsis Screen: Does the patient meet any 2 criteria? HR > 90 bpm. No. Patient's initial sepsis screen is negative. Does the patient have a suspected source of infection? No. Patient's initial sepsis screen is negative. Risk Assessment: Do you want to hurt yourself or someone else? Patient reports no desire to harm self or others. Onset of symptoms was December 08, 2019. 21:10 Method Of Arrival: Wheelchair rr5 21:10 Acuity: ARLINE 3 rr5 Historical: - Allergies: 21:28 Albuterol; rr5 21:28 Azithromycin; rr5 21:28 Cipro; rr5 21:28 NSAIDS; rr5 - Home Meds: 21:28 Calcium 600 + D(3) 600 mg calcium- 200 unit Oral tab daily [Active]; levothyroxine 150 rr5 mcg tab once daily [Active]; montelukast 10 mg Oral tab 1 tab once daily [Active]; Xarelto 20 mg Oral tab once daily [Active]; multivitamin Oral tab daily [Active]; Perdiem Oral nightly [Active]; Slow Fe Oral daily [Active]; Perdiem Oral 30 mg daily [Active]; topher probiotic [Active]; Xopenex Inhl [Active]; azelastine hcl [Active]; hyoscyamine sulfate 0.125 mg SL subl daily [Active]; Myrbetriq 50 mg Oral Tb24 1 tab once daily [Active]; Osphena 60 mg Oral tab 1 tab once daily [Active]; cranberry oral oral [Active]; mometasone 50 mcg/actuation nasal spry 2 sprays once daily [Active]; cetirizine oral oral [Active]; ipratropium bromide inhalation inhalation [Active]; amlodipine 5 mg tab [Active]; - PMHx: 21:28 Asthma; Atrial Fib; Hypothyroidism; rr5 - PSHx: 21:28 Tonsillectomy; laminectomy; ethmoidectomy; Carpal Tunnel Repair; Cholecystectomy; rr5 Lumpectomy; Knee surgery; fundoplication; nasopharygeal cyst removed; cataract; - Immunization history:: Adult Immunizations up to date. - Social history:: Smoking status: unknown Patient uses alcohol, occasionally. Patient/guardian denies using street drugs. Screenin:29 Abuse screen: Denies threats or abuse. Denies injuries from another. Nutritional rr5 screening: No deficits noted. Tuberculosis screening: No symptoms or risk factors identified. Fall Risk Fall in past 12 months (25 points). Total Alvarez Fall Scale indicates Low Risk Score (25-44 pts). Fall prevention measures have been instituted. Side Rails Up X 2 Frequent Obs/Assesments occuring As available Patient and Family Educated on Fall Prevention Program and strategies. Assessment: 21:10 General: Appears in no apparent distress. uncomfortable, Behavior is calm, cooperative, rr5 appropriate for age. 21:10 Pain: Complains of pain in right scapular area Pain radiates to chest Pain currently is rr5 10 out of 10 on a pain scale. Quality of pain is described as aching, Pain began suddenly, Is intermittent. Neuro: Level of Consciousness is awake, alert, obeys commands, Oriented to person, place, time, situation, Appropriate for age Denies LOC. Cardiovascular: Capillary refill < 3 seconds Patient's skin is warm and dry. Respiratory: Airway is patent Respiratory effort is even, unlabored, Respiratory pattern is regular, symmetrical. GI: No signs and/or symptoms were reported involving the gastrointestinal system. : No signs and/or symptoms were reported regarding the genitourinary system. EENT: No signs and/or symptoms were reported regarding the EENT system. Derm: Skin is intact, is healthy with good turgor, Skin is pink, warm \T\ dry. Musculoskeletal: Circulation, motion, and sensation intact. Capillary refill < 3 seconds. 21:29 Reassessment: patient sent to ct scan via stretcher. mg2 21:55 Reassessment: Patient appears in no apparent distress at this time. reassess by Kirsten mclaughlin ED provider explained the CT result to patient and agreed for the plan of Chest tube insertion. 22:05 Reassessment: Patient appears in no apparent distress at this time. Patient is alert, rr5 oriented x 3, equal unlabored respirations, skin warm/dry/pink. for chest tube insertion under moderate sedation by dr. ramos. explained the plan of care and consent signed. 23:25 Reassessment: Patient appears in no apparent distress at this time. Patient is alert, rr5 oriented x 3, equal unlabored respirations, skin warm/dry/pink. for admission patient updated thru phone. patient awake alert, not in distress, shifted oxygen to nasal cannula 2 liter/min. 23:48 Reassessment: Verbal order by ED provider continuous suction pleurivac. Yancy SALINAS rr5 informed. 12/08 00:30 Reassessment: Patient appears in no apparent distress at this time. Patient is alert, rr5 oriented x 3, equal unlabored respirations, skin warm/dry/pink. send to medical surgical floor awake alert, conscious and coherent not in distress with oxygen at 2 liters via nasal cannula, with CTT to pleuri vac draining 25ml of blood, with IV cannula G18 intact. vital signs stable. Vital Signs: 12/07 21:10 BP 132 / 78; Pulse 108; Resp 19; Temp 98; Pulse Ox 95% ; Weight 99.34 kg; Height 5 ft. rr5 7 in. (170.18 cm); Pain 10/10; 22:25 BP 117 / 72; Pulse 88; Resp 22; Temp 98; Pulse Ox 100% on R/A; rr5 23:25 BP 133 / 92; Pulse 96; Resp 20; Pulse Ox 98% on 2 lpm NC; mg2 23:44 BP 127 / 83; Pulse 97; Resp 20; Temp 98.2; Pulse Ox 97% on 2 lpm NC; rr5 12/08 00:30 BP 142 / 90; Pulse 90; Resp 22; Temp 97.4; Pulse Ox 98% on 2 lpm NC; rr5 12/07 21:10 Body Mass Index 34.30 (99.34 kg, 170.18 cm) rr5 12/07 22:25 for chest tube insertion under mmoderate sedation. succedding V/S see sedation flow rr5 sheet. ED Course: 21:05 Patient arrived in ED. ds1 21:08 Kirsten Marinelli FNP-C is PHCP. kb 21:08 Mykel Ramos MD is Attending Physician. kb 21:10 Arm band placed on right wrist. rr5 21:11 Patient has correct armband on for positive identification. Placed in gown. Bed in low rr5 position. Call light in reach. Side rails up X2. security system administrator on. Pulse ox on. NIBP on. 21:17 Curly Valenzuela, RN is Primary Nurse. rr5 21:21 Triage completed. rr5 21:36 CT Chest Wo Con In Process Unspecified. EDMS 22:00 Inserted saline lock: 18 gauge in left antecubital area, using aseptic technique. Blood ds4 collected. 22:03 Basic Metabolic Panel Sent. ds4 22:03 CBC with Diff Sent. ds4 22:21 Jonatan Venegas MD is Hospitalizing Provider. kb 22:55 Assist provider with chest tube insertion with 24 Fr. in right lateral chest wall. Tray rr5 was set up. Attached to pleViewdle-e-vac. Chest tube inserted by Mykel Ramos MD Placement verified by CXR, fluctuation of fluid, return of air, Dressed with foam tape, 4X4s, Patient tolerated well. 22:55 Patient admitted, IV remains in place. intact, No redness/swelling at site. rr5 23:00 Oxygen administration via non-rebreather mask for CTT insertion under moderate rr5 sedation. Response to oxygen therapy: symptoms improved. 23:25 Oxygen administration via nasal cannula \T\ 2L/min Response to oxygen therapy: symptoms rr5 improved. 23:49 Chest tube maintenance: Connected to pleur-e-vac. Fluctuates with respirations. Site rr5 clean \T\ dry. 11 cm CTT depth 11cm for the baseline. Administered Medications: 21:16 Drug: [place] (7.5 mg-325 mg) 1 tabs Route: PO; mg2 22:50 Follow up: Response: No adverse reaction; RASS: Alert and Calm (0) rr5 22:30 Drug: Propofol 40 mg Route: IVP; Site: left antecubital; rr5 23:50 Follow up: Response: No adverse reaction; RASS: Alert and Calm (0) rr5 22:35 Drug: Propofol 20 mg Route: IVP; Site: left antecubital; rr5 23:40 Follow up: Response: No adverse reaction; RASS: Alert and Calm (0) rr5 22:38 Drug: Propofol 40 mg Route: IVP; Site: left antecubital; rr5 23:45 Follow up: Response: No adverse reaction; RASS: Alert and Calm (0) rr5 22:38 Drug: Propofol 40 mg Route: IVP; Site: left antecubital; rr5 23:30 Follow up: Response: No adverse reaction; RASS: Alert and Calm (0) rr5 22:39 Drug: Propofol 40 mg {Note: for moderate sedation.} Route: IVP; Site: left antecubital; rr5 23:30 Follow up: Response: No adverse reaction; RASS: Alert and Calm (0) rr5 22:39 Drug: morphine 4 mg {Note: rass 2.} Route: IVP; Site: left antecubital; rr5 23:30 Follow up: Response: No adverse reaction rr5 23:30 Follow up: Response: RASS: Alert and Calm (0) rr5 22:44 Drug: morphine 4 mg {Note: rass 2.} Route: IVP; Site: left antecubital; rr5 23:40 Follow up: Response: No adverse reaction; RASS: Alert and Calm (0) rr5 23:09 Drug: fentaNYL (PF) 50 mcg Route: IVP; Site: left antecubital; mg2 12/08 00:00 Follow up: Response: No adverse reaction; RASS: Alert and Calm (0) rr5 Intake: 00:35 CTT rr5 Output: 00:35 Drainage: 25ml; Total: 25ml. rr5 00:35 CTT rr5 Outcome: 12/07 22:21 Decision to Hospitalize by Provider. kb 23:51 Admitted to Med/surg accompanied by tech, via stretcher, room 211, with oxygen, with rr5 chart, Report called to yancy SALINAS 23:51 Condition: stable 23:51 Instructed on the need for admit. 12/08 00:53 Patient left the ED. mg2 Signatures: Dispatcher [employer] EDKirsten Mixon, AUTOCAD-C AUTOCAD-Shira Calhoun ds1 Lam Richard ds4 Steve Blanchard, RN RN mg2 Curly Valenzuela RN RN rr5
--- NOTE | 2019-12-08 22:22 | EDPHYS ---
Physician Documentation [facility] Name: Ashley Reyes Age: 74 yrs Sex: Female : 1945 Arrival Date: 12/08/2019 Time: 21:05 Bed 3 Private MD: ED Physician Mykel Holder HPI: 12/07 22:07 This 74 yrs old Female presents to ER via Wheelchair with complaints of Back kb Pain. 22:08 The patient presents with pain that is acute, and an injury, and tenderness. The kb symptoms are located in the right trapezius, right scapular area and right subscapular area. Onset: The symptoms/episode began/occurred just prior to arrival. The pain radiates to the chest. Associated signs and symptoms: Pertinent positives: chest pain, Pertinent negatives: fever. The problem was sustained during a fall. Modifying factors: The patient symptoms are alleviated by nothing, the patient symptoms are aggravated by any movement. Severity of symptoms: At their worst the symptoms were moderate, in the emergency department the symptoms are unchanged. The patient has not experienced similar symptoms in the past. The patient has not recently seen a physician. Pt reports she was struggling with a water hose that was caught up on something. She pulled hard and fell backwards into a tree. c/o right back pain that radiates to chest. Historical: - Allergies: 21:28 Albuterol; rr5 21:28 Azithromycin; rr5 21:28 Cipro; rr5 21:28 NSAIDS; rr5 - Home Meds: 21:28 Calcium 600 + D(3) 600 mg calcium- 200 unit Oral tab daily [Active]; levothyroxine 150 rr5 mcg tab once daily [Active]; montelukast 10 mg Oral tab 1 tab once daily [Active]; Xarelto 20 mg Oral tab once daily [Active]; multivitamin Oral tab daily [Active]; Perdiem Oral nightly [Active]; Slow Fe Oral daily [Active]; Perdiem Oral 30 mg daily [Active]; topher probiotic [Active]; Xopenex Inhl [Active]; azelastine hcl [Active]; hyoscyamine sulfate 0.125 mg SL subl daily [Active]; Myrbetriq 50 mg Oral Tb24 1 tab once daily [Active]; Osphena 60 mg Oral tab 1 tab once daily [Active]; cranberry oral oral [Active]; mometasone 50 mcg/actuation nasal spry 2 sprays once daily [Active]; cetirizine oral oral [Active]; ipratropium bromide inhalation inhalation [Active]; amlodipine 5 mg tab [Active]; - PMHx: 21:28 Asthma; Atrial Fib; Hypothyroidism; rr5 - PSHx: 21:28 Tonsillectomy; laminectomy; ethmoidectomy; Carpal Tunnel Repair; Cholecystectomy; rr5 Lumpectomy; Knee surgery; fundoplication; nasopharygeal cyst removed; cataract; - Immunization history:: Adult Immunizations up to date. - Social history:: Smoking status: unknown Patient uses alcohol, occasionally. Patient/guardian denies using street drugs. ROS: 21:56 Constitutional: Negative for fever, chills, and weight loss, Neck: Negative for injury, kb pain, and swelling, Cardiovascular: Negative for chest pain, palpitations, and edema, Respiratory: Negative for shortness of breath, cough, wheezing, and pleuritic chest pain, Abdomen/GI: Negative for abdominal pain, nausea, vomiting, diarrhea, and constipation, : Negative for injury, bleeding, discharge, and swelling, MS/Extremity: Negative for injury and deformity, Skin: Negative for injury, rash, and discoloration, Neuro: Negative for headache, weakness, numbness, tingling, and seizure. 21:56 Back: Positive for pain at rest, pain with movement, of the right trapezius, right scapular area and right subscapular area. Exam: 21:55 Constitutional: This is a well developed, well nourished patient who is awake, alert, kb and in no acute distress. Head/Face: Normocephalic, atraumatic. Neck: Trachea midline, no thyromegaly or masses palpated, and no cervical lymphadenopathy. Supple, full range of motion without nuchal rigidity, or vertebral point tenderness. No Meningismus. Chest/axilla: Normal chest wall appearance and motion. Nontender with no deformity. No lesions are appreciated. Cardiovascular: Regular rate and rhythm with a normal S1 and S2. No gallops, murmurs, or rubs. Normal PMI, no JVD. No pulse deficits. Respiratory: Lungs have equal breath sounds bilaterally, clear to auscultation and percussion. No rales, rhonchi or wheezes noted. No increased work of breathing, no retractions or nasal flaring. Abdomen/GI: Soft, non-tender, with normal bowel sounds. No distension or tympany. No guarding or rebound. No evidence of tenderness throughout. Skin: Warm, dry with normal turgor. Normal color with no rashes, no lesions, and no evidence of cellulitis. MS/ Extremity: Pulses equal, no cyanosis. Neurovascular intact. Full, normal range of motion. Neuro: Awake and alert, GCS 15, oriented to person, place, time, and situation. Cranial nerves II-XII grossly intact. Motor strength 5/5 in all extremities. Sensory grossly intact. Cerebellar exam normal. Normal gait. 21:55 Back: pain, that is moderate, of the right scapular area and right subscapular area, ROM is painful, normal spinal alignment noted. Vital Signs: 21:10 BP 132 / 78; Pulse 108; Resp 19; Temp 98; Pulse Ox 95% ; Weight 99.34 kg; Height 5 ft. rr5 7 in. (170.18 cm); Pain 10/10; 22:25 BP 117 / 72; Pulse 88; Resp 22; Temp 98; Pulse Ox 100% on R/A; rr5 23:25 BP 133 / 92; Pulse 96; Resp 20; Pulse Ox 98% on 2 lpm NC; mg2 23:44 BP 127 / 83; Pulse 97; Resp 20; Temp 98.2; Pulse Ox 97% on 2 lpm NC; rr5 12/08 00:30 BP 142 / 90; Pulse 90; Resp 22; Temp 97.4; Pulse Ox 98% on 2 lpm NC; rr5 12/07 21:10 Body Mass Index 34.30 (99.34 kg, 170.18 cm) rr5 12/07 22:25 for chest tube insertion under mmoderate sedation. succedding V/S see sedation flow rr5 sheet. Procedures: 23:47 Chest tube insertion: the site was prepped using Betadine, in sterile fashion, Tube tw4 size: a 24 dominican chest tube was inserted, introduced in right lateral to wall suction, dressed with vaseline gauze, foam tape, 4x4s, the patient tolerated the procedure well. MDM: 21:08 Patient medically screened. 21:54 Data reviewed: vital signs, nurses notes. Data interpreted: Pulse oximetry: on room air kb is 95 %. Interpretation: normal. Counseling: I had a detailed discussion with the patient and/or guardian regarding: the historical points, exam findings, and any diagnostic results supporting the discharge/admit diagnosis, radiology results, the need for further work-up and treatment in the hospital. ED course: Pt educated on CT findings and need for a chest tube due to pneumothorax. Verbal understanding and consent received. Pt being prepped for conscious sedation and Dr Holder will place chest tube. 22:07 Physician consultation: Jonatan Venegas MD was contacted at 22:07, regarding admission, to the medical/surgical unit. patient's condition, and will see patient in inpatient room, would like consultation with Dr. Lenz. 23:47 Physician consultation: Roel Perez MD regarding consult, patient's condition, and will kb see patient in inpatient room, Dr Holder spoke with Dr Perez. 12/07 21:50 Order name: CBC with Diff; Complete Time: 23:41 kb 12/07 21:50 Order name: Basic Metabolic Panel; Complete Time: 22:34 kb 12/07 21:13 Order name: CT Chest Wo Con; Complete Time: 21:50 kb 12/07 22:24 Order name: Manual Differential; Complete Time: 23:41 EDMS 12/07 22:49 Order name: Chest Single View XRAY ar5 12/07 21:50 Order name: IV Start; Complete Time: 21:55 kb 12/07 22:13 Order name: Consent for Chest Tube; Complete Time: 22:55 kb 12/07 23:21 Order name: Moderate Sedation; Complete Time: 23:21 rr5 12/07 23:21 Order name: Chest Tube Setup; Complete Time: 23:21 rr5 Administered Medications: 21:16 Drug: Chloride (7.5 mg-325 mg) 1 tabs Route: PO; mg2 22:50 Follow up: Response: No adverse reaction; RASS: Alert and Calm (0) rr5 22:30 Drug: Propofol 40 mg Route: IVP; Site: left antecubital; rr5 23:50 Follow up: Response: No adverse reaction; RASS: Alert and Calm (0) rr5 22:35 Drug: Propofol 20 mg Route: IVP; Site: left antecubital; rr5 23:40 Follow up: Response: No adverse reaction; RASS: Alert and Calm (0) rr5 22:38 Drug: Propofol 40 mg Route: IVP; Site: left antecubital; rr5 23:45 Follow up: Response: No adverse reaction; RASS: Alert and Calm (0) rr5 22:38 Drug: Propofol 40 mg Route: IVP; Site: left antecubital; rr5 23:30 Follow up: Response: No adverse reaction; RASS: Alert and Calm (0) rr5 22:39 Drug: Propofol 40 mg {Note: for moderate sedation.} Route: IVP; Site: left antecubital; rr5 23:30 Follow up: Response: No adverse reaction; RASS: Alert and Calm (0) rr5 22:39 Drug: morphine 4 mg {Note: rass 2.} Route: IVP; Site: left antecubital; rr5 23:30 Follow up: Response: No adverse reaction rr5 23:30 Follow up: Response: RASS: Alert and Calm (0) rr5 22:44 Drug: morphine 4 mg {Note: rass 2.} Route: IVP; Site: left antecubital; rr5 23:40 Follow up: Response: No adverse reaction; RASS: Alert and Calm (0) rr5 23:09 Drug: fentaNYL (PF) 50 mcg Route: IVP; Site: left antecubital; mg2 12/08 00:00 Follow up: Response: No adverse reaction; RASS: Alert and Calm (0) rr5 Disposition: 06:49 Co-signature as Attending Physician, Mykel Holder MD I agree with the assessment and tw4 plan of care. Disposition: 12/08/19 22:21 Hospitalization ordered by Jonatan Venegas for Inpatient Admission. Preliminary diagnosis are Pneumothorax, unspecified, Fall on same level from slipping, tripping and stumbling, Fracture of one rib, right side. - Bed requested for Telemetry/MedSurg (Inpatient). - Status is Inpatient Admission. mg2 - Condition is Stable. - Problem is new. - Symptoms are unchanged. Signatures: Dispatcher [employer] EDKirsten Mixon, GARRETT-C [employer] SCIENTIST-Sharon Damon, RN RN tl1 Mykel Holder MD MD tw4 Steve Blanchard RN RN mg2 Curly Valenzuela, RN RN rr5 Corrections: (The following items were deleted from the chart) 12/07 22:49 22:21 Hospitalization Ordered by A Theo SOLIZ for Inpatient Admission. Preliminary tl1 diagnosis is Pneumothorax, unspecified; Fall on same level from slipping, tripping and stumbling; Fracture of one rib, right side. Bed requested for Telemetry/MedSurg (Inpatient). Status is Inpatient Admission. Condition is Stable. Problem is new. Symptoms are unchanged. kb 12/08 00:53 12/07 22:49 12/08/2019 22:21 Hospitalization Ordered by A Theo SOLIZ for Inpatient mg2 Admission. Preliminary diagnosis is Pneumothorax, unspecified; Fall on same level from slipping, tripping and stumbling; Fracture of one rib, right side. Bed requested for Telemetry/MedSurg (Inpatient). Status is Inpatient Admission. Condition is Stable. Problem is new. Symptoms are unchanged. tl1
[2019-12-08] MEDS ORDERED: MORPHINE 4 MG/ML SYR ONE ×2 (22:32→22:48)
[2019-12-08] MEDS ORDERED: ONDANSETRON 4 MG/2 ML VIAL ONE (22:32)
[2019-12-08 22:33] LABS: Potassium 3.9 mmol/L (3.5-5.1)
[2019-12-08] MEDS ORDERED: FENTANYL CITR 100 MCG/2 ML ONE (23:11)
[2019-12-08 23:32] LABS: Blood Morphology Comment NOT SEEN (NOT SEEN); Platelet Estimate ADEQ
[2019-12-08] MEDS ORDERED: ACETAMINOPHEN 500 MG TAB PO PRN (23:42)
[2019-12-09] MEDS: ONDANSETRON 4 MG/2 ML VIAL IV PRN ×2 (01:52→06:33)
[2019-12-09] MEDS: MORPHINE 4 MG/ML SYR IV PRN ×3 (01:53→10:24)
[2019-12-09 04:27] VITALS: BMI 33.3
[2019-12-09 05:59] LABS: Absolute Lymphocytes (CBC) 1.5 K/uL (0.7-4.9); Basophils % 0.4 % (0-1.3); Hematocrit 36.4 % (36.0-45.0); MPV 7.9 fL (7.6-11.3)
[2019-12-09 06:12] LABS: BUN Blood Urea Nitrogen 12 mg/dL (7-18); Bicarbonate 30 mmol/L (21-32); Glucose Level 128 mg/dL (74-106); Potassium 4.3 mmol/L (3.5-5.1); Sodium Level 141 mmol/L (136-145)
--- NOTE | 2019-12-09 07:33 | RAD REPORT ---
Previous. EXAM DESCRIPTION: RAD - Chest Single View - 12/08/2019 11:14 pm
[2019-12-09] MEDS ORDERED: HYOSCYAMINE SULF 0.125 MG TAB PO PRN (08:34)
[2019-12-09] MEDS: HOME MED 1 EA UNK (Mirabegron [Myrbetriq] 1 TAB) PO SCH (09:00)
[2019-12-09] MEDS: CETIRIZINE HCL 5 MG TABLET PO SCH (10:15)
[2019-12-09] MEDS: AMLODIPINE 5 MG TAB PO SCH (10:15)
[2019-12-09] MEDS: MONTELUKAST 10 MG TAB PO SCH (10:15)
[2019-12-09] MEDS ORDERED: ONDANSETRON 4 MG/2 ML VIAL IV PRN (10:15)
[2019-12-09] MEDS ORDERED: [UNRECOGNIZED DRUG - OTHER] PO SCH (10:30)
--- NOTE | 2019-12-09 11:04 | RAD REPORT ---
EXAM DESCRIPTION: KIMBERLYNSonyt Single View12/09/2019 10:38 am CLINICAL HISTORY: Chest pain COMPARISON: December 08, 2019 FINDINGS: A right chest tube remains in place without visualization of a pneumothorax. Mild right lung opacities have partially resolved.
[2019-12-09] MEDS: CRANBERRY FRUIT EXTRACT 200 MG CAP PO SCH (12:02)
[2019-12-09] MEDS: CODEINE 30MG/APAP 300MG TAB PO SCH ×3 (12:02→20:20)
[2019-12-09] MEDS: IPRATROPIUM BROM 0.5MG/2.5ML IH PRN (13:30)
[2019-12-09] MEDS: CEFAZOLIN/SWI 1gm 1 GM/10 ML SYR IVP SCH (16:58)
--- NOTE | 2019-12-09 18:41 | CON ---
Date of Consultation: 12/09/2019 Reason For Consultation: Pneumothorax. History Of Present Illness: The patient is a 74-year-old female, who fell and hit her right side of her chest and back and came to the emergency room complaining of pain on the right subscapular region . No loss of consciousness. No other pain in the neck or abdomen. Patient was struggling with the water hose and was caught up and she pulled hard and fell backwards into a tree. No sore throat, run ny nose, cough, headaches, dizziness, no chest pain. Review of Systems: Otherwise unremarkable. Past Medical History: As above, atrial fibrillation, and hypothyroidism. Patient is on Xarelto. Past Surgical History: Tonsillectomy, laminectomy, ethmoidectomy, carpal tunnel surgery, cholecystec susie, lumpectomy, knee surgery, fundoplication, nasopharyngeal cyst removed, cataract surgery. Allergies: INCLUDE ALBUTEROL, AZITHROMYCIN, CIPRO AND NSAIDS. Social History: Patient drinks occasionally. Does not smoke. Family History: Noncontributory. Physical Examination: Vital Signs: Stable. She is currently afebrile. General: She is awake, alert, and oriented x3. Head and Neck: No masses. Chest: Slightly diminished sounds on the right side. Otherwise unremarkable. Heart: S1 and S2. Abdomen: Soft, nondistended, nontender. Positive bowel sounds. Extremities: Neurovascularly intact. Neurological: Nonfocal. Laboratory Data: Reviewed. Slight elevation of the white count with slight left shift. Chemistry r eviewed. CT of the chest and chest x-ray done this morning reviewed. Essentially patient had a 50% pneumothorax. Dr. Cali placed a right chest tube with complete resolution of the pneumothorax and I was consulted basically to manage the chest tube. The chest x-ray done this morning does not show any residual pneumothorax. Assessment: Pneumothorax secondary to fall on the right side, status post chest tube placement. Recommendations: We will add IV antibiotics, incentive spirometry, oxygen as needed and will take th e chest tube off suction. Repeat chest x-ray tomorrow morning and should it be fine, we will remove the chest tube tomorrow. Plan of care discussed with the patient as well as Dr. Venegas. /MODL Voice ID: [id number] Report ID: [id number]
[2019-12-09] MEDS: DOCUSATE NA 100 MG CAP PO SCH (20:20)
[2019-12-09] MEDS: SLOW FE PO SCH (20:24)
--- NOTE | 2019-12-09 20:29 | HP ---
Date of Admission: 12/09/2019 Chief Complaint: Fall, hip pain, and shortness of breath. History Of Present Illness: This is a 74-year-old female patient, who was working in her yard and was pulling on water hose and at that time she lost her balance and fell backwards and as she fell backward she hit a trunk tree. She immediately started complaining of pain in her rib cage area and had some shortness of breath. Her neighbor was outside who came over and called some family members and the patient was assisted to go back in her house sitting in a walker seat. After she sat down for a while, she decided to take a shower and subsequently her came to house and then later on she was brought to the emergency room because of her pain and shortness of breath. Further evaluation revealed about 50% pneumothorax and rib fracture on the right side. Chest tube was placed in the emergency room and patient was admitted to hospital. Dr. Perez has evaluated her from General Surgery, who will be managing her chest tube. This morning, she denies any other complaints except pain in the right chest area because of the chest tube and when she moves or coughs she has more pain. She has no complaints of shortness of breath this morning when I saw her. Medications: List reviewed. Allergies: TO ALBUTEROL, CIPRO, AZITHROMYCIN. Review of Systems: Respiratory: As mentioned above. All other systems reviewed and negative. Family History: Significant for heart disease, hypertension, diabetes. Social History: Negative for smoking, alcohol use. Past Surgical History: Carpal tunnel release, knee replacement, fundoplication, cholecystectomy, ethmoidectomy, laminectomy, tonsillectomy. Past Medical History: Moderate persistent asthma, chronic gastritis, impaired fasting glucose, chronic constipation, abdominal wall hernia, sleep apnea, overactive bladder, paroxysmal atrial fibrillation on chronic anticoagulation therapy using Xarelto, gastroesophageal reflux disease, hypothyroidism, and allergic rhinitis. Physical Examination: Vital Signs: Temperature 96.8 this morning with pulse rate 93, respiratory rate 18, blood pressure 136/76, height 5 feet 7 inches, weight 212 pounds. General: Awake, alert, oriented, not in distress. HEENT: Head atraumatic, normocephalic. Conjunctivae nonerythematous. Sclerae white. Mouth, no thrush or edema noted. Ears/Nose, no mass, lesion, discharge noted. Neck: Supple. No JVD, lymph nodes, bruit, thyromegaly noted. Lungs: Bilateral good equal air entry. Clear to auscultation. No rhonchi. No rales. Heart: Normal heart sounds, no murmur or gallop. Abdomen: Abdominal wall hernia without any evidence of obstruction. No guarding, rigidity, tenderness, or distention. Bowel sounds are normoactive. Extremities: No leg edema. No calf tenderness. Skin: No rash, ulcer, cellulitis. Lymphatics: No lymph node enlargement in neck, supraclavicular, infraclavicular region. Neuro: No focal neurological deficit. Chest: Right chest has presence of chest tube, which is draining hemorrhagic- looking fluid that was noted in the tube. External Genitalia: Deferred. Rectal: Deferred. Laboratory Data: Yesterday white count 13.9, hemoglobin 13.4, platelets 331. This morning, white count 11.3, hemoglobin 11.9. Yesterday, sodium 141, potassium 3.9, chloride 105, bicarb 28, BUN 14, creatinine 0.83, glucose 147. Today, sodium 141, potassium 4.3, chloride 105, bicarb 30, BUN 12, creatinine 0.63, glucose 128. CAT scan of the chest shows about 50% right-sided pneumothorax primarily in anterior position with some atelectasis, no evidence of hemopneumothorax. No pleural effusion. There is prominent amount of subcutaneous emphysema along the lateral and posterior chest. Impression: 1. Pneumothorax, right-sided, traumatic. 2. Subcutaneous emphysema, secondary to trauma 3. Right-sided 8th rib fracture. 4. Moderate persistent asthma. 5. Obstructive sleep apnea. 6. Paroxysmal atrial fibrillation. 7. Chronic anticoagulation therapy. 8. Hypothyroidism. 9. Allergic rhinitis. 10. Gastroesophageal reflux disease. Plan: We will admit the patient to hospital for further evaluation and management of this problem. Patient is appropriate for inpatient and is expected to spend 2 midnights in hospital. Home medications will be continued per order. We will not give any anticoagulant medication at this point as risk of bleeding is higher than the benefit. SCD was ordered for DVT prophylaxis and patient was encouraged to move her lower extremities as instructed today. Pain medications will be continued per order. Details were discussed with Dr. Perez and he will make a decision about removal of the chest tube, which may happen tomorrow. We did talk about fall preventions and I will see her tomorrow for followup. LIZETT/MODL Voice ID: [id number] MTDD
[2019-12-09] MEDS ORDERED: AZELASTINE NAS SCH (21:00)
[2019-12-10] MEDS: MORPHINE 4 MG/ML SYR IV PRN ×2 (00:24→10:00)
[2019-12-10] MEDS: CEFAZOLIN/SWI 1gm 1 GM/10 ML SYR IVP SCH ×2 (00:24→09:00)
[2019-12-10] MEDS: LEVOTHYROXINE SOD 0.075 MG TAB PO SCH (05:27)
[2019-12-10 06:21] LABS: Albumin 2.9 g/dL (3.4-5.0); Bilirubin Total 0.3 mg/dL (0.2-1.0); Protein, Total 6.4 g/dL (6.4-8.2)
[2019-12-10 06:44] LABS: Absolute Lymphocytes (CBC) 1.7 K/uL (0.7-4.9); Basophils % 0.3 % (0-1.3); Hematocrit 34.1 % (36.0-45.0); MPV 7.9 fL (7.6-11.3); RBC Red Blood Cell Count 3.59 M/uL (3.86-4.86)
[2019-12-10] MEDS: CODEINE 30MG/APAP 300MG TAB PO SCH ×4 (09:00→23:15)
[2019-12-10] MEDS: HOME MED 1 EA UNK (Mirabegron [Myrbetriq] 1 TAB) PO SCH (09:00)
--- NOTE | 2019-12-10 09:39 | RAD REPORT ---
EXAM DESCRIPTION: Fletchert Single View12/10/2019 8:45 am CLINICAL HISTORY: Chest pain COMPARISON: December 08 FINDINGS: Right chest tube remains in place. A pneumothorax is not visualized. Mild right pulmonary opacities continue to improve
[2019-12-10] MEDS ORDERED: HYDROCODONE/APAP 7.5/325 MG TAB PO PRN (10:02)
[2019-12-10] MEDS: CRANBERRY FRUIT EXTRACT 200 MG CAP PO SCH (12:05)
[2019-12-10] MEDS: AMLODIPINE 5 MG TAB PO SCH (12:05)
[2019-12-10] MEDS: AMPICILLIN/SULBACT 3 GM in NA CHLORIDE 0.9% 100 ML IVPB SCH ×2 (12:05→17:38)
[2019-12-10] MEDS: CETIRIZINE HCL 5 MG TABLET PO SCH (12:05)
[2019-12-10] MEDS: MONTELUKAST 10 MG TAB PO SCH (12:05)
[2019-12-10] MEDS: IPRATROPIUM BROM 0.5MG/2.5ML IH PRN (14:20)
--- NOTE | 2019-12-10 14:51 | PN ---
Date of Progress Note: 12/10/2019 Subjective: Patient is awake, alert. No complaints, except for pain in the right chest. Objective: Vital Signs: Stable. Afebrile. Chest x-ray reviewed with the radiologist. No evidence of pneumothorax. Procedure: Under sterile condition the chest tube was removed and occlusive dressing placed and secu red. Patient tolerated procedure in stable condition. Assessment: Status post fall with a right pneumothorax and chest tube placement status post removal. Recommendations: We will check another x-ray in 6 hours to make sure she does not have any recurrenc e of the pneumothorax following which the patient will be cleared for discharge probably tomorrow wit h pain control and encourage incentive spirometry. Oxygen as needed. /MODL Voice ID: [id number] Report ID: [id number]
--- NOTE | 2019-12-10 16:33 | PN ---
Date of Progress Note: 12/10/2019 Subjective: Patient was seen this morning for followup she was sitting in the bed. Denied any compl aints. Her chest tube was removed by Dr. Perez this morning. She is not coughing up anything. No n ausea. No vomiting. Objective: Vital Signs: Reviewed. HEENT: Unremarkable. Lungs: Some rales noted in the right lower lung region. Not using any accessory muscles of respirat ion. Heart: Sounds normal. Abdomen: Soft. Bowel sounds normal. No guarding, rigidity, tenderness, or distention. Extremities: No leg edema. Laboratory Data: Chest x-ray shows some right lower lobe infiltrate, no pneumothorax. White count 8 .7, hemoglobin 11.3 platelets 277. Sodium 141, potassium 4, chloride 106, bicarb 28, BUN 11, creatin ine 0.65, glucose 118. Liver function tests unremarkable. Impression: 1.Traumatic pneumothorax, resolved. 2.Right 8th rib fracture, stable. 3.Pneumonia. 4.Asthma. Plan: Patient's asthma is stable. She had low-grade fever of 100.5 degrees Fahrenheit this morning. She is on cefazolin, I will discontinue that and start her on Unasyn. Dr. Perez has informed me th at he will do another chest x-ray around 4 p.m. today. If that x-ray comes back okay, then he will g etienne me okay to resume Xarelto. The patient takes Xarelto in the morning time, so we will resume her Xarelto tomorrow morning. Meanwhile, we will continue IV antibiotics per order, continue other medic ations. I will see her tomorrow. Possible discharge to go home tomorrow depending on her condition. Details were discussed with her. LIZETT/MODL Voice ID: [id number] Report ID: [id number]
--- NOTE | 2019-12-10 16:50 | RAD REPORT ---
EXAM DESCRIPTION: Fletchert Pa And Lat (2 Views)12/10/2019 4:38 pm CLINICAL HISTORY: Pneumothorax FINDINGS: The right chest tube has been removed. A small right apical pneumothorax is present. IMPRESSION: Small right apical pneumothorax
[2019-12-10] MEDS: SLOW FE PO SCH (21:00)
[2019-12-10] MEDS: DOCUSATE NA 100 MG CAP PO SCH (21:12)
[2019-12-11] MEDS: AMPICILLIN/SULBACT 3 GM in NA CHLORIDE 0.9% 100 ML IVPB SCH ×2 (01:17→08:23)
[2019-12-11] MEDS: LEVOTHYROXINE SOD 0.075 MG TAB PO SCH (06:03)
[2019-12-11] MEDS: AMLODIPINE 5 MG TAB PO SCH (08:18)
[2019-12-11] MEDS: CODEINE 30MG/APAP 300MG TAB PO SCH ×2 (08:18→12:58)
[2019-12-11] MEDS: MONTELUKAST 10 MG TAB PO SCH (08:18)
[2019-12-11] MEDS: CRANBERRY FRUIT EXTRACT 200 MG CAP PO SCH (08:18)
[2019-12-11] MEDS: CETIRIZINE HCL 5 MG TABLET PO SCH (08:18)
[2019-12-11] MEDS: HOME MED 1 EA UNK (Mirabegron [Myrbetriq] 1 TAB) PO SCH (08:19)
[2019-12-11 08:40] VITALS: O2SAT 96
--- NOTE | 2019-12-11 09:24 | RAD REPORT ---
EXAM DESCRIPTION: RAD - Chest Pa And Lat (2 Views) - 12/11/2019 9:10 am CLINICAL HISTORY: rule out pneumothorax COMPARISON: Two view chest December 09, CT chest November 06 TECHNIQUE: Frontal and lateral views of the chest were obtained. Frontal views were obtained in insp iration and expiration. FINDINGS: The lungs are slightly underinflated. Minimal right apical pneumothorax is present. Size o f the pneumothorax has decreased in the expiration view. On the lateral view no measurable component of anterior pneumothorax seen. Baseline chronic interstitial pattern again noted. Right base atelect asis is present. No pulmonary edema. Heart size is normal and central vasculature is within normal li mits. No pleural effusion or pneumothorax seen. No acute bony finding noted. No aortic abnormality . Subcutaneous emphysema has reduced. IMPRESSION: Minimal right apical pneumothorax is present. On expiration, size of the pneumothorax torres s decreased since December 09.
[2019-12-11 12:10] VITALS: BP 151/71; TEMP 97.4
--- NOTE | 2019-12-11 13:07 | PN ---
Date of Progress Note: 12/11/2019 Subjective: Patient had a chest x-ray after the chest tube was removed yesterday. She had a small a pical pneumothorax. The chest x-ray was repeated this morning and it showed slight improvement of th e pneumothorax. Objective: General: She is awake, alert, complaining of some pain, but otherwise no other complaint s. Vital Signs: Stable, afebrile. Chest: Clear. Heart: S1, S2. Assessment: Status post chest tube placement and removal. Recommendations: Patient cleared from Surgery standpoint for discharge. She needs to have appropria te pain medication and incentive spirometry. /MODL Voice ID: [id number] Report ID: [id number]
--- NOTE | 2019-12-11 18:57 | DS ---
Date of Discharge: 12/11/2019 Subjective: Patient was seen this morning for followup. She was sitting in the bed. Denied any com plaints except some pain and discomfort in the right chest wall area where she had chest tube which w as removed yesterday morning. Denies any shortness of breath. No hemoptysis. Physical Examination: Vital signs: Reviewed. HEENT: Unremarkable. Lungs: Clear to auscultation. No rales. No wheezing. Cardiac: Heart sounds normal. Abdomen: Soft, bowel sounds normal. No guarding, rigidity, tenderness, or distention. Extremities: No leg edema. Laboratory Data: Upon admission, white count was 13.9, hemoglobin 13.4, platelets 331 and this was o n 12/08/2019. Yesterday, white count 8.7, hemoglobin 11.3, platelets 277. Yesterday, chemistry show s sodium 141, potassium 4, chloride 106, bicarb 28, BUN 11, creatinine 0.65, glucose 118. Liver func tion tests unremarkable. Hospital Course: 74-year-old pleasant female patient who fell down at home and started complaining o f right-sided rib cage pain. Patient also started to have shortness of breath. Please see dictated H and P for more information. In the emergency room, she was diagnosed as having about 50% pneumotho rax on the right side associated with fracture of the right eighth rib. Chest tube was placed and th e patient was admitted to the hospital to medical floor. Medically, she was stable. Dr. Perez from General Surgery was consulted and the patient was given pain medication for pain control. Empiric an tibiotics were given, which was cefazolin and yesterday morning, I changed from cefazolin to Unasyn b ecause the patient has had low-grade fever between 99-100 degrees Fahrenheit and after we started her on Unasyn, she has not had any more fever. Yesterday morning, Dr. Perez removed her chest tube. Ye evening, chest x-ray had shown a small apical pneumothorax on the right side. This morning, repeat chest x-ray still shows small apical pneumothorax on the right side, but it is slightly better compared to yesterday evening. Patient is hemodynamically stable, does not have any shortness of br eath complaint. Oxygenation is normal. Her pain is well controlled with pain medications. Dr. Antionette dalton has released her to go home from his point of view. Medically, she is stable for discharge. Final Diagnoses: 1.Pneumothorax, right-sided, traumatic. 2.Subcutaneous emphysema secondary to trauma. 3.Right-sided eighth rib fracture. 4.Moderate persistent asthma. 5.Pneumonia. 6.Obstructive sleep apnea. 7.Paroxysmal atrial fibrillation. 8.Chronic anticoagulation therapy. 9.Hypothyroidism. 10.Allergic rhinitis. 11.Gastroesophageal reflux disease. Discharge Medications And Instructions: Continue all prior home medication including patient was adv ised to resume her 1.Xarelto, which was not given during this hospitalization. 2.Augmentin 875 mg twice a day with food for 1 week. 3.Tylenol with Codeine No. 3 one tablet p.o. q.6 hours p.r.n. for pain, prescription written for 30 tablets, no refill. 4.Patient to follow up at my office on 12/14/2019 and to get a chest x-ray done at hospital on 12/12. Patient will pick up operator order for chest x-ray from my office. She was instructed to return to [facility] emergency room if she has any problem with shortness of breath. LIZETT/MODL Voice ID: [id number] Report ID: [id number]
== END 2019-12-11 13:00 | disposition home or self-care (01) | DRG 166 ==
LOC: ER 21:03 → ERHOLD 22:14 → 2ND 23:57
PROVIDERS: ADMIT Internal Medicine; ATTEND Internal Medicine
PROC: 0W9940Z Drainage of Right Pleural Cavity with Drainage Device, Percutaneous Endoscopic Approach (ICD-10-PCS; principal; 2019-12-08)
DX: S27.0XXA Traumatic pneumothorax, initial encounter (principal); J18.9 Pneumonia, unspecified organism; S22.31XA Fracture of one rib, right side, initial encounter for closed fracture; T79.7XXA Traumatic subcutaneous emphysema, initial encounter; J45.40 Moderate persistent asthma, uncomplicated; G47.33 Obstructive sleep apnea (adult) (pediatric); I48.0 Paroxysmal atrial fibrillation; Z79.01 Long term (current) use of anticoagulants; E03.9 Hypothyroidism, unspecified; K21.9 Gastro-esophageal reflux disease without esophagitis; Z96.659 Presence of unspecified artificial knee joint; Z90.49 Acquired absence of other specified parts of digestive tract; K29.50 Unspecified chronic gastritis without bleeding; Z88.1 Allergy status to other antibiotic agents; Z88.8 Allergy status to other drugs, medicaments and biological substances; Z79.890 Hormone replacement therapy; Z79.899 Other long term (current) drug therapy; W01.0XXA Fall on same level from slipping, tripping and stumbling without subsequent striking against object, initial encounter
CPT/HCPCS: 36415; 71045; 71046; 71250; 80048; 80053; 85025; 94640; 96374; 96375; 99285; J0295; J0690; J2405; J2704; J3010; J7040

== ENCOUNTER 2019-12-12 10:45 | Emergency (ER) | payer OTHER ==
--- OUTSIDE RECORDS SUMMARY | 2019-12-12 11:02 | XMS REPORT ---
[...] Date Status Dos age Date Bactrim DS [facility] 60221127492 800-160 MG Orally January 13January 23, Active 1 tablet Twice a day 2017 2017 PredniSONE ND 59464097352 10 MG Orally then January 13January 23, Active 1 tablet QD x 5 days 2017 2017 BID x 5 days Results No Known Results Summary Purpose eClinicalWorks Submission
--- OUTSIDE RECORDS SUMMARY | 2019-12-12 11:02 | XMS REPORT ---
[...] End Status Dosage System Date Date Mometasone [facility] 56883559145 50 MCG/ACT December 16, Active 2 spra ys Furoate Nasally Once a 2018 in each day nostril Results No Known Results Summary Purpose eClinicalWorks Submission
--- OUTSIDE RECORDS SUMMARY | 2019-12-12 11:02 | XMS REPORT ---
:1945 Author Organization [facility] t Address [address] [place] [address] Dr. Arreola [address] [place] [address] Care Team Providers Name Role Phone Mata [...] Clinicians Facility Department ID 2018-10-15 2018-10-15 [facility]patient [facility] [id number] 09:41:00 09:41:00 [facility] 2018-08-30 2018-08-30 [facility]patient [facility] [id number] 15:20:00 15:20:00 [facility] 2018-08-25 2018-08-25 Outpatient [facility] [id number] 10:49:00 10:49:00 [facility] for [facility] 2018-08-11 2018-08-11 Outpatient [facility] [id number] 14:20:00 14:20:00 Center [...] The The Center [id number] 10:40:00 10:40:00 [facility] 2018-01-13 2018-01-13 Outpatient [facility] [id number] 14:39:00 14:39:00 [facility] 2017-12-16 2017-12-16 Outpatient [facility] [id number] 09:32:00 09:32:00 [facility] Results Test Description Test Time Test Comments Text Results Atomic Results Result Comments CYTOLOGY 2018-07-02 Medical Cytology Report 17:16:00 Case: [id number] Authorizing Provider: Tam Sosa MD Collected : 06/30/2018 1600 Ordering Location: [facility] Main Receive d: 07/01/2018 3283 Pathologist: Catherine Joe MD Specimen: Lymph Node, Cer vical LEFT NECK LYMPH NODE, FNA BY RADIOLOGIST (GER) (DIREC T SMEARS, CYTOSPINS, CELL BLOC K OF ASPIRATE): - NO METASTATIC CARCINOMA, GRANULOMATA IDENT IFIED - LYMPHOID TISSUE PRESENT Signing Pathologist Direct P anabelle Line: [phone] ally signed by Catherine Joe MD on 07/02/2018 at 5:16 PMPlease also see cytopathology report [id number](1.3 x 0.8 x 0.9 cm) le ft neck lymph node; reported to ngue cancer, enlarged neck lymph nodesLEFT NECK LYMPH NODE FNAPrepared 4 cytospins from 30 ml cytorich red fixaitve [facility] nilesh: [id number]: [id number].[facility], Department o f Pathology, [address] [place] [address], [facility], Department o f [facility], [address] [place] [address], [facility], Department o f [facility], [address] [facility], [place] [address], CYTOLOGY 2018-07-02 Medical Cytology Report 13:16:00 Case: [id number] Authorizing Provider: Tam Sosa MD Collected : 06/30/2018 1600 Ordering Location: [facility] Main Receive d: 07/01/2018 1259 Pathologist: Vesna Moulton MD Specimen: Lymph Node, Cer vical, right neck node (1.5 x 0.5 x 1.4 cm) RIGHT NECK LYMPH NODE, FNA B Y RADIOLOGIST (CYTOSPINS): - NEGATIVE FOR MALIGNANCY - LYMPHOID/LYMPH NODE TISSUE PRESENT Signing Patholo gist Direct Phone Line: [phone] s igned by Vesna Novak MD o n 07/02/2018 at 1:16 PMPlease also see cytopathology report [id number]. 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 No metastatic tumo r is [facility], Department of [facility] o[facility], [address] [place] [address], [facility], Depar tment of Pathology, [address] [place] [address], [facility], Department o f Pathology, [address] [place] [address], U/S, 2018-06-30 Reason for FINAL REPORT PATIENT ID: ASPIRATION/INJECT 16:08:00 Exam:->R59.0, [id number] INDICATION: [age]-year-old ION C02.4 RIGHT female [...] MDReport Verified Date/Time: 06/30/2018 16:08:29 Reading Location: [facility] P006J Ultra sound Reading Room U/S, 2018-06-30 Reason for FINAL REPORT PATIENT ID: ASPIRATION/INJECT 16:08:00 Exam:->R59.0, [id number] INDICATION: [age]-year-old ION C02.4 RIGHT female [...] Verified Date/Time: 06/30/2018 16:08 :56 Reading Location: [facility] B1 P00 6J Ultrasound Reading Room UE EXAM 2018-06-25 Surgical Pathology Report 16:56:00 Case: [id number] Authorizing Provider: Tam Sosa MD Collected : 06/18/2018 0824 Ordering Location: [facility] PERIOPERATIVE Received: 06/18/2018 1149 SERVICES Pathol ogist: Sushila Mejia MD Specimen: Tongue, base tongue BASE OF THE T ONGUE, LARYNGOSCOPY WITH BIOPSY: - LINGUAL TONSILS WITH REACTIV E FOLLICULAR HYPERPLASIA - SQ UAMOUS MUCOSA WITH ACUTE INFLAMMATI ON WITH ATYPIA - METAPLASTIC CARTILAGE AND DILATED LYMPHA TICS - NEGATIVE FOR DYSPLASIA OR MALIGNANCY Signing Pathologist Direct Phone Leesa e: [phone] s igned by Sushila Mejia MD on [...] been discussed with Dr. Velazco. 8 8305; 11051; 70919 X 6Nasal obstructionBase of tongue bi opsy Received in formalin labeled "tongue", description "base of tongue" is a 3.0 x 2.0 x 0.3 cm aggregate of pink-lara to mejia-white rubbery soft tiss ue. Specimen is entirely submitt ed in A1. DB/bc PERFORMEDThe interpretation of this case included the use of immunohistochemistry or spec ial stains. D2-40; CD34; CD3; CD 20 CD45; Ki-67; Cyclin-E6Uvyalehfdjkmljzuurr y technical testing was perfor med at [facility], Pathology Laboratory where i t [...] performanc e characteristics determined jimenez lopes [facility], Pathology Laboratory. It has not been cleared [...] = 355) 29 meq/L 22-29 BUN AND [id number] 18:46:00 Test Item Value Reference Range Comments BLOOD UREA NITROGEN 13 mg/dL 7-21 (BEAKER) (test code = 354) CREATININE (BEAKER) (test 0.74 mg/dL 0.57-1.25 code = 358) EGFR (BEAKER) (test code 78 mL/min/1.73 sq m EST IMATED GFR IS NOT = 1092) ACCURATE CREA TININE CLEARANCE IN PRE DICTING GLOMERULAR FILTR ATION RATE. ESTIMATED GFR IS NOT APPLICABLE F OR DIALYSIS PATIENT S. [id number] 18:18:00 Test Item Value Reference Range Comments HEMOGLOBIN (BEAKER) (test code = 410) 12.9 GM/DL 11.2-15.7 TISSUE [id number] 11:51:00Surgical Pathology Report Case: [id number] Authorizing Provider: Tam Velazco MD Collected: 05/01/2017 1506 Ordering Location: [facility] MAIN ADMITTING Received: 05/04/2017 153 Pathologist: Marine Hawthorne MD Specimen: Nasopharynx/Oropharynx NASOPHARYNX/OROPHARYNX, BIOPSY: - FOLLICULAR LYMPHOID HYPERPLASIA - NEGATIVE FOR MALIGNANCY CC/pl Signing Pathologist Direct Phone Line: [phone] signed by Marine Hawthorne MD on 05/07/2017 at 11:51 [id number] neoplasm benignNasopharynx tissueThe specimen is received in [...]
--- OUTSIDE RECORDS SUMMARY | 2019-12-12 11:03 | XMS REPORT ---
[...] Betamethasone NDC 0 Active not defined Myrbetriq [facility] [address]-72 Active not defined Cyclobenzaprine HCl NDC 0 Active not defined Mometasone Furoate [facility] 83284738446 50 MCG/ACT December 16, Active 2 sprays Nasally Once a 2018 in each day nostril Bevespi NDC 0 Active not defined Xarelto [facility] [address]-05 Active not defined Iron [facility] [address]-34 Active not defined Qvar [facility] [address]-86 Active not defined Sulfamethoxazole NDC 0 Active not defined Vitamin B-12 [facility] 17316-10279 Active not defined Nasacort NDC 0 Active not defined Levothyroxine [facility] [address]-36 Active not Sodium defined Pearls IC [facility] 747[address]45 Active not defined Xopenex HFA [facility] [address]-38 Active not defined Gabapentin [facility] 34015471400 100 MG Orally Jun 24, Active 1 c apsule Three times a 2017 day Prevacid [facility] [address]-06 Active not defined Olanzapine [facility] [address]-64 Active not defined Perdiem Overnight [facility] [address]-75 Active not Relief defined Calcium [facility] [address]-35 Active not defined PredniSONE [facility] 82422392042 10 MG Orally Apr 08Mar Active 1 ta blet Twice daily x 2017 27, 2 days then 2018 Once a day x 2 days Olopatadine HCl [facility] [address]-17 Active no t defined Multivitamin [facility] 16290-31113 Active not defined Results No Known Results Summary Purpose eClinicalWorks Submission
--- OUTSIDE RECORDS SUMMARY | 2019-12-12 11:03 | XMS REPORT ---
:1945 Author [facility] Team Providers Name Role [...] Date Calcium [facility] [address]-69 Active not defined Multivitamin [facility] 74715-12653 Active not defined Xarelto [facility] [address]-27 Active not defined Levothyroxine [facility] [address]-92 Active not Sodium defined Montelukast [facility] [address]-14 Active not Sodium defined Bevespi ND 0 Active not defined Fiber ND 0 Active not defined Loratadine [facility] [address]-29 Active not defined Iron [facility] [address]-60 Active not defined Augmentin [facility] 74998489462 875-125 MG May 05Apr Active 1 tabl et Orally every 2017 26, hrs 2018 Perdiem [facility] [address]-08 Active not Overnight Relief defined Osphena [facility] [address]-74 Active not defined Mometasone [facility] 95782265828 50 MCG/ACT December 16, Active 2 spra ys Furoate Nasally Once a 2018 in each day nostril Medrol (Sonido) [facility] 04863111298 4 MG Orally May 04Apr Active as 2017 Stool Softener [facility] [address]-79 Active not defined Cranberry [facility] 87584-13936 Active not defined Qvar [facility] [address]-16 Active not defined Myrbetriq [facility] [address]-99 Active not defined Valerian Root [facility] 44249-78336 Active not defined Gabapentin [facility] 98373193478 100 MG Orally Jun 24, Active 1 c apsule Three times a 2016 day Mucinex [facility] [address]-77 Active not defined Pearls IC [facility] 67355-52807 Active not defined Olopatadine HCl [facility] [address]-86 Active no t defined Lansoprazole [facility] 0 Active not defined Results No Known Results Summary Purpose eClinicalWorks Submission
--- OUTSIDE RECORDS SUMMARY | 2019-12-12 11:03 | XMS REPORT ---
[...] End Date Status Dos age Date Medrol ([facility]) [facility] 64844669075 4 MG Orally May 04, May 10, Active a s directed 2017 2017 Results No Known Results Summary Purpose eClinicalWorks Submission
--- OUTSIDE RECORDS SUMMARY | 2019-12-12 11:03 | XMS REPORT ---
[...] Status Dosage System Date Date Bactrim DS [facility] 28843301702 800-160 MG Apr 16Apr Active 1 tabl et Orally Twice a 2017 Medrol (Sonido) [facility] 76865995806 4 MG Orally Apr 16Apr Active as directed 2017 Results No Known Results Summary Purpose eClinicalWorks Submission
--- OUTSIDE RECORDS SUMMARY | 2019-12-12 11:04 | XMS REPORT ---
[...] End Status Dosage System Date Date Loratadine [facility] [address]-53 Active not defined Iron [facility] [address]-68 Active not defined Perdiem [facility] [address]-29 Active not Overnight Relief defined Calcium [facility] [address]-21 Active not defined Multivitamin [facility] 84[address]-38765 Active not defined Montelukast [facility] [address]-76 Active not Sodium defined Augmentin [facility] 68952681388 875-125 MG May 24, Jun 03, Active 1 table t Orally every 12 2017 2018 hrs Valerian Root [facility] [address]95 Active not defined Gabapentin [facility] 34118215021 100 MG Orally Jun 24, Active 1 c apsule Three times a 2017 [address] Cranberry [facility] 42965-[address]72 Active not defined Levothyroxine [facility] [address]-24 Active not Sodium defined Mucinex [facility] [address]-82 Active not defined Lansoprazole NDC 0 Active not defined Qvar [facility] [address]-09 Active not defined Olopatadine HCl [facility] [address]-36 Active no t defined Mometasone [facility] 91719850402 50 MCG/ACT December 16, Active 2 spra ys Furoate Nasally Once a 2018 in each day nostril Fiber NDC 0 Active not defined Bevespi ND 0 Active not defined Osphena [facility] [address]-48 Active not defined Xarelto [facility] [address]-32 Active not defined Stool Softener [facility] [address]-11 Active not defined Pearls IC [facility] 07[address]78 Active not defined Myrbetriq [facility] [address]-88 Active not defined Results No Known Results Summary Purpose eClinicalWorks Submission
--- OUTSIDE RECORDS SUMMARY | 2019-12-12 11:04 | XMS REPORT ---
[...] Status Dosage System Date Date Valerian Root [facility] [address]16 Active not defined Loratadine [facility] [address]-33 Active not defined Montelukast [facility] [address]-67 Active not Sodium defined Lansoprazole NDC 0 Active not defined Qvar NDC 0 Active not defined Olopatadine HCl [facility] [address]-09 Active no t defined Oxycodone HCl [facility] 27588300353 5 MG/5ML Orally Jun 14, Jun 22, Active 10 ml as every 6 hrs 2017 2017 needed Fiber NDC 0 Active not defined Osphena [facility] [address]-43 Active not defined Perdiem [facility] [address]-35 Active not Overnight Relief defined Levothyroxine [facility] [address]-36 Active not Sodium defined Xarelto [facility] [address]-89 Active not defined Hyoscyamine NDC 0 Active not defined Cephalexin [facility] [address]-37 Active not defined Mometasone [facility] 74752519208 50 MCG/ACT December 16, Active 2 spra ys Furoate Nasally Once a 2018 in each day nostril Gabapentin [facility] 77581274685 100 MG Orally Jun 24, Active 1 c apsule Three times a 2016 day PredniSONE [facility] 28573728866 10 MG Orally 2 Jun 14, Jun 21, Active 1 tablet times a day 2017 2017 Zipsor [facility] 40065467421 25 MG Orally Jun 14, Jul 04, Active 1 capsu le Four times a 2017 2017 with food day or milk as needed Stool Softener [facility] [address]-66 Active not defined Cranberry [facility] 34055-95406 Active not defined Pearls IC [facility] 68639-85912 Active not defined Multivitamin [facility] 34908-52170 Active not defined Mucinex [facility] [address]-17 Active not defined Myrbetriq [facility] [address]-81 Active not defined Calcium [facility] [address]-26 Active not defined Iron [facility] [address]-47 Active not defined Bevespi [facility] 0 Active not defined Results No Known Results Summary Purpose eClinicalWorks Submission
--- OUTSIDE RECORDS SUMMARY | 2019-12-12 11:05 | XMS REPORT ---
[...] Date Status Dos age Date Bactrim DS [facility] 74042681432 800-160 MG Orally October 15, October 25, Act etienne 1 tablet Twice a day 2018 2018 Results No Known Results Summary Purpose eClinicalWorks Submission
--- OUTSIDE RECORDS SUMMARY | 2019-12-12 11:05 | XMS REPORT ---
[...] Status Dosage System Date Date Iron [facility] [address]-74 Active not defined Fiber NDC 0 Active not defined Cranberry [facility] 73746-37584 Active not defined Loratadine [facility] [address]-10 Active not defined Olopatadine HCl [facility] [address]-63 Active no t defined Osphena [facility] [address]-51 Active not defined Bactrim DS (14 [facility] 87130535271 800-160 MG Aug 11, Aug 31, Active 1 tablet days) Orally Twice a 2017 2018 day Perdiem [facility] [address]-34 Active not Overnight Relief defined Stool Softener [facility] [address]-32 Active not defined Multivitamin [facility] 96[address]454 Active not defined Qvar NDC 0 Active not defined Myrbetriq [facility] [address]-95 Active not defined Mucinex [facility] [address]-89 Active not defined Montelukast [facility] [address]-00 Active not Sodium defined Gabapentin [facility] 04792364794 100 MG Orally Jun 24, Active 1 c apsule Three times a 2016 day Mometasone [facility] 62808424263 50 MCG/ACT December 16, Active 2 spra ys Furoate Nasally Once a 2018 in each day nostril Cephalexin [facility] [address]-96 Active not defined Lansoprazole NDC 0 Active not defined Valerian Root [facility] 24433-64755 Active not defined Xarelto [facility] [address]-25 Active not defined Calcium [facility] [address]-82 Active not defined Bevespi NDC 0 Active not defined Levothyroxine [facility] [address]-25 Active not Sodium defined Pearls IC [facility] 33540-15857 Active not defined Hyoscyamine ND 0 Active not defined Results No Known Results Summary Purpose eClinicalWorks Submission
--- OUTSIDE RECORDS SUMMARY | 2019-12-12 11:05 | XMS REPORT ---
[...] Start Date End Date Status Dosage PredniSONE [facility] 87956389824 10 MG Orally BID Jul 07Jul 17, Active 1 tablet for 5 days then 2017 2017 QD for 5 days Augmentin [facility] 78444075478 875-125 MG Orally Jul 07Jul 17, Active 1 tablet every 12 hrs 2017 2017 Results No Known Results Summary Purpose eClinicalWorks Submission
--- OUTSIDE RECORDS SUMMARY | 2019-12-12 11:05 | XMS REPORT ---
[...] Status Dosage System Date Date Stool Softener [facility] [address]-92 Active not defined Cranberry [facility] 37457-49672 Active not defined Mucinex [facility] [address]-84 Active not defined Bactrim DS (14 [facility] 71013692796 800-160 MG Aug 11, Aug 31, Active 1 tablet days) Orally Twice a 2017 2018 day Multivitamin [facility] 37701-97164 Active not defined Bevespi NDC 0 Active not defined Myrbetriq [facility] [address]-96 Active not defined Lansoprazole NDC 0 Active not defined Hyoscyamine NDC 0 Active not defined Loratadine [facility] [address]-72 Active not defined Perdiem [facility] [address]-56 Active not Overnight Relief defined Iron [facility] [address]-08 Active not defined Xarelto [facility] [address]-85 Active not defined Levothyroxine [facility] [address]-02 Active not Sodium defined Montelukast [facility] [address]-31 Active not Sodium defined Osphena [facility] [address]-77 Active not defined Qvar NDC 0 Active not defined Olopatadine HCl [facility] [address]-23 Active no t defined Cephalexin [facility] [address]-85 Active not defined Valerian Root [facility] 40532-[address]61 Active not defined Gabapentin [facility] 53539062129 100 MG Orally Jun 24, Active 1 c apsule Three times a 2016 day Calcium [facility] [address]-59 Active not defined Fiber NDC 0 Active not defined Mometasone [facility] 37074276103 50 MCG/ACT December 16, Active 2 spra ys Furoate Nasally Once a 2017 in each day nostril Pearls IC [facility] 88715-07008 Active not defined Results No Known Results Summary Purpose eClinicalWorks Submission
--- OUTSIDE RECORDS SUMMARY | 2019-12-12 11:05 | XMS REPORT ---
[...] End Status Dosage System Date Date Mucinex [facility] [address]-10 Active not defined Osphena [facility] [address]-80 Active not defined Olopatadine HCl [facility] [address]-51 Active no t defined Qvar NDC 0 Active not defined Fiber NDC 0 Active not defined Xarelto [facility] [address]-83 Active not defined Pearls IC [facility] 57034-36984 Active not defined Hyoscyamine NDC 0 Active not defined Bevespi NDC 0 Active not defined Cranberry [facility] 06584-65519 Active not defined Mometasone [facility] 69967173310 50 MCG/ACT December 16, Active 2 spra ys Furoate Nasally Once a 2017 in each day nostril Gabapentin [facility] 23173929138 100 MG Orally Jun 24, Active 1 c apsule Three times a 2017 day Multivitamin [facility] 47170-46408 Active not defined Calcium [facility] [address]-07 Active not defined Cephalexin [facility] [address]-76 Active not defined Zipsor [facility] 90071017077 25 MG Orally Jun 14, Jul 04, Active 1 capsu le Four times a 2017 2017 with food day or milk as needed Iron [facility] [address]-70 Active not defined Myrbetriq [facility] [address]-33 Active not defined Levothyroxine [facility] [address]-64 Active not Sodium defined Lansoprazole [facility] 0 Active not defined Stool Softener [facility] [address]-25 Active not defined Valerian Root [facility] 76[address]-21260 Active not defined Montelukast [facility] [address]-93 Active not Sodium defined Loratadine [facility] [address]-11 Active not defined Perdiem [facility] [address]-84 Active not Overnight Relief defined Results No Known Results Summary Purpose eClinicalWorks Submission
[2019-12-12] MEDS ORDERED: MORPHINE 4 MG/ML SYR ONE (11:36)
[2019-12-12] MEDS ORDERED: ONDANSETRON 4 MG/2 ML VIAL ONE (11:36)
[2019-12-12 11:38] LABS: Absolute Lymphocytes (CBC) 1.4 K/uL (0.7-4.9); Basophils % 0.4 % (0-1.3); Hematocrit 35.7 % (36.0-45.0); MPV 7.9 fL (7.6-11.3); RBC Red Blood Cell Count 3.84 M/uL (3.86-4.86)
[2019-12-12 11:49] LABS: BUN Blood Urea Nitrogen 10 mg/dL (7-18); Bicarbonate 30 mmol/L (21-32); Glucose Level 128 mg/dL (74-106); Potassium 3.8 mmol/L (3.5-5.1); Sodium Level 142 mmol/L (136-145)
--- NOTE | 2019-12-12 12:15 | RAD REPORT ---
EXAM DESCRIPTION: Sebastian Single View12/12/2019 11:18 am CLINICAL HISTORY: Chest pain COMPARISON: December 11, 2019 FINDINGS: Small right pleural effusion with right basilar atelectasis Mildly displaced fractures involve several mid right ribs A pneumothorax is not visualized on this examination.
--- NOTE | 2019-12-12 12:26 | RAD REPORT ---
EXAM DESCRIPTION: CT - Chest For Pe Angio - 12/12/2019 11:40 am CLINICAL HISTORY: Chest pain COMPARISON: December 08, 2019 CT TECHNIQUE: Dynamically enhanced axial 3 mm thick images of the chest were obtained during administra tion of <100> mL Isovue 370 IV contrast. Coronal and oblique reconstruction images were generated and reviewed. Exam utilizes a protocol for optimal evaluation of pulmonary arterial tree. Maximum intensity projections 3D imaging was utilized All CT scans are performed using dose optimization technique as appropriate and may include automated exposure control or mA/KV adjustment according to patient size. FINDINGS: A pulmonary embolus is not seen. A thoracic aortic aneurysm is not noted. Mildly to moderately displaced fractures involve the right posterior sixth, seventh and eighth ribs. Small right pleural effusion. Right lower lobe atelectasis Tiny right pneumothorax Right subcutaneous emphysema has diminished. Development of a 5 centimeter hematoma along the right lateral chest wall IMPRESSION: Negative for a pulmonary embolism. Mildly to moderately displaced fractures involve the right posterior sixth, seventh and eighth ribs Tiny right pneumothorax 5 centimeter hematoma along the right lateral chest wall
--- NOTE | 2019-12-12 12:45 | ER ---
Nurse's Notes [facility] Name: Ashley Reyes Age: 74 yrs Sex: Female : 1945 Arrival Date: 12/12/2019 Time: 10:46 Bed 20 Private MD: Diagnosis: Pneumothorax, unspecified-Resolving;Pleural effusion, not elsewhere classified;Chest wall hematoma Presentation: 12/11 10:57 Chief complaint: Patient states: "I was just discharged from the hospital yesterday, I aa5 had a tear in my right lung with a chest tube but they thought it would heal, I also had cracked ribs". pt states "I coughed and when I went to get up my lung started hurting as bad as it did when I fell the first time", pt denies fall today. Reports SOB, chronic cough, and pain to right side of chest. 10:57 Risk Assessment: Do you want to hurt yourself or someone else? Patient reports no aa5 desire to harm self or others. Onset of symptoms was November 2019. 10:57 Acuity: ARLINE 2 aa5 10:57 Method Of Arrival: Ambulatory aa5 10:57 Coronavirus screen: Patient reports a cough. Patient reports shortness of breath or aa5 difficulty breathing. Patient denies measured and/or subjective temperature greater than 100.4F prior to today's visit. Patient denies travel on a cruise ship or to a country the [facility] currently lists as an affected area. Patient denies contact with known and/or suspected case of COVID-19. Pt reports chronic cough that is baseline and reports SOB from possible Pneumothorax. 10:57 Ebola Screen: Patient negative for fever greater than or equal to 101.5 degrees aa5 Fahrenheit, and additional compatible Ebola Virus Disease symptoms. 12:51 Initial Sepsis Screen: Does the patient meet any 2 criteria? No. Patient's initial bp sepsis screen is negative. Does the patient have a suspected source of infection? No. Patient's initial sepsis screen is negative. Triage Assessment: 12:00 General: Appears in no apparent distress. obese, Behavior is cooperative, appropriate bp for age, anxious. Respiratory: Reports shortness of breath Onset: The symptoms/episode began/occurred at an unknown time. the patient has mild shortness of breath. Historical: - Allergies: 10:57 Albuterol; aa5 10:57 Azithromycin; aa5 10:57 Cipro; aa5 10:57 NSAIDS; aa5 - PMHx: 10:57 Asthma; Atrial Fib; Hypothyroidism; aa5 - PSHx: 10:57 Tonsillectomy; laminectomy; ethmoidectomy; Carpal Tunnel Repair; Cholecystectomy; Knee aa5 surgery; Lumpectomy; fundoplication; nasopharygeal cyst removed; cataract; - Immunization history:: Adult Immunizations up to date. - Family history:: not pertinent. - Social history:: Smoking status: Patient denies any tobacco usage or history of. - Hospitalizations: : The patient was recently seen at [facility]. Screenin:38 Abuse screen: Denies threats or abuse. Denies injuries from another. Nutritional iw screening: No deficits noted. Tuberculosis screening: No symptoms or risk factors identified. Fall Risk IV access (20 points). Assessment: 11:37 Pain: Complains of pain in anterior aspect of right upper chest, right lateral iw posterior chest, right lateral anterior chest and right breast Pain currently is 8 out of 10 on a pain scale. Neuro: Level of Consciousness is awake, alert, obeys commands, Oriented to person, place, time, situation, Moves all extremities. Full function. Cardiovascular: Rhythm is regular. Respiratory: Airway is patent Respiratory effort is even, labored, Respiratory pattern is regular, Breath sounds are diminished in right upper lobe and right middle lobe. GI: Abdomen is non-distended. 12:01 Reassessment: Patient appears in no apparent distress at this time. Patient and/or iw family updated on plan of care and expected duration. Pain level reassessed. Patient is alert, oriented x 3, equal unlabored respirations, skin warm/dry/pink. 12:05 Reassessment: RECD REPORT FROM CECILIA SALINAS. 74YO WF P/W SOB AND RIB PAIN 2/2 KNOWN RIB FX. bp 12:48 Reassessment: PT D/C HOME AMBULATORY, DX WITH RESOLVING PNEUMOTHORAX. bp Vital Signs: 11:35 BP 138 / 76; Pulse 82; Resp 16; Temp 98.0; Pulse Ox 98% on R/A; iw 12:07 BP 122 / 74; Pulse 78; Resp 15; Pulse Ox 98% ; bp 12:48 BP 125 / 69; Pulse 76; Resp 16; Temp 98; Pulse Ox 97% ; bp ED Course: 10:46 Patient arrived in ED. as 10:46 Eliceo Jaimes MD is Attending Physician. rn 10:57 Arm band placed on Patient placed in an exam room, on a stretcher. aa5 11:05 Triage completed. aa5 11:17 Cecilia Pate RN is Primary Nurse. iw 11:20 XRAY Chest (1 view) In Process Unspecified. EDMS 11:25 Inserted saline lock: 20 gauge in right antecubital area, using aseptic technique. iw 11:41 CT Chest For PE Angio In Process Unspecified. EDMS 12:05 Primary Nurse role handed off by Cecilia Pate RN bp 12:05 Dusty Solis, RITA is Primary Nurse. bp 12:43 Jonatan Venegas MD is Referral Physician. rn 12:48 Patient has correct armband on for positive identification. Bed in low position. Call bp light in reach. Side rails up X2. 12:48 No provider procedures requiring assistance completed. IV discontinued, intact, bp bleeding controlled, No redness/swelling at site. Pressure dressing applied. Administered Medications: 11:34 Drug: morphine 2 mg Route: IVP; Site: right antecubital; iw 12:51 Follow up: Response: Pain is decreased bp 11:34 Drug: morphine 2 mg Route: IVP; Site: right antecubital; iw 11:34 Drug: Zofran (Ondansetron) 4 mg Route: IVP; Site: right antecubital; iw 12:51 Follow up: Response: Nausea is decreased bp Outcome: 12:44 Discharge ordered by MD. rn 12:48 Discharged to home ambulatory. bp 12:48 Condition: stable 12:48 Discharge instructions given to patient, Instructed on discharge instructions, follow up and referral plans. Demonstrated understanding of instructions, follow-up care. 12:57 Patient left the ED. bp Signatures: Dispatcher [employer] EDMS Bethanie Becerra as Cecilia Pate RN RN iw Eliceo Jaimes MD MD rn Calderon, Audri, RN RN aa Dusty Solis RN RN bp Corrections: (The following items were deleted from the chart) 12:10 12:07 Pulse 78bpm; Resp 15bpm; Pulse Ox 98%; bp bp
--- NOTE | 2019-12-12 12:45 | EDPHYS ---
Physician Documentation [facility] Name: Ashley Reyes Age: 74 yrs Sex: Female : 1945 Arrival Date: 12/12/2019 Time: 10:46 Bed 20 Private MD: ED Physician Eliceo Jaimes HPI: 12/11 11:20 This 74 yrs old Female presents to ER via Ambulatory with complaints of rn Shortness Of Breath, chest pain. 11:20 The patient has shortness of breath at rest. Onset: The symptoms/episode began/occurred rn last night. Duration: The symptoms are continuous. The patient's shortness of breath is aggravated by light activity, supine position. Associated signs and symptoms: Pertinent positives: chest pain, non-productive cough, Pertinent negatives: fever, hemoptysis. Severity of symptoms: At their worst the symptoms were moderate in the emergency department the symptoms are unchanged. The patient has experienced a previous episode. The patient has been recently been admitted at [facility]. Reports recently admitted for trauma, pneumothorax, had chest tube, sent home with residual apical pneumothorax, felt better, was outside yesterday, and fine. At night, rolled onto left side, heard a pop, then same chest pain as original with mild sob. No fever or hemoptysis. On abx and pain meds. . Historical: - Allergies: 10:57 Albuterol; aa5 10:57 Azithromycin; aa5 10:57 Cipro; aa5 10:57 NSAIDS; aa5 - PMHx: 10:57 Asthma; Atrial Fib; Hypothyroidism; aa5 - PSHx: 10:57 Tonsillectomy; laminectomy; ethmoidectomy; Carpal Tunnel Repair; Cholecystectomy; Knee aa5 surgery; Lumpectomy; fundoplication; nasopharygeal cyst removed; cataract; - Immunization history:: Adult Immunizations up to date. - Family history:: not pertinent. - Social history:: Smoking status: Patient denies any tobacco usage or history of. - Hospitalizations: : The patient was recently seen at [facility]. ROS: 11:20 Constitutional: Negative for fever, chills, and weight loss, Eyes: Negative for injury, rn pain, redness, and discharge, Neck: Negative for injury, pain, and swelling, Cardiovascular: Negative for palpitations, and edema, Respiratory: Negative for wheezing Abdomen/GI: Negative for abdominal pain, nausea, vomiting, diarrhea, and constipation, MS/Extremity: Negative for injury and deformity, Skin: Negative for injury, rash, and discoloration, Neuro: Negative for headache, weakness, numbness, tingling, and seizure. Exam: 11:20 Constitutional: This is a well developed, well nourished patient who is awake, alert, rn sitting upright on edge of bed, leaning to right Head/Face: Normocephalic, atraumatic. Cardiovascular: Regular rate, no JVD. No pulse deficits. Respiratory: + diminished breath sounds right lung base, no wheezing, + splinting Abdomen/GI: soft, non-tender Skin: Warm, dry MS/ Extremity: Pulses equal, no cyanosis. Neuro: Awake and alert, GCS 15 12:17 ECG was reviewed by the Attending Physician. rn Vital Signs: 11:35 BP 138 / 76; Pulse 82; Resp 16; Temp 98.0; Pulse Ox 98% on R/A; iw 12:07 BP 122 / 74; Pulse 78; Resp 15; Pulse Ox 98% ; bp 12:48 BP 125 / 69; Pulse 76; Resp 16; Temp 98; Pulse Ox 97% ; bp MDM: 11:01 Patient medically screened. rn 12:42 Differential diagnosis: Pneumothorax Pulmonary Embolism hematoma, new chest wall rn injury. Data reviewed: vital signs, nurses notes, lab test result(s), radiologic studies, CT scan, plain films, and as a result, I will discharge patient. Counseling: I had a detailed discussion with the patient and/or guardian regarding: the historical points, exam findings, and any diagnostic results supporting the discharge/admit diagnosis, lab results, radiology results, the need for outpatient follow up, to return to the emergency department if symptoms worsen or persist or if there are any questions or concerns that arise at home. Response to treatment: the patient's symptoms have mildly improved after treatment, and as a result, I will discharge patient. Special discussion: I discussed with the patient/guardian in detail that at this point there is no indication for admission to the hospital. It is understood, however, that if the symptoms persist or worsen the patient needs to return immediately for re-evaluation. ED course: Consulted with Dr. Perez, Pneumothorax is resolving, is tiny now, not even evident on CXR, only seen on CT chest. No PE, NO pneumonia. + new chest wall hematoma, likely 2/2 blood thinners, will dc home with f/u as needed and return precautions. . 12/11 11:07 Order name: CBC with Diff; Complete Time: 12:14 rn 12/11 11:07 Order name: Basic Metabolic Panel; Complete Time: 12:14 rn 12/11 11:07 Order name: XRAY Chest (1 view); Complete Time: 12:31 rn 12/11 11:09 Order name: CT Chest For PE Angio; Complete Time: 12:31 rn 12/11 11:07 Order name: IV Start; Complete Time: 11:39 rn 12/11 11:07 Order name: EKG; Complete Time: 11:08 rn 12/11 11:07 Order name: EKG - Nurse/Tech; Complete Time: 11:14 rn Administered Medications: 11:34 Drug: morphine 2 mg Route: IVP; Site: right antecubital; iw 12:51 Follow up: Response: Pain is decreased bp 11:34 Drug: morphine 2 mg Route: IVP; Site: right antecubital; iw 11:34 Drug: Zofran (Ondansetron) 4 mg Route: IVP; Site: right antecubital; iw 12:51 Follow up: Response: Nausea is decreased bp Disposition: 12/12/19 12:44 Discharged to Home. Impression: Pneumothorax, unspecified - Resolving, Pleural effusion, not elsewhere classified, Chest wall hematoma. - Condition is Stable. - Discharge Instructions: Hematoma, Pleural Effusion, Pleurisy, Pneumothorax. - Medication Reconciliation Form, Thank You Letter, Antibiotic Education, Prescription Opioid Use form. - Follow up: Jonatan Venegas MD; When: As needed; Reason: Recheck today's complaints, Re-evaluation by your physician. - Problem is an ongoing problem. - Symptoms have improved. Signatures: Dispatcher [employer] Cecilia Travis RN RN Eliceo Markham MD MD rn Calderon, Audri, RN RN aa5 Dusty Solis RN RN bp Corrections: (The following items were deleted from the chart) 12:57 12:44 12/12/2019 12:44 Discharged to Home. Impression: Pneumothorax, unspecified - bp Resolving; Pleural effusion, not elsewhere classified; Chest wall hematoma. Condition is Stable. Forms are Medication Reconciliation Form, Thank You Letter, Antibiotic Education, Prescription Opioid Use. Follow up: A Venegas; When: As needed; Reason: Recheck today's complaints, Re-evaluation by your physician. Problem is an ongoing problem. Symptoms have improved. rn
[2019-12-12 13:20] VITALS: BP 125/69; TEMP 98; O2SAT 97
--- NOTE | 2019-12-12 20:12 | EKG ---
Test Date: 2019-12-12 Test Time: 11:13:38 Contract Processor: ISA MEASUREMENT RESULTS: Intervals: Rate: 81 NE: 146 QRSD: 120 QT: 400 QTc: 464 [place]: P: 61 NE: 146 QRS: -10 T: 25 INTERPRETIVE STATEMENTS: Normal sinus rhythm Possible Left atrial enlargement Right bundle branch block Inferior infarct, age undetermined Abnormal ECG Compared to ECG 10/11/2019 16:33:31 No significant changes Electronically Signed On 12-12-19 20:10:56 CDT by Hai Kumar
== END 2019-12-12 12:57 | disposition home or self-care (01) ==
LOC: ER 10:45
DX: J93.9 Pneumothorax, unspecified (principal); J90 Pleural effusion, not elsewhere classified; Z88.1 Allergy status to other antibiotic agents; Z88.3 Allergy status to other anti-infective agents; Z88.6 Allergy status to analgesic agent
CPT/HCPCS: 93005; 85025; 80048; 36415; 71275; 71045; 96375; 96374; 99283; Q9967; J2405

== ENCOUNTER 2022-05-01 13:34 | Emergency (ER) | payer OTHER ==
--- OUTSIDE RECORDS SUMMARY | 2022-05-01 13:38 | XMS REPORT | Continuity of Care Document ---
:1945 Author Organization [facility] t Address [address] [place] [address] Care Team Providers Name Role Phone MINOO CELESTINKAPIL Grossman Primary Care Physician Unavailable RAQUEL DAY Attending Clinician Unavailable RAQUEL DAY Attending Clinician Unavailable Nurse, Adc Pob Immunization Attending Clinician Unavailable German Felder DO Attending Clinician GERMAN FELDER Attending Clinician Unavailable Orion Calero MD Attending Clinician TONYA PAUL Attending Clinician Unavailable MD TONYA PAUL Attending Clinician Unavailable MD ORION CALERO Attending Clinician Unavailable LIA TEJEDA Attending Clinician Unavailable MD CHAGO RAMIREZ Attending Clinician Unavailable CHAGO RAMIREZ Attending Clinician Unavailable ADRIANNA BROWN Attending Clinician Unavailable Octavio Huddleston MD Attending Clinician Doctor Unassigned, [place] Attending Clinician Unavailable RA VELAZCO Attending Clinician Unavailable TONYA PAUL Admitting Clinician Unavailable MD TONYA PAUL Admitting Clinician Unavailable ORION CALERO Admitting Clinician Unavailable MD ORION CALERO Admitting Clinician Unavailable MD CHAGO RAMIREZ Admitting Clinician Unavailable CHAGO RAMIREZ Admitting Clinician Unavailable Octavio Huddleston MD Admitting Clinician RA VELAZCO Admitting Clinician Unavailable Payers Payer Name Policy Type Policy Number Effective Date Expiration Date Shanti armenta MEDICARE PART A [id number] 2012 \\T\\ B 00:00:00 [employer] COMMERCIAL [id number] 2000 OUT OF NETWORK 00:00:00 [employer] MEDICARE ADV [id number] 2019 2020 00:00:00 00:00:00 Problems Condition Condition Condition Status Onset Resolution Last Treating Co mments Source Name Details Category Date Date Treatment Clinician Date Incisional Incisional Disease Active M ethodi hernia hernia 4-12 st without without 00:00: Hospita obstructio obstructio 00 l n or n or gangrene gangrene Chronic Chronic Problem Active Center rhinitis rhinitis for EN T Chronic Chronic Problem Active Center tonsilliti tonsilliti fo r ENT s s Sinusitis Sinusitis Problem Active [facility] - Chronic - Chronic for ENT maxillary maxillary Sinusitis Sinusitis Problem Active [facility] - Chronic - Chronic for ENT Chronic Chronic Problem Active Center laryngitis laryngitis fo r ENT 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, neoplasm, for ENT tongue tongue base, base, 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, neoplasm, for ENT malignant malignant No known No known Disease Unive rs active active ity of problems problems [facility] Allergies, Adverse Reactions, Alerts Allergy Allergy Status Severity Reaction(s) Onset Inactive Treating Comm ents Source Name Type Date Date Clinician AZITHROM DRUG Active ITCHING 2020-0 Univers YCIN INGREDI 1-14 ity of 00:00: [place] 00 [facility] CIPROFLO DRUG Active Other-Cmnt 2020-0 Univ ers XACIN INGREDI 1-14 ity of 00:00: [place] 00 [facility] CODEINE DRUG Active Hallucinates 2020-0 Uni vers INGREDI 1-14 ity of 00:00: [place] 00 [facility] MILK DRUG Active COUGH 2020-0 Univers INGREDI 1-14 ity of 00:00: [place] 00 [facility] Albutero Propensi Active Shortness of 2020-0 Cant Univers l ty to Breath 1-14 breathe ity of adverse 00:00: [place] reaction [address] [place] [address] Azithrom Propensi Active Itching 2020-0 Unive rs ycin ty to 14 ity of adverse 00:00: [place] reaction 00 Medical s Branch Ciproflo Propensi Active Other - See 0 Leg U nivers xacin ty to comments 08-30 swelling ity of adverse 00:00: [place] reaction 00 Medical s Branch Codeine Propensi Active Hallucinatio 2020-0 U nivers ty to ns 14 ity of adverse 00:00: [place] reaction 00 Medical s Branch Milk Propensi Active Cough 2019-0 Univers ty to 08-30 ity of adverse 00:00: [place] reaction 00 Medical s Branch ALBUTERO DRUG Active SOB 2019-0 Univers L INGREDI 08-30 ity of 00:00: 00 Medical Branch Milk Propensi Active Other (See 2017-[address] Contain[facility] ty to Comments) 0-29 [facility] adverse 00:00: Medical Products reaction 00 Center s Milk Propensi Active Other (See 2017-08 cough Meth jamey Containi ty to Comments) 0-29 st ng adverse 00:00: Hospita Products reaction 00 l s to drug Azithrom Propensi Active Itching [facility] ty [facility] 12-26 [facility] adverse 00:00: Medical reaction 00 Center s Albutero Propensi Active Pt states Met hodi l ty to 12-[address] adverse 00:00: cannot Hospita reaction 00 breathe l s to drug Azithrom Propensi Active Itching Metho di ycin ty to [address] adverse 00:00: Hospita reaction 00 l s to drug Ciproflo Propensi Active Leg Method i xacin-Fl ty to 12-[address] uocinolo adverse 00:00: Hospita ne reaction 00 l s to drug Albutero Drug Active Severe Pt [facility] l Allergy 01-04 reports [facility] 00:00: "she cant Medical 00 breathe" Center Ciproflo Drug Active Mild Legs [facility] xacin Allergy 01-04 swell and [facility] 00:00: turn Medical 00 bright Center red Ipratrop Propensi Active Other (See Me thodi ium-[place] ty to Comments) st terol adverse Hospita reaction l s to drug Ciproflo Adverse Active Info Not Cente r xacin Reaction Available for E NT Zpack Adverse Active Info Not Center Reaction Available for E NT Albutero Adverse Active Info Not Cente r l Reaction Available for E NT quinolon Adverse Active Info Not Cente r e Reaction Available for E NT Family History Family Member Diagnosis Comments Start Date Stop Date Source Natural father Hypertension [facility] Natural father Heart disease [facility] Natural sister Diabetes [facility] Natural sister Heart disease [facility] Natural sister Hypertension [facility] Social History Social Habit Start Date Stop Date Quantity Comments Source History of tobacco Current smoker Me [facility]ist use Hospital History SDIA [facility] Drinks Hospit al History [facility] Alcohol intake 2021-01-17 2021-01-17 Current drinker Metho dist 00:00:00 00:00:00 of alcohol Hospital (finding) Cigarettes smoked 2020-11-22 2020-11-[address] current (pack per 00:00:00 00:00:00 Hospita l day) - Reported Cigarette 2020-11-22 2020-11-22 [facility] pack-years 00:00:00 00:00:00 Hospital History SDOH 2020-11-22 2020-11-22 1 [facility] Alcohol Frequency 00:00:00 00:00:00 Hospita l Alcohol Comment 2020-06-08 2020-06-08 Per month [facility] 00:00:00 00:00:00 Hospital Tobacco Comment 2019-08-30 2019-08-30 30 years ago Univers ity of 00:00:00 00:00:00 [facility] Tobacco use and 2015-01-04 2015-01-[address] Laxmi kes exposure 00:00:00 00:00:00 Medical Center Sex Ass[birth year] At [birth year] [facility] 00:00:00 00:00:00 Hospital Smoking Status Start Date Stop Date Source Ex-smoker 2020-11-22 00:00:00 2020-11-22 00:00:00 [facility] Medications Ordered Filled Start Stop Current Ordering Indication Dosage Frequency Signature Comments Components Source Medication Medication Date Date Medication? Clinician (SIG) Name Name rivaroxaban Yes 20mg QD Take 20 mg Methodi (XARELTO) 6- by mouth st 20 mg 11:19: every Hospita tablet 57 morning. l docusate Yes 200mg QD Take 200 Meth jamey sodium 6- mg by st (COLACE) 11:19: mouth Hospita 100 MG 57 nightly. l capsule iron, Yes QD Take by Methodi carbonyl, 01-[address] 45 mg 11:19: nightly. Hospita tablet 57 l sennosides Yes 2{tbl} QD Take 2 Met hodi 15 mg - tablets by st tablet 11:19: mouth Hospita 57 nightly. l multivitami Yes QD Take by Met hodi n with iron 01-[address] (ONE DAILY 11:19: nightly. Hos armin MULTI-VIT 57 l W-MINERAL) tablet L. Yes 1{tbl} QD Take 1 Methodi acidophilus - tablet by st /Bifido 11:19: mouth Hospita longum 57 nightly. l (PROBIOTIC PEARLS ORAL) calcium Yes 1{tbl} Q.5D Take 1 Method i carbonate-v 01-15 tablet by itamin D3 11:19: mouth 2 Hospi ta 600-125 57 (two) l mg-unit times a tablet day. cranberry Yes 1{capsu QD Take 1 Met hodi 400 mg 01-15 le} capsule by st capsule 11:19: mouth Hospita 57 daily. l cyanocobala Yes 5000ug QD Place Met hodi min, 01-15 5,[address] vitamin 11:19: under the Hospi ta B-12, 5,000 57 tongue l mcg tablet, daily. sublingual azelastine Yes 2{spray Q.5D 2 sprays Methodi (ASTELIN) 01-15 } into each st 137 mcg 11:19: nostril 2 Hospi ta (0.1 %) 57 (two) l nasal spray times a day. Use in each nostril as directed cetirizine Yes 10mg QD Take 10 mg M ethodi (ZyrTEC) 10 01-[address] MG tablet 11:19: every Hospita 57 morning. l amLODIPine Yes 5mg QD Take 5 mg Me thodi (NORVASC) 5 01-[address] mg tablet 11:19: every Hospita 57 morning. l ipratropium Yes 500ug QD Take 500 M ethodi (ATROVENT) 6-[address] 0.02 % 11:19: nebulizati Hospi ta nebulizer 57 on l solution nightly. fluticasone Yes QD Inhale Meth jamey /umeclidin/ 6-[address] vilanter 11:19: morning. Hospi ta (TRELEGY 57 l ELLIPTA INHL) fluticasone Yes 2{spray QD 2 sprays Methodi propionate 01-15 } by Each st (FLONASE) 11:19: Nare route Ho spita 50 57 every l mcg/actuati morning. on nasal spray mirabegron Yes 50mg QD Take 50 mg M ethodi (Myrbetriq) [address] 50 mg 11:19: daily. Hospita tablet 57 l extended release 24 hr methocarbam Yes 500mg Q.25D Take 500 Methodi oL 6-[address] (ROBAXIN) 11:19: mouth 4 Hospi ta 500 MG 57 (four) l tablet times a day. 1/2 1 tablet gabapentin Yes 300mg Q.[id number] Take 300 Methodi (NEURONTIN) 01-15 [id number] mg by s t 300 mg 11:19: 3D mouth 3 Hospita capsule 57 (three) l times a day. HYDROcodone [place] [id number] 1{tbl} Q6H Take 1 M ethodi -acetaminop 4-[address] hen (NORCO) 00:00: mouth Hospi ta 5-325 mg 00 every 6 l per tablet (six) hours as needed for moderate pain for up to 30 days .acute pain. Max Daily Amount: 6 tablets Osphena 60 Yes 1{tbl} QD Take 1 Met hodi mg tablet 3-[address] 00:00: mouth Hospita 00 daily. l with food - rivaroxaban Yes 20mg Take 20 mg Univers tablet 2-19 by mouth. ity of 14:18: [address] Iron, Yes Take by Univers Carbonyl 45 2-19 mouth. ity of mg Tab 14:18: [address] Calcium-Cho 2020-0 Yes Take by Uni vers lecalcifero 2-19 mouth. ity of l, D3, 14:18: [place] 600-125 20 Medical mg-unit Tab Branch sennosides 2020-0 Yes Take by [facility] ers (PERDIEM 2-19 mouth. ity of ORAL) 14:18: Indication [place] 20 s: 2 per Medical night Branch docusate 2020-0 Yes Take by [facility] sodium 2-19 mouth. ity of (STOOL 14:18: Indication [place] SOFTENER 20 s: 2 per Medical ORAL) night Branch FIBER 2020-0 Yes Take by [facility] CHOICE ORAL 2-19 mouth. ity of 14:18: Indication [place] 20 s: equate Medical fiber pill Branch daily levalbutero 2020-0 Yes 1{puff} Inhale 1-2 Univers l 45 2-19 Puffs ity of mcg/actuati 14:18: every 4 [place] as on inhaler 20 (four) Medical hours as Branch needed for Wheezing. cyanocobala 2020-0 Yes Take by Uni vers min, 2-19 mouth. ity of vitamin 14:18: Indication [place] B-12, (B-12 20 s: b12 Medica l DOTS ORAL) daily Branch HYOSCYAMINE 2020-0 Yes Take by Uni vers ORAL 2-19 mouth. ity of 14:18: 20 Medical Branch ospemifene 2020-0 Yes Take by [facility] ers (OSPHENA) 2-19 mouth. ity of 60 mg 14:18: [place] tablet 20 Medical Branch Cranberry 2019-0 Yes Take by [facility] rs 400 mg Cap 2-19 mouth. ity of 14:18: 20 Medical Branch mometasone 2020-0 Yes 50ug Inhale 50 Un augusto 100 2-19 mcg. ity of mcg/actuati 14:18: Indication [place] on HFAA 20 s: 2 Medical sniffs Branch each nostril IPRATROPIUM 2020-0 Yes Use in [facility] ers BROMIDE 2-19 each ity of NASAL 14:18: nostril. 20 Indication Medical s: one Branch ampule as needed ( for nebulizer) cetirizine 2020-0 Yes 10mg Take 10 mg U nivers HCl 2-19 by mouth. ity of (CETIRIZINE 14:18: [place] ORAL) 20 Medical Branch amLODIPine 2020-0 Yes 5mg Take 5 mg Un augusto (NORVASC) 5 2-19 by mouth ity of mg tablet 14:18: daily. [address] Branch Bactrim DS Bactrim DS 2019-0 2019- No Ra 1 tablet Center 10-15-11 [facility] for ENT 00:00: 00:00 00 :00 clobetasol 2017-08 Yes Q24H daily as Met hodi (TEMOVATE) 2-[address] 0.05 % 00:00: Hospita cream 00 l hyoscyamine 2017-[address] 1 Met hodi (LEVSIN) 1-[address] 0[address]125 mg SL 00:00: UNDER THE H ospita tablet 00 TONGUE l ROUTE 4 TIMES EVERY DAY NEEDED FOR ABDOMINAL CRAMPS levothyroxi 2017-08 Yes 150ug QD Take [address] ne 1-14 mcg by [facility]ukes (SYNTHROID, 16:53: mouth Medic al LEVOTHROID) 35 daily. Center 150 MCG tablet fluticasone 2017-08 Yes 1{puff} Inhale [address] -salmeterol 1-14 puff by [facility] (ADVAIR) 16:53: mouth via Medi galdino 250-50 35 inhaler Center mcg/dose every 12 diskus (twelve) inhaler hours. b complex 2017-08 Yes 1{tbl} QD Take [address] vitamins 1-14 tablet by [facility]ukes tablet 16:53: mouth Medical 35 daily. [place] montelukast 2017-08 Yes 10mg QD Take [address] (SINGULAIR) 1-14 by mouth Luke s 10 mg 16:53: daily . Medical tablet 35 Center beclomethas 2017-08 Yes 2{puff} Q.5D Inhale [address] one (QVAR) 1-14 puffs by [facility] 40 16:53: mouth via Medical mcg/actuati [address] on inhaler (two) times daily. phenylephri 2017-08 Yes 1[drp] [address] ne 1-14 Nasal [facility]ukes (OPAL-SYNEPH 16:53: route Medic al RINE) 1 % 35 every 4 Center nasal spray (four) hours as needed for Congestion . multivitami 2017-08 Yes 1{tbl} QD Take [address] n per 1-14 tablet by [facility]ukes tablet 16:53: mouth Medical 35 daily. [place] iron, 2017-08 Yes 2{tbl} QD Take [address] carbonyl 45 1-14 tablets by Laxmi kes mg Tab 16:53: mouth Medical tablet 35 nightly . [place] polycarboph 2017-08 Yes 625mg QD Take [address] il 1-14 mg by [facility]ukes (FIBERCON) 16:53: mouth Medica l 625 mg 35 daily. [place] tablet docusate 2017-08 Yes 200mg QD Take [address] sodium 1-14 mg by [facility]ukes (COLACE) 16:53: mouth Medical 100 MG 35 nightly. [place] capsule lactobacill 2017-08 Yes 1{capsu QD Take [address] us 1-14 le} capsule by [facility]ukes rhamnosus, 16:53: mouth Medica l GG, 35 daily. [place] (CULTURELLE ) 10 billion cell capsule cholecalcif 2017-08 Yes 1000U Q.[id number] Take 1,[address] crystal 1-14 [id number] Units by [facility] (VITAMIN 16:53: 3W mouth 3 Medica l D3) 1,000 35 (three) Center unit tablet times a week. zinc 2017-08 Yes 50mg QD Take [address] gluconate 1-14 by mouth [facility]ukes 50 mg 16:53: daily. Medical tablet 35 [place] omega-3 2017-08 Yes Take by [facility] fatty 1-14 mouth. [facility]ukes acids-vitam 16:53: Medica l in E 1,000 35 Center mg Cap guaiFENesin 2017-08 Yes 1200mg Q.5D Take 1,[address] (MUCINEX) 1-14 mg by [facility] 600 mg 12 16:53: mouth 2 Medic al hr tablet 35 (two) Center times daily. mirabegron 2017-08 Yes QD Take by [facility] (MYRBETRIQ) 1-14 mouth [facility]ukes 50 mg Tb24 16:53: daily. Medic al ER tablet 35 [place] gabapentin 2017-08 Yes 300mg Q.[id number] Take [address] (NEURONTIN) 1-14 [id number] mg by L ukes 300 MG 16:53: 3D mouth 3 Medical capsule 35 (three) Center times daily. ospemifene 2017-08 Yes 1{tbl} QD Take [address] (OSPHENA) 1-14 tablet by [facility] 60 mg Tab 16:53: mouth Medical 35 daily. [place] rivaroxaban 2017-08 Yes 20mg QD Take [address] (XARELTO) 1-14 by mouth [facility]ukes 20 mg Tab 16:53: daily. Medica l tablet 35 [place] omeprazole 2017-08 Yes 40mg QD Take [address] (PRILOSEC) 1-14 by mouth [facility]ukes 40 MG 16:53: daily. Medical capsule 35 [place] cranberry 2017-08 Yes QD Take by CHI S t 400 mg Cap 1-14 mouth [facility]ukes 16:53: daily. Medical [address] [place] [address] calcium 2017-08 Yes Q.5D Take by [facility] carbonate-v 1-14 mouth 2 [facility]ukes itamin D3 16:53: (two) Medical (CALCIUM 35 times Center 600 + D,3,) daily. 600-125 mg-unit Tab L. 2017-08 Yes QD Take by [facility] acidophilus 1-14 mouth [facility]ukes /Bifido 16:53: daily. [facility] longum 35 Center (PROBIOTIC PEARLS ORAL) loratadine 2017-08 Yes QD Take by [facility] 10 mg Cap 1-14 mouth Lukes 16:53: daily. Medical [address] [place] [address] mometasone 2017-08 Yes 2{spray QD [address] (NASONEX) 1-14 } by Nasal [facility] 50 16:53: route Medical mcg/actuati 35 daily. Center on nasal spray Missing or 2017-08 Yes 9ug Q.5D [address] Non-Formula 1-14 (two) Lukes ry 16:53: times Medical Medication 35 daily [place] BeVespie inhaler . valerian 2017-08 Yes 4{capsu QD Take [address] root 450 mg 1-14 le} capsules Luke s Cap 16:53: by mouth Medical 35 nightly. [place] inulin 2017-08 Yes 2{capsu QD Take [address] (FIBER 1-14 le} capsules Lukes GUMMIES 16:53: by mouth Medica l ORAL) 35 nightly. [place] cephalexin 2017-08 Yes 500mg Q.5D Take [address] (KEFLEX) 1-14 mg by [facility]ukes 500 MG 16:53: mouth 2 Medical capsule 35 (two) Center times daily. hyoscyamine 2017-08 Yes .125mg Take 0.[address] (ANASPAZ,LE 1-14 mg by [facility]ukes VSIN) 0.125 16:53: mouth Medic al mg tablet 35 every 4 Center (four) hours as needed for Cramping. Missing or 2017-[address] Non-Formula 1-14 Lukes ry 16:53: Medical Medication 35 Center fluocinonid 2017-08 Yes APPLY Metho di e (LIDEX) 0-[address] 0.05 % 00:00: DAY TO Hospita external 00 AFFECTED l solution AREAS ON SCALP FOR 2 WEEKS MAX NEEDED FOR FLARE naftifine 2 2017-08 Yes Q24H daily as Me thodi % cream 0-[address] 00:00: Hospita 00 l beclomethas Yes 2{puff} Inhale 2 Univers one 1-22 Puffs. ity of dipropionat 00:00: [place] [address] Medical mcg/actuati Branch on inhaler levothyroxi Yes 150ug Take 150 U nivers ne 150 mcg 1-08 mcg by ity of tablet 00:00: mouth. [place] 00 Medical Branch levothyroxi Yes 150ug QD Take 150 M ethodi ne 1-[address] (SYNTHROID, 00:00: mouth Hospi ta LEVOXYL) 00 every l 150 mcg morning. tablet levalbutero Yes INHALE 2 Me thodi l (XOPENEX 1-[address] HFA) 45 00:00: EVERY 4-6 Hospi ta mcg/actuati 00 HOURS l on inhaler NEEDED montelukast 2016-08 Yes 10mg Take 10 mg Univers 10 mg 2-01 by mouth. ity of tablet 00:00: [place] 00 [facility] Branch montelukast 2016-08 Yes 10mg QD Take 10 mg Methodi (SINGULAIR) 2-[address] 10 mg 00:00: nightly. Hospita tablet 00 l Immunizations Ordered Filled Immunization Date Status Comments [facility] e Immunization Name Name SARS-COV-2 COVID-19 2021-06-14 Completed Unive rsity of PFIZER VACCINE 00:00:00 [facility] SARS-COV-2 COVID-19 2020-11-03 Completed Unive rsity of PFIZER VACCINE 00:00:00 [facility] PFIZER COVID-19 2020-11-03 Completed [facility] VACCINATION 00:00:00 [facility] SARS-COV-2 COVID-19 2020-10-13 Completed Unive rsity of PFIZER VACCINE 00:00:00 [facility] PFIZER COVID-19 2020-10-13 Completed [facility] VACCINATION 00:00:00 Hospital Procedures Procedure Date / Time Performed Performing Clinician [facility] juli SARS-COV-2 COVID-19 2021-06-14 18:14:19 Doctor Unassigned, No [facility] [place] VACCINE,0.3ML,IM Name Medical Branch ([facility]) Plan of Care Planned Activity Planned Date Details Comments Source Future Scheduled 2022-04-16 HEPATITIS B VACCINES Met [facility] Test 23:07:58 (1 of 3 - 3-dose series) [code = HEPATITIS B VACCINES (1 of 3 - 3-dose series)] Future Scheduled 2022-04-16 Hepatitis C screening [facility] Test 23:07:58 (procedure) [code = 936774068] Future Scheduled 2022-04-16 BREAST CANCER [facility] Test 23:07:58 SCREENING [code = BREAST CANCER SCREENING] Future Scheduled 2022-04-16 SHINGLES VACCINES (1 Met [facility] Test 23:07:58 of 2) [code = SHINGLES VACCINES (1 of 2)] Future Scheduled 2022-04-16 COVID-19 VACCINE (3 - Me [facility] Test 23:07:58 Booster for Pfizer series) [code = COVID-19 VACCINE (3 - Booster for Pfizer series)] Future Scheduled 2022-04-16 INFLUENZA VACCINE Method [facility] Test 23:07:58 [code = INFLUENZA VACCINE] Future Scheduled 2022-04-16 COLONOSCOPY SCREENING [facility] Test 23:07:58 [code = COLONOSCOPY SCREENING] Encounters Start End Encounter Admission Attending Care Care Encounter Source Date/Time Date/Time Type Type Clinicians Facility Department ID 2022-05-05 2022-05-05 Outpatient R RAQUEL DAY [facility] [id number] Univers 11:00:00 11:00:00 RAQUEL DAY [id number] i ty of [facility] 2022-05-05 2022-05-05 Outpatient R RAQUEL DAY [facility] [id number] Univers 11:00:00 11:00:00 RAQUEL DAY i ty of [facility] 2021-06-14 2021-06-14 Imm/Inj Nurse, Adc Pob Immunization [facility] [id number] [facility] 13:09:59 13:10:12 Visit German [id number] [id number] Anand vilchis GATOZAHRA [id number] Ny dical [address] 2021-06-14 2021-06-14 Outpatient Catherine FELDER [facility] [id number] [facility] 13:00:00 13:10:12 [facility] 2021-06-05 2021-06-05 Telemedici [place], [id number] Methodi 15:15:00 15:30:00 ne [place] [id number] 639 s t 3.430.2.7 Hospit a .3.321218 l .8 2021-06-05 2021-06-05 Outpatient GALILEA, [facility] [id number] [place] 00:00:00 00:00:00 ORION 639 Method i 2021-06-04 2021-06-04 Outpatient GALILEA, [facility] [id number] [place] 00:00:00 00:00:00 ORION 368 Method i 2021-06-03 2021-06-03 Travel 1.2.840.1 [id number] Methodi 00:00:00 00:00:[id number] 3.430.2.7 0.2.7.3.698 spita .3.405566 084.8 l .8 2021-01-15 2021-01-15 Outpatient ERGUN, [facility] [id number] [place] 00:00:00 00:00:00 TONYA 482 Method i 2021-01-11 2021-01-11 Outpatient ERGUN, [facility] [id number] [place] 00:00:00 00:00:00 KHRISN 214 Method i 2020-12-11 2020-12-11 Outpatient GALILEA, [facility] [id number] [place] 00:00:00 00:00:00 ORION 441 Method i 2020-11-26 2020-11-30 Inpatient GALILEA, [facility] [id number] [place] 00:00:00 00:00:00 ORION 581 Method i 2020-11-22 2020-11-22 Outpatient GALILEA, [facility] [id number] [place] 00:00:00 00:00:00 ORION 315 Method i 2020-11-13 2020-11-13 Outpatient GALILEA, [facility] [id number] [place] 00:00:00 00:00:00 ORION 698 Method i 2020-11-03 2020-11-03 Outpatient R ILEANA, [facility] [id number] [facility] 11:55:00 11:55:00 [facility] 2020-10-23 2020-10-23 Outpatient GALILEA, [facility] [id number] [place] 00:00:00 00:00:00 ORION 949 Method i 2020-10-13 2020-10-13 Outpatient R ILEANA, [facility] [id number] [facility] 11:55:00 11:55:00 [facility] 2020-10-09 2020-10-09 Outpatient ERGUN, [facility] [id number] [place] 00:00:00 00:00:00 GULCHIN 940 Method i 2020-10-05 2020-10-05 Outpatient ERGUN, [facility] [id number] [place] 00:00:00 00:00:00 GULCHIN 789 Method i 2020-09-13 2020-09-13 Outpatient [facility] [id number] [place] 00:00:00 00:00:00 055 Method i 2020-09-13 2020-09-13 Outpatient ERGUN, [facility] [id number] [place] 00:00:00 00:00:00 GULCHIN 178 Method i 2020-06-08 2020-06-08 Outpatient RAMIREZ, [facility] [id number] [place] 00:00:00 00:00:00 CHAGO 359 Method i 2020-06-08 2020-06-08 Outpatient RAMIREZ, [facility] [id number] [place] 00:00:00 00:00:00 CHAGO 298 Method i 2020-06-05 2020-06-05 Outpatient KEVIN, [facility] [id number] [place] 00:00:00 00:00:00 ADRIANNA 831 Method i 2019-10-18 2019-10-18 Outpatient ERGUN, [facility] [id number] [place] 00:00:00 00:00:00 TONYA 699 Method i 2019-10-05 2019-10-05 [facility] [id number] 12:04:34 14:10:00 Encounter Octavio Beaulieu [id number] [place] 4.2.7.2.686 Surgical [id number] [place] [id number] 2019-10-05 2019-10-05 Orders Doctor FATOUMATA [id number] 00:00:00 00:00:00 Only Unassigned, LUIS ENRIQUE 350.1.13.10 [place] [facility] 4.2.7.2.686 [id number] 2019-09-21 2019-09-21 [facility] [id number] 12:09:00 14:49:00 Encounter Octavio Beaulieu [id number] [place] 4.2.7.2.686 Surgical [id number] [place] [id number] 2019-09-21 2019-09-21 Orders Doctor FATOUMATA [id number] 00:00:00 00:00:00 Only Unassigned, LUIS ENRIQUE 350.1.13.10 [place]2.7.2.686 [id number] [id number] 2018-10-15 2018-10-15 Outpatient [facility] [id number] [place] 09:41:00 09:41:00 [facility] 2018-08-30 2018-08-30 Outpatient [facility] [id number] Center 15:20:00 15:20:00 [facility] 2018-08-25 2018-08-25 Outpatient [facility] [id number] [place] 10:49:00 10:49:00 [facility] 2018-08-11 2018-08-11 Outpatient [facility] [id number] Center 14:20:00 14:20:00 [facility] 2018-07-07 2018-07-07 Outpatient [facility] [id number] Center 15:50:00 15:50:00 [facility] 2018-06-25 2018-06-25 Outpatient [facility] [id number] Center 14:19:00 14:19:00 [facility] 2018-06-25 2018-06-25 Outpatient [facility] [id number] Center 11:30:00 11:30:00 [facility] 2018-06-17 2018-06-17 Outpatient [facility] [id number] Center 13:06:00 13:06:00 [facility] 2018-06-14 2018-06-14 Outpatient [facility] [id number] Center 15:00:00 15:00:00 [facility] 2018-06-09 2018-06-09 Outpatient [facility] [id number] Center 09:10:00 09:10:00 [facility] 2018-05-24 2018-05-24 Outpatient [facility] [id number] Center 14:00:00 14:00:00 [facility] 2018-05-19 2018-05-19 Outpatient [facility] [id number] Center 15:02:00 15:02:00 [facility] 2018-05-05 2018-05-05 Outpatient [facility] [id number] Center 14:20:00 14:20:00 [facility] 2018-05-04 2018-05-04 Outpatient [facility] [id number] Center 11:00:00 11:00:00 [facility] 2018-04-16 2018-04-16 Outpatient [facility] [id number] Center 16:25:00 16:25:00 [facility] 2018-04-08 2018-04-08 Outpatient [facility] [id number] Center 11:00:00 11:00:00 [facility] 2018-04-07 2018-04-07 Outpatient The [facility] [place] [id number] [place] 16:47:00 16:47:00 [facility] 2018-04-07 2018-04-07 Outpatient The [facility] [place] [id number] [place] 10:40:00 10:40:00 [facility] 2018-01-13 2018-01-13 Outpatient [facility] [id number] Center 14:39:00 14:39:00 [facility] 2017-12-16 2017-12-16 Outpatient [facility] [id number] [place] 09:32:00 09:32:00 [facility] Results Test Description Test Time Test Comments Results Result Comments Source SARS-CoV-2 (COVID-19) RNA [Presence] in Respiratory sp ecimen by 2021-01-11 18:36:50 JIGAR with probe detection Test Item Value Reference Range Interpretation Comme nts SARS-CoV-2 (COVID-19) RNA [Presence] in Respiratory Not detected No t-Detected specimen by JIGAR with probe detection (test code = 45433-1) Whether patient is employed in a healthcare setting (test code = 86979-7) Whether the patient has symptoms related to condition of interest (test code = 63566-8) Patient was hospitalized because of this condition (test code = 44207-0) Whether the patient was admitted to intensive care unit (ICU) for condition of interest (test code = 30459-3) Whether patient resides in a congregate care setting (test code = 48147-3) SARS-CoV-2 (COVID-19) RNA [Presence] in Respiratory specimen by JIGAR with probe [id number] 21:19:20 Test Item Value Reference Range Interpretation Comments SARS-CoV-2 (COVID-19) RNA Not detected Not-Detected [Presence] in Respiratory specimen by JIGAR with probe detection (test code = 96994-2) SARS-CoV-2 (COVID-19) RNA [Presence] in Respiratory specimen by JIGAR with probe [id number] 02:18:45 Test Item Value Reference Range Interpretation Comments SARS-CoV-2 (COVID-19) RNA Not detected Not-Detected [Presence] in Respiratory specimen by JIGAR with probe detection (test code = 61386-5) SARS-CoV-2 (COVID-19) RNA [Presence] in Respiratory specimen by JIGAR with probe [id number] 21:08:34 Test Item Value Reference Range Interpretation Comments SARS-CoV-2 (COVID-19) RNA Not detected Not-Detected [Presence] in Respiratory specimen by JIGAR with probe detection (test code = 40132-5) [id number] 17:16:00Medical Cytology Report Case: [id number] Authorizing Provider: Ra Velazco MD Collected: 06/30/2018 1600 Ordering Location: [facility] Radiology Main Received: 07/01/2018 5142 Pathologist: Catherine Joe MD Specimen: Lymph Node, Cervical LEFT NECK LYMPH NODE, FNA BY RADIOLOGIST (GER) (DIRECT SMEARS, CYTOSPINS, CELL BLOCK OF ASPIRATE): - NO METASTATIC CARCINOMA, GRANULOMATA IDENTIFIED - LYMPHOIDTISSUE PRESENT Signing Pathologist Direct Phone Line: [phone] signed by Catherine Joe MD on 07/02/2018 at 5:16 PMPlease also see cytopathology report [id number]. 50534(1.3 x 0.8 x 0.9 cm) left neck lymph node; reported tongue cancer, enlarged neck lymph nodesLEFT NECK LYMPH NODE FNAPrepared 4 cytospins from 30 ml cytorich red fixaitve Collected: [id number]: [id number].[facility], Department of Pathology, [address] [place] [address], Tel [facility], [facility], [address] [place], [place] [id number], [facility], Department of [facility]ology, [address] [place] [address], [id number] 13:16:00Medical Cytology Report Case: [id number] Authorizing Provider: Ra Velazco MD Collected: 06/30/2018 1600 Ordering Location: [facility] Radiology Main Received: 07/01/2018 1250 Pathologist: Vesna Novak MD Specimen: Lymph Node, Cervical, right neck node (1.5 x 0.5 x 1.4 cm) RIGHT NECK LYMPH NODE, FNA BY RADIOLOGIST (CYTOSPINS): - NEGATIVE FOR MALIGNANCY - LYMPHOID/LYMPH NODE TISSUE PRESENT Signing Pathologist Direct Phone Line: [phone] signed by Vesna Novak MD on 07/02/2018 at 1:16 PMPlease also see cytopathology report [id number]. 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 No metastatic tumor is notedB[facility], [facility], [address] [place] [address], [facility], Department of Pathology, [address] [place] [address], BjaxfnGood [facility]ar[facility], Department of Pathology, [address] [place] [address], L/S, ASPIRATION/INJECTION 2018-06-30 16:08:00Reason for Exam:->R59.0, C02.4 RIGHT \\T\\ LEFTFINAL REPORT INDICATION: 72-year-old female with report of [...] of left level II lymph node. Signed: Sherif Anderson Verified Date/Time: 06/30/2018 16:08:29 Reading Location: [address] Ultrasound Reading Room U/S, ASPIRATION/INJECTION 2018-06-30 16:08:00Reason for Exam:->R59.0, C02.4 RIGHT \\T\\ LEFTFINAL REPORT INDICATION: 72-year-old female with report of [...] of right level II lymph node. Signed: Sherif Anderson Verified Date/Time: 08/30/2017 16:08:56 Reading Location: [address] Ultrasound Reading Room UE [id number] 16:56:00Surgical Pathology Report Case: [id number] Authorizing Provider: Ra Velazco MD Collected: 06/18/2018 0824 Ordering Location: [facility] PERIOPER[facility] Received: 06/18/2018 1149 SERVICES Pathologist: Sushila Mejia MD Specimen: Tongue, base tongue BASE OF THE TONGUE, LARYNGOSCOPY WITHBIOPSY: - LINGUAL TONSILS WITH REACTIVE FOLLICULAR HYPERPLASIA - SQUAMOUS MUCOSA WITH ACUTE INFLAMMATION WITH ATYPIA - METAPLASTIC CARTILAGE AND DILATED LYMPHATICS - NEGATIVE FOR DYSPLASIA OR MALIGNANCY Signing Pathologist Direct Phone Line: [phone] signed by Sushila Mejia MD on 06/25/2018 [...] Dr. Jose J Doty for the purposes ofhematopathology review. The case was also reviewed at the departmental consensus conference.The findings have been discussed with Dr. Velazco. 31205; 02357; 59955 X 6Nasal obstructionBase of tongue biopsy Received in formalin labeled "tongue", description "base of tongue" is a 3.0 x 2.0 x 0.3 cm aggregate of pink-lara to mejia-white rubbery soft tissue. Specimen is entirely submitted in A1. DB/bc PERFORMEDThe interpretation of this case included the use of immunohistochemistry or special stains. D2-40;CD34; CD3; CD20 CD45; Ki- 67; Cyclin-P7Vbelgvglaqifkrcohclt technical testing was performed at [facility], Pathology Laboratory where it was developed and its performance characteristics were determined. It has not been cleared or approved by the U.S. Food and Drug Administration.The FDA has determined that such clearance or approval is not necessary. The test is used for clinical purposes. It should not be regarded as investigational or for research. This laboratory is certified under the Clinical Laboratory Improvement Amendments of 1988 (CLIA- 88) as qualified to perform high complexity clinical laboratory testing.The immunohistochemistry test was developed and its performance characteristics determined by [facility], Pathology Laboratory. It has not beencleared or approved by the U.S. Food and Drug Administration. The FDA has determined that such clearance or approval is not necessary. The test is used for clinical purposes. It should not be regarded as investigational or for research. This laboratory is certified under the Clinical Laboratory Improvement Amendments of 1988 (CLIA-88) as qualified to perform high complexity clinical laboratory testing.[id number] 18:46:00 Test Item Value Reference Range Interpretation Comments SODIUM (BEAKER) (test code = 381) 142 meq/L 136-145 POTASSIUM (BEAKER) (test code = 3.7 meq/L 3.5-5.1 379) CHLORIDE (BEAKER) (test code = 382) 107 meq/L 98-107 CO2 (BEAKER) (test code = 355) 29 meq/L 22-29 BUN AND [id number] 18:46:00 Test Item Value Reference Range Interpretation Comments BLOOD UREA NITROGEN 13 mg/dL 7-21 (BEAKER) (test code = 354) CREATININE (BEAKER) 0.74 mg/dL 0.57-1.25 (test code = 358) EGFR (BEAKER) (test 78 mL/min/1.73 ESTIMA ZAINAB GFR IS code = 1092) sq m NOT ACCURATE CREATININE CLEARANCE IN PREDICTING GLOMERULAR FILTRATION RATE . ESTIMATED GFR I S NOT APPLICABLE FOR DIALYSIS PATIEN TS. [id number] 18:18:00 Test Item Value Reference Range Interpretation Comments HEMOGLOBIN (BEAKER) (test code = 12.9 GM/DL 11.2-15.7 410) TISSUE [id number] 11:51:00Surgical Pathology Report Case: [id number] Authorizing Provider: Ra Velazco MD Collected: 05/01/2017 1509 Ordering Location: [facility] MAIN ADMITTING Received: 05/04/2017 1531 Pathologist: Marine Hawthorne MD Specimen: Nasopharynx/Oropharynx NASOPHARYNX/OROPHARYNX, BIOPSY: - FOLLICULAR LYMPHOID HYPERPLASIA - NEGATIVE FOR MALIGNANCY CC/pl Signing Pathologist Direct Phone Line: [phone] signed by Marine Hawthorne MD on 05/07/2017 at 11:51 [id number] neoplasm benignNasopharynx tissueThe specimen is received in [...]
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
--- NOTE | 2022-05-01 15:13 | RAD REPORT ---
EXAM DESCRIPTION: RAD - Foot Left 3 View - 05/01/2022 2:49 pm CLINICAL HISTORY: Pain COMPARISON: <Comparisons> FINDINGS: Mild soft tissue swelling is seen along the dorsum of the foot. No fracture or dislocation . No aggressive marrow pattern.
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
[2022-05-02 18:40] VITALS: TEMP 98
[2022-05-02 18:43] VITALS: BP 141/71; O2SAT 99
== END 2022-05-01 15:59 | disposition home or self-care (01) ==
LOC: ER 13:34
DX: S00.83XA Contusion of other part of head, initial encounter (principal); M79.672 Pain in left foot; V47.5XXA Car driver injured in collision with fixed or stationary object in traffic accident, initial encounter; I10 Essential (primary) hypertension
CPT/HCPCS: 70450; 71045; 72125; 99284

== ENCOUNTER 2022-09-04 09:15 | Emergency (ER) | payer OTHER ==
--- OUTSIDE RECORDS SUMMARY | 2022-09-04 09:20 | XMS REPORT | Continuity of Care Document ---
:1945 Author Organization [facility] t Address [address] [place] [address] Care Team Providers Name Role Phone Joe Venegas MD Primary Care Physician RAQUEL BECK Attending Clinician Unavailable RAQUEL BECK Attending Clinician Unavailable Raquel Beck DO Attending Clinician Therapist, Sarthak Respiratory Attending Clinician Unavailable Jordan Crawford MD Attending Clinician JORDAN CRAWFORD Attending Clinician Unavailable Doctor Unassigned, [place] Attending Clinician Unavailable Nurse, Adc Pob Immunization [...] Clinician Unavailable Octavio Huddleston MD Attending Clinician RA VELAZCO Attending Clinician Unavailable RAQUEL BECK Admitting Clinician Unavailable TONYA PAUL Admitting Clinician Unavailable MD TONYA PAUL Admitting Clinician Unavailable ORION CALERO Admitting Clinician Unavailable MD ORION CALERO Admitting Clinician Unavailable MD CHAGO RAMIREZ Admitting Clinician Unavailable CHAGO RAMIREZ Admitting Clinician Unavailable Octavio Huddleston MD Admitting Clinician RA VELAZCO Admitting Clinician Unavailable Payers Payer Name Policy Type Policy Number Effective Date Expiration Date S kathi MEDICARE PART A [id number] 2012 \\T\\ B 00:00:00 [employer] INDEMNITY [id number] 2022 00:00:00 [employer] MEDICARE [id number] 2019 2020 ADV 00:00:00 00:00:00 Problems Condition Condition Condition Status [...] rs active active ity of problems problems [facility] Allergies, Adverse Reactions, Alerts Allergy Allergy Status Severity Reaction(s) Onset Inactive Treating Comm ents Source Name Type Date Date Clinician AZITHROM DRUG Active ITCHING 2019-0 Univers YCIN INGREDI 08-30 ity of 00:00: [place] [facility] CIPROFLO DRUG Active Other-Cmnt 2019-0 Univ ers XACIN INGREDI 08-30 ity of 00:00: [place] [facility] CODEINE DRUG Active Hallucinates 2019-0 Uni vers INGREDI 08-30 ity of 00:00: [place] 00 [facility] MILK DRUG Active COUGH 2020-0 Univers INGREDI 1-14 ity of 00:00: [place] 00 [facility] Albutero Propensi Active Shortness of 2020-0 Cant Univers l ty to Breath 1-14 breathe ity of adverse 00:00: [place] reaction 00 Medical s Branch Azithrom Propensi Active Itching 2020-0 Unive rs ycin ty to 1-14 ity of adverse 00:00: [place] reaction 00 Medical s Branch Ciproflo Propensi Active Other - See 2020-0 Leg U nivers xacin ty to comments -14 swelling ity of adverse 00:00: [place] reaction 00 Medical s Branch Codeine Propensi Active Hallucinatio 2020-0 U nivers ty to ns 1-14 ity of adverse 00:00: [place] reaction 00 Medical s Branch Milk Propensi Active Cough 2020-0 Univers ty to 1-14 ity of adverse 00:00: [place] reaction 00 Medical s Branch ALBUTERO DRUG Active SOB 2020-0 Univers L INGREDI -14 ity of 00:00: [place] 00 [facility] Milk Propensi Active Other (See 2018- cough [facility] reaction 00 Center s Milk Propensi Active Other (See 2018- cough [facility] Comments) [facility]-29 [facility] adverse 00:00: [facility] Products reaction 00 Center s Milk Propensi Active Other (See 2018- cough Meth jamey Containi ty to Comments) 0-29 st ng adverse 00:00: Hospita Products reaction 00 l s to drug Azithrom Propensi Active Itching [facility] 12[facility]26 [facility] adverse 00:00: Medical reaction 00 Center s Albutero Propensi Active 0 Pt states Met hodi l ty to 5-[address] adverse 00:00: cannot Hospita reaction 00 breathe l s to drug Azithrom Propensi Active Itching 2016-0 Metho di ycin ty to 5-12 st adverse 00:00: Hospita reaction 00 l s to drug Ciproflo Propensi Active Leg Method i xacin-Fl ty to 5-[address] uocinolo adverse 00:00: Hospita ne reaction 00 l s to drug Albutero Drug Active Severe Pt [facility] Allergy - reports [facility] 00:[facility]: "she cant Medical 00 breathe" Center Ciproflo Drug Active Mild Legs [facility] xacin Allergy 01-04 swell and [facility] 00:00: turn Medical 00 bright Center red Ciproflo Adverse Active Info Not Cente r xacin Reaction Available for E NT Zpack Adverse Active Info Not Center Reaction Available for E NT Albutero Adverse Active Info Not Cente r l Reaction Available for E NT quinolon Adverse Active Info Not Cente r e Reaction Available for E NT Ipratrop Propensi Active Other (See Me thodi ium-[place] ty to Comments) st terol adverse Hospita reaction l s to drug Family History Family Member Diagnosis Comments Start Date Stop Date Source Natural sister Heart disease [facility] Natural sister Hypertension [facility] Natural sister Diabetes [facility] Natural father Heart disease [facility] [place] father Hypertension [facility] Social History Social Habit Start Date Stop Date Quantity Comments Source History of tobacco Current smoker Un iversity of use [facility] History SDOH Religion Alcohol Std Drinks Hospit al History SDOH Religion Alcohol Binge Hospital Exposure to 2022-07-15 2022-07-25 Not sure University of SARS-CoV-2 (event) 00:00:00 10:34:00 [facility] Tobacco Comment 2022-05-05 2022-05-05 30 years ago Univers ity of 00:00:00 00:00:00 [facility] Alcohol intake 2021-01-17 2021-01-17 Current drinker Metho dist 00:00:00 00:00:00 of alcohol Hospital (finding) Cigarettes smoked 2020-11-22 2020-11-[address] current (pack per 00:00:00 00:00:00 Hospita l day) - Reported Cigarette 2020-11-22 2020-11-22 Religion pack-years 00:00:00 00:00:00 Hospital History SDOH 2020-11-22 2020-11-22 1 Religion Alcohol Frequency 00:00:00 00:00:00 Hospita l Alcohol Comment 2020-06-08 2020-06-08 Per month Religion 00:00:00 00:00:00 Hospital Tobacco use and 2015-01-04 2015-01-[address] [facility] [address] Laxmi kes exposure 00:00:00 00:00:00 [facility] Sex Ass[birth year] Religion 00:00:00 00:00:00 Hospital Smoking Status Start Date Stop Date Source Ex-smoker 2022-05-05 00:00:00 2022-05-05 00:00:00 [facility] Medications Ordered Filled Start Stop Current Ordering Indication Dosage Frequency Signature Comments Components Source Medication Medication Date Date Medication? Clinician (SIG) Name Name rivaroxaban Yes 20mg QD Take 20 mg Methodi (XARELTO) 6-[address] 20 mg 11:19: every Hospita tablet 57 morning. l docusate Yes 200mg QD Take 200 Meth jamey sodium 6-[address] (COLACE) 11:19: mouth Hospita 100 MG 57 nightly. l capsule iron, Yes QD Take by Methodi carbonyl, 6-[address] 45 mg 11:19: nightly. Hospita tablet 57 l sennosides Yes 2{tbl} QD Take 2 Met hodi 15 mg 6-[address] tablet 11:19: mouth Hospita 57 nightly. l multivitami Yes QD Take by Met hodi n with iron 6-[address] (ONE DAILY 11:19: nightly. Hos armin MULTI-VIT 57 l W-MINERAL) tablet L. Yes 1{tbl} QD Take 1 Methodi acidophilus 6-[address] /Bifido 11:19: mouth Hospita longum 57 nightly. l (PROBIOTIC PEARLS ORAL) calcium Yes 1{tbl} Q.5D Take 1 Method i carbonate-v 6-[address] itamin D3 11:19: mouth 2 Hospi ta 600-125 57 (two) l mg-unit times a tablet day. cranberry Yes 1{capsu QD Take 1 Met hodi 400 mg 6-01 le} capsule by st capsule 11:19: mouth Hospita 57 daily. l cyanocobala Yes 5000ug QD Place Met hodi min, 6-01 5,[address] vitamin 11:19: under the [...] 500ug QD Take 500 M ethodi (ATROVENT) [address] 0.02 % 11:19: nebulizati Hospi ta nebulizer 57 on l solution nightly. fluticasone Yes QD Inhale Meth jamey /umeclidin/ 6- every st vilanter 11:19: morning. Hospi ta (TRELEGY 57 l ELLIPTA INHL) fluticasone Yes 2{spray QD 2 sprays Methodi propionate 01-15 } by Each st (FLONASE) 11:19: Nare route Ho spita 50 57 every l mcg/actuati morning. on nasal spray mirabegron Yes 50mg QD Take 50 mg M ethodi (Myrbetriq) 01-[address] 50 mg 11:19: daily. Hospita tablet 57 l extended release 24 hr methocarbam Yes 500mg Q.25D Take 500 Methodi oL 6-[address] (ROBAXIN) 11:19: mouth 4 Hospi ta 500 MG 57 (four) l tablet times a day. 1/2 1 tablet gabapentin Yes 300mg Q.[id number] Take 300 Methodi (NEURONTIN) 6 [id number] mg by s t 300 mg 11:19: 3D mouth 3 Hospita capsule 57 (three) l times a day. rivaroxaban Yes 20mg QD Take 20 mg [facility]i (XARELTO) 6- by mouth st 20 mg 11:19: every Hospita tablet 57 morning. l docusate Yes 200mg QD Take 200 Meth jamey sodium 6- mg by st (COLACE) 11:19: mouth Hospita 100 MG 57 nightly. l capsule iron, Yes QD Take by Methodi carbonyl, 6- mouth st 45 mg 11:19: nightly. Hospita [...] Take 5 mg Me thodi (NORVASC) 5 6-[address] mg tablet 11:19: every [...] QD Take 50 mg M ethodi (Myrbetriq) 01-[address] 50 mg 11:19: daily. Hospita tablet 57 l extended release 24 hr methocarbam Yes 500mg Q.25D Take 500 Methodi oL 6-[address] (ROBAXIN) 11:19: mouth 4 Hospi ta 500 MG 57 (four) l tablet times a day. 1/2 1 tablet gabapentin Yes 300mg Q.[id number] Take 300 Methodi (NEURONTIN) 6 [id number] mg by s t 300 mg 11:19: 3D mouth 3 Hospita capsule 57 (three) l times a day. HYDROcodone [place] [id number] 1{tbl} Q6H Take 1 M ethodi -acetaminop 4-[address] hen ([employer]) 00:00: mouth Hospi ta 5-325 mg 00 every 6 l per tablet (six) hours as needed for moderate pain for up to 30 days .acute pain. Max Daily Amount: 6 tablets HYDROcodone 2020-0 Yes [id number] 1{tbl} Q6H Take 1 M ethodi -acetaminop 4-[address] hen ([employer]) 00:00: mouth Hospi ta 5-325 mg 00 every 6 l per tablet (six) hours as needed for moderate pain for up to 30 days .acute pain. Max Daily Amount: 6 tablets Osphena 60 2020-0 Yes 1{tbl} QD Take 1 Met hodi mg tablet 3-[address] 00:00: mouth Hospita 00 daily. l with food - Osphena 60 Yes 1{tbl} QD Take 1 Met hodi mg tablet 3-[address] 00:00: mouth Hospita 00 daily. l with food - rivaroxaban Yes 20mg Take 20 mg Univers tablet 2-19 by mouth. ity of 14:18: [place] [facility] Iron, 0 Yes Take by Univers Carbonyl 45 2-19 mouth. ity of mg Tab 14:18: [place] [facility] Calcium-Cho Yes Take by Uni vers lecalcifero 2-19 mouth. ity of l, D3, 14:18: [place] 600-125 20 Medical mg-unit Tab Branch sennosides Yes Take by Univ ers (PERDIEM 2-19 mouth. ity of ORAL) 14:18: Indication [place] 20 s: 2 per Medical night Branch docusate 2019-0 Yes Take by Univer s sodium 2-19 mouth. ity of (STOOL 14:18: Indication [place] SOFTENER 20 s: 2 per Medical ORAL) night Branch FIBER Yes Take by Univers CHOICE ORAL 2-19 mouth. ity of 14:18: Indication [place] 20 s: equate Medical fiber pill Branch daily levalbutero Yes 1{puff} Inhale 1-2 Univers l 45 2-19 Puffs ity of mcg/actuati 14:18: every 4 [place] as on inhaler 20 (four) Medical hours as Branch needed for Wheezing. cyanocobala Yes Take by Uni vers min, 2-19 mouth. ity of vitamin 14:18: Indication [place] B-12, (B-12 20 s: b12 Medica l DOTS ORAL) daily Branch HYOSCYAMINE 0 Yes Take by Uni vers ORAL 2-19 mouth. ity of 14:18: [place] [facility] ospemifene 2019-0 Yes Take by Univ ers (OSPHENA) 2-19 mouth. ity of 60 mg 14:18: [place] tablet 20 Medical Branch Cranberry 2019-0 Yes Take by Unive rs 400 mg Cap 2-19 mouth. ity of 14:18: [place] 20 Medical Branch mometasone 2020-0 Yes 50ug Inhale 50 Un augusto 100 2-19 mcg. ity of mcg/actuati 14:18: Indication [place] on HFAA 20 s: 2 Medical sniffs Branch each nostril IPRATROPIUM 2020-0 Yes Use in [facility] ers BROMIDE 2-19 each ity of NASAL 14:18: nostril. [place] 20 Indication Medical s: one Branch ampule as needed ( for nebulizer) cetirizine 2019-0 Yes 10mg Take 10 mg U nivers HCl 2-19 by mouth. ity of (CETIRIZINE 14:18: [place] ORAL) 20 Medical Branch amLODIPine 2020-0 Yes 5mg Take 5 mg Un augusto (NORVASC) 5 2-19 by mouth ity of mg tablet 14:18: daily. [place] 20 Medical Branch rivaroxaban 2019-0 Yes 20mg Take 20 mg Univers tablet 2-19 by mouth. ity of 14:18: [place] 20 Medical Branch Iron, 2020-0 Yes Take by Univers Carbonyl 45 2-19 mouth. ity of mg Tab 14:18: [place] 20 Medical Branch Calcium-Cho 2020-0 Yes Take by Uni vers lecalcifero 2-19 mouth. ity of l, D3, 14:18: [place] 600-125 20 Medical mg-unit Tab Branch sennosides 2020-0 Yes Take by [facility] ers (PERDIEM 2-19 mouth. ity of ORAL) 14:18: Indication [place] 20 s: 2 per Medical night Branch docusate 2020-0 Yes Take by Univer s sodium 2-19 mouth. ity of (STOOL 14:18: Indication [place] SOFTENER 20 s: 2 per Medical ORAL) night Branch FIBER 2020-0 Yes Take by Univers CHOICE ORAL 2-19 mouth. ity of 14:18: Indication [place] 20 s: equate Medical fiber pill Branch [...] vers ORAL 2-19 mouth. ity of 14:18: [place] 20 Medical Branch ospemifene 2020-0 Yes Take by [facility] ers (OSPHENA) 2-19 mouth. ity of 60 mg 14:18: [place] tablet 20 Medical Branch Cranberry 2019-0 Yes Take by [facility] [place] [facility] rs 400 mg Cap 2-19 mouth. ity of 14:18: [place] 20 Medical Branch mometasone 2019-0 Yes 50ug Inhale 50 Un augusto 100 2-19 mcg. ity of mcg/actuati 14:18: Indication [place] on HFAA 20 s: 2 Medical sniffs Branch each nostril IPRATROPIUM 2019-0 Yes Use in [facility] ers BROMIDE 2-19 each ity of NASAL 14:18: nostril. [place] Indication Medical s: one Branch ampule as needed ( for nebulizer) cetirizine 2019-0 Yes 10mg Take 10 mg U nivers HCl 2-19 by mouth. ity of (CETIRIZINE 14:18: [place] ORAL) 20 Medical Branch amLODIPine 2019-0 Yes 5mg Take 5 mg Un augusto (NORVASC) 5 2-19 by mouth ity of mg tablet 14:18: daily. [place] [facility] rivaroxaban 2019-0 Yes 20mg Take 20 mg Univers tablet 2-19 by mouth. ity of 14:18: [place] [address] Medical Branch Iron, 2019-0 Yes Take by [facility] [place] Carbonyl 45 2-19 mouth. ity of mg Tab 14:18: [place] 20 Medical Branch Calcium-Cho 2020-0 Yes Take by Uni vers lecalcifero 2-19 mouth. ity of l, D3, 14:18: [place] 600-125 20 Medical mg-unit Tab Branch sennosides 2019-0 Yes Take by [facility] ers (PERDIEM 2-19 mouth. ity of ORAL) 14:18: Indication [place] 20 s: 2 per Medical night Branch docusate 2020-0 Yes Take by [facility] s sodium 2-19 mouth. ity of (STOOL 14:18: Indication [place] SOFTENER 20 s: 2 per Medical ORAL) night Branch FIBER 2019-0 Yes Take by [facility] [place] CHOICE ORAL 2-19 mouth. ity of 14:18: Indication [place] 20 s: equate Medical fiber pill Branch daily levalbutero 2019-0 Yes 1{puff} Inhale 1-2 Univers l 45 [...] vers ORAL 2-19 mouth. ity of 14:18: [place] [facility] ospemifene 2019-0 Yes Take by [facility] ers (OSPHENA) 2-19 mouth. ity of 60 mg 14:18: [place] tablet Medical Branch Cranberry 2019-0 Yes Take by [facility] [place] [facility] rs 400 mg Cap 2-19 mouth. ity of 14:18: [place] [address] Medical Branch mometasone 2019-0 Yes 50ug Inhale 50 Un augusto 100 2-19 mcg. ity of mcg/actuati 14:18: Indication [place] on HFAA 20 s: 2 Medical sniffs Branch each nostril IPRATROPIUM 2019-0 Yes Use in [facility] ers BROMIDE 2-19 each ity of NASAL 14:18: nostril. [place] 20 Indication Medical s: one Branch ampule as needed ( for nebulizer) cetirizine 2019-0 Yes 10mg Take 10 mg U nivers HCl 2-19 by mouth. ity of (CETIRIZINE 14:18: [place] ORAL) 20 Medical Branch amLODIPine 2020-0 Yes 5mg Take 5 mg Un augusto (NORVASC) 5 2-19 by mouth ity of mg tablet 14:18: daily. [place] [facility] rivaroxaban 2019-0 Yes 20mg Take 20 mg Univers tablet 2-19 by mouth. ity of 14:18: [place] [facility] Iron, 2020-0 Yes Take by Univers Carbonyl 45 2-19 mouth. ity of mg Tab 14:18: [place] 20 Medical Branch Calcium-Cho 2019-0 Yes Take by Uni vers lecalcifero 2-19 mouth. ity of l, D3, 14:18: [place] 600-125 20 Medical mg-unit Tab Branch sennosides 2020-0 Yes Take by [facility] ers (PERDIEM 2-19 mouth. ity of ORAL) 14:18: Indication [place] 20 s: 2 per Medical night Branch docusate 2020-0 Yes Take by Univer s sodium 2-19 mouth. ity of (STOOL 14:18: Indication [place] SOFTENER 20 s: 2 per Medical ORAL) night Branch FIBER 2020-0 Yes Take by Univers CHOICE ORAL 2-19 mouth. ity of 14:18: [...] ity of 14:18: 20 Medical Branch ospemifene 2019-0 Yes Take by [facility] ers (OSPHENA) 2-19 mouth. ity of 60 mg 14:18: [place] tablet Medical Branch Cranberry 2019-0 Yes Take by [facility] [place] [facility] rs 400 mg Cap 2-19 mouth. ity of 14:18: [place] [facility] mometasone 2019-0 Yes 50ug Inhale 50 Un augusto 100 2-19 mcg. ity of mcg/actuati 14:18: Indication [place] on HFAA 20 s: 2 Medical sniffs Branch each nostril IPRATROPIUM 2020-0 Yes Use in [facility] ers BROMIDE 2-19 each ity of NASAL 14:18: nostril. 20 Indication Medical s: one Branch ampule as needed ( for nebulizer) cetirizine 2020-0 Yes 10mg Take 10 mg U nivers HCl 2-19 by mouth. ity of (CETIRIZINE 14:18: [place] ORAL) 20 Medical Branch amLODIPine 2019-0 Yes 5mg Take 5 mg Un augusto (NORVASC) 5 2-19 by mouth ity of mg tablet 14:18: daily. [place] 20 Medical Branch rivaroxaban 2020-0 Yes 20mg Take 20 mg Univers tablet 2-19 by mouth. ity of 14:18: [place] [address] Medical Branch Iron, 2020-0 Yes Take by Univers Carbonyl 45 2-19 mouth. ity of mg Tab 14:18: [place] 20 Medical Branch Calcium-Cho 2020-0 Yes Take by Uni vers lecalcifero 2-19 mouth. ity of l, D3, 14:18: [place] 600-125 20 Medical mg-unit Tab Branch sennosides 2020-0 Yes Take by [facility] ers (PERDIEM 2-19 mouth. ity of ORAL) 14:18: Indication [place] 20 s: 2 per Medical night Branch docusate 2020-0 Yes Take by [facility] s sodium 2-19 mouth. ity of (STOOL 14:18: Indication [place] SOFTENER 20 s: 2 per Medical ORAL) night Branch FIBER 2020-0 Yes Take by Univers CHOICE ORAL 2-19 mouth. ity of 14:18: [...] vers ORAL 2-19 mouth. ity of 14:18: [place] [facility] ospemifene 2019-0 Yes Take by [facility] ers (OSPHENA) 2-19 mouth. ity of 60 mg 14:18: [place] tablet 20 Medical Branch Cranberry 2020-0 Yes Take by [facility] [place] [facility] rs 400 mg Cap 2-19 mouth. ity of 14:18: [place] 20 Medical Branch mometasone 2020-0 Yes 50ug Inhale 50 Un augusto 100 2-19 mcg. ity of mcg/actuati 14:18: Indication [place] on HFAA 20 s: 2 Medical sniffs Branch each nostril IPRATROPIUM 2020-0 Yes Use in [facility] ers BROMIDE 2-19 each ity of NASAL 14:18: nostril. [place] 20 Indication Medical s: one Branch ampule as needed ( for nebulizer) cetirizine 2019-0 Yes 10mg Take 10 mg U nivers HCl 2-19 by mouth. ity of (CETIRIZINE 14:18: [place] ORAL) 20 Medical Branch amLODIPine 2020-0 Yes 5mg Take 5 mg Un augusto (NORVASC) 5 2-19 by mouth ity of mg tablet 14:18: daily. [place] 20 Medical Branch rivaroxaban 2020-0 Yes 20mg Take 20 mg Univers tablet 2-19 by mouth. ity of 14:18: [place] 20 Medical Branch Iron, 2020-0 Yes Take by Univers Carbonyl 45 2-19 mouth. ity of mg Tab 14:18: [place] 20 Medical Branch Calcium-Cho 2020-0 Yes Take by Uni vers lecalcifero 2-19 mouth. ity of l, D3, 14:18: [place] 600-125 20 Medical mg-unit Tab Branch sennosides 2019-0 Yes Take by Univ ers (PERDIEM 2-19 mouth. ity of ORAL) 14:18: Indication [place] 20 s: 2 per Medical night Branch docusate 2020-0 Yes Take by Univer s sodium 2-19 mouth. ity of (STOOL 14:18: Indication [place] SOFTENER 20 s: 2 per Medical ORAL) night Branch FIBER 2019-0 Yes Take by Univers CHOICE ORAL 2-19 mouth. ity of 14:18: Indication [place] 20 s: equate Medical fiber pill Branch daily levalbutero 2019-0 Yes 1{puff} Inhale 1-2 Univers l 45 2-19 Puffs ity of mcg/actuati 14:18: every 4 [place] as on inhaler 20 (four) Medical hours as Branch needed for Wheezing. cyanocobala 2019-0 Yes Take by Uni vers min, 2-19 mouth. ity of vitamin 14:18: Indication [place] B-12, (B-12 20 s: b12 Medica l DOTS ORAL) daily Branch HYOSCYAMINE 2020-0 Yes Take by Uni vers ORAL 2-19 mouth. ity of 14:18: [place] 20 Medical Branch ospemifene 2020-0 Yes Take by Univ ers (OSPHENA) 2-19 mouth. ity of 60 mg 14:18: [place] tablet 20 Medical Branch Cranberry 2020-0 Yes Take by Unive rs 400 mg Cap 2-19 mouth. ity of 14:18: [place] 20 Medical Branch mometasone 2020-0 Yes 50ug Inhale 50 Un augusto 100 2-19 mcg. ity of mcg/actuati 14:18: Indication [place] on HFAA 20 s: 2 Medical sniffs Branch each nostril IPRATROPIUM 2020-0 Yes Use in [facility] ers BROMIDE 2-19 each ity of NASAL 14:18: nostril. [place] 20 Indication Medical s: one Branch ampule as needed ( for nebulizer) cetirizine 2020-0 Yes 10mg Take 10 mg U nivers HCl 2-19 by mouth. ity of (CETIRIZINE 14:18: [place] ORAL) 20 Medical Branch amLODIPine 2020-0 Yes 5mg Take 5 mg Un augusto (NORVASC) 5 2-19 by mouth ity of mg tablet 14:18: daily. [place] 20 Medical Branch rivaroxaban 2019-0 Yes 20mg Take 20 mg Univers tablet 2-19 by mouth. ity of 14:18: [place] 20 Medical Branch Iron, 2019-0 Yes Take by Univers Carbonyl 45 2-19 mouth. ity of mg Tab 14:18: [place] 20 Medical Branch Calcium-Cho 2020-0 Yes Take by Uni vers lecalcifero 2-19 mouth. ity of l, D3, 14:18: [place] 600-125 20 Medical mg-unit Tab Branch sennosides 2020-0 Yes Take by [facility] ers (PERDIEM 2-19 mouth. ity of ORAL) 14:18: Indication [place] 20 s: 2 per Medical night Branch docusate 2020-0 Yes Take by Univer s sodium 2-19 mouth. ity of (STOOL 14:18: Indication [place] SOFTENER 20 s: 2 per Medical ORAL) night Branch FIBER 2020-0 Yes Take by Univers CHOICE ORAL 2-19 mouth. ity of 14:18: [...] vers ORAL 2-19 mouth. ity of 14:18: [place] 20 Medical Branch ospemifene 2020-0 Yes Take by [facility] ers (OSPHENA) 2-19 mouth. ity of 60 mg 14:18: [place] tablet 20 Medical Branch Cranberry 2019-0 Yes Take by [facility] [place] [facility] rs 400 mg Cap 2-19 mouth. ity of 14:18: [place] 20 Medical Branch mometasone 2020-0 Yes 50ug Inhale 50 Un augusto 100 2-19 mcg. ity of mcg/actuati 14:18: Indication [place] on HFAA 20 s: 2 Medical sniffs Branch each nostril IPRATROPIUM 2020-0 Yes Use in [facility] ers BROMIDE 2-19 each ity of NASAL 14:18: nostril. [place] 20 Indication Medical s: one Branch ampule as needed ( for nebulizer) cetirizine 2019-0 Yes 10mg Take 10 mg U nivers HCl 2-19 by mouth. ity of (CETIRIZINE 14:18: [place] ORAL) 20 Medical Branch amLODIPine 2019-0 Yes 5mg Take 5 mg Un augusto (NORVASC) 5 2-19 by mouth ity of mg tablet 14:18: daily. [place] 20 Medical Branch rivaroxaban 2019-0 Yes 20mg Take 20 mg Univers tablet 2-19 by mouth. ity of 14:18: [place] [address] Medical Branch Iron, 2019-0 Yes Take by [facility] [place] Carbonyl 45 2-19 mouth. ity of mg Tab 14:18: [place] 20 Medical Branch Calcium-Cho 2019-0 Yes Take by [facility] vers lecalcifero 2-19 mouth. ity of l, D3, 14:18: [place] 600-125 20 Medical mg-unit Tab Branch sennosides 2019-0 Yes Take by [facility] ers (PERDIEM 2-19 mouth. ity of ORAL) 14:18: Indication [place] 20 s: 2 per Medical night Branch docusate 2020-0 Yes Take by [facility] s sodium 2-19 mouth. ity of (STOOL 14:18: Indication [place] SOFTENER 20 s: 2 per Medical ORAL) night Branch FIBER 2020-0 Yes Take by [facility] [place] CHOICE ORAL 2-19 mouth. ity of 14:18: [...] Medica l DOTS ORAL) daily Branch HYOSCYAMINE 2019-0 Yes Take by Uni vers ORAL 2-19 mouth. ity of 14:18: [place] [address] Medical Branch ospemifene 2019-0 Yes Take by [facility] ers (OSPHENA) 2-19 mouth. ity of 60 mg 14:18: [place] tablet Medical Branch Cranberry Yes Take by [facility] [place] [facility] rs 400 mg Cap 2-19 mouth. ity of 14:18: [place] [address] Medical Branch mometasone 2019-0 Yes 50ug Inhale 50 Un augusto 100 2-19 mcg. ity of mcg/actuati 14:18: Indication [place] on HFAA 20 s: 2 Medical sniffs Branch each nostril IPRATROPIUM 2019-0 Yes Use in [facility] ers BROMIDE 2-19 each ity of NASAL 14:18: nostril. [place] [address] Indication Medical s: one Branch ampule as needed ( for nebulizer) cetirizine 0 Yes 10mg Take 10 mg U nivers HCl 2-19 by mouth. ity of (CETIRIZINE 14:18: [place] ORAL) 20 Medical Branch amLODIPine 2019-0 Yes 5mg Take 5 mg Un augusto (NORVASC) 5 2-19 by mouth ity of mg tablet 14:18: [place]. [place] [address] Medical Branch Bactrim DS Bactrim DS 2019- No Ra 1 tablet Center 10-15 [facility] 00:00: 00:00 00 :00 clobetasol 2017- Yes Q24H daily as Met [facility] (TEMOVATE) 2-[address] 0.05 % 00:00: Hospita cream 00 l clobetasol 2017-08 Yes Q24H daily as [facility] (TEMOVATE) 2-[address] 0.05 % 00:00: Hospita cream 00 l hyoscyamine 2017-[address] 1 [facility] (LEVSIN) 1-[address] 0[address]125 mg SL 00:00: UNDER THE H ospita tablet 00 TONGUE l ROUTE 4 TIMES EVERY DAY NEEDED FOR ABDOMINAL CRAMPS hyoscyamine 2017-[address] 1 Met elijah (LEVSIN) 1-[address] 0[address]125 mg SL 00:00: UNDER THE H ospita tablet 00 TONGUE l ROUTE 4 TIMES EVERY DAY NEEDED FOR ABDOMINAL CRAMPS calcium 2017-08 Yes Q.5D Take by [facility] carbonate-v 1-14 mouth 2 [facility] itamin D3 16:53: (two) Medical (CALCIUM 35 times Center 600 + D,3,) daily. 600-125 mg-unit Tab L. 2017-08 Yes QD Take by [facility] acidophilus 1-14 mouth [facility] /Bifido 16:53: daily. Medical longum 35 Center (PROBIOTIC PEARLS ORAL) loratadine 2017-08 Yes QD Take by [facility] 10 mg Cap 1-14 mouth [facility] 16:53: daily. Medical 35 Center mometasone 2017-08 Yes 2{spray QD [address] (NASONEX) 1-14 } by Nasal [facility] 50 16:53: route Medical mcg/actuati 35 daily. Center on nasal spray Missing or 2017-08 Yes 9ug Q.5D [address] [facility] Non-Formula 1-14 (two) [facility] ry 16:53: times Medical Medication 35 daily Center BeVespie inhaler . valerian 2017-08 Yes 4{capsu QD Take [address] [facility] [facility] root 450 mg 1-14 le} capsules Luke s Cap 16:53: by mouth Medical 35 nightly. [place] inulin 2017-08 Yes 2{capsu QD Take [address] (FIBER 1-14 le} capsules [facility] GUMMIES 16:53: by mouth Medica l ORAL) 35 nightly. [place] cephalexin 2017-08 Yes 500mg Q.5D Take 500 [...] 1-14 [facility] ry 16:53: Medical Medication 35 [place] levothyroxi 2017-08 Yes 150ug QD Take 150 [...] [facility]ukes tablet 16:53: mouth Medical 35 daily. [place] montelukast 2017-08 Yes 10mg QD Take [address] (SINGULAIR) 1-14 by mouth Luke s 10 mg 16:53: daily . Medical tablet 35 [place] beclomethas 2017-08 Yes 2{puff} Q.5D Inhale 2 [...] [facility] tablet 16:53: mouth Medical 35 daily. [place] levothyroxi 2017-08 Yes 150ug QD Take [address] ne 1-14 mcg by [facility] (SYNTHROID, 16:53: mouth Medic al LEVOTHROID) 35 daily. [place] 150 MCG tablet fluticasone 2017-08 Yes 1{puff} Inhale [address] -salmeterol 1-14 puff by [facility] (ADVAIR) 16:53: mouth via Medi galdino 250-50 35 inhaler Center mcg/dose every 12 diskus (twelve) inhaler hours. b complex 2017-08 Yes 1{tbl} QD Take [address] vitamins 1-14 tablet by [facility] tablet 16:53: mouth Medical 35 daily. [place] montelukast 2017-08 Yes 10mg QD Take [address] (SINGULAIR) 1-14 by mouth Luke s 10 mg 16:53: daily . Medical tablet 35 [place] beclomethas 2017-08 Yes 2{puff} Q.5D Inhale [address] one (QVAR) 1-14 puffs by [facility] 40 16:53: mouth via Medical mcg/actuati [address] on inhaler (two) times daily. iron, 2017-08 Yes 2{tbl} QD Take [address] carbonyl 45 1-14 tablets by Laxmi kes mg Tab 16:53: mouth Medical tablet 35 nightly . [place] phenylephri 2017-08 Yes 1[drp] [address] [facility] [address] ne 1-14 Nasal [facility] (OPAL-SYNEPH 16:53: route Medic al RINE) 1 % 35 every 4 Center nasal spray (four) hours as needed for Congestion . multivitami 2017-08 Yes 1{tbl} QD Take [address] n per 1-14 tablet by [facility] tablet 16:53: mouth Medical 35 daily. [place] iron, 2017-08 Yes 2{tbl} QD Take [address] carbonyl 45 1-14 tablets by Laxmi kes mg Tab 16:53: mouth Medical tablet 35 nightly . [place] polycarboph 2017-08 Yes 625mg QD Take [address] il 1-14 mg by [facility] (FIBERCON) 16:53: mouth Medica l 625 mg 35 daily. [place] tablet docusate 2017-08 Yes 200mg QD Take [address] sodium 1-14 mg by [facility] (COLACE) 16:53: mouth Medical 100 MG 35 nightly. [place] capsule lactobacill 2017-08 Yes 1{capsu QD Take [address] us 1-14 le} capsule by [facility] rhamnosus, 16:53: mouth Medica l GG, 35 daily. [place] ([facility] ) 10 billion cell capsule cholecalcif 2017-08 Yes 1000U Q.[id number] Take 1,[address] crystal 1-14 [id number] Units by [facility] (VITAMIN 16:53: 3W mouth 3 Medica l D3) 1,000 35 (three) [place] unit tablet times a week. zinc 2017-08 Yes 50mg QD Take [address] gluconate 1-14 by mouth [facility] 50 mg 16:53: daily. Medical tablet 35 [place] omega-3 2017-08 Yes Take by [facility] fatty 1-14 mouth. [facility] acids-vitam 16:53: Medica l in E 1,000 35 Center mg Cap guaiFENesin 2017-08 Yes 1200mg Q.5D Take 1,[address] (MUCINEX) 1-14 mg by [facility] 600 mg 12 16:53: mouth 2 Medic al hr tablet 35 (two) Center times daily. polycarboph 2017-08 Yes 625mg QD Take [address] il 1-14 mg by [facility] (FIBERCON) 16:53: mouth Medica l 625 mg 35 daily. [place] tablet mirabegron 2017-08 Yes QD Take by [facility] (MYRBETRIQ) 1-14 mouth [facility] 50 mg Tb24 16:53: daily. Medic al ER tablet 35 [place] gabapentin 2017-08 Yes 300mg Q.[id number] Take [address] (NEURONTIN) 1-14 [id number] mg by L ukes 300 MG 16:53: 3D mouth 3 Medical capsule 35 (three) Center times daily. ospemifene 2017-08 Yes 1{tbl} QD Take [address] (OSPHENA) 1-14 tablet by [facility] 60 mg Tab 16:53: mouth Medical 35 daily. [place] rivaroxaban 2017-08 Yes 20mg QD Take [address] (XARELTO) 1-14 by mouth [facility]ukes 20 mg Tab 16:53: daily. Medica l tablet 35 [place] omeprazole 2017-08 Yes 40mg QD Take [address] (PRILOSEC) 1-14 by mouth [facility]ukes 40 MG 16:53: daily. Medical capsule 35 [place] cranberry 2017-08 Yes QD Take by [facility] 400 mg Cap 1-14 mouth [facility]ukes 16:53: daily. [address] calcium 2017-08 Yes Q.5D Take by [facility] carbonate-v 1-14 mouth 2 [facility] itamin D3 16:53: (two) Medical (CALCIUM 35 times [place] 600 + D,3,) daily. 600-125 mg-unit Tab L. 2017-08 Yes QD Take by [facility] acidophilus 1-14 mouth [facility]ukes /Bifido 16:53: daily. [facility] longum 35 [place] (PROBIOTIC PEARLS ORAL) loratadine 2017-08 Yes QD Take by [facility] 10 mg Cap 1-14 mouth [facility]ukes 16:53: daily. Medical 35 [place] mometasone 2017-08 Yes 2{spray QD [address] (NASONEX) 1-14 } by Nasal [facility] 50 16:53: route Medical mcg/actuati 35 daily. Center on nasal spray docusate 2017-08 Yes 200mg QD Take [address] sodium 1-14 mg by [facility]ukes (COLACE) 16:53: mouth Medical 100 MG 35 nightly. Center capsule Missing or 2017-08 Yes 9ug Q.5D [address] [facility] Non-Formula 1-14 (two) Lukes ry 16:53: times Medical Medication 35 daily [place] BeVespie inhaler . valerian 2017-08 Yes 4{capsu QD Take [address] root 450 mg 1-14 le} capsules Luke s Cap 16:53: by mouth Medical 35 nightly. [place] inulin 2017-08 Yes 2{capsu QD Take [address] (FIBER 1-14 le} capsules Lukes GUMMIES 16:53: by mouth Medica l ORAL) 35 nightly. [place] cephalexin 2017-08 Yes 500mg Q.5D Take [address] (KEFLEX) 1-14 mg by [facility]ukes 500 MG 16:53: mouth 2 Medical capsule 35 (two) Center times daily. hyoscyamine 2017-08 Yes .125mg Take 0.[address] (ANASPAZ,LE 1-14 mg by [facility] VSIN) 0.125 16:53: mouth Medic al mg tablet 35 every 4 Center (four) hours as needed for Cramping. Missing or 2017-[address] Non-Formula 1-14 Lukes ry 16:53: Medical Medication 35 [place] lactobacill 2017-08 Yes 1{capsu QD Take [address] us 1-14 le} capsule by [facility] rhamnosus, 16:53: mouth Medica l GG, 35 daily. [facility] 10 billion cell capsule cholecalcif 2017-08 Yes 1000U Q.[id number] Take 1,[address] crystal 1-14 [id number] Units by [facility] (VITAMIN 16:53: 3W mouth 3 Medica l D3) 1,000 35 (three) Center unit tablet times a week. zinc 2017-08 Yes 50mg QD Take [address] gluconate 1-14 by mouth [facility]ukes 50 mg 16:53: daily. Medical tablet 35 [place] omega-3 2017-08 Yes Take by [facility] fatty 1-14 mouth. [facility]ukes acids-vitam 16:53: Medica l in E 1,000 35 [place] mg Cap guaiFENesin 2017-08 Yes 1200mg Q.5D Take 1,[address] (MUCINEX) 1-14 mg by [facility]ukes 600 mg 12 16:53: mouth 2 Medic al hr tablet 35 (two) Center times daily. mirabegron 2017-08 Yes QD Take by [facility] (MYRBETRIQ) 1-14 mouth Lukes 50 mg Tb24 16:53: daily. Medic al ER tablet 35 [place] gabapentin 2017-08 Yes 300mg Q.[id number] Take [address] (NEURONTIN) 1-14 [id number] mg by L ukes 300 MG 16:53: 3D mouth 3 Medical capsule 35 (three) Center times daily. ospemifene 2017-08 Yes 1{tbl} QD Take [address] (OSPHENA) 1-14 tablet by [facility]ukes 60 mg Tab 16:53: mouth Medical 35 daily. [place] rivaroxaban 2017-08 Yes 20mg QD Take [address] (XARELTO) 1-14 by mouth [facility]ukes 20 mg Tab 16:53: daily. Medica l tablet 35 [place] omeprazole 2017-08 Yes 40mg QD Take [address] (PRILOSEC) 1-14 by mouth [facility]ukes 40 MG 16:53: daily. Medical capsule 35 [place] cranberry 2017-08 Yes QD Take by [facility] 400 mg Cap 1-14 mouth Lukes 16:53: daily. [address] fluocinonid 2017-08 Yes APPLY Metho di e (LIDEX) 0-[address] 0.05 % 00:00: DAY TO Hospita external 00 AFFECTED l solution AREAS ON SCALP FOR 2 WEEKS MAX NEEDED FOR FLARE fluocinonid 2017-08 Yes APPLY Metho di e (LIDEX) 0-[address] 0.05 % 00:00: DAY TO Hospita external 00 AFFECTED l solution AREAS ON SCALP FOR 2 WEEKS MAX NEEDED FOR FLARE naftifine 2 2017-08 Yes Q24H daily as Me thodi % cream 0-[address] 00:00: Hospita 00 l naftifine 2 2017-08 Yes Q24H daily as Me thodi % cream 0-[address] 00:00: Hospita 00 l beclomethas 0 Yes 2{puff} Inhale 2 Univers one 1-22 Puffs. ity of dipropionat 00:00: [place] e 40 Medical mcg/actuati Branch on inhaler beclomethas Yes 2{puff} Inhale 2 Univers one 1-22 Puffs. ity of dipropionat 00:00: [place] e 40 Medical mcg/actuati Branch on inhaler beclomethas Yes 2{puff} Inhale 2 Univers one 1-22 Puffs. ity of dipropionat 00:00: [place] e 40 Medical mcg/actuati Branch on inhaler beclomethas Yes 2{puff} Inhale 2 Univers one 1-22 Puffs. ity of dipropionat 00:00: [place] e 40 Medical mcg/actuati Branch on inhaler beclomethas Yes 2{puff} Inhale 2 Univers one 1-22 Puffs. ity of dipropionat 00:00: [place] e 40 Medical mcg/actuati Branch on inhaler beclomethas Yes 2{puff} Inhale 2 Univers one 1-22 Puffs. ity of dipropionat 00:00: [place] e 40 Medical mcg/actuati Branch on inhaler beclomethas 0 Yes 2{puff} Inhale 2 Univers one 1-22 Puffs. ity of dipropionat 00:00: [place] e 40 Medical mcg/actuati Branch on inhaler beclomethas Yes 2{puff} Inhale 2 Univers one 1-22 Puffs. ity of dipropionat 00:00: [place] e 40 Medical mcg/actuati Branch on inhaler levothyroxi Yes 150ug QD Take 150 M ethodi ne 1-[address] (SYNTHROID, 00:00: mouth Hospi ta LEVOXYL) 00 every l 150 mcg morning. tablet levothyroxi Yes 150ug Take 150 U nivers ne 150 mcg 1-08 mcg by ity of tablet 00:00: mouth. Medical Branch levothyroxi 0 Yes 150ug Take 150 U nivers ne 150 mcg 1-08 mcg by ity of tablet 00:00: mouth. [address] levothyroxi Yes 150ug Take 150 U nivers ne 150 mcg 1-08 mcg by ity of tablet 00:00: mouth. [place] [facility] levothyroxi Yes 150ug Take 150 U nivers ne 150 mcg 1-08 mcg by ity of tablet 00:00: mouth. [address] levothyroxi Yes 150ug Take 150 U nivers ne 150 mcg 1-08 mcg by ity of tablet 00:00: mouth. [address] levothyroxi Yes 150ug Take 150 U nivers ne 150 mcg 1-08 mcg by ity of tablet 00:00: mouth. [address] levothyroxi Yes 150ug Take 150 U nivers ne 150 mcg 1-08 mcg by ity of tablet 00:00: mouth. [address] levothyroxi Yes 150ug Take 150 U nivers ne 150 mcg 1-08 mcg by ity of tablet 00:00: mouth. [address] levothyroxi Yes 150ug QD Take 150 M ethodi ne 1-[address] (SYNTHROID, 00:00: mouth Hospi ta LEVOXYL) 00 every l 150 mcg morning. tablet levalbutero Yes INHALE 2 Me thodi l (XOPENEX 1-[address] HFA) 45 00:00: EVERY 4-6 Hospi ta mcg/actuati 00 HOURS l on inhaler NEEDED levalbutero Yes INHALE 2 Me thodi l (XOPENEX 1-[address] HFA) 45 00:00: EVERY 4-6 Hospi ta mcg/actuati 00 HOURS l on inhaler NEEDED montelukast 2016-08 Yes 10mg QD Take 10 mg [facility]i (SINGULAIR) [address] 10 mg 00:00: nightly. Hospita tablet 00 l montelukast 2016-08 Yes 10mg Take 10 mg Univers 10 mg 2-01 by mouth. ity of tablet 00:00: [address] montelukast 2016-08 Yes 10mg Take 10 mg Univers 10 mg 201 by mouth. ity of tablet 00:00: [place] 00 [facility] 2016-08 Yes 10mg Take 10 mg Univers 10 mg 2-01 by mouth. ity of tablet 00:00: [place] [facility] 2016-08 Yes 10mg Take 10 mg Univers 10 mg 2-01 by mouth. ity of tablet 00:00: [place] [facility] 2016-08 Yes 10mg Take 10 mg Univers 10 mg 2-01 by mouth. ity of tablet 00:00: [place] [facility] 2016-08 Yes 10mg Take 10 mg Univers 10 mg 2-01 by mouth. ity of tablet 00:00: [place] [facility] 2016-08 Yes 10mg Take 10 mg Univers 10 mg 2-01 by mouth. ity of tablet 00:00: [place] [facility] 2016-08 Yes 10mg Take 10 mg Univers 10 mg 2-01 by mouth. ity of tablet 00:00: [place] [facility] 2016-08 Yes 10mg QD Take 10 mg [facility] (SINGULAIR) 2-[address] 10 mg 00:00: nightly. Hospita tablet 00 l Immunizations Ordered Filled Immunization Date Status Comments [facility] e Immunization Name Name SARS-COV-2 COVID-19 2021-06-14 Completed Unive rsity of PFIZER VACCINE 00:00:00 [facility] SARS-COV-2 COVID-19 2021-06-14 Completed Unive rsity of PFIZER VACCINE 00:00:00 [facility] SARS-COV-2 COVID-19 2021-06-14 Completed Unive rsity of PFIZER VACCINE 00:00:00 [facility] SARS-COV-2 COVID-19 2021-06-14 Completed Unive rsity of PFIZER VACCINE 00:00:00 [facility] SARS-COV-2 COVID-19 2021-06-14 Completed Unive rsity of PFIZER VACCINE 00:00:00 [facility] SARS-COV-2 COVID-19 2021-06-14 Completed Unive rsity of PFIZER VACCINE 00:00:00 [facility] SARS-COV-2 COVID-19 2021-06-14 Completed Unive rsity of PFIZER VACCINE 00:00:00 [facility] SARS-COV-2 COVID-19 2021-06-14 Completed Unive rsity of PFIZER VACCINE 00:00:00 [facility] PFIZER COVID-19 2020-11-03 Completed Religion MRNA VACCINATION 00:00:00 Hospital SARS-COV-2 COVID-19 2020-11-03 Completed Unive rsity of PFIZER VACCINE 00:00:00 [facility] SARS-COV-2 COVID-19 2020-11-03 Completed Unive rsity of PFIZER VACCINE 00:00:00 [facility] SARS-COV-2 COVID-19 2020-11-03 Completed Unive rsity of PFIZER VACCINE 00:00:00 [facility] SARS-COV-2 COVID-19 2020-11-03 Completed Unive rsity of PFIZER VACCINE 00:00:00 [facility] SARS-COV-2 COVID-19 2020-11-03 Completed Unive rsity of PFIZER VACCINE 00:00:00 [facility] SARS-COV-2 COVID-19 2020-11-03 Completed Unive rsity of PFIZER VACCINE 00:00:00 [facility] SARS-COV-2 COVID-19 2020-11-03 Completed Unive rsity of PFIZER VACCINE 00:00:00 [facility] SARS-COV-2 COVID-19 2020-11-03 Completed Unive rsity of PFIZER VACCINE 00:00:00 [facility] PFIZER COVID-19 2020-11-03 Completed Religion MRNA VACCINATION 00:00:00 [facility] PFIZER COVID-19 2020-10-13 Completed Religion MRNA VACCINATION 00:00:00 Hospital SARS-COV-2 COVID-19 2020-10-13 Completed Unive rsity of PFIZER VACCINE 00:00:00 [facility] SARS-COV-2 COVID-19 2020-10-13 Completed Unive rsity of PFIZER VACCINE 00:00:00 [facility] SARS-COV-2 COVID-19 2020-10-13 Completed Unive rsity of PFIZER VACCINE 00:00:00 [facility] SARS-COV-2 COVID-19 2020-10-13 Completed Unive rsity of PFIZER VACCINE 00:00:00 [facility] SARS-COV-2 COVID-19 2020-10-13 Completed Unive rsity of PFIZER VACCINE 00:00:00 [facility] SARS-COV-2 COVID-19 2020-10-13 Completed Unive rsity of PFIZER VACCINE 00:00:00 [facility] SARS-COV-2 COVID-19 2020-10-13 Completed Unive rsity of PFIZER VACCINE 00:00:00 [facility] SARS-COV-2 COVID-19 2020-10-13 Completed Unive rsity of PFIZER VACCINE 00:00:00 [facility] PFIZER COVID-19 2020-10-13 Completed Religion MRNA VACCINATION 00:00:00 Hospital Vital Signs Vital Name Observation Time Observation Value Comments Source Systolic blood 2022-07-25 17:09:00 136 mm[Hg] Univer sity of pressure [facility] Diastolic blood 2022-07-25 17:09:00 77 mm[Hg] Unive rsity of pressure [facility] Heart rate 2022-07-25 17:09:00 79 /min [facility] Respiratory rate 2022-07-25 17:09:00 22 /[facility] height 2022-07-25 17:09:00 167.6 cm [facility] Body weight 2022-07-25 17:09:00 94.167 kg [facility] BMI 2022-07-25 17:09:00 33.51 kg/m2 [facility] Oxygen saturation in 2022-07-25 17:09:00 97 /min [facility] Arterial blood by [facility] Pulse oximetry Branch Procedures Procedure Date / Time Performed Performing Clinician [facility] e PULMONARY FUNCTION 2022-07-15 19:10:32 Raquel Beck [facility] TEST (RESULTS) [facility] Branch CONSENT/REFUSAL FOR 2022-05-05 16:17:12 Doctor Unassigned, No [facility] [place] DIAGNOSIS AND Name Medical Branch TREATMENT SARS-COV-2 COVID-19 2021-06-14 18:14:19 Doctor Unassigned, No [facility] [place] VACCINE,0.3ML,IM Name Medical Branch (PFIZER) Plan of Care Planned Activity Planned Date Details Comments Source Future Scheduled 2022-08-19 Hepatitis C screening [facility] [place] [facility] Test 10:10:37 (procedure) [code = 832805818] Future Scheduled 2022-08-19 [facility] Test 10:10:37 SCREENING [code = BREAST CANCER SCREENING] Future Scheduled 2022-08-19 SHINGLES VACCINES (1 Met [facility] Test 10:10:37 of 2) [code = SHINGLES VACCINES (1 of 2)] Future Scheduled 2022-08-19 COVID-19 VACCINE (3 - Me [facility] Test 10:10:37 Booster for Pfizer series) [code = COVID-19 VACCINE (3 - Booster for Pfizer series)] Future Scheduled 2022-08-19 INFLUENZA VACCINE [facility] Test 10:10:37 [code = INFLUENZA VACCINE] Future Scheduled 2022-08-19 COLONOSCOPY SCREENING Me [facility] Test 10:10:37 [code = COLONOSCOPY SCREENING] Future Scheduled 2022-04-16 HEPATITIS B VACCINES Met [facility] Test 23:07:58 (1 of 3 - 3-dose series) [code = HEPATITIS B VACCINES (1 of 3 - 3-dose series)] Future Scheduled 2022-04-16 Hepatitis C screening Me [facility] Test 23:07:58 (procedure) [code = 236762713] Future Scheduled 2022-04-16 BREAST CANCER [facility] Test 23:07:58 SCREENING [code = BREAST CANCER SCREENING] Future Scheduled 2022-04-16 SHINGLES VACCINES (1 Met [facility] Test 23:07:58 of 2) [code = SHINGLES VACCINES (1 of 2)] Future Scheduled 2022-04-16 COVID-19 VACCINE (3 - Me [facility] Test 23:07:58 Booster for Pfizer series) [code = COVID-19 VACCINE (3 - Booster for Pfizer series)] Future Scheduled 2022-04-16 INFLUENZA VACCINE Method [facility] Test 23:07:58 [code = INFLUENZA VACCINE] Future Scheduled 2022-04-16 COLONOSCOPY SCREENING [facility] [place] [facility] Test 23:07:58 [code = COLONOSCOPY SCREENING] Encounters Start End Encounter Admission Attending Care Care Encounter Source Date/Time Date/Time Type Type Clinicians Facility Department ID 2022-11-03 2022-11-03 Outpatient R RAQUEL BECK [facility] [id number] Univers 10:30:00 10:30:00 RAQUEL BECK [facility] 2022-07-25 2022-07-25 Office DAVION Beck [id number] Univers 10:30:00 11:39:21 Visit Raquel BETANCOURT 350.1.13.10 i ty [id number] [place] [id number] [facility] 2022-07-25 2022-07-25 Outpatient R RAQUEL BECK [facility] 10 [id number] Univers 10:30:00 11:39:21 RAQUEL BECK i ty of [facility] 2022-07-15 2022-07-15 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 [id number] Univers 13:00:00 14:30:00 Visit Jordan Crawford 350.1.13. 10 ity [facility] [place] [id number] [address] 2022-07-15 2022-07-15 Outpatient R YVETTE [facility] [id number] Univers 13:00:00 14:11:04 JORDAN ity [facility] 2022-07-15 2022-07-15 Orders Ebony [facility] [id number] Univers 00:00:00 00:00:00 Only [facility] 350.1.13.10 i ty of [facility] [place] [id number] [address] 2022-07-03 2022-07-03 Outpatient R RAQUEL BECK [facility] 10 [id number] Univers 11:30:00 11:30:00 RAQUEL BECK i ty of [facility] 2022-06-13 2022-06-13 [facility] [id number] Univers 00:00:00 00:00:00 Raquel BETANCOURT 350.1.13.10 i ty [place] [id number] [address] 2022-06-09 2022-06-09 Outpatient R RAQUEL BECK [facility] 10 [id number] Univers 11:46:29 23:59:00 RAQUEL BECK i ty of [facility] 2022-06-09 2022-06-[address] [facility] [id number] Univers 11:40:00 23:59:00 Encounter Raquel BETANCOURT 350.1.13.10 [place]y [place] [id number] [facility] [address] Branch 2022-05-05 2022-05-05 Outpatient R RAQUEL BECK [facility] [id number] Univers 11:00:00 11:56:42 RAQUEL BECK i ty [facility] 2022-05-05 2022-05-05 Orders Doctor FATOUMATA [id number] Univers 00:00:00 00:00:00 Only Unassigned, LUIS ENRIQUE 350.1.13.10 ity of [place] [facility] 4.2.7.2.686 [place] as [id number] [facility] 009 Branch 2021-06-14 2021-06-14 Imm/Inj Nurse, Adc Pob Immunization [facility] 1.2.840.114 [id number] Univers 13:09:59 13:10:12 Visit German Felder 350.1.13 .10 ity [facility] [place] [facility] [id number] Ri dical NAL 421 [facility] 2021-06-14 2021-06-14 Outpatient R EMERITA [facility] [id number] Univers 13:00:00 13:10:12 GERMAN rivera [facility] 2021-06-05 2021-06-05 Telemedici [place], 1.2.840.7 [id number] Method[facility] 15:15:00 15:30:00 [place] 46061.1.1 639 s t 3.430.2.7 Hospit a .[id number] l .8 2021-06-04 2021-06-04 Outpatient GALILEA [facility] [id number] [address] [place] [address] 00:00:00 00:00:00 ORION Espinosa [facility] 2021-06-03 2021-06-03 Travel 1.2.840.1 [id number] [id number] Methodi 00:00:00 00:00:00 86715.1.1 350.1.13.43 251 3.430.2.7 0.2.7.3.698 spita .3.836693 084.8 l .8 2021-01-15 2021-01-15 Outpatient ERGUN, [facility] 768 [id number] [place] 00:00:00 00:00:00 [place] 482 Method i 2021-01-11 2021-01-11 Outpatient ERGUN, [facility] [id number] [place] 00:00:00 00:00:00 GULCH[place] 214 Method i 2020-12-11 2020-12-11 Outpatient GALILEA, [facility] [id number] [place] 00:00:00 00:00:00 ORION 441 Method i 2020-11-26 2020-11-30 Inpatient GALILEA, [facility] 021 [id number] [place] 00:00:00 00:00:00 ORION 581 Method i 2020-11-22 2020-11-22 Outpatient GALILEA, [facility] [id number] [place] 00:00:00 00:00:00 ORION 315 Method i 2020-11-13 2020-11-13 Outpatient GALILEA, [facility] [id number] 942 [place] 00:00:00 00:00:00 ORION 698 Method i 2020-11-03 2020-11-03 Outpatient Catherine TEJEDA, [facility] [id number] [facility] [place] 11:55:00 11:55:00 [facility] 2020-10-23 2020-10-23 Outpatient GALILEA, [facility] [id number] 765 [place] 00:00:00 00:00:00 ORION 949 Method i 2020-10-13 2020-10-13 [facility] [id number] [facility] [place] 11:55:00 11:55:00 [facility] 2020-10-09 2020-10-09 Outpatient ERGUN, [facility] 507 [id number] [place] 00:00:00 00:00:00 GUTOANN 940 Method i 2020-10-05 2020-10-05 Outpatient ERGUN, [facility] [id number] [place] 00:00:00 00:00:00 GULCKRYSTINAN 789 Method i 2020-09-13 2020-09-13 Outpatient [facility] [id number] [place] 00:00:00 00:00:00 055 Method i 2020-09-13 2020-09-13 Outpatient ERGUN, [facility] [id number] [place] 00:00:00 00:00:00 GULCHIN 178 Method i 2020-06-08 2020-06-08 Outpatient RAMIREZ, [facility] [id number] [place] 00:00:00 00:00:00 CHAGO 359 Method i 2020-06-08 2020-06-08 Outpatient RAMIREZ, [facility] [id number] [place] 00:00:00 00:00:00 CHAGO 298 Method i 2020-06-05 2020-06-05 Outpatient KEVIN, [facility] [id number] [place] 00:00:00 00:00:00 ADRIANNA 831 Method i 2019-10-18 2019-10-18 Outpatient ERGUN, [facility] 504 [id number] [place] 00:00:00 00:00:00 KHRISN 699 Method i 2019-10-05 2019-10-05 [facility] [id number] 12:04:34 14:10:00 Encounter Octavio Betancourt [id number] [place] 4.2.7.2.686 Surgical [id number] [place] 071 2019-10-05 2019-10-05 Orders Doctor HAM [id number] 00:00:00 00:00:00 Only Unassigned, LUIS ENRIQUE [id number] [place] [facility] [id number] [id number] 2019-09-21 2019-09-21 [facility] [id number] 12:09:00 14:49:00 Encounter Octavio Betancourt [id number] [place] 4.2.7.2.686 Surgical [id number] [place] 071 2019-09-21 2019-09-21 Orders Doctor FATOUMATA [id number] 00:00:00 00:00:00 Only Unassigned, LUIS ENRIQUE 350.1.13.10 [place] [facility] [id number] [id number] 2018-10-15 2018-10-15 [facility] [id number] Center 09:41:00 09:41:00 [facility] 2018-08-30 2018-08-30 [facility] [id number] Center 15:20:00 15:20:00 [facility] 2018-08-25 2018-08-25 [facility] [id number] Center 10:49:00 10:49:00 [facility] [...] 52 Center 09:10:00 09:10:00 [facility] 2018-05-24 2018-05-24 Outpatient [...] [facility] 2018-04-07 2018-04-07 [facility] [id number] Center 16:47:00 16:47:00 [facility] 2018-04-07 2018-04-07 [facility] [id number] Center 10:40:00 10:40:00 [facility] 2018-01-13 2018-01-13 [facility] [id number] Center 14:39:00 14:39:00 [facility] 2017-12-16 2017-12-16 [facility] [id number] Center 09:32:00 09:32:00 [facility] Results Test Description Test Time Test Comments Results Result Comments Source PULMONARY FUNCTION TEST (RESULTS) 2022-07-15 19:10:32 Test Item Value Reference Range Interpretation Comme nts FVC Actual (test code = 3994) 1.42 L FEV1 Actual (test code = 3993) 1.02 L FEV1/FVC Actual (test code = 3995) 72 [facility] [Presence] in Respiratory specimen by JIGAR with probe [id number] 18:36:50 Test Item Value Reference Range Interpretation Comments SARS-CoV-2 (COVID-19) RNA Not detected Not-Detected [Presence] in Respiratory specimen by JIGAR with probe detection (test code = 52150-7) Whether patient is employed in a healthcare setting (test code = 03893-8) Whether the patient has symptoms related to condition of interest (test code = 04131-3) Patient was hospitalized because of this condition (test code = 08588-0) Whether the patient was admitted to intensive care unit (ICU) for condition of interest (test code = 89861-4) Whether patient resides in a congregate care setting (test code = 51685-9) ESTER BUTCHERSARS-CoV-2 (COVID-19) RNA [Presence] in Respiratory specimen by JIGAR with probe [id number] 21:19:20 Test Item Value Reference Range Interpretation Comments SARS-CoV-2 (COVID-19) RNA Not detected Not-Detected [Presence] in Respiratory specimen by JIGAR with probe detection (test code = 03837-4) [facility] BUTCHERSARS-CoV-2 (COVID-19) RNA [Presence] in Respiratory specimen by JIGAR with probe [id number] 02:18:45 Test Item Value Reference Range Interpretation Comments SARS-CoV-2 (COVID-19) RNA Not detected Not-Detected [Presence] in Respiratory specimen by JIGAR with probe detection (test code = 66310-0) [facility]-CoV-2 (COVID-19) RNA [Presence] in Respiratory specimen by JIGAR with probe [id number] 21:08:34 Test Item Value Reference Range Interpretation Comments SARS-CoV-2 (COVID-19) RNA Not detected Not-Detected [Presence] in Respiratory specimen by JIGAR with probe detection (test code = 09904-7) ESTER SULLIVAN [id number] 17:16:00Medical Cytology Report Case: [id number] Authorizing Provider: Ra Velazco MD Collected: 06/30/2018 1600 Ordering Location: [facility] Radiology Main Received: 07/01/2018 7180 Pathologist: Catherine Joe MD Specimen: Lymph Node, Cervical LEFT NECK LYMPH NODE, FNA BY RADIOLOGIST (GER) (DIRECT SMEARS, CYTOSPINS, CELL BLOCK OF ASPIRATE): - NO METASTATIC CARCINOMA, GRANULOMATA IDENTIFIED - LYMPHOID TISSUE PRESENT Signing Pathologist Direct Phone Line: [phone] signed by Katey Joe MD on 07/02/2018 at 5:16 PMPlease also see cytopathology report [id number]. 99811(1.3 x 0.8 x 0.9 cm) left neck lymph node; reported tongue cancer, enlarged neck lymph nodesLEFT NECK LYMPH NODE FNAPrepared 4 cytospins from 30 ml cytorich red fixaitve Collected: [id number]: [id number].[facility], Department of Pathology, [address] [place] [address], [facility], [address] [place] [address], [facility], [address] [place] [address], [id number] 13:16:00Medical Cytology Report Case: [id number] Authorizing Provider: Ra Velazco MD Collected: 06/30/2018 1600 Ordering Location: [facility] Radiology Main Received: 07/01/2018 1259 Pathologist: Vesna Novak MD Specimen: Lymph Node, Cervical, right neck node (1.5 x 0.5 x 1.4 cm) RIGHT NECK LYMPH NODE, FNA BY RADIOLOGIST (CYTOSPINS): - NEGATIVE FOR MALIGNANCY - LYMPHOID/LYMPH NODE TISSUE PRESENT Signing Pathologist Direct Phone Line: [phone] signed by Vesna Novak MD on 1 09/01/2017 at 1:16 PMPlease also see cytopathology report [id number]. 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 No metastatic tumor is notedE[facility], [facility] of [facility], [address] [place] [address], [facility], Department of Pathology, [address] [place] [address], [facility], Department of Pathology, [address] [place] [address], F/S, ASPIRATION/INJECTION 2018-06-30 16:08:00Reason for Exam:->R59.0, C02.4 RIGHT [...] level II lymph node. Signed: Sherif Anderson MDReport Verified Date/Time: 06/30/2018 16:08:29 Reading Location: [facility] P0J Ultrasound Reading Room U/S, ASPIRATION/INJECTION 2018-06-30 16:08:00Reason [...] level II lymph node. Signed: Sherif Anderson MDReport Verified Date/Time: 08/30/2017 16:08:56 Reading Location: [address] Ultrasound Reading Room UE [id number] 16:56:00Surgical Pathology Report Case: [id number] Authorizing Provider: Ra Velazco MD Collected: 06/18/2018 0824 Ordering Location: [facility] PERIOPERATIVE Received: 06/18/2018 1149 SERVICES Pathologist: Sushila Mejia MD Specimen: Tongue, base tongue BASE OF THE TONGUE, LARYNGOSCOPY WITH BIOPSY: - LINGUAL TONSILS WITH REACTIVE FOLLICULAR HYPERPLASIA - SQUAMOUS MUCOSA WITH ACUTE INFLAMMATION WITH ATYPIA - METAPLASTIC CARTILAGE AND DILATED LYMPHATICS - NEGATIVE FOR DYSPLASIA OR MALIGNANCYSigning Pathologist Direct Phone Line: [phone] signed by Sushila Mejia MD on 06/25/2018 [...] findings have been discussed with Dr. Velazco. 06430; 44188; 80393 X 6Nasal obstructionBase of tongue biopsy Received in formalin labeled "tongue", description "base of tongue" is a 3.0 x 2.0 x 0.3 cm aggregate of pink-lara to mejia-white rubbery soft tissue. Specimen is entirely submitted in A1. DB/bc PERFORMEDThe interpretation of this case included the use of immunohistochemistry or special stains. D2-40; CD34; CD3; CD20 CD45; Ki-67; Cyclin-O6Qpcygbosuflplrahcrlx technical testing was performed at [facility], Pathology Laboratory where it was developed [...] of 1988 (CLIA-88) as qualified to perform highcomplexity clinical laboratory testing.The immunohistochemistry test was developed and its performance characteristics determined by [facility], Pathology Laboratory. It has not been cleared [...] qualified to perform high complexity clinical laboratory testing.[id number] 18:46:00 Test Item Value Reference Range Interpretation Comments SODIUM (BEAKER) (test code = 381) 142 meq/L 136-145 POTASSIUM (BEAKER) (test code = 3.7 meq/L 3.5-5.1 379) CHLORIDE (BEAKER) (test code = 382) 107 meq/L 98-107 CO2 (BEAKER) (test code = 355) 29 meq/L 22-29 BUN AND [id number] 18:46:00 Test Item Value Reference Range Interpretation Comments BLOOD UREA NITROGEN 13 mg/dL 7-21 (BEAKER) (test code = 354) CREATININE (BEAKER) 0.74 mg/dL 0.57-1.25 (test code = 358) EGFR (BEAKER) (test 78 mL/min/1.73 ESTIMA ZAINAB GFR IS code = 1092) sq m NOT ACCURATE CREATININE CLEARANCE IN PREDICTING GLOMERULAR FILTRATION RATE . ESTIMATED GFR I S NOT APPLICABLE FOR DIALYSIS PATIEN TS. [id number] 18:18:00 Test Item Value Reference Range Interpretation Comments HEMOGLOBIN (ADRY) (test code = 12.9 GM/DL 11.2-15.7 410) TISSUE [id number] 11:51:00Surgical Pathology Report Case: [id number] Authorizing Provider: Ra Velazco MD Collected: 05/01/2017 1509 Ordering Location: [facility] MAIN ADMITTING Received: 05/04/2017 1531 Pathologist: Marine Hawthorne MD Specimen: Nasopharynx/Oropharynx NASOPHARYNX/OROPHARYNX, BIOPSY: - FOLLICULAR LYMPHOID HYPERPLASIA - NEGATIVE FOR MALIGNANCY CC/pl Signing Pathologist Direct Phone Line: [phone] signed by Marine Hawtohrne MD on 05/07/2017 at 11:51 [id number] neoplasm benignNasopharynx tissueThe specimen is received in [...]
[2022-09-04] MEDS ORDERED: FENTANYL CITR 100 MCG/2 ML ONE ×2 (09:36→10:33)
[2022-09-04] MEDS ORDERED: HYDROCODONE/APAP 10/325 TAB ONE (09:37)
--- NOTE | 2022-09-04 10:46 | RAD REPORT ---
EXAM DESCRIPTION: RAD - Wrist Left 3 View - 09/04/2022 10:29 am CLINICAL HISTORY: Painafter fall COMPARISON: No comparisons FINDINGS: Comminuted distal radius fracture involving the epiphyseal and metaphyseal regions of the distal radius. Multiple fracture planes are present within overall slight 10 degree dorsal angulation deformity. Fractures involve the articular surface of the radius. No dislocation of the carpal bones. There is widening of the scapholunate joint space. Distal ulna fracture is present in the metaphyseal region and there is fracture of the tip of the uln a styloid. A pathologic bone process. No dislocation. Significant degenerative changes are present at the trapezium first metacarpal articulation. No foreign body or other soft tissue abnormality. IMPRESSION: Comminuted distal left radius fracture as detailed. There is a mild 10 degree dorsal ang ulation deformity. Distal ulna fracture as detailed. Scapholunate widening could indicate ligamentous disruption. Fracture of the carpal bone is not seen.
--- NOTE | 2022-09-04 10:47 | RAD REPORT ---
EXAM DESCRIPTION: RAD - Elbow Left 3 View - 09/04/2022 10:29 am CLINICAL HISTORY: PAINafter fall COMPARISON: None. FINDINGS: No fracture is identified and no elevated posterior fat pad. There is no dislocation or pe riosteal reaction noted. No foreign body or other soft tissue abnormality. IMPRESSION: Negative left elbow examination.
[2022-09-04] MEDS ORDERED: ONDANSETRON 4 MG (ODT) TAB ONE (11:04)
[2022-09-04] MEDS ORDERED: MORPHINE 4 MG/ML SYR ONE (11:04)
--- NOTE | 2022-09-04 11:04 | ER ---
Nurse's Notes [facility] Name: Ashley Reyes Age: 76 yrs Sex: Female : 1945 Arrival Date: 09/04/2022 Time: 09:17 Bed 20 Private MD: Diagnosis: Comminuted distal radius and ulna fracture, closed of left arm. Presentation: 09/04 09:23 Chief complaint: Patient states: fell while taking out trash can, obvious deformity to leftt wrist. Coronavirus screen: At this time, the client does not indicate any symptoms associated with coronavirus-19. Ebola Screen: Patient negative for fever greater than or equal to 101.5 degrees Fahrenheit, and additional compatible Ebola Virus Disease symptoms Patient denies exposure to infectious person. Patient denies travel to an Ebola-affected area in the 21 days before illness onset. No symptoms or risks identified at this time. Initial Sepsis Screen: Does the patient meet any 2 criteria? No. Patient's initial sepsis screen is negative. Does the patient have a suspected source of infection? No. Patient's initial sepsis screen is negative. Risk Assessment: Do you want to hurt yourself or someone else? Patient reports no desire to harm self or others. 09:23 Method Of Arrival: Ambulatory iw 09:23 Acuity: ARLINE 3 iw Historical: - Allergies: 09:24 Albuterol; iw 09:24 Azithromycin; iw 09:24 Cipro; iw 09:24 NSAIDS; No true allergy, not supposed to take them because of xarelto; iw - Home Meds: 09:24 amlodipine 5 mg tab [Active]; azelastine hcl [Active]; Calcium 600 + D(3) 600 mg iw calcium- 200 unit Oral tab daily [Active]; cetirizine Oral [Active]; cranberry Oral [Active]; hyoscyamine sulfate 0.125 mg SL subl daily [Active]; ipratropium bromide inhalation [Active]; levothyroxine 150 mcg tab once daily [Active]; mometasone 50 mcg/actuation nasal spry 2 sprays once daily [Active]; montelukast 10 mg Oral tab 1 tab once daily [Active]; multivitamin Oral tab daily [Active]; Myrbetriq 50 mg Oral Tb24 1 tab once daily [Active]; Osphena 60 mg Oral tab 1 tab once daily [Active]; topher probiotic [Active]; Perdiem Oral nightly [Active]; Slow Fe Oral daily [Active]; Xarelto 20 mg Oral tab once daily [Active]; Xopenex Inhl [Active]; - PMHx: 09:24 Asthma; Hypertensive disorder; Hypothyroidism; Irritable bowel syndrome; Atrial Fib; iw - PSHx: 09:24 Cholecystectomy; hernia repair; Knee replacement-bilateral; laminectomy; iw - Immunization history:: Adult Immunizations up to date. - Social history:: Smoking status: Patient denies any tobacco usage or history of. Screenin:30 [facility] ED Fall Risk Assessment (Adult) History of falling in the last 3 months, ko1 including since admission Yes- single mechanical fall (1 pt) Confusion or Disorientation No (0 pts) Intoxicated or Sedated No (0 pts) Impaired Gait No (0 pts) Mobility Assist Device Used No (0 pt) Altered Elimination No (0 pt) Score/Fall Risk Level 0 - 2 = Low Risk. Abuse screen: Denies threats or abuse. Denies injuries from another. Nutritional screening: No deficits noted. Tuberculosis screening: No symptoms or risk factors identified. Assessment: 09:41 General: Appears distressed, uncomfortable. Pain: Complains of pain in left elbow and ko1 left wrist. Neuro: No deficits noted. Cardiovascular: Rhythm is atrial fibrillation. Respiratory: No deficits noted. GI: No deficits noted. : No deficits noted. EENT: No deficits noted. Derm: No deficits noted. Musculoskeletal: Range of motion: limited in left wrist Bony deformity noted of left wrist. Injury Description: Deformity sustained to left wrist is displaced, was sustained 30-60 minutes ago. Vital Signs: 09:30 BP 120 / 93; Pulse 69; Resp 16; Temp 98.1(O); Pulse Ox 100% on R/A; Pain 10/10; ko1 10:00 BP 135 / 94; Pulse 68; Pulse Ox 99% ; ko1 10:30 BP 126 / 82; Pulse 72; Pulse Ox 99% ; ko1 ED Course: 09:17 Patient arrived in ED. rg4 09:18 Alexus Briceño, RITA is Primary Nurse. ko1 09:19 Maury Mosher MD is Attending Physician. kdr 09:24 Triage completed. iw 09:25 Arm band placed on. iw 09:30 Patient has correct armband on for positive identification. Bed in low position. Call ko1 light in reach. Side rails up X 1. Pulse ox on. NIBP on. 09:30 Inserted saline lock: 20 gauge in right antecubital area, using aseptic technique. ko1 Patient maintains SpO2 saturation greater than 95% on room air. 10:31 Wrist Left (3 View) XRAY In Process Unspecified. EDMS 10:31 Elbow Left 3 View XRAY In Process Unspecified. EDMS 11:02 Octavio Cho MD is Referral Physician. kdr 11:10 IV discontinued, intact, bleeding controlled, No redness/swelling at site. Pressure ko1 dressing applied. 11:14 No provider procedures requiring assistance completed. Orthoglass splint: posterior ko1 long arm splint applied to the left arm. Sling applied to left arm. Administered Medications: 09:39 Drug: fentaNYL (PF) 25 mcg Route: IM; Site: right deltoid; ko1 09:40 Drug: [place] (HYDROcodone-acetaminophen) 10 mg-325 mg 1 tabs Route: PO; ko1 10:17 Follow up: Response: No adverse reaction; Pain is decreased ko1 11:09 Drug: Zofran (Ondansetron) 4 mg Route: PO; ko1 11:10 Drug: morphine 4 mg Route: IVP; Infused Over: 4 mins; Site: right antecubital; ko1 Medication: 09:30 VIS not applicable for this client. ko1 Outcome: 11:04 Discharge ordered by . kdr 11:14 Discharged to home via wheelchair, with family. ko1 11:14 Condition: good 11:14 Discharge instructions given to patient, family, Instructed on discharge instructions, follow up and referral plans. medication usage, Demonstrated understanding of instructions, follow-up care, medications, Prescriptions given X 1. 11:16 Patient left the ED. ko1 Signatures: Dispatcher [employer] EDMS Maury Mosher MD MD kdr Cecilia Pate, RN Gina Washburn rg4 Alexus Briceño RN RN ko1 Corrections: (The following items were deleted from the chart) 09:27 09:23 Chief complaint: Patient states: fell while taking out trash can, obvious iw deformity to right wrist iw
--- NOTE | 2022-09-04 11:04 | EDPHYS ---
Physician Documentation [facility] Name: Ashley Reyes Age: 76 yrs Sex: Female : 1945 Arrival Date: 09/04/2022 Time: 09:17 Bed 20 Private MD: ED Physician Maury Mosher HPI: 09/04 09:39 This 76 yrs old Female presents to ER via Ambulatory with complaints of Fall Injury, kdr Wrist Injury. 09:39 Details of fall: The patient fell from an upright position, while walking. Onset: The kdr symptoms/episode began/occurred suddenly, just prior to arrival. Associated injuries: The patient sustained injury to the head, abrasion, contusion, left antecubital area, left wrist and left elbow, decreased range of motion, obvious fracture, painful injury, swelling. Historical: - Allergies: 09:24 Albuterol; iw 09:24 Azithromycin; iw 09:24 Cipro; iw 09:24 NSAIDS; No true allergy, not supposed to take them because of xarelto; iw - Home Meds: 09:24 amlodipine 5 mg tab [Active]; azelastine hcl [Active]; Calcium 600 + D(3) 600 mg iw calcium- 200 unit Oral tab daily [Active]; cetirizine Oral [Active]; cranberry Oral [Active]; hyoscyamine sulfate 0.125 mg SL subl daily [Active]; ipratropium bromide inhalation [Active]; levothyroxine 150 mcg tab once daily [Active]; mometasone 50 mcg/actuation nasal spry 2 sprays once daily [Active]; montelukast 10 mg Oral tab 1 tab once daily [Active]; multivitamin Oral tab daily [Active]; Myrbetriq 50 mg Oral Tb24 1 tab once daily [Active]; Osphena 60 mg Oral tab 1 tab once daily [Active]; topher probiotic [Active]; Perdiem Oral nightly [Active]; Slow Fe Oral daily [Active]; Xarelto 20 mg Oral tab once daily [Active]; Xopenex Inhl [Active]; - PMHx: 09:24 Asthma; Hypertensive disorder; Hypothyroidism; Irritable bowel syndrome; Atrial Fib; iw - PSHx: 09:24 Cholecystectomy; hernia repair; Knee replacement-bilateral; laminectomy; iw - Immunization history:: Adult Immunizations up to date. - Social history:: Smoking status: Patient denies any tobacco usage or history of. ROS: 09:39 Constitutional: Negative for fever, chills, and weight loss, Eyes: Negative for injury, kdr pain, redness, and discharge, ENT: Negative for injury, pain, and discharge, Neck: Negative for injury, pain, and swelling, Cardiovascular: Negative for chest pain, palpitations, and edema, Respiratory: Negative for shortness of breath, cough, wheezing, and pleuritic chest pain, Abdomen/GI: Negative for abdominal pain, nausea, vomiting, diarrhea, and constipation, Back: Negative for injury and pain, : Negative for injury, bleeding, discharge, and swelling, Skin: Negative for injury, rash, and discoloration, Neuro: Negative for headache, weakness, numbness, tingling, and seizure activity. Psych: Negative for depression, anxiety, suicide ideation, homicidal ideation, and hallucinations, Allergy/Immunology: Negative for hives, rash, and allergies, Endocrine: Negative for neck swelling, polydipsia, polyuria, polyphagia, and marked weight changes, Hematologic/Lymphatic: Negative for swollen nodes, abnormal bleeding, and unusual bruising. 09:39 MS/extremity: Positive for injury or acute deformity, decreased range of motion, deformity, pain, swelling, tenderness, of the left wrist. Exam: 09:39 Constitutional: This is a well developed, well nourished patient who is awake, alert, kdr and in no acute distress. Head/Face: Normocephalic, atraumatic. Eyes: Pupils equal round and reactive to light, extra-ocular motions intact. Lids and lashes normal. Conjunctiva and sclera are non-icteric and not injected. Cornea within normal limits. Periorbital areas with no swelling, redness, or edema. 09:39 Musculoskeletal/extremity: Extremities: grossly normal except: noted in the left wrist: decreased ROM, deformity, pain, swelling, tenderness. Vital Signs: 09:30 BP 120 / 93; Pulse 69; Resp 16; Temp 98.1(O); Pulse Ox 100% on R/A; Pain 10/10; ko1 10:00 BP 135 / 94; Pulse 68; Pulse Ox 99% ; ko1 10:30 BP 126 / 82; Pulse 72; Pulse Ox 99% ; ko1 MDM: 09:39 Data reviewed: vital signs, nurses notes, radiologic studies. kdr 11:04 Patient medically screened. kdr 09/04 09:28 Order name: Wrist Left (3 View) XRAY; Complete Time: 10:48 kdr 09/04 09:28 Order name: Elbow Left 3 View XRAY; Complete Time: 10:48 kdr Administered Medications: 09:39 Drug: fentaNYL (PF) 25 mcg Route: IM; Site: right deltoid; ko1 09:40 Drug: [place] (HYDROcodone-acetaminophen) 10 mg-325 mg 1 tabs Route: PO; ko1 10:17 Follow up: Response: No adverse reaction; Pain is decreased ko1 11:09 Drug: Zofran (Ondansetron) 4 mg Route: PO; ko1 11:10 Drug: morphine 4 mg Route: IVP; Infused Over: 4 mins; Site: right antecubital; ko1 Disposition Summary: 09/04/22 11:04 Discharge Ordered Location: Home kdr Problem: new kdr Symptoms: have improved kdr Condition: Stable kdr Diagnosis - Comminuted distal radius and ulna fracture, closed of left arm. kdr Followup: kdr - With: Private Physician - When: 2 - 3 days - Reason: If symptoms return, Further diagnostic work-up, Recheck today's complaints, Continuance of care, Re-evaluation by your physician Followup: kdr - With: Octavio Cho MD - When: 2 - 3 days - Reason: If symptoms return, Further diagnostic work-up, Recheck today's complaints, Continuance of care, Re-evaluation by your physician Discharge Instructions: - Discharge Summary Sheet kdr Forms: - Medication Reconciliation Form kdr - Thank You Letter kdr - Prescription Opioid Use kdr Prescriptions: - Tylenol-Codeine #3 300 mg-30 mg Oral - take 2 tablet by ORAL route every 6 hours As needed; 20 tablet; Refills: 0, kdr Product Selection Permitted Signatures: Dispatcher [employer] Maury Kent MD MD kdr Cecilia Pate RN RN iw Alexus Briceño RN RN ko1
[2022-09-04 11:29] VITALS: TEMP 98.1
[2022-09-04 11:30] VITALS: O2SAT 99
[2022-09-04 11:31] VITALS: BP 126/82
== END 2022-09-04 11:16 | disposition home or self-care (01) ==
LOC: ER 09:15
PROC: 2W3FX1Z Immobilization of Left Hand using Splint (ICD-10-PCS; principal; 2022-09-04)
DX: S52.502A Unspecified fracture of the lower end of left radius, initial encounter for closed fracture (principal); S52.602A Unspecified fracture of lower end of left ulna, initial encounter for closed fracture; W01.0XXA Fall on same level from slipping, tripping and stumbling without subsequent striking against object, initial encounter; Y93.89 Activity, other specified; Y92.014 Private driveway to single-family (private) house as the place of occurrence of the external cause; J45.909 Unspecified asthma, uncomplicated; I10 Essential (primary) hypertension; E03.9 Hypothyroidism, unspecified; I48.91 Unspecified atrial fibrillation; Z79.01 Long term (current) use of anticoagulants; Z88.1 Allergy status to other antibiotic agents
CPT/HCPCS: 73080; 73110; 96372; 96374; 99285; 29105; Q0162; J3010 ×2

== ENCOUNTER 2024-04-25 16:02 | Emergency (ER) | payer OTHER ==
[2024-04-25 17:03] LABS: PT Prothrombin Time 20.3 SECONDS (9.4-12.5); Protime INR 1.85
[2024-04-25 17:05] LABS: Absolute Eosinophils 0.2 K/uL (0-0.5); Absolute Lymphocytes (CBC) 1.9 K/uL (0.7-4.9); Absolute Monocytes 0.8 K/uL (0.1-1.3); Absolute Neutrophil 6.8 K/uL (1.8-8.0); Basophils % 0.2 % (0-1.3); Eosinophils % 1.8 % (0-4.4); Hematocrit 39.7 % (36.0-45.0); Hemoglobin 12.9 g/dL (12.0-15.0); MCH 30.6 pg (27.0-35.0); MCHC 32.4 g/dL (32.0-36.0); MCV 94.4 fL (80-100); Monocytes % 7.7 % (3.3-12.3); Neutrophils % 70.3 % (41.7-73.7); Platelets 317 thou/uL (152-406); RBC Red Blood Cell Count 4.21 M/uL (3.86-4.86); Red Cell Distribution Width 14.5 % (12.1-15.2)
[2024-04-25 17:13] LABS: Anion Gap 9.6 mEq/L (5.0-15.0); Potassium 3.6 mEq/L (3.5-5.1); Troponin High Sensitivity 5.3 pg/mL (<58.9)
[2024-04-25] MEDS ORDERED: ONDANSETRON 4 MG/2 ML VIAL ONE ×2 (17:15→19:45)
[2024-04-25] MEDS ORDERED: MORPHINE 4 MG/ML SYR ONE ×2 (17:15→18:42)
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
[2024-04-25] MEDS ORDERED: HYDROMORPHONE HCL 1 MG/ML INJ ONE (19:28)
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
[2024-04-25 20:25] VITALS: TEMP 97
[2024-04-25 20:27] VITALS: BP 135/67; O2SAT 97
== END 2024-04-25 20:19 | disposition home or self-care (01) ==
LOC: ER 16:02
DX: S62.512A Displaced fracture of proximal phalanx of left thumb, initial encounter for closed fracture (principal); S20.219A Contusion of unspecified front wall of thorax, initial encounter; S60.512A Abrasion of left hand, initial encounter; M54.2 Cervicalgia; V43.52XA Car driver injured in collision with other type car in traffic accident, initial encounter; I10 Essential (primary) hypertension; I48.91 Unspecified atrial fibrillation; Z79.01 Long term (current) use of anticoagulants
CPT/HCPCS: 85025; 80048; 36415; 85610; 84484 ×2; 70450; 72125; 71260; 74177; 73130; 96375; 96374; 99285; Q9967; J1170; J2405 ×2

== ENCOUNTER 2024-09-30 07:44 | Emergency (ER) | payer OTHER ==
[2024-09-30] MEDS ORDERED: ONDANSETRON 4 MG/2 ML VIAL ONE (08:39)
[2024-09-30 08:46] LABS: Absolute Monocytes 1.3 K/uL (0.1-1.3); Absolute Neutrophil 15.7 K/uL (1.8-8.0); Basophils % 0.1 % (0-1.3); Eosinophils % 0.2 % (0-4.4); Hematocrit 34.5 % (36.0-45.0); Hemoglobin 11.3 g/dL (12.0-15.0); Lymphocytes % 5.3 % (15.3-44.8); MCH 30.6 pg (27.0-35.0); MCHC 32.8 g/dL (32.0-36.0); MCV 93.1 fL (80-100); MPV 6.7 fL (7.6-11.3); Monocytes % 7.4 % (3.3-12.3); Platelets 508 thou/uL (152-406); Red Cell Distribution Width 14.6 % (12.1-15.2)
[2024-09-30 08:51] LABS: Specific Gravity 1.012 (1.005-1.030); Sqamous Epithelial <5 /HPF (None Seen); Urine Bacteria <20 /HPF (<20); Urine Bilirubin NEGATIVE (Negative); Urine Blood Negative (Negative); Urine Clarity Turbid (Clear); Urine Color Dark-Yellow (Yellow); Urine Culture Reflex Order NOT NEEDED; Urine Glucose NEGATIVE (Negative); Urine Ketones NEGATIVE (Negative); Urine Micro Reflex YN NO BILL MICROSCOPIC; Urine Mucus 1+ /HPF (None Seen); Urine Nitrite NEGATIVE (Negative); Urine Protein TRACE (Negative); Urine RBC <5 /HPF (None Seen); Urine Urobilinogen Normal (Normal); Urine WBC <5 /HPF (<5); Urine pH 5.5 (5.0-7.0)
[2024-09-30 09:19] LABS: Anion Gap 9.7 mEq/L (5.0-15.0); Potassium 3.7 mEq/L (3.5-5.1)
--- NOTE | 2024-09-30 09:28 | EDPHYS ---
Physician Documentation [facility] Name: Ashley Reyes Age: 78 yrs Sex: Female : 1945 Arrival Date: 09/30/2024 Time: 07:44 Bed 8 Private MD: ED Physician Fly Torres HPI: 09/30 08:00 This 78 yrs old Female presents to ER via Unassigned with complaints of ec2 Urinary Problem. 08:00 Patient arrives today d/t concern for urinary complaints. reports that she has been ec2 having issues w/ urinary issues, reports that she has been unable to void, has had a pessary in place which she removed last night. denies issues w/ hydration. denies abd pain.. Historical: - Allergies: 07:53 Albuterol; ld1 07:53 Azithromycin; ld1 07:53 Cipro; ld1 07:53 NSAIDS; No true allergy; ld1 - Home Meds: 08:06 Xarelto 20 mg Oral tab once daily [Active]; hb - PMHx: 07:53 Asthma; Atrial Fib; Hypertensive disorder; Hypothyroidism; Irritable bowel syndrome; ld1 - PSHx: 07:53 Cholecystectomy; hernia repair; Knee replacement-bilateral; laminectomy; ld1 - Immunization history:: Adult Immunizations up to date. - Infectious Disease History:: Denies. - Social history:: Smoking status: Patient denies any tobacco usage or history of. ROS: 08:01 Constitutional: as per hpi ec2 Exam: 08:01 Constitutional: GEN: NAD Head: atraumatic Eyes: EOMI Ears: External ears are ec2 normal. CV: regular rate LUNGS: no respiratory distress ABD: non-distended SKIN: no evidence of rashes MSK: no evidence of trauma Vital Signs: 08:01 BP 122 / 75; Pulse 89; Resp 17; Temp 98.5(O); Pulse Ox 97% on R/A; Weight 95.25 kg; hb Height 5 ft. 6 in. ; Pain 5/10; 08:33 BP 106 / 93; Pulse 93; Resp 18; Pulse Ox 97% on R/A; ld1 10:38 BP 128 / 74; Pulse 86; Resp 18; Pulse Ox 100% on R/A; ld1 08:01 Body Mass Index 33.89 (95.25 kg, 167.64 cm) hb 08:01 Pain Scale: Adult hb MDM: 07:49 Medical Screening Exam initiated ec2 08:01 Data reviewed: vital signs, nurses notes. ED course: Patient arrives today for ec2 evaluation of urinary complaints. Examination is unrevealing. Will obtain lab work, urine studies, place Mccarty catheter given the patient's urinary difficulties. Will assess for urinary tract infection, renal dysfunction. 09:03 ED course: Urine is noninfectious appearing. On reassessment patient with improvement ec2 in symptoms after the Mccarty catheter placed.. 09:22 ED course: Metabolic profile reassuring, no evidence of renal dysfunction. 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 Return precautions given.. 09/30 07:59 Order name: UAM; Complete Time: 09:03 ec2 09/30 07:59 Order name: CBC with Diff; Complete Time: 10:32 ec2 09/30 07:59 Order name: BMP; Complete Time: 09:22 ec2 09/30 10:22 Order name: CBC Smear Scan; Complete Time: 10:32 EDMS 09/30 07:59 Order name: Mccarty; Complete Time: 08:33 ec2 Administered Medications: 08:48 Drug: Ondansetron IVP 4 mg IVP once; over 2 minutes Route: IVP; Site: left antecubital; ld1 Disposition Summary: 09/30/24 09:28 Discharge Ordered Notes: Location: Home ec2 Condition: Stable ec2 Diagnosis - Retention of urine, unspecified ec2 Followup: ec2 - With: Yfn Velásquez MD - When: - Reason: Recheck today's complaints Discharge Instructions: - Discharge Summary Sheet ec2 - Acute Urinary Retention, Female ec2 Forms: - Medication Reconciliation Form ec2 - Antibiotic Education ec2 - Prescription Opioid Use ec2 - Patient Portal Instructions ec2 - Leadership Thank You Letter ec2 Prescriptions: - Pyridium 200 mg Oral Tablet - take 1 tablet ORAL route every 8 hours for 3 days; 9 tablet; Refills: 0, ec2 Product Selection Permitted - Lactulose 10 gram/15 mL Oral Solution - take 30 milliliters ORAL route once daily; 300 milliliter; Refills: 0, Product ec2 Selection Permitted Signatures: Dispatcher [employer] Shelley Cornejo, RN RN hb Nathalie Jimenez RN RN ld1 Fly Torres MD MD ec2
--- NOTE | 2024-09-30 09:28 | ER ---
Nurse's Notes [facility] Name: Ashley Reyes Age: 78 yrs Sex: Female : 1945 Arrival Date: 09/30/2024 Time: 07:44 Bed 8 Private MD: Diagnosis: Retention of urine, unspecified Presentation: 09/30 08:01 Chief complaint: Difficulty urinating and pain with urination x 3 weeks. Coronavirus hb screen: At this time, the client does not indicate any symptoms associated with coronavirus-19. Ebola Screen: No symptoms or risks identified at this time. Initial Sepsis Screen: Does the patient meet any 2 criteria? No. Patient's initial sepsis screen is negative. Does the patient have a suspected source of infection? No. Patient's initial sepsis screen is negative. Risk Assessment: Do you want to hurt yourself or someone else? Patient reports no desire to harm self or others. Onset of symptoms was November 07, 2024. 08:01 Method Of Arrival: Ambulatory hb 08:01 Acuity: ARLINE 3 hb Triage Assessment: 08:04 General: Appears in no apparent distress. uncomfortable, Behavior is calm, cooperative. hb Pain: Pain currently is 5 out of 10 on a pain scale. EENT: No signs and/or symptoms were reported regarding the EENT system. Neuro: Level of Consciousness is awake, alert, obeys commands, Oriented to person, place, time, situation. Cardiovascular: Patient's skin is warm and dry. Respiratory: Respiratory effort is even, unlabored, Respiratory pattern is regular, symmetrical. GI: No signs and/or symptoms were reported involving the gastrointestinal system. : Reports dysuria. Derm: Skin is pink, warm \T\ dry. Musculoskeletal: No signs and/or symptoms reported regarding the musculoskeletal system. Historical: - Allergies: 07:53 Albuterol; ld1 07:53 Azithromycin; ld1 07:53 Cipro; ld1 07:53 NSAIDS; No true allergy; ld1 - Home Meds: 08:06 Xarelto 20 mg Oral tab once daily [Active]; hb - PMHx: 07:53 Asthma; Atrial Fib; Hypertensive disorder; Hypothyroidism; Irritable bowel syndrome; ld1 - PSHx: 07:53 Cholecystectomy; hernia repair; Knee replacement-bilateral; laminectomy; ld1 - Immunization history:: Adult Immunizations up to date. - Infectious Disease History:: Denies. - Social history:: Smoking status: Patient denies any tobacco usage or history of. Screenin:05 [facility] ED Fall Risk Assessment (Adult) History of falling in the last 3 months, hb including since admission No falls in past 3 months (0 pts) Confusion or Disorientation No (0 pts) Intoxicated or Sedated No (0 pts) Impaired Gait No (0 pts) Mobility Assist Device Used No (0 pt) Altered Elimination No (0 pt) Score/Fall Risk Level 0 - 2 = Low Risk Oriented to surroundings, Maintained a safe environment, Educated pt \T\ family on fall prevention, incl call for assistance when getting out of bed. Abuse screen: Denies threats or abuse. Denies injuries from another. Nutritional screening: No deficits noted. Tuberculosis screening: No symptoms or risk factors identified. Assessment: 08:05 General: See triage assessment. hb 08:33 General: Appears in no apparent distress. uncomfortable, Behavior is calm, cooperative, ld1 appropriate for age. Pain: Denies pain. Neuro: Level of Consciousness is awake, alert, obeys commands, Oriented to person, place, time, situation, Appropriate for age. Cardiovascular: Capillary refill < 3 seconds Patient's skin is warm and dry. Respiratory: Airway is patent Respiratory effort is even, unlabored. GI: Abdomen is round non-distended, Reports nausea. : No signs and/or symptoms were reported regarding the genitourinary system. :. EENT: No signs and/or symptoms were reported regarding the EENT system. Derm: No signs and/or symptoms reported regarding the dermatologic system. Musculoskeletal: No signs and/or symptoms reported regarding the musculoskeletal system. 10:38 Reassessment: Patient appears in no apparent distress at this time. No changes from ld1 previously documented assessment. Patient and/or family updated on plan of care and expected duration. Pain level reassessed. Vital Signs: 08:01 BP 122 / 75; Pulse 89; Resp 17; Temp 98.5(O); Pulse Ox 97% on R/A; Weight 95.25 kg; hb Height 5 ft. 6 in. ; Pain 5/10; 08:33 BP 106 / 93; Pulse 93; Resp 18; Pulse Ox 97% on R/A; ld1 10:38 BP 128 / 74; Pulse 86; Resp 18; Pulse Ox 100% on R/A; ld1 08:01 Body Mass Index 33.89 (95.25 kg, 167.64 cm) hb 08:01 Pain Scale: Adult hb ED Course: 07:46 Patient arrived in ED. mr 07:49 Fly Torres MD is Attending Physician. ec2 07:53 Nathalie Jimenez, RN is Primary Nurse. ld1 08:03 Triage completed. hb 08:04 Arm band placed on. hb 08:05 Patient has correct armband on for positive identification. Placed in gown. Bed in low hb position. Call light in reach. Provided Education on: tests, result times, use of call light . 08:32 Mccarty cath inserted, using sterile technique, 16 Fr., by pa, balloon inflated, to am7 gravity drainage, urine specimen collected. returned yellow-orange urine. Patient tolerated well. 08:33 Door closed. Noise minimized. Warm blanket given. ld1 08:33 No provider procedures requiring assistance completed. Inserted saline lock: 20 gauge ld1 in left antecubital area, using aseptic technique. Blood collected. Flushed with 10 mL NS. 08:33 UAM Sent. am7 08:37 BMP Sent. ld1 08:37 CBC with Diff Sent. ld1 09:28 Yfn Velásquez MD is Referral Physician. ec2 10:39 IV discontinued, intact, bleeding controlled, No redness/swelling at site. ld1 Administered Medications: 08:48 Drug: Ondansetron IVP 4 mg IVP once; over 2 minutes Route: IVP; Site: left antecubital; ld1 Medication: 08:05 VIS not applicable for this client. hb Outcome: 09:28 Discharge ordered by . ec2 10:38 Discharged to home via wheelchair, ld1 10:38 Condition: stable 10:38 Discharge instructions given to patient, Instructed on discharge instructions, follow up and referral plans. Demonstrated understanding of instructions, follow-up care, medications, Prescriptions given X 2, 10:40 Patient left the ED. ld1 Signatures: Vesna Lai, Reg Reg DiasShelley, RITA SALINAS Nathalie Jimenez RN RN ld1 Fly Torres MD MD ec2 Janell Barnard am7
[2024-09-30 10:21] LABS: White Blood Cell Scan OK (OK)
[2024-09-30 10:22] LABS: Blood Morphology Comment NOT SEEN (NOT SEEN); Platelet Estimate ADEQ
[2024-09-30 10:54] VITALS: TEMP 98.5
[2024-09-30 11:04] VITALS: BP 128/74; O2SAT 100
== END 2024-09-30 10:40 | disposition home or self-care (01) ==
LOC: ER 07:44
DX: R33.9 Retention of urine, unspecified (principal)
CPT/HCPCS: 85025; 81001; 80048; 36415; 51702; 96374; 99285; J2405

== ENCOUNTER 2024-10-05 13:49 | Emergency (ER) | payer OTHER ==
[2024-10-05 14:58] LABS: Absolute Eosinophils 0.1 K/uL (0-0.5); Absolute Lymphocytes (CBC) 1.5 K/uL (0.7-4.9); Absolute Monocytes 1.1 K/uL (0.1-1.3); Absolute Neutrophil 14.8 K/uL (1.8-8.0); Basophils % 0.1 % (0-1.3); Eosinophils % 0.4 % (0-4.4); Hematocrit 32.3 % (36.0-45.0); Hemoglobin 10.9 g/dL (12.0-15.0); Lymphocytes % 8.7 % (15.3-44.8); MCH 30.7 pg (27.0-35.0); MCHC 33.7 g/dL (32.0-36.0); MCV 91.1 fL (80-100); MPV 7.1 fL (7.6-11.3); Monocytes % 6.5 % (3.3-12.3); Neutrophils % 84.3 % (41.7-73.7); Platelets 597 thou/uL (152-406); RBC Red Blood Cell Count 3.55 M/uL (3.86-4.86); Red Cell Distribution Width 14.4 % (12.1-15.2)
[2024-10-05] MEDS ORDERED: NA CHLORIDE 0.9% 1,000 ML ONE ×2 (15:10→20:06)
[2024-10-05 15:17] LABS: Albumin 2.4 g/dL (3.4-5.0); Albumin/Globulin Ratio 0.5 (1.1-1.8); Anion Gap 8.6 mEq/L (5.0-15.0); Bilirubin Total 0.6 mg/dL (0.2-1.0); Globulin 4.7 g/dL (2.3-3.5); Potassium 3.6 mEq/L (3.5-5.1); Protein, Total 7.1 g/dL (6.4-8.2)
--- NOTE | 2024-10-05 16:20 | RAD REPORT ---
EXAMINATION: CT ABDOMEN AND PELVIS WITH CONTRAST CLINICAL INDICATION: CONSTIPATION TECHNIQUE: CT abdomen and pelvis was performed, after the administration of IV contrast, as per [facility] protocol. Axial, sagittal and coronal reconstructions were obtained. One or more of the following dose reduction techniques were used: Automated exposure control, adjustment of the mA and k V according to patient size, and iterative reconstruction. Unless otherwise specified, incidental findings do not require dedicated imaging follow-up. COMPARISON: 07/10/2020 FINDINGS: LOWER CHEST: Mild linear atelectasis seen in both lung bases. Postsurgical changes at the gastroesoph ageal junction. LIVER: Liver is enlarged with diffuse fatty infiltration. Cholecystectomy clips. SPLEEN: Normal size. No focal lesion. PANCREAS: No mass, ductal dilation, or demario-pancreatic fluid. ADRENALS: Normal; no mass. KIDNEYS: Normal size and contour. No hydronephrosis. GASTROINTESTINAL TRACT: There is a significant thickening and inflamed appearance to the sigmoid colo n in the lower abdomen. Numerous diverticula are present with moderate inflammatory changes. There is a thick walled fluid collection seen in the deep pelvis measuring 8 x 7 cm anterior to the rectum posterior to the uterus in the posterior cul-de-sac. This is likely abscess. Focal lower abdominal ventral hernia containing a segment of bowel noted without obstruction. APPENDIX: Appendix not visualized, but no inflammatory changes in region of appendix. LYMPH NODES: No lymphadenopathy. MUSCULOSKELETAL: Moderate multilevel spinal degenerative changes. ADDITIONAL FINDINGS: Prominent collateral veins are present in the left upper quadrant. IMPRESSION: Moderately severe sigmoid diverticulitis suspected. Deep pelvic abscess measuring 8 x 7 cm noted as d escribed. The position of this abscess makes percutaneous drainage not feasible. Diffuse hepatomegaly with fatty liver.
--- NOTE | 2024-10-05 16:52 | ER ---
Nurse's Notes [facility] Name: Ashley Reyes Age: 78 yrs Sex: Female : 1945 Arrival Date: 10/05/2024 Time: 13:49 Bed 10 Private MD: Diagnosis: Diverticulitis of large intestine with perforation and abscess without bleeding;Pelvic abscess - 8x7cm Presentation: 10/05 14:01 Chief complaint: Patient states: Constipation and nausea for 1 week. Coronavirus ll1 screen: Client denies travel out of the [place] in the last 14 days. At this time, the client does not indicate any symptoms associated with coronavirus-19. Ebola Screen: Patient denies travel to an Ebola-affected area in the 21 days before illness onset. Initial Sepsis Screen: Does the patient meet any 2 criteria? No. Patient's initial sepsis screen is negative. Does the patient have a suspected source of infection? No. Patient's initial sepsis screen is negative. Risk Assessment: Do you want to hurt yourself or someone else? Patient reports no desire to harm self or others. 14:01 Method Of Arrival: Wheelchair ll1 14:01 Acuity: ARLINE 3 ll1 14:02 Onset of symptoms was September 28, 2024. 1 Triage Assessment: 14:02 General: Appears uncomfortable, Behavior is calm, cooperative, appropriate for age. ll1 Pain: Complains of pain in abdomen. GI: Reports constipation, nausea. Historical: - Allergies: 14:01 Albuterol; ll1 14:01 Azithromycin; ll1 14:01 Cipro; ll1 14:01 NSAIDS; No true allergy; ll1 - PMHx: 14:01 Asthma; Atrial Fib; Hypertensive disorder; Hypothyroidism; Irritable bowel syndrome; ll1 - PSHx: 14:01 Cholecystectomy; hernia repair; Knee replacement-bilateral; laminectomy; ll1 - Immunization history:: Adult Immunizations up to date. - Social history:: Smoking status: Patient denies any tobacco usage or history of. Screenin:22 [facility] ED Fall Risk Assessment (Adult) History of falling in the last 3 months, jb4 including since admission No falls in past 3 months (0 pts) Confusion or Disorientation No (0 pts) Intoxicated or Sedated No (0 pts) Impaired Gait No (0 pts) Mobility Assist Device Used Yes (1 pt) Altered Elimination Yes (1 pt) Score/Fall Risk Level 0 - 2 = Low Risk Oriented to surroundings, Maintained a safe environment. 15:22 Abuse screen: Denies threats or abuse. Nutritional screening: No deficits noted. jb4 Tuberculosis screening: No symptoms or risk factors identified. Assessment: 15:18 Reassessment: Patient and/or family updated on plan of care and expected duration. Pain ll1 level reassessed. 15:21 General: Appears in no apparent distress. uncomfortable, Behavior is calm, cooperative, jb4 appropriate for age. Pain: Complains of pain in right lower quadrant and left lower quadrant Pain does not radiate. Pain currently is 8 out of 10 on a pain scale. Neuro: Level of Consciousness is awake, alert, obeys commands, Oriented to person, place, time, situation. Cardiovascular: Patient's skin is warm and dry. Respiratory: Airway is patent Respiratory effort is even, unlabored, Respiratory pattern is regular, symmetrical. GI: Abdomen is round distended, Abd is soft X 4 quads Abd is non tender in right upper quadrant and left upper quadrant Abdomen is tender to palpation in right lower quadrant and left lower quadrant Reports lower abdominal pain. Derm: Skin is intact, Skin is pink, warm \T\ dry. Musculoskeletal: Circulation, motion, and sensation intact. Range of motion: intact in all extremities. 16:30 Reassessment: Patient appears in no apparent distress at this time. Patient and/or jb4 family updated on plan of care and expected duration. Pain level reassessed. Patient is alert, oriented x 3, equal unlabored respirations, skin warm/dry/pink. 17:53 Reassessment: Patient appears in no apparent distress at this time. Patient and/or jb4 family updated on plan of care and expected duration. Pain level reassessed. Patient is alert, oriented x 3, equal unlabored respirations, skin warm/dry/pink. 19:01 Reassessment: Patient appears in no apparent distress at this time. Patient and/or jb4 family updated on plan of care and expected duration. Pain level reassessed. Patient is alert, oriented x 3, equal unlabored respirations, skin warm/dry/pink. 20:00 Reassessment: Patient appears in no apparent distress at this time. Patient and/or jb4 family updated on plan of care and expected duration. Pain level reassessed. Patient is alert, oriented x 3, equal unlabored respirations, skin warm/dry/pink. 21:17 Reassessment: Patient appears in no apparent distress at this time. Patient and/or jb4 family updated on plan of care and expected duration. Pain level reassessed. Patient is alert, oriented x 3, equal unlabored respirations, skin warm/dry/pink. 22:27 Reassessment: Patient appears in no apparent distress at this time. Patient and/or jb4 family updated on plan of care and expected duration. Pain level reassessed. Patient is alert, oriented x 3, equal unlabored respirations, skin warm/dry/pink. Vital Signs: 14:02 BP 132 / 69; Pulse 98; Resp 18; Temp 97.1; Pulse Ox 96% ; Weight 95.25 kg; Height 5 ft. ll1 6 in. ; Pain 9/10; 15:20 BP 130 / 74; Pulse 90; Resp 16; Pulse Ox 95% on R/A; jb4 16:22 BP 126 / 70; Pulse 94; Resp 16; Pulse Ox 97% on R/A; jb4 17:30 BP 132 / 72; Pulse 99; Resp 16; Pulse Ox 97% on R/A; jb4 19:00 BP 121 / 73; Pulse 100; Resp 20; Pulse Ox 95% on R/A; jb4 20:10 BP 126 / 69; Pulse 97; Resp 20; Temp 99.2(O); Pulse Ox 96% on 2 lpm NC; jb4 21:17 BP 132 / 80; Pulse 100; Resp 16; Pulse Ox 100% on 2 lpm NC; jb4 22:27 BP 123 / 84; Pulse 104; Resp 16; Pulse Ox 100% on 2 lpm NC; jb4 14:02 Body Mass Index 33.89 (95.25 kg, 167.64 cm) ll1 14:02 Pain Scale: Adult ll1 ED Course: 13:54 Patient arrived in ED. im 13:56 Rhiannon Porter PA-C is PHCP. sb4 13:56 Eliceo Jaimes MD is Attending Physician. sb4 14:01 Triage completed. ll1 14:01 Arm band placed on. ll1 14:46 Initial lab(s) drawn, by me, sent to lab. Inserted saline lock: 22 gauge in left iw antecubital area, using aseptic technique. Blood collected. Flushed with 10 mL NS. 15:18 Patient placed in an exam room, on a stretcher. ll1 15:21 Davonte Dennis, RITA is Primary Nurse. jb4 15:22 Patient has correct armband on for positive identification. Bed in low position. Call jb4 light in reach. Side rails up X 1. Provided Education on: plan of care. 15:22 No provider procedures requiring assistance completed. jb4 16:07 CT Abd/Pelvis - PO and IV Contrast In Process Unspecified. EDMS 16:51 Jonatan Venegas MD is Hospitalizing Provider. sb4 17:30 First set of blood cultures drawn by me. bc6 17:45 Second set of blood cultures drawn by me. bc6 17:55 Inserted saline lock: 20 gauge in right antecubital area, using aseptic technique. bc6 Blood collected. Flushed with 10 mL NS. 20:04 Attending Physician role handed off by Eliceo Jaimes MD sp4 20:04 Delbert Clifton MD is Attending Physician. sp4 22:27 Patient transferred, IV remains in place. jb4 Administered Medications: 15:21 Drug: NS 0.9% IV 1000 ml IV at 1 bolus Per protocol; to be given as a bolus over 60 jb4 minutes Route: IV; Rate: 1 bolus; Site: left antecubital; 16:21 Follow up: Response: No adverse reaction; IV Status: Completed infusion; IV Intake: jb4 1000ml 17:54 Drug: Piperacillin-Tazobactam IVPB 3.375 grams IVPB once over 60 mins; (mix in NS 100 jb4 mL) Route: IVPB; Infused Over: 60 mins; Site: right antecubital; 18:54 Follow up: Response: No adverse reaction; IV Status: Completed infusion; IV Intake: jb4 100ml 17:54 Drug: morphine IVP or IV 4 mg IVP once over 4 mins Route: IVP; Infused Over: 4 mins; jb4 Site: left antecubital; 18:30 Follow up: Response: No adverse reaction; Marked relief of symptoms; Pain is decreased jb4 17:54 Drug: Ondansetron IVP 4 mg IVP once; over 2 minutes Route: IVP; Site: left antecubital; jb4 18:30 Follow up: Response: No adverse reaction; Marked relief of symptoms jb4 19:33 Drug: morphine IVP or IV 4 mg IVP once over 4 mins Route: IVP; Infused Over: 4 mins; jb4 Site: right antecubital; 20:09 Follow up: Response: No adverse reaction; Marked relief of symptoms; Pain is decreased jb4 20:09 Drug: NS 0.9% IV 1000 ml IV at 1 bolus Per protocol; to be given as a bolus over 60 jb4 minutes Route: IV; Rate: 1 bolus; Site: right antecubital; 21:09 Follow up: Response: No adverse reaction; IV Status: Completed infusion; IV Intake: jb4 1000ml 22:28 Drug: HYDROmorphone IVP 1 mg IVP once Route: IVP; Site: right antecubital; jb4 22:28 Follow up: Response: Medication Administered at Departure jb4 Medication: 15:22 VIS not applicable for this client. jb4 Intake: 16:21 IV: 1000ml; Total: 1000ml. jb4 18:54 IV: 100ml; Total: 1100ml. jb4 21:09 IV: 1000ml; Total: 2100ml. jb4 Outcome: 16:52 Decision to Hospitalize by Provider. sb4 19:47 ER care complete, transfer ordered by MD. sb4 22:27 Transferred by ground EMS to other acute care facility: [facility]. jb4 22:27 Condition: stable 22:27 Discharge instructions given to patient, Instructed on the need for transfer, Demonstrated understanding of instructions, 22:29 Patient left the ED. jb4 Signatures: Dispatcher [employer] EDMS Cecilia Pate RN RN iw Bryson, James, RN RN jb4 Abhishek Blackburn RN RN ll1 Rhiannon Porter PA-C PAJessica Sandoval Sergey, MD MD spColeen Grubbs Corrections: (The following items were deleted from the chart) 14:04 14:01 Chief complaint: Patient states: Constipation and nausea for days ll1 ll1 16:22 13:15 BP 130 / 74; Pulse 90bpm; Resp 16bpm; Pulse Ox 95% RA; jb4 jb4 20:26 15:21 Reassessment: Patient appears in no apparent distress at this time. Patient jb4 and/or family updated on plan of care and expected duration. Pain level reassessed. Patient is alert, oriented x 3, equal unlabored respirations, skin warm/dry/pink. jb4
--- NOTE | 2024-10-05 16:52 | EDPHYS ---
Physician Documentation [facility] Name: Ashley Reyes Age: 78 yrs Sex: Female : 1945 Arrival Date: 10/05/2024 Time: 13:49 Bed 10 Private MD: ED Physician Delbert Clifton HPI: 10/05 14:03 This 78 yrs old Female presents to ER via Wheelchair with complaints of Constipation. sb4 14:03 no BM x 1 week. c/o generalized abd pain and nausea, no vomiting, still passing gas. sb4 states she has been having issues with urinary retention as well, recently had fernandez catheter placed. denies any h/o bowel obstructions. has been taking lactulose for about 1 week without any improvement. Historical: - Allergies: 14:01 Albuterol; ll1 14:01 Azithromycin; ll1 14:01 Cipro; ll1 14:01 NSAIDS; No true allergy; ll1 - PMHx: 14:01 Asthma; Atrial Fib; Hypertensive disorder; Hypothyroidism; Irritable bowel syndrome; ll1 - PSHx: 14:01 Cholecystectomy; hernia repair; Knee replacement-bilateral; laminectomy; ll1 - Immunization history:: Adult Immunizations up to date. - Social history:: Smoking status: Patient denies any tobacco usage or history of. ROS: 14:03 Constitutional: Negative for fever, chills, and weight loss, sb4 14:03 Abdomen/GI: Positive for abdominal pain, nausea, constipation, 14:03 All other systems are negative, Exam: 14:03 Constitutional: This is a well developed, well nourished patient who is awake, alert, sb4 and in no acute distress. Head/Face: Normocephalic, atraumatic. Eyes: Extra-ocular motions intact. Periorbital areas with no swelling, redness, or edema. ENT: Mucous membranes moist. Cardiovascular: Regular rate and rhythm with a normal S1 and S2. Respiratory: No increased work of breathing, no retractions or nasal flaring. Skin: Warm, dry with normal turgor. Normal color with no rashes, no lesions, and no evidence of cellulitis. 14:03 Abdomen/GI: Inspection: abdomen appears normal, Bowel sounds: diminished, in all quadrants, Palpation: abdomen is soft and non-tender, Vital Signs: 14:02 BP 132 / 69; Pulse 98; Resp 18; Temp 97.1; Pulse Ox 96% ; Weight 95.25 kg; Height 5 ft. ll1 6 in. ; Pain 9/10; 15:20 BP 130 / 74; Pulse 90; Resp 16; Pulse Ox 95% on R/A; jb4 16:22 BP 126 / 70; Pulse 94; Resp 16; Pulse Ox 97% on R/A; jb4 17:30 BP 132 / 72; Pulse 99; Resp 16; Pulse Ox 97% on R/A; jb4 19:00 BP 121 / 73; Pulse 100; Resp 20; Pulse Ox 95% on R/A; jb4 20:10 BP 126 / 69; Pulse 97; Resp 20; Temp 99.2(O); Pulse Ox 96% on 2 lpm NC; jb4 21:17 BP 132 / 80; Pulse 100; Resp 16; Pulse Ox 100% on 2 lpm NC; jb4 22:27 BP 123 / 84; Pulse 104; Resp 16; Pulse Ox 100% on 2 lpm NC; jb4 14:02 Body Mass Index 33.89 (95.25 kg, 167.64 cm) ll1 14:02 Pain Scale: Adult ll1 MDM: 13:57 Medical Screening Exam initiated sb4 14:11 Differential diagnosis: constipation, SBO, abdominal mass, fecal impaction. sb4 16:11 Independent interpretation of the following test(s) in the Emergency Department CT sb4 Scan: My interpretation is my interpretation of the CT abd/pelv images is dilated loops with fluid levels suggestive of SBO. 16:51 Data reviewed: vital signs, nurses notes, lab test result(s), radiologic studies, I sb4 have discussed the patient's presentation/case with the attending Emergency Department Physician; and as a result, I will admit patient. Consideration of Admission/Observation Patient was admitted/placed on observation. Management of patient was discussed with the following: [employer] Repairer: Dr. Marks, agrees to consult. Primary Care Provider: Dr. Venegas. Counseling: I had a detailed discussion with the patient and/or guardian regarding the historical points, exam findings, and any diagnostic results supporting the discharge/admit diagnosis, lab results, radiology results, the need for further work-up and treatment in the hospital. 22:33 ED course: Initially, Dr. Venegas was okay to admit Ms. Smallwood here. However, she had a sb4 blood pressure reading of 109/[address] Venegas was uncomfortable with her being admitted to the floor and wanted her placed in the ICU. We did not have an ICU bed available so Dr. Venegas instructed me to transfer the patient as he would not accept her. Dr. Venegas got in contact with Dr. Elkins, given this is a pelvic abscess, who has seen this patient before. Dr. Elkins contacted [facility] in the medical center- hospitalist and colorectal surgeon- directly, who graciously accepted the patient. 10/05 14:03 Order name: CBC with Diff; Complete Time: 15:06 sb4 10/05 14:03 Order name: CMP; Complete Time: 15:18 sb4 10/05 14:03 Order name: Lipase; Complete Time: 15:18 sb4 10/05 16:26 Order name: Lactate w/ 2H reflex if indic.; Complete Time: 18:15 sb4 10/05 16:26 Order name: Blood Culture Adult (2) sb4 10/05 16:26 Order name: PT-INR; Complete Time: 18:09 sb4 10/05 16:26 Order name: Ptt, Activated; Complete Time: 18:09 sb4 10/05 14:03 Order name: CT Abd/Pelvis - PO and IV Contrast; Complete Time: 16:22 sb4 10/05 14:03 Order name: IV Saline Lock; Complete Time: 14:50 sb4 10/05 14:03 Order name: Labs collected and sent; Complete Time: 14:50 sb4 10/05 16:37 Order name: NPO; Complete Time: 16:41 sb4 Administered Medications: 15:21 Drug: NS 0.9% IV 1000 ml IV at 1 bolus Per protocol; to be given as a bolus over 60 jb4 minutes Route: IV; Rate: 1 bolus; Site: left antecubital; 16:21 Follow up: Response: No adverse reaction; IV Status: Completed infusion; IV Intake: jb4 1000ml 17:54 Drug: Piperacillin-Tazobactam IVPB 3.375 grams IVPB once over 60 mins; (mix in NS 100 jb4 mL) Route: IVPB; Infused Over: 60 mins; Site: right antecubital; 18:54 Follow up: Response: No adverse reaction; IV Status: Completed infusion; IV Intake: jb4 100ml 17:54 Drug: morphine IVP or IV 4 mg IVP once over 4 mins Route: IVP; Infused Over: 4 mins; jb4 Site: left antecubital; 18:30 Follow up: Response: No adverse reaction; Marked relief of symptoms; Pain is decreased jb4 17:54 Drug: Ondansetron IVP 4 mg IVP once; over 2 minutes Route: IVP; Site: left antecubital; jb4 18:30 Follow up: Response: No adverse reaction; Marked relief of symptoms jb4 19:33 Drug: morphine IVP or IV 4 mg IVP once over 4 mins Route: IVP; Infused Over: 4 mins; jb4 Site: right antecubital; 20:09 Follow up: Response: No adverse reaction; Marked relief of symptoms; Pain is decreased jb4 20:09 Drug: NS 0.9% IV 1000 ml IV at 1 bolus Per protocol; to be given as a bolus over 60 jb4 minutes Route: IV; Rate: 1 bolus; Site: right antecubital; 21:09 Follow up: Response: No adverse reaction; IV Status: Completed infusion; IV Intake: jb4 1000ml 22:28 Drug: HYDROmorphone IVP 1 mg IVP once Route: IVP; Site: right antecubital; jb4 22:28 Follow up: Response: Medication Administered at Departure jb4 Disposition: 10/06 11:03 Co-signature as Attending Physician, Eliceo Jaimes MD I reviewed the patient's care rn provided by the Advanced Practice Provider and agree with the diagnosis and treatment plan. Disposition Summary: 10/05/24 19:47 Transfer Ordered Notes: Transfer Location: [facility] sb4 Reason: Higher level of care sb4 Condition: Fair(10/05/24 19:47) sb4 Problem: new(10/05/24 19:47) sb4 Symptoms: are unchanged(10/05/24 19:47) sb4 Accepting Physician: gen surg(10/05/24 22:29) jb4 Diagnosis - Diverticulitis of large intestine with perforation and abscess without sb4 bleeding(10/05/24 19:47) - Pelvic abscess - 8x7cm sb4 Forms: - Medication Reconciliation Form sb4 - SBAR form sb4 Signatures: Dispatcher [employer] EDMS Eliceo Jaimes MD MD rn Bryson, James RN RN jb4 Abhishek Blackburn RN RN ll1 Rhiannon Porter PA-C PA-C sb4 Bethany Weinberg rv1 Corrections: (The following items were deleted from the chart) 10/05 14:06 14:03 no BM x 1 week. c/o generalized abd pain and nausea, no vomiting, still passing sb4 gas. states she has been having issues with urinary retention as well, recently had fernandez catheter placed. denies any h/o bowel obstructions. sb4 14:12 14:11 Differential diagnosis: constipation, SBO, abdominal mass sb4 sb4 19:22 16:52 sb4 rv1 19:46 16:52 Inpatient Admission sb4 sb4 19:46 16:52 Venegas, A sb4 sb4 19:46 16:52 Telemetry/MedSurg (Inpatient) sb4 sb4 19:46 16:52 Fair sb4 sb4 19:46 16:52 new sb4 sb4 19:46 16:52 are unchanged sb4 sb4 19:46 16:52 Standard sb4 sb4 19:46 16:52 Diverticulitis of large intestine with perforation and abscess without bleeding sb4 sb4 19:46 19:22 220 rv1 sb4 20:11 19:47 gen surg sb4 sb4 22:29 20:11 gen surg sb4 jb4
[2024-10-05] MEDS ORDERED: ONDANSETRON 4 MG/2 ML VIAL ONE (17:39)
[2024-10-05] MEDS ORDERED: MORPHINE 4 MG/ML SYR ONE ×2 (17:39→19:30)
[2024-10-05] MEDS ORDERED: PIPERACIL/TAZO 3.375 GM VIAL IV ONE (17:40)
[2024-10-05] MEDS ORDERED: NA CHLORIDE 0.9% 100 ML ONE (17:40)
[2024-10-05 18:09] LABS: PT Prothrombin Time 20.1 SECONDS (9.4-12.5); PTT, Activated Partial Thromb 34.8 SECONDS (24.3-36.9); Protime INR 1.93
--- NOTE | 2024-10-05 21:24 | HP ---
Date of Admission: 10/05/2024 Chief Complaint: Abdominal pain and trouble urinating. History Of Present Illness: Ms. Reyes is a pleasant 78-year-old female patient, who came into [facility] with abdominal pain and trouble urinating and after she was evaluated in emergency room, she was noted to have elevated WBC count and CAT scan of the abdomen and pelvis showed moderate to se daniel sigmoid diverticulitis with pelvic abscess. With that, I was contacted requesting admission to our hospital with general surgery consultation from Dr. Marks. I did talk to Dr. Marks and he fe els comfortable managing this patient here if she needs surgical intervention, but our interventional radiologist has reported that location of the abscess makes it difficult for percutaneous drainage i n their opinion. When I saw the patient, she was not quite clear about all the details and I just sa w her in emergency room prior to this dictation and she was in emergency room. I had difficult time getting information from her, but as best as I could understand, beginning of August sometime around August 22 or so, the patient says that she started to have trouble urinating and burning sensation o n urination and [facility] and was diagnosed as having urinary tract infection an d she was given antibiotics for that, which she took it and said her symptoms got better, but since t hat time, she has been having intermittent abdominal pain and trouble urinating. She has a vaginal p essary which she gets changed regularly and she saw Dr. Elkins as per my discussion with Dr. Amy larson today. She saw her 3 times this week for pessary change. About a week ago, she came to emergen cy room with trouble urinating and at that time as I have reviewed emergency room visit record today, ER physician sent her home with Mccarty catheter and as per my discussion with the patient's daughter, she informed me that the patient took the Mccarty catheter out on her own at home yesterday and today when she went to Dr. Elkins's office, she was noted to have about 700 cc of urine in her bladder an d Mccarty catheter was placed at her office and she was sent to emergency room. The patient also miguel d my office today and informed staff that she was having trouble urinating. She was not able to urin ate and was having abdominal pain, so we recommended her to come to emergency room. So all the detai ls that I have obtained today is as per my discussion with emergency room provider, communication wit h the patient's daughter, and communication with Dr. Elkins. Today is obviously the first day that I found out about all these problems that the patient is having as of beginning of August as she torres s not seen me during this entire time for my opinion or my recommendation. As I was finishing interv iew and examination with the patient while I was in room with her, she actually dropped her blood pre ssure, it was around 86 systolic blood pressure and oxygen saturation dropped around 88% to 89%, whic h subsequently came up to 91%. Her systolic blood pressure came up to 109 before I left emergency ro om. She has received 1 L of IV fluid so far and second liter of IV fluid wide open was ordered. She already has received 1 dose of Zosyn in emergency room. The patient says that she has not had much to eat or drink in last 1 month and she feels very weak. The patient's daughter also has confirmed t hat. The patient denies any fever or chills. Allergies: TO AZITHROMYCIN CAUSING RASH, CIPRO CAUSING RASH, AND ALBUTEROL CAUSES SHORTNESS OF BREAT H. Review of Systems: Constitutional: As mentioned above. GI: As mentioned above. Genitourinary: As mentioned above. All other systems reviewed and negative. Medications: List reviewed. Past Medical History: Allergic rhinitis, hypothyroidism, impaired fasting glucose, asthma, obstructi ve sleep apnea, hypertension, mixed hyperlipidemia, paroxysmal atrial fibrillation, gastroesophageal reflux disease, constipation, diverticulosis, ventral abdominal wall hernia, overactive bladder. Past Surgical History: Cataract surgery, sinus surgery, ethmoidectomy, tonsillectomy, adenoidectomy, left breast lumpectomy for benign tumor, abdominal wall hernia repair on November 26, 2020, fundoplicat ion, cholecystectomy, carpal tunnel release, bilateral knee surgery, fracture of left radius and ulna and surgery for that, has hardware in left wrist and this was done in August 2023. Family History: Father had heart disease and hypertension. Mother had diabetes, heart disease, hype rtension. Sister, heart disease. Social History: Prior history of smoking, not at present time. Use of alcohol, occasional. Physical Examination: Vital Signs: Height 5 feet inches, weight pounds, temperature , puls e , respiratory rate , blood pressure , oxygen saturation . General: Awake, alert, oriented, not in distress. HEENT: Head atraumatic, normocephalic. Conjunctivae nonerythematous. Sclerae white. Mouth, no thr ush or edema noted. Ears/Nose, no mass, lesion, discharge noted. Neck: Supple. No JVD, lymph nodes, bruit, thyromegaly noted. Lungs: Bilateral good equal air entry. Clear to auscultation. No rhonchi. No rales. Heart: Normal heart sounds, no murmur or gallop. Abdomen: Abdomen appears slightly distended with presence of mild tenderness all over abdomen. Juan Diego l sounds present. No guarding. No rigidity. No rebound tenderness. Extremities: No leg edema. No calf tenderness. Skin: No rash, ulcer, cellulitis. Lymphatics: No lymph node enlargement in neck, supraclavicular, infraclavicular region. Neuro: No focal neurological deficit. Chest: Unremarkable. External Genitalia: Deferred. Rectal: Deferred. Laboratory Data: WBC 17.5, hemoglobin 10.9, platelets 597. Sodium 129, potassium 3.6, chloride 94, bicarb 30, glucose 116, BUN 8, creatinine 0.62, AST 52, ALT 67, alkaline phosphatase 112, albumin 2.4 , lipase 24. CAT scan of abdomen and pelvis shows moderate to severe sigmoid diverticulitis and pelv ic abscess 8 x 7 cm size located between uterus and rectum. Impression: 1. Acute sigmoid diverticulitis with perforation. 2. Pelvic abscess. 3. Volume depletion. 4. Acute kidney injury. 5. Paroxysmal atrial fibrillation. 6. Hypertension. 7. Mixed hyperlipidemia. 8. Impaired fasting glucose. 9. Asthma. 10. Chronic anticoagulation therapy, on Xarelto. 11. Gastroesophageal reflux disease. 12. Hypothyroidism. Plan: After I was contacted from emergency room, plan was to admit her to our hospital and I did com municate with general surgeon, Dr. Marks, and he was requested for consultation. IV fluid and IV a ntibiotics were started and as I explained to the patient all the details and plan of treatment inclu ding possibility of surgery for drainage of the pelvic abscess that will require probably temporary c olostomy with plan to reverse colostomy at a later date and as I was finishing my interview and exami nation and visit with the patient, I saw that her systolic blood pressure dropped down to like 87 mmH g and oxygen saturation dropped down around 88% to 89% on room air. Another liter of IV fluid wide o pen was ordered and I had ordered PICC line or central line placement for better IV access and we isa l continue Zosyn. Oxygen was ordered 2 L/minute nasal cannula and my recommendation is to go ahead a nd initiate the transfer process to [place] for higher level of care, where we have colorectal surgeo n available as well as interventional radiologist to see if there is any way they can drain this absc ess percutaneously along with continuation of IV antibiotics. I have communicated with the patient's daughter, the patient, as well as Dr. Elkins regarding all these details and Dr. Elkins has init iated communication with specialist in [place] to see if she can assist us with transfer process and we will wait for her to communicate with me regarding this after her communication with specialist an transfer center. Emergency room provider will communicate with me regarding updates. For her letha roesophageal reflux disease, we will give her IV proton pump inhibitor therapy. For hyperlipidemia, no need for further intervention at this time. For hypertension, no need for further intervention or antihypertensive medication at this time, but at appropriate time, it will need to be restarted. DV T prophylaxis should be given using Lovenox. The patient is on Xarelto at home. Obviously, we will not give any such anticoagulation therapy right now. Overall, prognosis is guarded. Total time spent was 90 minutes that includes communication with emergency room provider today on mul tiple occasions throughout the day, communication with Dr. Elkins, communication with the patient's daughter, and performing today's evaluation and management, and review of last office visit record. LIZETT/MODL Voice ID: [id number]
[2024-10-05] MEDS ORDERED: HYDROMORPHONE HCL 1 MG/ML INJ ONE (22:13)
[2024-10-07 11:11] VITALS: TEMP 99.2
[2024-10-07 11:12] VITALS: O2SAT 100
[2024-10-07 11:14] VITALS: BP 123/84
== END 2024-10-05 22:29 | disposition short-term general hospital (02) ==
LOC: ER 13:49 → UNDOADMIN 18:26 → 2ND 18:26 → ERHOLD 20:48 → ER 22:29
DX: K57.20 Diverticulitis of large intestine with perforation and abscess without bleeding (principal); N73.9 Female pelvic inflammatory disease, unspecified; E86.9 Volume depletion, unspecified; N17.9 Acute kidney failure, unspecified; I48.0 Paroxysmal atrial fibrillation; I10 Essential (primary) hypertension; E78.2 Mixed hyperlipidemia; R73.01 Impaired fasting glucose; J45.909 Unspecified asthma, uncomplicated; K21.9 Gastro-esophageal reflux disease without esophagitis; E03.9 Hypothyroidism, unspecified; Z79.01 Long term (current) use of anticoagulants; Z83.3 Family history of diabetes mellitus; Z82.49 Family history of ischemic heart disease and other diseases of the circulatory system; Z96.653 Presence of artificial knee joint, bilateral
CPT/HCPCS: 87040 ×2; 85025; 36415; 85610; 83605; 85730; 83690; 80053; 74177; 99285; Q9967; J2543; J1171; J2405; J7030 ×2